=== PATIENT | female | born 1955 | race Caucasian/White ===

== ENCOUNTER 2016-09-28 09:17 | Day surgery (SDC) | payer MEDICARE ==
--- NOTE | 2016-09-28 08:08 | HP ---
DATE OF SURGERY: 09/28/2016 HISTORY OF PRESENT ILLNESS: The patient is a 61 year-old with no prior colonoscopy. Family history daughter with ulcerative colitis, occasional dark stools bowel movements twice a month, upper abdominal discomfort mid abdomen right upper quadrant, some constipation quite often. PAST MEDICAL HISTORY: Chronic obstructive pulmonary disease, hypertension, hypercholesterolemia. PAST SURGICAL HISTORY: Cholecystectomy. MEDICATIONS: Albuterol, Atorvastatin, budesonide. She takes some aspirin, MiraLAX, Spiriva HandiHaler, lisinopril. ALLERGIES: NKDA. FAMILY HISTORY: Cancer, hypertension, SOCIAL HISTORY: Half pack per day smoker. Denies alcohol abuse. REVIEW OF SYSTEMS: Twelve systems reviewed. History of stroke January 2014. No residual weakness. No chest pain or palpitations, other systems negative or noncontributory as above and per preadmission questionnaire. PHYSICAL EXAMINATION: GENERAL: No acute distress. HEENT: Sclerae nonicteric. NECK: No JVD. CHEST: Equal excursion, nonlabored breathing. CVS: Regular rate and rhythm. ABDOMEN: Soft. No peritoneal signs. Mild tenderness epigastrium right upper quadrant. EXTREMITIES: No significant edema. NEURO: Alert, moving extremities symmetrically. No gross motor deficits noted. IMPRESSION: No prior colonoscopy in need of screening colonoscopy as well as given her upper abdominal discomfort, occasional dark stools, I feel she will also benefit from upper endoscopy for evaluation. Risks and benefits explained, shown the risk sheet and explained the procedure in detail including but not limited to bleeding or infection, small risk of bowel injury or perforation possibly requiring open procedure, small risk of missed or nondiagnosis or incomplete exam possibly requiring barium enema, other studies or procedures, general risk of anesthesia or sedation, risk of bowel prep but not limited to. She understands and agrees to the planned procedure and will proceed with EGD and colonoscopy as an outpatient.
[~2016-09-28 09:17] MED LIST: DIPRIVAN 200 MG/20 ML IV ONE; Ketamine HCl 50 MG/ML IV ONE; Lactated Ringers 1,000 ML IV ONE; Lactated Ringers 1,000 ML IV SCH
[2016-09-28] MEDS ORDERED: Zofran 4 MG/2 ML VIAL ONE (13:15)
[2016-09-28 14:40] VITALS: O2SAT 95
[2016-09-28 14:42] VITALS: BP 138/84; PULSE 83
--- NOTE | 2016-09-29 08:32 | OP ---
SURGERY DATE/TIME: 09/28/2016 1232 PREOPERATIVE DIAGNOSES: 1) No prior colonoscopy, need for screening colonoscopy. 2) History of some abdominal pain, occasional dark stools. 3) Family history of ulcerative colitis, need for upper endoscopy as well as screening colonoscopy. POSTOPERATIVE DIAGNOSES: 1) Mild erosive gastritis. 2) Poor right colon prep limiting the exam. 3) Small polyps ascending colon, transverse colon. 4) Small raised lesion sigmoid colon and rectum. 5) Diverticulosis. 6) Small internal and external hemorrhoids. PROCEDURES: 1) EGD with cold biopsy to the antrum to evaluate for Helicobacter pylori. 2) Colonoscopy to cecum with hot snare polypectomy, ascending colon polyp, transverse colon polyp. 3) Hot biopsy small raised lesion sigmoid colon x2. 4) Small raised rectal lesion versus hyperplastic lesion x2. SURGEON: Dr. Ramon Dyer. ANESTHESIA: MAC. ESTIMATED BLOOD LOSS: Minimal. INDICATIONS: As noted above. Risks and benefits explained in detail and not limited to and consent obtained. DESCRIPTION OF PROCEDURE AND FINDINGS: The patient is taken to the operating room. After official time out and no disagreement with planned procedure, bite block positioned. MAC anesthesia introduced. Video gastroscope easily passed down the esophagus through the patent pylorus to the junction of the second and third portion of the duodenum. Duodenum, duodenal bulb grossly unremarkable. No signs of any ulcers or inflammation. The scope pulled back in the stomach. There was some mild gastritis in the antrum with a couple linear erosions in the mid gastric body consistent with some mild erosive gastritis. There were no signs of any large ulcers. No signs of any obvious polyps, masses or other mucosal lesions. There was maybe slight weakness of the hiatus but no evidence of any large hiatal hernia at this time. The scope was straightened. The gastroesophageal junction noted to be about 40 cm. Z-line was fairly crisp with no signs of any obvious mucosal lesions. She did have a few tertiary contractions in the esophagus but no evidence of any mucosal lesions. No evidence of Ndiaye's or any evidence of any erosive esophagitis. The scope is withdrawn. The patient tolerated this portion of the procedure well. Attention was then turned to colonoscopy. She had some small internal and external hemorrhoids. Digital rectal exam did not reveal any rectal masses. Video colonoscope inserted and passed up the tortuous sigmoid, descending and transverse colon. With external pressure and palpation the scope was able to be passed slowly and carefully around to the cecum. Prep in the right colon was somewhat poor limiting the exam but was suction irrigated as well as possible but did limit the exam. On withdrawal of the scope small polyp in the ascending colon removed with hot snare polypectomy with brief bursts of cautery. Good hemostasis noted. Another small polyp in the transverse colon was removed with hot snare polypectomy elevating well away from the bowel wall with brief bursts of cautery. Good hemostasis was noted. There were a few three or four small raised lesions in the sigmoid as well as a couple small raised lesions in the rectum whether just simple hyperplastic lesions versus early true polyps versus hyperplasia of the mucosa they were removed with hot biopsy forceps with brief bursts of cautery. Good hemostasis noted. Otherwise the patient had some diverticulosis in the left colon. There were some small internal and external hemorrhoids. There were no signs of any large polyps, masses or obstructing lesions. Again the prep did limit the exam. I will see her back in the office in a couple of weeks to go over the path results.
== END 2016-09-28 14:40 | disposition home or self-care (01) ==
LOC: SDC 09:17
PROVIDERS: ATTEND Surgery
PROC: 0DB78ZX Excision of Stomach, Pylorus, Via Natural or Artificial Opening Endoscopic, Diagnostic (ICD-10-PCS; principal; 2016-09-28)
PROC: 0DBK8ZX Excision of Ascending Colon, Via Natural or Artificial Opening Endoscopic, Diagnostic (ICD-10-PCS; 2016-09-28)
PROC: 0DBL8ZX Excision of Transverse Colon, Via Natural or Artificial Opening Endoscopic, Diagnostic (ICD-10-PCS; 2016-09-28)
PROC: 0DBN8ZX Excision of Sigmoid Colon, Via Natural or Artificial Opening Endoscopic, Diagnostic (ICD-10-PCS; 2016-09-28)
DX: K29.00 Acute gastritis without bleeding (principal); D12.2 Benign neoplasm of ascending colon; D12.4 Benign neoplasm of descending colon; K63.9 Disease of intestine, unspecified; K62.9 Disease of anus and rectum, unspecified; K57.90 Diverticulosis of intestine, part unspecified, without perforation or abscess without bleeding; K64.4 Residual hemorrhoidal skin tags; K64.8 Other hemorrhoids; J44.9 Chronic obstructive pulmonary disease, unspecified; I10 Essential (primary) hypertension; E78.00 Pure hypercholesterolemia, unspecified; Z79.899 Other long term (current) drug therapy
CPT/HCPCS: 00740; 00810; 36415; 87081; 88305; J2405; J2704

== ENCOUNTER 2016-12-19 15:16 | Emergency (ER) | payer MEDICARE ==
--- NOTE | 2016-12-19 15:54 | ERPHSYRPT ---
- History of Present Illness Time Seen by Provider: 12/19/16 15:51 Source: patient Exam Limitations: no limitations Patient Subjective Stated Complaint: PT REPORTS BUMPING LEFT WRIST ON [place] WEDNESDAY EVENING-STATES THAT WRIST STILL HURTS ET CAN NOT MOVE IT DUE TO PAIN Triage Nursing Assessment: NO OBVIOUS DEFORMITY NOTED TO WRIST-PT REPORTS FULL SENSATION TO EXTEMITY-PT SOB UPON ARRIVAL PT STATES THAT IS NORMAL FOR HER Physician History: c/o pain left hand after door knob injury, Occurred: days ago Method of Injury: direct blow Quality: constant Severity of Pain-Max: moderate Severity of Pain-Current: moderate Extremities Pain Location: forearm: left, wrist: left, hand: left Modifying Factors: Improves With: nothing Associated Symptoms: none Allergies/Adverse Reactions: No Known Drug Allergies Allergy (Unverified 09/28/16 09:31) Home Medications: Atorvastatin Calcium [Lipitor] 40 mg PO DAILY 11/22/14 [History] Hydrochlorothiazide 25 mg [hydroDIURIL 25 MG] 25 mg PO UD 11/22/14 [ History] Ipratropium/Albuterol Sulfate [Iprat-Albut 0.5-3(2.5) mg/3 ml] 3 ml NEB UD 11/22 [History] Tiotropium [place] [Spiriva] 18 mcg IH UD 11/22/14 [History] Albuterol 8 gm Mdi Hfa [Ventolin Hfa MDI] 2 puff IH Q6H PRN PRN 09/14/16 [ History] Aspirin 81 gm Chew [Baby Aspirin 81 mg Chew] 81 mg PO DAILY 09/14/16 [ History] Budesonide/Formoterol Fumarate [Symbicort 160-4.5 Mcg Inhaler] 2 puff IH BID 12/22 [History] Famotidine 20 mg [Pepcid 20 MG] 20 mg PO BID 09/14/16 [History] Polyethylene Glycol 3350 0.5 - 1 scoop PO DAILY 09/14/16 [History] Lisinopril 20 mg [Zestril 20 MG] 20 mg PO DAILY 09/28/16 [History] Hx Tetanus, Diphtheria Vaccination/Date Given: No Hx Influenza Vaccination/Date Given: Yes Hx Pneumococcal Vaccination/Date Given: No Immunizations Up to Date: Yes - Review of Systems Constitutional: No Symptoms Eyes: No Symptoms Ears, Nose, & Throat: No Symptoms Respiratory: No Symptoms Cardiac: No Symptoms Musculoskeletal: Joint Pain, Joint Swelling, No Deformity Skin: No Symptoms - Past Medical History Pertinent Past Medical History: Yes Neurological History: Stroke ENT History: No Pertinent History Cardiac History: High Cholesterol, Hypertension Respiratory History: COPD Endocrine Medical History: No Pertinent History Musculoskeletal History: Arthritis GI Medical History: GERD History: No Pertinent History Psycho-Social History: Depression Female Reproductive Disorders: No Pertinent History Other Medical History: stroke 2013 - mild deficits - Past Surgical History Past Surgical History: Yes Neuro Surgical History: No Pertinent History Cardiac: No Pertinent History Respiratory: No Pertinent History Gastrointestinal: Cholecystectomy Genitourinary: No Pertinent History Musculoskeletal: No Pertinent History Female Surgical History: No Pertinent History - Social History Smoking Status: Current every day smoker How long have you smoked: 40 years Exposure to second hand smoke: No Drug Use: none Patient Lives Alone: No - Nursing Vital Signs Nursing Vital Signs: Initial Vital Signs Temperature 98.5 F 12/19/16 15:23 Pulse Rate 128 H 12/19/16 15:23 Respiratory Rate 24 12/19/16 15:23 Blood Pressure 136/55 12/19/16 15:23 O2 Sat by Pulse Oximetry 92 L 12/19/16 15:23 Pain Scale Pain Intensity 10 - Physical Exam General Appearance: no apparent distress Elbow/Forearm Exam: soft tissue tenderness, No deformity Wrist Exam: normal ROM, soft tissue tenderness Hand Exam: limited ROM, soft tissue tenderness, swelling SpO2: 92 Oxygen Delivery: Room Air Procedures - Splinting Location of Splint: Left, Hand Type of Splint: Other Splint Applied By: ED Nurse Pre-Proc Neuro Vasc Exam: normal Post-Proc Neuro Vasc Exam: neurovascular intact - Course Nursing assessment & vital signs reviewed: Yes - Radiology Exams Hand X-ray Interpretation: Reviewed by me, Negative, No Fracture Ordered Tests: Active Orders 24 hr Category Date Time Status HAND (MINIMUM 3 VIEWS) Stat Exams 12/19/16 15:49 Taken WRIST (MIN 3 VIEWS) Stat Exams 12/19/16 Taken - Progress Progress: unchanged, pain not gone completely Counseled pt/family regarding: diagnosis, need for follow-up, rad results - Departure Time of Disposition: 16:27 Departure Disposition: Home Clinical Impression: Hand injury Qualifiers: Encounter type: initial encounter Laterality: left Qualified Code(s): S69.92XA - Unspecified injury of left wrist, hand and finger(s), initial encounter Condition: Stable Critical Care Time: No Referrals: JOY NOBLE MD [Primary Care Provider] - Additional Instructions: SPRAINS/STRAINS/CONTUSIONS 1. Rest the affected area as much as possible for the next few days. 2. Apply ice to the affected area for 20-30 minutes at a time, several times a day. 3. If you receive an elastic wrap, wear it only while awake for comfort and support. Re-wrap the elastic wrap if it feels too tight or too loose. 4. If swelling is present, elevate the affected part above the level of the heart for at least 2 to 3 days. 5. Use splints, slings, or crutches as instructed. 6. Watch for severe swelling, coldness, numbness, and discoloration of the fingers and toes. See your family physician or return to the emergency department if any of these are noted. Please follow the instructions given to you. Please take your medication as prescribed if given. If symptoms recur or get worse, come back to the emergency room if you cannot reach your primary care physician, or call your primary care physician for an appointment. Again if your symptoms get worse, come back to the emergency room. Thanks for visiting emergency room, and let us take care of you. Prescriptions: Naproxen 375 mg [Naprosyn 375 mg] 375 mg PO Q8H #30 tablet
[2016-12-19 16:44] VITALS: BP 146/78; PULSE 88; O2SAT 98
--- NOTE | 2016-12-19 20:54 | XRAY ---
Indication: Pain following injury 3 days ago. Comparison: None 3 views of the left hand demonstrates moderate/advanced first metacarpal multangular degenerative changes and mild degenerative changes of all IP joints, greatest fifth DIP. No other bony, articular, or soft tissue abnormalities.
--- NOTE | 2016-12-19 20:54 | XRAY ---
Indication: Pain following injury 3 days ago. Comparison: None 3 views of the left wrist demonstrates moderate/advanced first metacarpal multangular degenerative changes and tiny scaphoid bone cyst. No other bony, articular, or soft tissue abnormalities.
== END 2016-12-19 16:48 | disposition home or self-care (01) ==
LOC: ED 15:16
DX: S69.92XA Unspecified injury of left wrist, hand and finger(s), initial encounter (principal); W22.8XXA Striking against or struck by other objects, initial encounter; E78.00 Pure hypercholesterolemia, unspecified; I10 Essential (primary) hypertension
CPT/HCPCS: 73110; 73130; 99283; L3908

== ENCOUNTER 2018-07-30 18:22 | Observation (INO) | payer MEDICARE ==
--- NOTE | 2018-07-30 19:49 | ERPHSYRPT ---
- History of Present Illness Time Seen by Provider: 07/30/18 19:45 Source: patient, family Exam Limitations: no limitations Patient Subjective Stated Complaint: Pt c/o of pain that began July 21 in her left knee joint and then it moved to the right and up to the arms, pain in her entire left arm, weak, febrile, Triage Nursing Assessment: Pt walked into the ER with a walker, weak, lethargic , skin sallow in color, has been in bed for a week except to use the restroom, needed family assistance to help her to the restroom, tachycardic, febrile, decrease in appetite Physician History: pt has COPD and recently has had productive cough with fever and increased shortness of breath no CP but has had myalgias and joint pains diffuse; no prior DVT or PE ; Timing/Duration: day(s) Cough Quality/Degree: productive cough Possible Cause: frequent episodes Modifying Factors: Improves With: coughing, deep breath Associated Symptoms: fever, chills, cough, shortness of breath, sore throat, wheezing Allergies/Adverse Reactions: No Known Drug Allergies Allergy (Verified 07/30/18 18:59) Home Medications: Atorvastatin Calcium [Lipitor] 40 mg PO DAILY 11/22/14 [History] Hydrochlorothiazide 25 mg [hydroDIURIL 25 MG] 15 mg PO UD 11/22/14 [ History] Ipratropium/Albuterol Sulfate [Iprat-Albut 0.5-3(2.5) mg/3 ml] 3 ml NEB UD 11/22 [History] Tiotropium [place] [Spiriva] 18 mcg IH UD 11/22/14 [History] Albuterol 8 gm Mdi Hfa [Ventolin Hfa MDI] 2 puff IH Q6H PRN PRN 09/14/16 [ History] Aspirin 81 gm Chew [Baby Aspirin 81 mg Chew] 81 mg PO DAILY 09/14/16 [ History] Budesonide/Formoterol Fumarate [Symbicort 160-4.5 Mcg Inhaler] 2 puff IH BID 12/22 [History] Polyethylene Glycol 3350 0.5 - 1 scoop PO DAILY 09/14/16 [History] Lisinopril 20 mg [Zestril 20 MG] 20 mg PO DAILY 09/28/16 [History] Clopidogrel Bisulfate [Clopidogrel] 75 mg PO DAILY 07/30/18 [History] Fluticasone Propionate [Flonase NASAL] 1 spray INTRANASAL UD 07/30/18 [ History] raNITIdine HCl [Ranitidine HCl] 150 mg PO BID 07/30/18 [History] Hx Tetanus, Diphtheria Vaccination/Date Given: No Hx Influenza Vaccination/Date Given: Yes Hx Pneumococcal Vaccination/Date Given: No - Review of Systems Constitutional: Fever, Chills, Fatigue, Malaise, Weakness Eyes: No Symptoms Ears, Nose, & Throat: No Symptoms Respiratory: No Cough, No Dyspnea Cardiac: No Chest Pain, No Edema, No Syncope Abdominal/Gastrointestinal: No Abdominal Pain, No Nausea, No Vomiting, No Diarrhea Genitourinary Symptoms: No Dysuria Musculoskeletal: Joint Pain, Myalgias, No Back Pain, No Neck Pain Skin: No Rash Neurological: No Dizziness, No Focal Weakness, No Sensory Changes Psychological: No Symptoms Endocrine: No Symptoms All Other Systems: Reviewed and Negative - Past Medical History Pertinent Past Medical History: Yes Neurological History: Stroke ENT History: No Pertinent History Cardiac History: High Cholesterol, Hypertension Respiratory History: COPD Endocrine Medical History: No Pertinent History Musculoskeletal History: Osteoarthritis GI Medical History: GERD History: No Pertinent History Psycho-Social History: Depression Female Reproductive Disorders: No Pertinent History Other Medical History: 01/2014 CVA, - Past Surgical History Past Surgical History: Yes Neuro Surgical History: No Pertinent History Cardiac: No Pertinent History Respiratory: No Pertinent History Gastrointestinal: Cholecystectomy Genitourinary: No Pertinent History Musculoskeletal: No Pertinent History Female Surgical History: No Pertinent History - Social History Smoking Status: Current every day smoker How long have you smoked: 40 years Exposure to second hand smoke: Yes Drug Use: none Patient Lives Alone: Yes - Female History Hx Now: No - Nursing Vital Signs Nursing Vital Signs: Initial Vital Signs Temperature 100.2 F 07/30/18 18:49 Pulse Rate 122 H 07/30/18 18:49 Blood Pressure 107/67 07/30/18 18:49 O2 Sat by Pulse Oximetry 96 07/30/18 18:49 Pain Scale Pain Intensity 9 - Physical Exam General Appearance: no apparent distress, alert Eye Exam: PERRL/EOMI, eyes nml inspection Ears, Nose, Throat Exam: normal ENT inspection, TMs normal, pharynx normal, moist mucous membranes Neck Exam: normal inspection, non-tender, supple, full range of motion Respiratory Exam: normal breath sounds, airway intact, rhonchi, wheezing, No respiratory distress Cardiovascular Exam: regular rate/rhythm, normal heart sounds Gastrointestinal/Abdomen Exam: soft, No tenderness Pelvic Exam: deferred Rectal Exam: deferred Back Exam: normal inspection, No CVA tenderness, No vertebral tenderness Extremity Exam: normal inspection, normal range of motion Neurologic Exam: alert, oriented x 3, cooperative, normal mood/affect, sensation nml, No motor deficits Skin Exam: normal color, warm, dry, No rash Lymphatic Exam: No adenopathy SpO2: 96 - Course Nursing assessment & vital signs reviewed: Yes - Radiology Exams Chest X-ray Interpretation: Reviewed by me, Infiltrates Ordered Tests: Active Orders 24 hr Category Date Time Status Letter Carrier STAT Care 07/30/18 19:51 Active EKG-ER Only STAT Care 07/30/18 19:49 Active IV Insertion STAT Care 07/30/18 19:49 Active Pulse Oximetry (ED) STAT Care 07/30/18 19:49 Active CHEST 1 VIEW (PORTABLE) Stat Exams 07/30/18 19:50 Completed CBC W DIFF Stat Lab 07/30/18 20:28 Completed CMP Stat Lab 07/30/18 20:28 Completed Lactic Acid Stat Lab 07/30/18 20:35 Completed NT PRO BNP Stat Lab 07/30/18 20:28 Completed Occult Blood-Screening (Stool) [Occult Blood - Cancer Lab 07/30/18 22:13 Ordered Screen] Stat T4 (Thyroxine) Stat Lab 07/30/18 20:28 Completed TROPONIN Q3H Lab 07/30/18 23:00 Ordered TROPONIN Q3H Lab 07/31/18 02:00 Ordered TROPONIN Q3H Lab 07/31/18 05:00 Ordered TROPONIN Q3H Lab 07/31/18 08:00 Ordered TROPONIN Stat Lab 07/30/18 20:28 Completed TSH, 3RD Generation Stat Lab 07/30/18 20:28 Completed UA W/RFX UR CULTURE Stat Lab 07/30/18 19:50 Uncollected Respiratory Therapy Assessment DAILY RT 07/30/18 20:45 Completed Medication Summary Generic Name Dose Route Start Last Admin Trade Name Freq PRN Reason Stop Dose Admin Sodium Chloride 1,000 mls @ 100 mls/hr 05/25/19 20:00 07/30/18 20:23 Sodium Chloride 0.9% 1000 Ml IV 08/29/18 19:59 100 mls/hr .Q10H DEWAYNE Administration Discontinued Medications Generic Name Dose Route Start Last Admin Trade Name Heberq PRN Reason Stop Dose Admin Albuterol/Ipratropium 3 ml 07/30/18 19:54 07/30/18 20:46 Duoneb 0.5-3 Mg/3 Ml Neb IH 07/30/18 19:55 3 ml STAT ONE Administration Albuterol/Ipratropium Confirm 07/30/18 20:39 Duoneb 0.5-3 Mg/3 Ml Neb Administered 07/30/18 20:40 Dose 3 ml IH .STK-MED ONE Ceftriaxone Sodium/Dextrose 1 g in 50 mls @ 100 mls/hr 07/30/18 19:53 20:23 Rocephin 1 Gm-D5w 50 Ml Bag IV 07/30/18 20:22 100 mls/hr STAT STA Administration Ceftriaxone Sodium/Dextrose Confirm 07/30/18 20:08 Rocephin 1 Gm-D5w 50 Ml Bag Administered 07/30/18 20:09 Dose 1 g in 50 mls @ ud IV .STK-MED ONE Methylprednisolone Sodium Succinate 125 mg 07/30/18 19:55 07/30/18 20:23 Solu-Medrol 125 Mg IV 07/30/18 19:56 125 mg STAT ONE Administration Methylprednisolone Sodium Succinate Confirm 07/30/18 20:08 Solu-Medrol 125 Mg Administered 07/30/18 20:09 Dose 125 mg .ROUTE .STK-MED ONE Lab/Rad Data: Laboratory Result Diagrams 07/30/18 20:28 07/30/18 20:28 Laboratory Results 07/30/18 07/30/18 07/30/18 Range/Units Unknown Unknown 20:35 WBC (4.0-10.5) K/mm3 RBC (4.1-5.4) M/mm3 Hgb (12.0-16.0) gm/dl Hct (35-47) % MCV (78-100) fl MCH (26-32) pg MCHC (32-36) g/dl RDW (11.5-14.0) % Plt Count (150-450) K/mm3 MPV (6-9.5) fl Gran % (36.0-66.0) % Eos # (Auto) (0-0.5) Absolute Lymphs (auto) (1.0-4.6) Absolute Monos (auto) (0.0-1.3) Lymphocytes % (24.0-44.0) % Monocytes % (0.0-12.0) % Eosinophils % (0.00-5.0) % Basophils % (0.0-0.4) % Absolute Granulocytes (1.4-6.9) Basophils # (0-0.4) Sodium (137-145) mmol/L Potassium (3.5-5.1) mmol/L Chloride (98-107) mmol/L Carbon Dioxide (22-30) mmol/L Anion Gap (5-15) MEQ/L BUN (7-17) mg/dL Creatinine (0.52-1.04) mg/dL Estimated GFR ML/MIN Glucose (74-106) mg/dL Lactic Acid 1.1 (0.4-2.0) Calcium (8.4-10.2) mg/dL Total Bilirubin (0.2-1.3) mg/dL AST (14-36) U/L ALT (0-35) U/L Alkaline Phosphatase (38-126) U/L Troponin I (0.000-0.034) ng/mL NT-Pro-B Natriuret Pep (0-900) pg/mL Serum Total Protein (6.3-8.2) g/dL Albumin (3.5-5.0) g/dL Thyroxine (T4) (5.53-10.96) ug/dL TSH 3rd Generation (0.47-4.68) mIU/L Influenza Type A Ag NEGATIVE (NEGATIVE) Influenza Type B Ag NEGATIVE (NEGATIVE) RSV (PCR) NEGATIVE (Negative) Group A Strep Antibody NEGATIVE (NEGATIVE) 07/30/18 07/30/18 Range/Units 20:28 20:28 WBC 11.8 H (4.0-10.5) K/mm3 RBC 3.20 L (4.1-5.4) M/mm3 Hgb 7.0 L (12.0-16.0) gm/dl Hct 25.0 L (35-47) % MCV 78.1 (78-100) fl MCH 21.8 L (26-32) pg MCHC 28.0 L (32-36) g/dl RDW 17.7 H (11.5-14.0) % Plt Count 727 H (150-450) K/mm3 MPV 9.3 (6-9.5) fl Gran % 75.8 H (36.0-66.0) % Eos # (Auto) 0.13 (0-0.5) Absolute Lymphs (auto) 1.50 (1.0-4.6) Absolute Monos (auto) 1.13 (0.0-1.3) Lymphocytes % 12.7 L (24.0-44.0) % Monocytes % 9.6 (0.0-12.0) % Eosinophils % 1.1 (0.00-5.0) % Basophils % 0.8 (0.0-0.4) % Absolute Granulocytes 8.93 H (1.4-6.9) Basophils # 0.09 (0-0.4) Sodium 140 (137-145) mmol/L Potassium 3.5 (3.5-5.1) mmol/L Chloride 102 (98-107) mmol/L Carbon Dioxide 26 (22-30) mmol/L Anion Gap 15.0 (5-15) MEQ/L BUN 31 H (7-17) mg/dL Creatinine 1.01 (0.52-1.04) mg/dL Estimated GFR 59.0 ML/MIN Glucose 105 (74-106) mg/dL Lactic Acid (0.4-2.0) Calcium 9.5 (8.4-10.2) mg/dL Total Bilirubin 0.50 (0.2-1.3) mg/dL AST 33 (14-36) U/L ALT 12 (0-35) U/L Alkaline Phosphatase 149 H (38-126) U/L Troponin I < 0.012 (0.000-0.034) ng/mL NT-Pro-B Natriuret Pep 595 (0-900) pg/mL Serum Total Protein 7.2 (6.3-8.2) g/dL Albumin 3.7 (3.5-5.0) g/dL Thyroxine (T4) 12.4 H (5.53-10.96) ug/dL TSH 3rd Generation 0.572 (0.47-4.68) mIU/L Influenza Type A Ag (NEGATIVE) Influenza Type B Ag (NEGATIVE) RSV (PCR) (Negative) Group A Strep Antibody (NEGATIVE) - Progress Progress: improved, re-examined Air Movement: good Progress Note: 07/30/18 22:37 discussed with pt and Dr. Watson adn both agree best to place the pt on obs and transfuse and go on AB for COPD exacerbation; Blood Culture(s) Obtained: No Antibiotics given: Yes Discussed with : Walter Will see patient in: hospital (observation) Counseled pt/family regarding: lab results, diagnosis, need for follow-up, rad results - Departure Departure Disposition: Observation Clinical Impression: COPD with exacerbation, Hemoglobin decreased Condition: Good Critical Care Time: No Referrals: CHRISTINA SCHMITT MD [Primary Care Provider] - Instructions: Chronic Obstructive Pulmonary Disease
[2018-07-30] MEDS ORDERED: ROCEPHIN 1 Gm-D5w 50 ml Bag** 1 G/50 ML IVPB IV STA (19:53)
[2018-07-30] MEDS ORDERED: DUONEB 0.5-3 MG/3 ml Neb IH ONE ×2 (19:54→20:39)
[2018-07-30] MEDS ORDERED: solu-MEDROL 125 MG IV ONE (19:55)
[2018-07-30] MEDS ORDERED: Sodium Chloride 0.9% 1000 ML 1,000 ML IV SCH (20:00)
[2018-07-30] MEDS ORDERED: solu-MEDROL 125 MG ONE (20:08)
[2018-07-30] MEDS ORDERED: ROCEPHIN 1 Gm-D5w 50 ml Bag** 1 G/50 ML IVPB IV ONE (20:08)
[2018-07-30] MEDS ORDERED: Sodium Chloride 0.9% 1000 ML 1,000 ML ONE (20:08)
[2018-07-30 20:24] LABS: BASOPHIL % 0.8 % (0.0-0.4); Basophil (Absolute #) 0.09 (0-0.4); Eosinophil % 1.1 % (0.00-5.0); Eosinophil (Absolute #) 0.13 (0-0.5); Granulocyte Absolute (ANC) 8.93 (1.4-6.9); Granulocytes % 75.8 % (36.0-66.0); Lymphocytes % 12.7 % (24.0-44.0); Mean Cell Volume 78.1 fl (78-100); Mean Platelet Volume 9.3 fl (6-9.5); Monocyte (Absolute #) 1.13 (0.0-1.3); Monocytes % 9.6 % (0.0-12.0); Platelet Count 727 K/mm3 (150-450); Red Cell Distribution Width 17.7 % (11.5-14.0); White Blood Count 11.8 K/mm3 (4.0-10.5)
[2018-07-30 20:40] LABS: Mean Corpuscular Hemoglobin 21.8 pg (26-32)
--- NOTE | 2018-07-30 20:56 | XRAY ---
Indication: Short of breath. COPD. Comparison: November 22, 2014. Portable chest remains hyperinflated and clear. Heart is not enlarged with new electronic device overlying the left heart border. Bony thorax intact. No acute findings.
[2018-07-30 20:59] LABS: INFLUENZA A NEGATIVE (NEGATIVE); INFLUENZA B NEGATIVE (NEGATIVE); RESPIRATORY SYNCTIAL VIRUS NEGATIVE (Negative)
[2018-07-30 21:05] LABS: ALBUMIN 3.7 g/dL (3.5-5.0); ALKALINE PHOSPHATASE 149 U/L (38-126); BLOOD UREA NITROGEN 31 mg/dL (7-17); CHLORIDE 102 mmol/L (98-107); Calcium 9.5 mg/dL (8.4-10.2); Carbon Dioxide 26 mmol/L (22-30); Creatinine 1 1.01 mg/dL (0.52-1.04); Glucose 105 mg/dL (74-106); NT PRO BNP 595 pg/mL (0-900); Potassium 3.5 mmol/L (3.5-5.1); SGOT/AST 33 U/L (14-36); SGPT/ALT 12 U/L (0-35); SODIUM 140 mmol/L (137-145); TSH, 3RD Generation 0.572 mIU/L (0.47-4.68); Total Protein 7.2 g/dL (6.3-8.2)
[2018-07-30 21:06] LABS: TROPONIN < 0.012 ng/mL (0.000-0.034)
[2018-07-31] MEDS ORDERED: Zofran 4 MG/2 ML VIAL IV PRN (00:04)
[2018-07-31] MEDS ORDERED: NovoLIN R SQ PRN (00:04)
[2018-07-31 00:06] LABS: ABO TYPING O; Antibody Screen NEGATIVE (NEGATIVE); RH TYPING POSITIVE
[2018-07-31 03:11] LABS: Appearance CLEAR (CLEAR); Bilirubin NEGATIVE (NEGATIVE); Blood NEGATIVE Ery/ul (0-5); Glucose NEGATIVE (NEGATIVE); Hyaline Casts 0-2 /LPF (0-2); Ketones NEGATIVE (NEGATIVE); Leukocyte Esterase TRACE (NEGATIVE); Mucus SLIGHT /HPF (NEGATIVE); Nitrite NEGATIVE (NEGATIVE); Protein,Urine Dip NEGATIVE (Negative); Specific Gravity 1.012 (1.005-1.025); Urobilinogen NEGATIVE mg/dL (0-1)
[2018-07-31] MEDS: Sodium Chloride 0.9% 1000 ML 1,000 ML IV SCH ×3 (03:19→22:47)
[2018-07-31] MEDS: solu-MEDROL 125 MG IV SCH ×2 (03:31→06:24)
[2018-07-31] MEDS: Zosyn 3.375GM/100 Ml D5W 3.375 GM/100 ML IVPB IV SCH ×5 (03:33→23:39)
[2018-07-31 05:44] LABS: BASOPHIL % 0.3 % (0.0-0.4); Basophil (Absolute #) 0.03 (0-0.4); Eosinophil % 0.1 % (0.00-5.0); Eosinophil (Absolute #) 0.01 (0-0.5); Granulocyte Absolute (ANC) 8.63 (1.4-6.9); Granulocytes % 92.7 % (36.0-66.0); Hematocrit 24.4 % (35-47); Lymphocyte (Absolute #) 0.61 (1.0-4.6); Lymphocytes % 6.5 % (24.0-44.0); Mean Cell Volume 78.5 fl (78-100); Mean Corpuscular Hgb Concent. 27.9 g/dl (32-36); Mean Platelet Volume 9.1 fl (6-9.5); Monocyte (Absolute #) 0.04 (0.0-1.3); Monocytes % 0.4 % (0.0-12.0); Platelet Count 728 K/mm3 (150-450); Red Blood Count 3.11 M/mm3 (4.1-5.4); Red Cell Distribution Width 17.7 % (11.5-14.0); White Blood Count 9.3 K/mm3 (4.0-10.5)
[2018-07-31 05:55] LABS: ALBUMIN 3.5 g/dL (3.5-5.0); BLOOD UREA NITROGEN 26 mg/dL (7-17); Calcium 9.3 mg/dL (8.4-10.2); Carbon Dioxide 25 mmol/L (22-30); Creatinine 1 0.88 mg/dL (0.52-1.04); Glucose 160 mg/dL (74-106); Potassium 4.2 mmol/L (3.5-5.1); SGOT/AST 33 U/L (14-36); SGPT/ALT 14 U/L (0-35); SODIUM 139 mmol/L (137-145); Total Protein 6.7 g/dL (6.3-8.2)
[2018-07-31 05:57] LABS: ALKALINE PHOSPHATASE 127 U/L (38-126)
[2018-07-31 05:58] LABS: CHLORIDE 101 mmol/L (98-107)
[2018-07-31 06:04] LABS: Mean Corpuscular Hemoglobin 21.8 pg (26-32)
[2018-07-31 06:05] LABS: Hemoglobin 6.8 gm/dl (12.0-16.0)
[2018-07-31 06:11] LABS: ANION GAP 17.2 MEQ/L (5-15)
[2018-07-31 06:25] LABS: Slide Review 1 YES
[2018-07-31 06:46] LABS: CROSS MATCH (PRBC) COMPATIBLE (COMPATIBLE)
[2018-07-31] MEDS ORDERED: Advair Hfa 230/21 Mcg COMMON CANISTER IH SCH (07:00)
[2018-07-31] MEDS ORDERED: Spiriva 18 Mcg/Cap Inhaler IH SCH (07:00)
[2018-07-31] MEDS ORDERED: ROCEPHIN 1 Gm-D5w 50 ml Bag** 1 G/50 ML IVPB IV SCH (10:00)
[2018-07-31] MEDS ORDERED: Pepcid 20 MG PO SCH (10:00)
[2018-07-31] MEDS ORDERED: Pepcid 20 MG VIAL IV SCH (10:00)
[2018-07-31] MEDS ORDERED: Flonase NASAL NS PRN (10:00)
[2018-07-31] MEDS ORDERED: hydroDIURIL 25 MG PO SCH (10:30)
[2018-07-31] MEDS: Miralax Powder 17GM PACKET PO SCH (10:55)
[2018-07-31] MEDS: PLAVIX 75 MG Tablet PO SCH (10:55)
[2018-07-31] MEDS: Zestril 20 MG PO SCH (10:55)
[2018-07-31] MEDS: PROTONIX 40 MG IV IV SCH (10:55)
[2018-07-31] MEDS: ECOTRIN 81 MG PO SCH (10:55)
[2018-07-31] MEDS: solu-MEDROL 40 MG IV SCH ×2 (10:56→18:15)
[2018-07-31] MEDS ORDERED: PROVENTIL 2.5 MG/3 ML NEB IH SCH (11:00)
[2018-07-31] MEDS ORDERED: solu-MEDROL 125 MG IV SCH (12:00)
[2018-07-31 14:59] LABS: Hematocrit 27.8 % (35-47); Hemoglobin 8.2 gm/dl (12.0-16.0)
[2018-07-31] MEDS ORDERED: MEDICATION INTERVENTION MC SCH (16:45)
[2018-07-31] MEDS ORDERED: Spiriva 18 Mcg/Cap Inhaler IH ONE (16:45)
[2018-07-31] MEDS: Spiriva 18 Mcg/Cap Inhaler IH SCH ×2 (17:00→20:30)
[2018-07-31] MEDS: PATIENT OWN MEDICATION PO SCH (18:14)
[2018-07-31] MEDS ORDERED: TYLENOL 325 MG PO PRN (20:06)
[2018-07-31] MEDS: PATIENT OWN MEDICATION IH SCH (20:29)
[2018-07-31] MEDS ORDERED: TYLENOL 325 MG ONE (21:29)
[2018-07-31] MEDS: ZOCOR 20MG PO SCH (21:41)
[2018-07-31] MEDS ORDERED: Miscellaneous Medication Order MC SCH (22:00)
[2018-07-31] MEDS ORDERED: NON-FORMULARY ITEM (Ranitidine Hcl [Ranitidine Hcl] 150 MG) PO SCH (22:00)
[2018-07-31] MEDS: DUONEB 0.5-3 MG/3 ml Neb IH PRN (22:30)
[2018-08-01] MEDS ORDERED: TYLENOL 325 MG ONE (02:24)
[2018-08-01] MEDS: TYLENOL 325 MG PO PRN ×3 (02:26→23:33)
[2018-08-01] MEDS: solu-MEDROL 40 MG IV SCH ×3 (02:27→21:05)
[2018-08-01] MEDS: DUONEB 0.5-3 MG/3 ml Neb IH PRN ×3 (04:28→20:35)
[2018-08-01] MEDS: Zosyn 3.375GM/100 Ml D5W 3.375 GM/100 ML IVPB IV SCH ×4 (05:45→23:34)
[2018-08-01 06:30] LABS: Hematocrit 27.1 % (35-47); Mean Cell Volume 81.1 fl (78-100); Mean Corpuscular Hgb Concent. 29.5 g/dl (32-36); Mean Platelet Volume 9.4 fl (6-9.5); Platelet Count 605 K/mm3 (150-450); Red Blood Count 3.34 M/mm3 (4.1-5.4); Red Cell Distribution Width 17.7 % (11.5-14.0); White Blood Count 15.8 K/mm3 (4.0-10.5)
[2018-08-01 06:38] LABS: Mean Corpuscular Hemoglobin 23.9 pg (26-32)
[2018-08-01] MEDS ORDERED: BABY ASPIRIN 81 MG CHEW PO SCH (10:00)
[2018-08-01] MEDS ORDERED: NON-FORMULARY ITEM (Atorvastatin Calcium [Lipitor] 40 MG) PO SCH (10:00)
[2018-08-01] MEDS: Sodium Chloride 0.9% 1000 ML 1,000 ML IV SCH ×2 (10:31→21:06)
[2018-08-01] MEDS: PROTONIX 40 MG IV IV SCH (10:33)
[2018-08-01] MEDS: Miralax Powder 17GM PACKET PO SCH (10:33)
[2018-08-01] MEDS: Zestril 20 MG PO SCH (10:36)
[2018-08-01] MEDS: hydroDIURIL 25 MG PO SCH (10:37)
[2018-08-01] MEDS: PLAVIX 75 MG Tablet PO SCH (10:37)
[2018-08-01] MEDS: ECOTRIN 81 MG PO SCH (10:38)
[2018-08-01] MEDS: PATIENT OWN MEDICATION PO SCH ×2 (10:39→21:05)
[2018-08-01] MEDS: PATIENT OWN MEDICATION IH SCH ×3 (10:40→20:38)
--- NOTE | 2018-08-01 11:22 | PCM.NOTE ---
Date and Time: 08/01/18 1119 Subjective Assessment: Pt s/o cough, achy arms but improved since admission. Pt was hemoccult positive, but hasn't been seeing any ankit blood in her stool. When I ask her, she admits to feeling weak/tired. Denies abdominal pain. Laura po. - Review of Systems Constitutional: No Fever Abdominal/Gastrointestinal: No Abdominal Pain, No Vomiting Objective Exam General Appearance: no apparent distress, alert Neurologic Exam: oriented x 3, cooperative Skin Exam: normal color, warm, dry, No rash Respiratory Exam: diminished breath sounds (poor air exchange.), wheezing (faint , scattered expiratory), No crackles/rales, No rhonchi Cardiovascular Exam: regular rate/rhythm, normal heart sounds, No murmur Gastrointestinal/Abdomen Exam: soft, normal bowel sounds, tenderness (epigastrum ) Extremity Exam: normal inspection, No pedal edema, No swelling OBJECTIVE DATA Vital Signs: Vital Signs - 24 hr Temp Pulse Resp BP Pulse Ox 08/01/18 10:00 14 08/01/18 07:32 98.2 F 80 18 105/62 93 L 08/01/18 04:29 86 19 93 L 08/01/18 04:15 98.8 F 82 20 104/68 95 08/01/18 00:20 98.2 F 83 18 103/61 95 07/31/18 22:30 85 20 96 07/31/18 20:30 85 20 93 L 07/31/18 20:17 98.2 F 94 H 20 106/61 96 07/31/18 18:00 16 07/31/18 15:36 97.9 F 98 H 20 116/58 96 07/31/18 14:00 17 07/31/18 12:39 97.8 F 101 H 20 117/61 97 Oxygen-Last 24 hours O2 Percentage 2 Liters = 28% Pain Assessment - Last Documented Pain Intensity 7 Pain Scale Used 0-10 Pain Scale Intake and Output: Intake & Output 07/29/18 07/30/18 07/31/18 08/01/18 11:59 11:59 11:59 11:59 Intake Total 809 2984 Output Total 250 2850 Balance 559 134 Weight 90.3 kg 90.3 kg Lab Results: Lab Results-Last 24 Hours 07/31/18 07/31/18 08/01/18 Range/Units 11:51 14:40 06:29 WBC 15.8 H (4.0-10.5) K/mm3 RBC 3.34 L (4.1-5.4) M/mm3 Hgb 8.2 L D 8.0 L (12.0-16.0) gm/dl Hct 27.8 L 27.1 L (35-47) % MCV 81.1 (78-100) fl MCH 23.9 L (26-32) pg MCHC 29.5 L (32-36) g/dl RDW 17.7 H (11.5-14.0) % Plt Count 605 H (150-450) K/mm3 MPV 9.4 (6-9.5) fl Stool Occult Bld Scrn POSITIVE A (NEGATIVE) Radiology Exams: Radiology Procedures Category Date Time Status CHEST 1 VIEW (PORTABLE) Stat Exams 07/30/18 19:50 Completed Multi-Disciplinary Progress Notes: Multi-Disciplinary Progress Notes 07/31/18 20:39 Respiratory Note by Steve Agustin WHEN I WENT TO GIVE PT HER SPIRIVA SHE STATED THAT SHE HAD DONE IT ON HER OWN AT 1630 SO I DID NOT GIVE HER ANOTHER DOSE. Initialized on 07/31/18 20:39 - END OF NOTE Assessment/Plan (1) COPD with exacerbation Current Visit: Yes Status: Acute Assessment & Plan: On zosyn day #2 with some improvement, but still quite a bit of cough and poor air exchange. On IV steroids 40mg q8h. Code(s): J44.1 - CHRONIC OBSTRUCTIVE PULMONARY DISEASE W (ACUTE) EXACERBATION (2) GI bleed Current Visit: Yes Status: Acute Assessment & Plan: Plan is to do EGD outpatient. She is still on ASA and plavix. Code(s): K92.2 - GASTROINTESTINAL HEMORRHAGE, UNSPECIFIED (3) Anemia Current Visit: Yes Status: Acute Qualifiers: Anemia type: iron deficiency Iron deficiency anemia type: unspecified iron deficiency Qualified Code(s): D50.9 - Iron deficiency anemia, unspecified Assessment & Plan: Recheck labs in a.m. Hgb was 7.0 at admission; 8.0 this morning. Has received 2 units PRBC. Code(s): D64.9 - ANEMIA, UNSPECIFIED
[2018-08-01] MEDS: Spiriva 18 Mcg/Cap Inhaler IH SCH (16:15)
[2018-08-01] MEDS: ZOCOR 20MG PO SCH (21:06)
[2018-08-02] MEDS: solu-MEDROL 40 MG IV SCH ×2 (02:57→13:02)
[2018-08-02] MEDS: TYLENOL 325 MG PO PRN ×2 (03:36→07:53)
[2018-08-02] MEDS: DUONEB 0.5-3 MG/3 ml Neb IH PRN (04:02)
[2018-08-02 04:06] VITALS: O2SAT 93
[2018-08-02] MEDS: Zosyn 3.375GM/100 Ml D5W 3.375 GM/100 ML IVPB IV SCH ×2 (05:30→12:06)
[2018-08-02 05:52] LABS: BASOPHIL % 0.4 % (0.0-0.4); Basophil (Absolute #) 0.02 (0-0.4); Eosinophil % 4.2 % (0.00-5.0); Granulocyte Absolute (ANC) 2.98 (1.4-6.9); Granulocytes % 63.3 % (36.0-66.0); Hematocrit 36.6 % (35-47); Lymphocyte (Absolute #) 1.12 (1.0-4.6); Lymphocytes % 23.8 % (24.0-44.0); Mean Cell Volume 87.4 fl (78-100); Mean Corpuscular Hemoglobin 28.6 pg (26-32); Mean Corpuscular Hgb Concent. 32.8 g/dl (32-36); Mean Platelet Volume 12.7 fl (6-9.5); Monocyte (Absolute #) 0.39 (0.0-1.3); Monocytes % 8.3 % (0.0-12.0); Platelet Count 109 K/mm3 (150-450); Red Blood Count 4.19 M/mm3 (4.1-5.4); Red Cell Distribution Width 14.1 % (11.5-14.0); White Blood Count 4.7 K/mm3 (4.0-10.5)
[2018-08-02 06:04] LABS: ANION GAP 13.6 MEQ/L (5-15); BLOOD UREA NITROGEN 12 mg/dL (7-17); CHLORIDE 112 mmol/L (98-107); Calcium 8.6 mg/dL (8.4-10.2); Carbon Dioxide 22 mmol/L (22-30); Glucose 112 mg/dL (74-106); Potassium 3.4 mmol/L (3.5-5.1); SODIUM 145 mmol/L (137-145)
[2018-08-02] MEDS: PATIENT OWN MEDICATION IH SCH (07:57)
--- NOTE | 2018-08-02 08:27 | HP ---
CHIEF COMPLAINT: Weakness, shortness of breath, fever and chills. HISTORY OF PRESENT ILLNESS: This is a 63 year-old female who reports she was having problems with feeling weak. She began having problems with low grade fever. She has needing assistance to get up to go to the bathroom. She felt the heart rate was fast. She does have a loop recorder in presently and sees Dr. Enoch Meng in [facility]. She is also followed by her family doctor over in [facility] which she presently is not happy with. 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 HOME MEDICATIONS: Atorvastatin 40 mg a day, hydrodiuril 25 mg a day, ipratropium Albuterol nebulizer treatments, Spiriva, Albuterol PRN, aspirin 81 mg a day, Symbicort, polyethylene glycol in the morning, lisinopril 20 mg a day, Plavix 75 mg a day, Flonase, ranitidine. ALLERGIES: NKDA. PHYSICAL EXAMINATION: Revealed a well-nourished, well-developed 63 year-old white female currently in no distress. Her vital signs on admission showed her temperature to be 100.2F, pulse 122, blood pressure 107/67. O2 saturation 96%. HEENT: Normocephalic, atraumatic. Pupils equal round reactive to light. She is currently wearing oxygen per nasal cannula at 2 liters. Oropharynx is pink and moist. NECK: Supple without lymphadenopathy, thyromegaly or JVD. CHEST: Clear to auscultation. HEART: Regular rate and rhythm. ABDOMEN: Soft. No palpable masses. EXTREMITIES: Without cyanosis, clubbing or edema. NEUROLOGIC: She is alert and oriented x3. No focal deficits were noted. LAB DATA AND TESTS: Revealed her hemoglobin to be 6.8. Her white count 9,300, PLT count 728,000. She has hypochromic, microcytic indices. Her metabolic panel showed a glucose of 160, BUN 26, creatinine 0.88. Electrolytes were normal. Liver enzymes were normal. Troponins less than 0.012. The patient's UA was normal. She is O-positive with negative antibody screen. Group A strep negative. Her TSH was noted to be a 0.572 with a T4 of 12.4 which was slightly elevated per our lab. She had influenza A, B and respiratory syncytial virus which were negative. Lactic acid 1.1. ASSESSMENT: A patient with what appears to be an iron deficiency-type anemia. We are checking stools for blood. She is receiving 2 units of blood. The patient does also likely have chronic obstructive pulmonary disease but this does not appear to be a very big issue presently although she has been on IV steroids and IV fluids, nebulizer treatments and supplemental oxygen as well. Will continue her usual home medications as noted above and heme test her stools. As reported above, she is currently receiving 2 units of packed red blood cells.
[2018-08-02] MEDS: Miralax Powder 17GM PACKET PO SCH (10:05)
[2018-08-02] MEDS: ECOTRIN 81 MG PO SCH (10:06)
[2018-08-02] MEDS: hydroDIURIL 25 MG PO SCH (10:06)
[2018-08-02] MEDS: PATIENT OWN MEDICATION PO SCH (10:07)
[2018-08-02] MEDS: PLAVIX 75 MG Tablet PO SCH (10:08)
[2018-08-02] MEDS: Zestril 20 MG PO SCH (10:08)
[2018-08-02] MEDS: PROTONIX 40 MG IV IV SCH (10:08)
[2018-08-02 11:47] VITALS: BP 131/78; PULSE 97
--- NOTE | 2018-08-02 15:04 | DS ---
DISCHARGE DIAGNOSES: 1) BLOOD LOSS ANEMIA. 2) IRON DEFICIENCY ANEMIA. 3) CHRONIC OBSTRUCTIVE PULMONARY DISEASE EXACERBATION. HISTORY: The patient is a 63 year-old white female who presented to the emergency room with complaints of weakness. She was found to be anemic with hemoglobin in the 6 range. She was given 2 units of packed red blood cells and improved. The patient does have lung disease as well and was felt to have exacerbation of chronic obstructive pulmonary disease. She was treated with IV Solu-Medrol and IV antibiotics during her stay. Her lungs were fairly clear and more likely the reason for her problems with the anemia. HOSPITAL COURSE: The patient having had the transfusion is doing better and felt ready for discharge home. She is discharged home on prednisone 30, 20, 10 over three days each and iron 325 mg daily. We will set up endoscopic evaluation for EGD and colonoscopy for this coming Wednesday. She is instructed to stay away from anti-inflammatories such as aspirin, ibuprofen and Aleve at home in the interim. She will continue to use her usual home medications as listed in the H&P previously.
== END 2018-08-02 13:06 | disposition home or self-care (01) ==
LOC: ED 18:22 → MED SURG 07-31 00:02
PROVIDERS: ADMIT Family Medicine; ATTEND Family Medicine
DX: D50.0 Iron deficiency anemia secondary to blood loss (chronic) (principal); J44.1 Chronic obstructive pulmonary disease with (acute) exacerbation; Z79.01 Long term (current) use of anticoagulants; Z79.899 Other long term (current) drug therapy; R06.02 Shortness of breath
CPT/HCPCS: 36000; 36415; 36430; 71045; 80048; 80053; 81001; 82270; 82962; 83605; 83880; 84436; 84443; 84484; 85014; 85018; 85025; 85027; 86850; 86900; 86901; 86922; 87631; 87651; 93268; 94150; 94640; 94760; 96360; 96361; 96365; 96374; 96375; 99285; G0378; P9016; J0696; J2543; J2920; J2930; A9270-GY

== ENCOUNTER 2018-08-15 05:44 | Day surgery (SDC) | payer MEDICARE ==
[2018-08-15] MEDS ORDERED: Ketamine HCl 50 MG/ML IV ONE (05:45)
[2018-08-15] MEDS ORDERED: DIPRIVAN 200 MG/20 ML IV ONE (05:45)
[2018-08-15] MEDS ORDERED: Zofran 4 MG/2 ML VIAL IV STA (06:58)
[2018-08-15] MEDS ORDERED: Lactated Ringers 1,000 ML IV SCH (07:00)
[2018-08-15 07:58] LABS: Hemoglobin 10.4 gm/dl (12.0-16.0); Mean Cell Volume 84.3 fl (78-100); Mean Corpuscular Hemoglobin 24.3 pg (26-32); Mean Corpuscular Hgb Concent. 28.9 g/dl (32-36); Mean Platelet Volume 8.8 fl (6-9.5); Platelet Count 440 K/mm3 (150-450); Red Blood Count 4.27 M/mm3 (4.1-5.4)
[2018-08-15] MEDS ORDERED: Lactated Ringers 1,000 ML IV ONE ×2 (08:04→08:48)
--- NOTE | 2018-08-15 09:29 | OP ---
SURGERY DATE/TIME: 08/15/2018 0759 PREOPERATIVE DIAGNOSIS: Blood loss anemia. 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 2) Mild sigmoid diverticulosis. PROCEDURES: 1) Esophagogastroduodenoscopy. 2) Colonoscopy. SURGEON: Dr. Watson. ANESTHESIA: Medications were given by the anesthesia department. HISTORY: The patient is a 63 year old white female who was hospitalized approximately two to three weeks ago. She was given two units of blood. She was found to have heme-positive stools. The patient was felt the need to have endoscopic evaluation. She had already been scheduled for a couple of days after discharge but apparently canceled that procedure and now presents today for the evaluation. The patient was noted to be somewhat tachycardic and hypertensive on initial evaluation in the outpatient area and was given IV fluids. By the time of the examination she was stable with blood pressure with systolic rate of 100 and heart rate less than 100. The patient was discussed the risks of the procedure including the risk of perforation, phlebitis, untoward reaction to medication, bleeding and missed lesions. The patient verbalized her understanding and desired to have the procedure performed. DESCRIPTION OF PROCEDURE: The patient was given the medications by the anesthesia department. She had continuous pulse oximetry, ECG monitoring, intermittent blood pressure monitoring and tidal CO2 monitoring during the examination. She was placed in the left lateral decubitus position. A bite block was placed and the flexible Olympus gastroscope was used to intubate the oropharynx. A view of the larynx was obtained and was normal. The scope was easily passed in the esophagus which is normal throughout its length. The stomach was entered where normal gastric rugal folds were seen and these distended nicely with insufflation of air. The scope was passed along the greater curvature of the stomach to the antrum. The pylorus encountered and intubated. Duodenum inspected and found to have small AVM's measuring approximately 0.5 cm in diameter. No active bleeding was noted. The scope is then withdrawn towards the stomach. A retroflex view was obtained of the lesser curvature, fundus and cardia regions of the stomach and these appeared to be normal. The scope was then removed from the patient. Next, a digital rectal exam was performed and revealed external hemorrhoids but no active bleeding. No fissure was noted. No palpable masses. The flexible Olympus pediatric colonoscope was used to intubate the rectum. A view of the colon was developed sequentially to the cecum. Upon insertion and withdrawal was noted sigmoid diverticulosis which were mild and small in nature otherwise no other mucosal lesions were encountered. The scope was removed from the patient who tolerated the procedure well and was sent back to OP recovery in good condition. The prep was noted to be fair to good.
[2018-08-15 09:44] VITALS: O2SAT 93
[2018-08-15 09:46] VITALS: BP 121/73; PULSE 91
[2018-08-15 10:02] LABS: Slide Review YES
== END 2018-08-15 09:55 | disposition home or self-care (01) ==
LOC: SDC 05:44
PROVIDERS: ATTEND Family Medicine
DX: Q27.33 Arteriovenous malformation of digestive system vessel (principal); D50.0 Iron deficiency anemia secondary to blood loss (chronic); K57.30 Diverticulosis of large intestine without perforation or abscess without bleeding; K64.4 Residual hemorrhoidal skin tags; I10 Essential (primary) hypertension; R00.0 Tachycardia, unspecified
CPT/HCPCS: 36415; 85027; J2405; J2704

== ENCOUNTER 2018-09-06 19:37 | Observation (INO) | payer MEDICARE ==
[2018-09-06] MEDS ORDERED: PROVENTIL 2.5 MG/3 ML NEB IH ONE ×2 (19:52→19:53)
[2018-09-06] MEDS ORDERED: Sodium Chloride 0.9% 1000 ML 1,000 ML IV STA (20:04)
--- NOTE | 2018-09-06 20:04 | ERPHSYRPT ---
- History of Present Illness Time Seen by Provider: 09/06/18 20:01 Source: patient Exam Limitations: no limitations Patient Subjective Stated Complaint: pt is alert and oriented. pt is ambulatory with a steady gait. pt comes in with a c/o generalized pain and body ached. pt is obviously SOB and using accessory muscles while breathing. pt lung sounds are wheezing of expiration anteriorly and posteriorly throughout. pt heart rate is 119. pt bp is 152/190. radial pulse is equal and strong. pt skin is pale, warm, and dry. pt states she came in 3 weeks ago and was diagnosed with anemic. pt states that she ran a fever on wednesday and went to the doctor and was put on a pain pill. Triage Nursing Assessment: see above Physician History: 63-year-old white female with history of CVA, hyperlipidemia, high blood pressure, COPD, osteoarthritis, GERD, depression Patient arrives with complaint that she states she aches all over for a week she states she's been short of breath She does not have specific chest pain Patient has been seen by Dr. lAvarado for this and is on tramadol 50 mg 4 times a day. Past medical history includes CVA hyperlipidemia high blood pressure COPD osteoarthritis GERD depression Past surgical history includes cholecystectomy Social history includes tobacco Timing/Duration: week(s) Severity: moderate (oone week) Modifying Factors: Improves With: nothing Associated Symptoms: shortness of breath, other (aches all over), No nausea, No vomiting, No abdominal pain, No heartburn, No diaphoresis, No cough, No chills, No chest pain, No fever, No headaches, No loss of appetite, No malaise, No rash , No syncope, No seizure, No weakness Allergies/Adverse Reactions: gabapentin Adverse Reaction (Verified 09/06/18 19:53) Home Medications: Atorvastatin Calcium [Lipitor] 40 mg PO DAILY 11/22/14 [History] Hydrochlorothiazide 25 mg [hydroDIURIL 25 MG] 12.5 mg PO DAILY 11/22/14 [ History] Ipratropium/Albuterol Sulfate [Iprat-Albut 0.5-3(2.5) mg/3 ml] 3 ml NEB UD 11/22 [History] Tiotropium [place] [Spiriva] 18 mcg IH UD 11/22/14 [History] Albuterol 8 gm Mdi Hfa [Ventolin Hfa MDI] 2 puff IH Q6H PRN PRN 09/14/16 [ History] Budesonide/Formoterol Fumarate [Symbicort 160-4.5 Mcg Inhaler] 2 puff IH BID 12/22 [History] Lisinopril 20 mg [Zestril 20 MG] 20 mg PO DAILY 09/28/16 [History] Fluticasone Propionate [Flonase NASAL] 1 spray INTRANASAL UD 07/30/18 [ History] raNITIdine HCl [Ranitidine HCl] 150 mg PO BID 07/30/18 [History] Polyethylene Glycol 3350 [Miralax] 17 gm PO DAILY PRN 08/02/18 [History] Tramadol HCl 50 mg [Ultram 50 mg] 50 mg PO Q6H PRN PRN 09/06/18 [History] Hx Tetanus, Diphtheria Vaccination/Date Given: No Hx Influenza Vaccination/Date Given: Yes Hx Pneumococcal Vaccination/Date Given: No Immunizations Up to Date: Yes - Review of Systems Constitutional: No Fever, No Chills Eyes: No Symptoms Ears, Nose, & Throat: No Symptoms Respiratory: No Cough, No Cyanosis, No Dyspnea, No Dyspnea on Exertion (CORDOVA), No Stridor, No Wheezing Cardiac: No Chest Pain, No Edema, No Syncope Abdominal/Gastrointestinal: No Abdominal Pain, No Nausea, No Vomiting, No Diarrhea Genitourinary Symptoms: No Dysuria Musculoskeletal: Myalgias, Other (aches all over), No Arthralgias, No Back Pain , No Neck Pain, No Deformity, No Fall, No Joint Redness, No Joint Pain, No Joint Swelling Skin: No Rash Neurological: No Dizziness, No Focal Weakness, No Sensory Changes Psychological: No Symptoms Endocrine: No Symptoms All Other Systems: Reviewed and Negative - Past Medical History Pertinent Past Medical History: Yes Neurological History: Stroke ENT History: No Pertinent History Cardiac History: Arrhythmia, High Cholesterol, Hypertension, Other Respiratory History: COPD Endocrine Medical History: No Pertinent History Musculoskeletal History: Osteoarthritis GI Medical History: GERD, Ulcer History: No Pertinent History Psycho-Social History: No Pertinent History Female Reproductive Disorders: No Pertinent History Other Medical History: 01/2014 CVA, anemia,. stroke x2 - Past Surgical History Past Surgical History: Yes Neuro Surgical History: No Pertinent History Cardiac: No Pertinent History Respiratory: No Pertinent History Gastrointestinal: Cholecystectomy Genitourinary: No Pertinent History Musculoskeletal: Orthopedic Surgery Female Surgical History: No Pertinent History Other Surgical History: egd/colonoscopy/bilat carpal tunnel - Social History Smoking Status: Current every day smoker How long have you smoked: 42 years Exposure to second hand smoke: No Drug Use: none Patient Lives Alone: Yes - Female History Hx Now: No - Nursing Vital Signs Nursing Vital Signs: Initial Vital Signs Temperature 98.1 F 09/06/18 19:43 Pulse Rate 124 H 09/06/18 19:43 Respiratory Rate 24 09/06/18 19:43 Blood Pressure 152/109 09/06/18 19:43 O2 Sat by Pulse Oximetry 95 09/06/18 19:43 Pain Scale Pain Intensity 0 - Physical Exam General Appearance: mild distress, alert Eye Exam: PERRL/EOMI, eyes nml inspection Ears, Nose, Throat Exam: normal ENT inspection, TMs normal, pharynx normal, moist mucous membranes Neck Exam: normal inspection, non-tender, supple, full range of motion Respiratory Exam: wheezing (few scattered wheezes (receiving albuterol treatment )) Cardiovascular Exam: regular rate/rhythm, normal heart sounds, normal peripheral pulses, capillary refill <2 sec Gastrointestinal/Abdomen Exam: soft, normal bowel sounds, No tenderness, No mass Back Exam: normal inspection, normal range of motion, No CVA tenderness, No vertebral tenderness Extremity Exam: normal inspection, normal range of motion, pelvis stable Neurologic Exam: alert, oriented x 3, cooperative, production trainer II-XII nml as tested, normal mood/affect, nml cerebellar function, nml station & gait, sensation nml, No motor deficits Skin Exam: normal color, warm, dry, No rash Lymphatic Exam: No adenopathy SpO2 Interpretation: normal (9to 1 aching all6%) SpO2: 96 - Course Nursing assessment & vital signs reviewed: Yes EKG Interpreted by Me: RATE (115 bpm), Sinus Tach, NORMAL AXIS, Other (EKG: Sinus tachycardia 115 beats per minute no acute ST or T wave changes) - Radiology Exams Chest X-ray Interpretation: Interpreted by me (no acute disease process noted) - CT Exams Chest CT Interpretation: Tele-radiologist Report (CTA chest: Impression 1. No evidence of pulmonary embolism 2. Central lobular emphysema) Ordered Tests: Active Orders 24 hr Category Date Time Status Cabinet And Trim Installer STAT Care 09/06/18 19:54 Active EKG-ER Only STAT Care 09/06/18 19:54 Active IV Insertion STAT Care 09/06/18 19:54 Active Oxygen-ED Only Nasal Cannula 2 lpm Care 09/06/18 19:54 Active Pulse Oximetry (ED) STAT Care 09/06/18 19:54 Active CHEST 1 VIEW (PORTABLE) Stat Exams 09/06/18 20:05 Taken CHEST WITH CONTRAST [CT] Stat Exams 09/06/18 23:02 Taken AMYLASE Stat Lab 09/06/18 20:15 Completed BLOOD CULTURE Stat Lab 09/06/18 23:10 Received CBC W DIFF Stat Lab 09/06/18 20:15 Completed CMP Stat Lab 09/06/18 20:15 Completed D-DIMER QUANTITATION Stat Lab 09/06/18 20:20 Completed LIPASE Stat Lab 09/06/18 20:15 Completed Lactic Acid Stat Lab 09/06/18 20:04 Completed PROTIME WITH INR Stat Lab 09/06/18 20:20 Completed PTT Stat Lab 09/06/18 20:20 Completed TROPONIN Q3H Lab 09/06/18 20:15 Completed TROPONIN Q3H Lab 09/06/18 23:00 Completed TROPONIN Q3H Lab 09/07/18 02:15 Ordered TROPONIN Q3H Lab 09/07/18 05:15 Ordered TROPONIN Q3H Lab 09/07/18 08:15 Ordered UA W/RFX UR CULTURE Stat Lab 09/06/18 20:37 Completed Urine Triage Profile Stat Lab 09/06/18 20:37 Completed VENOUS BLOOD GAS Stat Lab 09/06/18 20:06 Completed Respiratory Therapy Assessment DAILY RT 09/06/18 19:56 Completed neb [Respiratory Nebulizer] STAT RT 09/06/18 19:54 Completed Medication Summary Discontinued Medications Generic Name Dose Route Start Last Admin Trade Name Freq PRN Reason Stop Dose Admin Albuterol Sulfate 2.5 mg 09/06/18 19:53 Proventil 2.5 Mg/3 Ml Neb IH 09/06/18 19:54 STAT ONE Albuterol Sulfate Confirm 09/06/18 19:52 Proventil 2.5 Mg/3 Ml Neb Administered 09/06/18 19:53 Dose 2.5 mg IH .STK-MED ONE Sodium Chloride 1,000 mls @ 999 mls/hr 09/06/18 20:04 09/06/18 21:14 Sodium Chloride 0.9% 1000 Ml IV 09/06/18 21:04 Infused .Q1H1M STA Infusion Sodium Chloride Confirm 09/06/18 20:11 Sodium Chloride 0.9% 1000 Ml Administered 09/06/18 20:12 Dose 1,000 mls @ ud .ROUTE .STK-MED ONE Methylprednisolone Sodium Succinate 125 mg 09/06/18 21:40 09/06/18 21:44 Solu-Medrol 125 Mg IV 09/06/18 21:41 125 mg STAT ONE Administration Methylprednisolone Sodium Succinate Confirm 09/06/18 21:42 Solu-Medrol 125 Mg Administered 09/06/18 21:43 Dose 125 mg .ROUTE .STK-MED ONE Morphine Sulfate 4 mg 09/06/18 20:23 09/06/18 20:38 Morphine Sulfate 4 Mg Inj IV 09/06/18 20:24 4 mg STAT ONE Administration Morphine Sulfate Confirm 09/06/18 20:29 Morphine Sulfate 4 Mg Inj Administered 09/06/18 20:30 Dose 4 mg .ROUTE .STK-MED ONE Ondansetron HCl 4 mg 09/06/18 20:23 09/06/18 20:38 Zofran 4 Mg/2 Ml Vial IV 09/06/18 20:24 4 mg STAT ONE Administration Ondansetron HCl Confirm 09/06/18 20:29 Zofran 4 Mg/2 Ml Vial Administered 09/06/18 20:30 Dose 4 mg .ROUTE .STK-MED ONE Lab/Rad Data: Laboratory Result Diagrams 09/06/18 20:15 09/06/18 20:15 Laboratory Results 09/06/18 09/06/18 09/06/18 Range/Units 23:00 20:37 20:37 WBC (4.0-10.5) K/mm3 RBC (4.1-5.4) M/mm3 Hgb (12.0-16.0) gm/dl Hct (35-47) % MCV (78-100) fl MCH (26-32) pg MCHC (32-36) g/dl RDW (11.5-14.0) % Plt Count (150-450) K/mm3 MPV (6-9.5) fl Gran % (36.0-66.0) % Eos # (Auto) (0-0.5) Absolute Lymphs (auto) (1.0-4.6) Absolute Monos (auto) (0.0-1.3) Lymphocytes % (24.0-44.0) % Monocytes % (0.0-12.0) % Eosinophils % (0.00-5.0) % Basophils % (0.0-0.4) % Absolute Granulocytes (1.4-6.9) Basophils # (0-0.4) PT (9.95-12.35) SECONDS INR (0.8-3.0) APTT (25.3-37.0) SECONDS D-Dimer (215-500) ng/mL pO2/FiO2 Ratio % VBG pH (7.32-7.42) VBG pCO2 at Pat Temp (42-55) mm/Hg VBG pO2 at Pat Temp (25-40) mm/Hg VBG HCO3 (22-28) meq/L VBG O2 Sat (Claudia) (95-100) VBG Base Excess (-2.0-2.0) VBG Hemoglobin VBG Carboxyhemoglobin (0.0-6.9) % T HGB POC Potassium (3.5-5.1) Sodium (137-145) mmol/L Potassium (3.5-5.1) mmol/L Chloride (98-107) mmol/L Carbon Dioxide (22-30) mmol/L Anion Gap (5-15) MEQ/L BUN (7-17) mg/dL Creatinine (0.52-1.04) mg/dL Estimated GFR ML/MIN Glucose (74-106) mg/dL Lactic Acid (0.4-2.0) Calcium (8.4-10.2) mg/dL Total Bilirubin (0.2-1.3) mg/dL AST (14-36) U/L ALT (0-35) U/L Alkaline Phosphatase (38-126) U/L Troponin I < 0.012 (0.000-0.034) ng/mL Serum Total Protein (6.3-8.2) g/dL Albumin (3.5-5.0) g/dL Amylase (30-110) U/L Lipase (23-300) U/L Urine Color YELLOW (YELLOW) Urine Appearance CLEAR (CLEAR) Urine pH 6.0 (5-6) Ur Specific [place] 1.018 (1.005-1.025) Urine Protein NEGATIVE (Negative) Urine Ketones TRACE (NEGATIVE) Urine Blood NEGATIVE (0-5) Jhonny/ul Urine Nitrite NEGATIVE (NEGATIVE) Urine Bilirubin NEGATIVE (NEGATIVE) Urine Urobilinogen NEGATIVE (0-1) mg/dL Ur Leukocyte Esterase NEGATIVE (NEGATIVE) Urine WBC (Auto) 0-2 (0-5) /HPF Urine RBC (Auto) NONE (0-2) /HPF U Epithel Cells (Auto) RARE (FEW) /HPF Urine Bacteria (Auto) NONE (NEGATIVE) /HPF Urine Mucus (Auto) SLIGHT (NEGATIVE) /HPF Urine Culture Reflexed NO (NO) Urine Glucose NEGATIVE (NEGATIVE) mg/dL Urine Opiates Level NEGATIVE (NEGATIVE) Ur Methadone NEGATIVE (NEGATIVE) Urine Barbiturates NEGATIVE (NEGATIVE) Ur Phencyclidine (PCP) NEGATIVE (NEGATIVE) Urine Amphetamine NEGATIVE (NEGATIVE) U Benzodiazepine Level NEGATIVE (NEGATIVE) Urine Cocaine NEGATIVE (NEGATIVE) Urine Marijuana (THC) POSITIVE (NEGATIVE) Group A Strep Antibody (NEGATIVE) 09/06/18 09/06/18 09/06/18 Range/Units 20:20 20:20 20:20 WBC (4.0-10.5) K/mm3 RBC (4.1-5.4) M/mm3 Hgb (12.0-16.0) gm/dl Hct (35-47) % MCV (78-100) fl MCH (26-32) pg MCHC (32-36) g/dl RDW (11.5-14.0) % Plt Count (150-450) K/mm3 MPV (6-9.5) fl Gran % (36.0-66.0) % Eos # (Auto) (0-0.5) Absolute Lymphs (auto) (1.0-4.6) Absolute Monos (auto) (0.0-1.3) Lymphocytes % (24.0-44.0) % Monocytes % (0.0-12.0) % Eosinophils % (0.00-5.0) % Basophils % (0.0-0.4) % Absolute Granulocytes (1.4-6.9) Basophils # (0-0.4) PT 13.8 H (9.95-12.35) SECONDS INR 1.22 (0.8-3.0) APTT 33.2 (25.3-37.0) SECONDS D-Dimer 973 H* (215-500) ng/mL pO2/FiO2 Ratio % VBG pH (7.32-7.42) VBG pCO2 at Pat Temp (42-55) mm/Hg VBG pO2 at Pat Temp (25-40) mm/Hg VBG HCO3 (22-28) meq/L VBG O2 Sat (Claudia) (95-100) VBG Base Excess (-2.0-2.0) VBG Hemoglobin VBG Carboxyhemoglobin (0.0-6.9) % T HGB POC Potassium (3.5-5.1) Sodium (137-145) mmol/L Potassium (3.5-5.1) mmol/L Chloride (98-107) mmol/L Carbon Dioxide (22-30) mmol/L Anion Gap (5-15) MEQ/L BUN (7-17) mg/dL Creatinine (0.52-1.04) mg/dL Estimated GFR ML/MIN Glucose (74-106) mg/dL Lactic Acid (0.4-2.0) Calcium (8.4-10.2) mg/dL Total Bilirubin (0.2-1.3) mg/dL AST (14-36) U/L ALT (0-35) U/L Alkaline Phosphatase (38-126) U/L Troponin I (0.000-0.034) ng/mL Serum Total Protein (6.3-8.2) g/dL Albumin (3.5-5.0) g/dL Amylase (30-110) U/L Lipase (23-300) U/L Urine Color (YELLOW) Urine Appearance (CLEAR) Urine pH (5-6) Ur Specific [place] (1.005-1.025) Urine Protein (Negative) Urine Ketones (NEGATIVE) Urine Blood (0-5) Jhonny/ul Urine Nitrite (NEGATIVE) Urine Bilirubin (NEGATIVE) Urine Urobilinogen (0-1) mg/dL Ur Leukocyte Esterase (NEGATIVE) Urine WBC (Auto) (0-5) /HPF Urine RBC (Auto) (0-2) /HPF U Epithel Cells (Auto) (FEW) /HPF Urine Bacteria (Auto) (NEGATIVE) /HPF Urine Mucus (Auto) (NEGATIVE) /HPF Urine Culture Reflexed (NO) Urine Glucose (NEGATIVE) mg/dL Urine Opiates Level (NEGATIVE) Ur Methadone (NEGATIVE) Urine Barbiturates (NEGATIVE) Ur Phencyclidine (PCP) (NEGATIVE) Urine Amphetamine (NEGATIVE) U Benzodiazepine Level (NEGATIVE) Urine Cocaine (NEGATIVE) Urine Marijuana (THC) (NEGATIVE) Group A Strep Antibody NEGATIVE (NEGATIVE) 09/06/18 09/06/18 09/06/18 Range/Units 20:15 20:15 20:15 WBC 14.0 H (4.0-10.5) K/mm3 RBC 4.16 (4.1-5.4) M/mm3 Hgb 10.8 L (12.0-16.0) gm/dl Hct 35.4 (35-47) % MCV 85.1 (78-100) fl MCH 25.9 L (26-32) pg MCHC 30.5 L (32-36) g/dl RDW 22.0 H (11.5-14.0) % Plt Count 716 H (150-450) K/mm3 MPV 9.3 (6-9.5) fl Gran % 78.5 H (36.0-66.0) % Eos # (Auto) 0.06 (0-0.5) Absolute Lymphs (auto) 1.50 (1.0-4.6) Absolute Monos (auto) 1.38 H (0.0-1.3) Lymphocytes % 10.8 L (24.0-44.0) % Monocytes % 9.9 (0.0-12.0) % Eosinophils % 0.4 (0.00-5.0) % Basophils % 0.4 (0.0-0.4) % Absolute Granulocytes 10.96 H (1.4-6.9) Basophils # 0.05 (0-0.4) PT (9.95-12.35) SECONDS INR (0.8-3.0) APTT (25.3-37.0) SECONDS D-Dimer (215-500) ng/mL pO2/FiO2 Ratio % VBG pH (7.32-7.42) VBG pCO2 at Pat Temp (42-55) mm/Hg VBG pO2 at Pat Temp (25-40) mm/Hg VBG HCO3 (22-28) meq/L VBG O2 Sat (Claudia) (95-100) VBG Base Excess (-2.0-2.0) VBG Hemoglobin VBG Carboxyhemoglobin (0.0-6.9) % T HGB POC Potassium (3.5-5.1) Sodium 136 L (137-145) mmol/L Potassium 3.3 L (3.5-5.1) mmol/L Chloride 95 L (98-107) mmol/L Carbon Dioxide 27 (22-30) mmol/L Anion Gap 17.0 H (5-15) MEQ/L BUN 17 (7-17) mg/dL Creatinine 0.83 (0.52-1.04) mg/dL Estimated GFR > 60.0 ML/MIN Glucose 111 H (74-106) mg/dL Lactic Acid (0.4-2.0) Calcium 9.6 (8.4-10.2) mg/dL Total Bilirubin 0.70 (0.2-1.3) mg/dL AST 32 (14-36) U/L ALT 12 (0-35) U/L Alkaline Phosphatase 176 H (38-126) U/L Troponin I < 0.012 (0.000-0.034) ng/mL Serum Total Protein 7.5 (6.3-8.2) g/dL Albumin 3.8 (3.5-5.0) g/dL Amylase 46 (30-110) U/L Lipase 46 (23-300) U/L Urine Color (YELLOW) Urine Appearance (CLEAR) Urine pH (5-6) Ur Specific [place] (1.005-1.025) Urine Protein (Negative) Urine Ketones (NEGATIVE) Urine Blood (0-5) Jhonny/ul Urine Nitrite (NEGATIVE) Urine Bilirubin (NEGATIVE) Urine Urobilinogen (0-1) mg/dL Ur Leukocyte Esterase (NEGATIVE) Urine WBC (Auto) (0-5) /HPF Urine RBC (Auto) (0-2) /HPF U Epithel Cells (Auto) (FEW) /HPF Urine Bacteria (Auto) (NEGATIVE) /HPF Urine Mucus (Auto) (NEGATIVE) /HPF Urine Culture Reflexed (NO) Urine Glucose (NEGATIVE) mg/dL Urine Opiates Level (NEGATIVE) Ur Methadone (NEGATIVE) Urine Barbiturates (NEGATIVE) Ur Phencyclidine (PCP) (NEGATIVE) Urine Amphetamine (NEGATIVE) U Benzodiazepine Level (NEGATIVE) Urine Cocaine (NEGATIVE) Urine Marijuana (THC) (NEGATIVE) Group A Strep Antibody (NEGATIVE) 09/06/18 09/06/18 Range/Units 20:06 20:04 WBC (4.0-10.5) K/mm3 RBC (4.1-5.4) M/mm3 Hgb (12.0-16.0) gm/dl Hct (35-47) % MCV (78-100) fl MCH (26-32) pg MCHC (32-36) g/dl RDW (11.5-14.0) % Plt Count (150-450) K/mm3 MPV (6-9.5) fl Gran % (36.0-66.0) % Eos # (Auto) (0-0.5) Absolute Lymphs (auto) (1.0-4.6) Absolute Monos (auto) (0.0-1.3) Lymphocytes % (24.0-44.0) % Monocytes % (0.0-12.0) % Eosinophils % (0.00-5.0) % Basophils % (0.0-0.4) % Absolute Granulocytes (1.4-6.9) Basophils # (0-0.4) PT (9.95-12.35) SECONDS INR (0.8-3.0) APTT (25.3-37.0) SECONDS D-Dimer (215-500) ng/mL pO2/FiO2 Ratio 28.0 % VBG pH 7.46 H (7.32-7.42) VBG pCO2 at Pat Temp 43 (42-55) mm/Hg VBG pO2 at Pat Temp 30 (25-40) mm/Hg VBG HCO3 30.6 H* (22-28) meq/L VBG O2 Sat (Claudia) 65.9 L (95-100) VBG Base Excess 6.1 H (-2.0-2.0) VBG Hemoglobin 10.3 VBG Carboxyhemoglobin 7.2 H* (0.0-6.9) % T HGB POC Potassium 3.5 (3.5-5.1) Sodium (137-145) mmol/L Potassium (3.5-5.1) mmol/L Chloride (98-107) mmol/L Carbon Dioxide (22-30) mmol/L Anion Gap (5-15) MEQ/L BUN (7-17) mg/dL Creatinine (0.52-1.04) mg/dL Estimated GFR ML/MIN Glucose (74-106) mg/dL Lactic Acid 1.7 (0.4-2.0) Calcium (8.4-10.2) mg/dL Total Bilirubin (0.2-1.3) mg/dL AST (14-36) U/L ALT (0-35) U/L Alkaline Phosphatase (38-126) U/L Troponin I (0.000-0.034) ng/mL Serum Total Protein (6.3-8.2) g/dL Albumin (3.5-5.0) g/dL Amylase (30-110) U/L Lipase (23-300) U/L Urine Color (YELLOW) Urine Appearance (CLEAR) Urine pH (5-6) Ur Specific [place] (1.005-1.025) Urine Protein (Negative) Urine Ketones (NEGATIVE) Urine Blood (0-5) Jhonny/ul Urine Nitrite (NEGATIVE) Urine Bilirubin (NEGATIVE) Urine Urobilinogen (0-1) mg/dL Ur Leukocyte Esterase (NEGATIVE) Urine WBC (Auto) (0-5) /HPF Urine RBC (Auto) (0-2) /HPF U Epithel Cells (Auto) (FEW) /HPF Urine Bacteria (Auto) (NEGATIVE) /HPF Urine Mucus (Auto) (NEGATIVE) /HPF Urine Culture Reflexed (NO) Urine Glucose (NEGATIVE) mg/dL Urine Opiates Level (NEGATIVE) Ur Methadone (NEGATIVE) Urine Barbiturates (NEGATIVE) Ur Phencyclidine (PCP) (NEGATIVE) Urine Amphetamine (NEGATIVE) U Benzodiazepine Level (NEGATIVE) Urine Cocaine (NEGATIVE) Urine Marijuana (THC) (NEGATIVE) Group A Strep Antibody (NEGATIVE) - Progress Progress: improved Progress Note: 09/07/18 01:04 63-year-old white female with history of CVA, hyperlipidemia, high blood pressure, COPD, osteoarthritis, GERD, depression, CVA was recently been treated for anemia several months ago. The patient states that she's been complaining of aching all over she's been short of breath and having wheezing symptoms going on for approximately a week. She apparently has been on tramadol which was prescribed by her family doctor but she states that the pain was still persisting. On arrival patient was somewhat tachycardic with a heart rate of 124 respirations were 24 blood pressure was 152/109 The patient did have scattered wheezes on auscultation. Patient with a chest x-ray no acute disease process noted patient did have an elevated d-dimer of 973 CT of the chest was obtained which was negative for pulmonary embolism there was central lobular emphysema noted. Patient had an EKG remarkable for sinus tachycardia 1:15 beats per minute normal axis there were no acute ST or T wave changes noted, Patient had troponin less than 0.012 times to 3 hours apart. Patient was white count 14.0 hemoglobin 10.8 hematocrit 35.4 platelets 716 Patient's with chemistry sodium 136 potassium 3.3 chloride 95 bicarbonate 27 BUN 17 creatinine 0.83 glucose was 111 lactate was 1.7. . Patient was noted to be better after receiving IV morphine 4 mg Zofran 4 mg and receiving Solu-Medrol and albuterol treatment. However when she would walk her saturations would drop down into the 80s. I discussed the case with Dr. Wileyit will place patient on observation will go ahead and give patient Rocephin 1 g IV now. Treatment patient for COPD with exacerbation. Shortness of breath. . . - Departure Departure Disposition: Observation Clinical Impression: COPD with exacerbation, Shortness of breath Condition: Fair Critical Care Time: No Referrals: CHRISTINA SCHMITT MD [Primary Care Provider] - Instructions: Chronic Obstructive Pulmonary Disease
[2018-09-06] MEDS ORDERED: Sodium Chloride 0.9% 1000 ML 1,000 ML ONE (20:11)
[2018-09-06 20:13] LABS: VBG BASE EXCESS 6.1 (-2.0-2.0); VBG HCO3- 30.6 meq/L (22-28); VBG HEMOGLOBIN 10.3; VBG O2 SATURATION 65.9 (95-100); VBG POTASSIUM 3.5 (3.5-5.1); VBG pH 7.46 (7.32-7.42)
[2018-09-06 20:15] LABS: VBG CARBOXYHEMOGLOBIN 7.2 % T HGB (0.0-6.9)
[2018-09-06] MEDS ORDERED: Zofran 4 MG/2 ML VIAL IV ONE (20:23)
[2018-09-06] MEDS ORDERED: MORPHINE SULFATE 4 MG INJ IV ONE (20:23)
[2018-09-06] MEDS ORDERED: MORPHINE SULFATE 4 MG INJ ONE (20:29)
[2018-09-06] MEDS ORDERED: Zofran 4 MG/2 ML VIAL ONE (20:29)
[2018-09-06 20:31] LABS: BASOPHIL % 0.4 % (0.0-0.4); Basophil (Absolute #) 0.05 (0-0.4); Eosinophil % 0.4 % (0.00-5.0); Eosinophil (Absolute #) 0.06 (0-0.5); Granulocyte Absolute (ANC) 10.96 (1.4-6.9); Granulocytes % 78.5 % (36.0-66.0); Hematocrit 35.4 % (35-47); Hemoglobin 10.8 gm/dl (12.0-16.0); Lymphocytes % 10.8 % (24.0-44.0); Mean Cell Volume 85.1 fl (78-100); Mean Corpuscular Hgb Concent. 30.5 g/dl (32-36); Mean Platelet Volume 9.3 fl (6-9.5); Monocyte (Absolute #) 1.38 (0.0-1.3); Monocytes % 9.9 % (0.0-12.0); Platelet Count 716 K/mm3 (150-450); Red Blood Count 4.16 M/mm3 (4.1-5.4)
[2018-09-06 20:32] LABS: Mean Corpuscular Hemoglobin 25.9 pg (26-32)
[2018-09-06 20:43] LABS: ALBUMIN 3.8 g/dL (3.5-5.0); ALKALINE PHOSPHATASE 176 U/L (38-126); AMYLASE 46 U/L (30-110); BLOOD UREA NITROGEN 17 mg/dL (7-17); CHLORIDE 95 mmol/L (98-107); Calcium 9.6 mg/dL (8.4-10.2); Carbon Dioxide 27 mmol/L (22-30); Creatinine 1 0.83 mg/dL (0.52-1.04); Glucose 111 mg/dL (74-106); Potassium 3.3 mmol/L (3.5-5.1); SGOT/AST 32 U/L (14-36); SGPT/ALT 12 U/L (0-35); SODIUM 136 mmol/L (137-145); Total Protein 7.5 g/dL (6.3-8.2)
[2018-09-06 20:55] LABS: Appearance CLEAR (CLEAR); Bilirubin NEGATIVE (NEGATIVE); Blood NEGATIVE Ery/ul (0-5); Epithelial Cells RARE /HPF (FEW); Glucose NEGATIVE (NEGATIVE); Ketones TRACE (NEGATIVE); Leukocyte Esterase NEGATIVE (NEGATIVE); Mucus SLIGHT /HPF (NEGATIVE); Nitrite NEGATIVE (NEGATIVE); Protein,Urine Dip NEGATIVE (Negative); Specific Gravity 1.018 (1.005-1.025); Urobilinogen NEGATIVE mg/dL (0-1); WBC 0-2 /HPF (0-5)
[2018-09-06 21:09] LABS: Amphetamine,Urine NEGATIVE (NEGATIVE); Barbiturate,Urine NEGATIVE (NEGATIVE); Benzodiazepine,Urine NEGATIVE (NEGATIVE); Cocaine,Urine NEGATIVE (NEGATIVE); Methadone,Urine NEGATIVE (NEGATIVE); Opiate,Urine NEGATIVE (NEGATIVE); PCP,Urine NEGATIVE (NEGATIVE); THC,Urine POSITIVE (NEGATIVE)
[2018-09-06] MEDS ORDERED: solu-MEDROL 125 MG IV ONE (21:40)
[2018-09-06] MEDS ORDERED: solu-MEDROL 125 MG ONE (21:42)
[2018-09-06 22:47] LABS: INR 1.22 (0.8-3.0); PROTIME 13.8 SECONDS (9.95-12.35); PTT 33.2 SECONDS (25.3-37.0)
[2018-09-07] MEDS ORDERED: ROCEPHIN 1 Gm-D5w 50 ml Bag** 1 G/50 ML IVPB IV STA (01:07)
[2018-09-07] MEDS ORDERED: ROCEPHIN 1 Gm-D5w 50 ml Bag** 1 G/50 ML IVPB IV ONE ×2 (01:08→19:38)
[2018-09-07] MEDS ORDERED: PROVENTIL 2.5 MG/3 ML NEB IH PRN (02:13)
[2018-09-07] MEDS: Sodium Chloride 0.9% 1000 ML 1,000 ML IV SCH ×3 (02:34→22:33)
[2018-09-07] MEDS: solu-MEDROL 125 MG IV SCH ×3 (02:37→21:15)
[2018-09-07 05:42] LABS: BASOPHIL % 0.1 % (0.0-0.4); Basophil (Absolute #) 0.01 (0-0.4); Eosinophil % 0.1 % (0.00-5.0); Eosinophil (Absolute #) 0.01 (0-0.5); Granulocyte Absolute (ANC) 10.42 (1.4-6.9); Granulocytes % 93.4 % (36.0-66.0); Hemoglobin 9.3 gm/dl (12.0-16.0); Lymphocyte (Absolute #) 0.49 (1.0-4.6); Lymphocytes % 4.4 % (24.0-44.0); Mean Cell Volume 86.1 fl (78-100); Mean Corpuscular Hemoglobin 25.8 pg (26-32); Mean Platelet Volume 9.1 fl (6-9.5); Monocyte (Absolute #) 0.22 (0.0-1.3); Platelet Count 543 K/mm3 (150-450); Red Cell Distribution Width 21.5 % (11.5-14.0); White Blood Count 11.2 K/mm3 (4.0-10.5)
[2018-09-07 06:04] LABS: ALBUMIN 3.1 g/dL (3.5-5.0); ALKALINE PHOSPHATASE 145 U/L (38-126); ANION GAP 13.6 MEQ/L (5-15); BLOOD UREA NITROGEN 16 mg/dL (7-17); CHLORIDE 101 mmol/L (98-107); Calcium 8.8 mg/dL (8.4-10.2); Carbon Dioxide 26 mmol/L (22-30); Creatinine 1 0.75 mg/dL (0.52-1.04); Glucose 137 mg/dL (74-106); Potassium 3.6 mmol/L (3.5-5.1); SGOT/AST 29 U/L (14-36); SGPT/ALT 11 U/L (0-35); SODIUM 137 mmol/L (137-145); Total Protein 6.5 g/dL (6.3-8.2)
[2018-09-07] MEDS ORDERED: Spiriva 18 Mcg/Cap Inhaler IH ONE (06:33)
[2018-09-07] MEDS: Spiriva 18 Mcg/Cap Inhaler IH SCH (06:36)
[2018-09-07] MEDS: Advair Hfa 230/21 Mcg COMMON CANISTER IH SCH ×2 (06:36→19:32)
[2018-09-07] MEDS: DUONEB 0.5-3 MG/3 ml Neb IH SCH ×4 (06:36→19:32)
--- NOTE | 2018-09-07 08:47 | XRAY ---
Indication: Short of breath and congestion. Elevated d-dimer. Multiple contiguous axial images obtained through the chest using 80 cc Isovue 370 contrast and PE protocol. Comparison: None There is good opacification of the pulmonary arteries to include the lobar and segmental branches. No filling defect or pulmonary embolus. Heart is not enlarged. Aorta mildly arteriosclerotic without aneurysm/dissection. Tiny subcarinal calcified node. No pathologic mediastinal/hilar lymphadenopathy. Incidental 1 m left thyroid hypodense nodule/cyst. Lungs demonstrates moderate pulmonary emphysema with minimal bibasilar fibrosis/scarring and a few scattered bilateral calcified granulomas. No suspicious pulmonary mass, infiltrate, or effusion. Osseous structures intact with mild degenerative changes throughout the spine. Small subcutaneous electronic device in the left anterior chest wall. Limited upper abdomen demonstrate mild fatty liver. Impression: 1. Negative pulmonary embolus. No acute cardiopulmonary abnormalities. 2. Incidental pulmonary emphysema, left thyroid nodule/cyst, fatty liver, and evidence for old granulomatous disease. Comment: Preliminary interpretation was made by [facility]. No discrepancy. CT DI 21.67
--- NOTE | 2018-09-07 08:49 | XRAY ---
Indication: Aching all over. Tachycardia and congestion. Comparison: July 30, 2018. Portable chest remains hyperinflated and clear. Heart and mediastinal structures within normal limits. Stable electronic device overlying the left heart. No new/acute findings.
[2018-09-07] MEDS: Zithromax 500 MG/ 250 ML NaCl Premix 500 MG/250 ML IVPB IV SCH (10:45)
--- NOTE | 2018-09-07 11:45 | PCM.HP ---
History of Present Illness - Chief Complaint Chief Complaint: c/o shortness of breath for 2-3 days History of Present Illness: 63-year-old white female with history of CVA, hyperlipidemia, high blood pressure, COPD, osteoarthritis, GERD, depression Patient arrives with complaint that she states she aches all over for a week she states she's been short of breath. She does not have specific chest pain - Review of Systems Constitutional: No Fever, No Chills Eyes: No Symptoms Ears, Nose, & Throat: No Symptoms Respiratory: Cough, Orthopnea, Short Of Breath, Wheezing Cardiac: No Chest Pain, No Edema, No Syncope Abdominal/Gastrointestinal: No Abdominal Pain, No Nausea, No Vomiting, No Diarrhea Genitourinary Symptoms: No Dysuria Musculoskeletal: No Back Pain, No Neck Pain Skin: No Rash Neurological: No Dizziness, No Focal Weakness, No Sensory Changes Psychological: No Symptoms Endocrine: No Symptoms Hematologic/Lymphatic: No Symptoms Immunological/Allergic: No Symptoms Medications & Allergies Home Medications: Home Medication List Atorvastatin Calcium [Lipitor] 40 mg PO DAILY 11/22/14 [History Confirmed ] Hydrochlorothiazide 25 mg [hydroDIURIL 25 MG] 12.5 mg PO DAILY 11/22/14 [ History Confirmed 09/07/18] Ipratropium/Albuterol Sulfate [Iprat-Albut 0.5-3(2.5) mg/3 ml] 3 ml NEB UD 11/22 [History Confirmed 09/07/18] Tiotropium [place] [Spiriva] 18 mcg IH UD 11/22/14 [History Confirmed 09/07/18] Albuterol 8 gm Mdi Hfa [Ventolin Hfa MDI] 2 puff IH Q6H PRN PRN 09/14/16 [ History Confirmed 09/07/18] Budesonide/Formoterol Fumarate [Symbicort 160-4.5 Mcg Inhaler] 2 puff IH BID 12/22 [History Confirmed 09/07/18] Lisinopril 20 mg [Zestril 20 MG] 20 mg PO DAILY 09/28/16 [History Confirmed 09/07/18] Fluticasone Propionate [Flonase NASAL] 1 spray INTRANASAL UD 07/30/18 [ History Confirmed 09/06/18] raNITIdine HCl [Ranitidine HCl] 150 mg PO BID 07/30/18 [History Confirmed ] Polyethylene Glycol 3350 [Miralax] 17 gm PO DAILY PRN 08/02/18 [History Confirmed 09/07/18] Tramadol HCl 50 mg [Ultram 50 mg] 50 mg PO Q6H PRN PRN 09/06/18 [History Confirmed 09/07/18] Allergies/Adverse Reactions: Allergies Allergy/AdvReac Type Severity Reaction Status Date / Time gabapentin AdvReac Verified 09/06/18 19:53 - Past Medical History Past Medical History: Yes Neurological History: Stroke ENT History: No Pertinent History Cardiac History: Arrhythmia, High Cholesterol, Hypertension, Other Respiratory History: COPD Endocrine Medical History: No Pertinent History Musculoskelatal History: Osteoarthritis GI Medical History: GERD, Ulcer History: No Pertinent History Pyscho-Social History: No Pertinent History Reproductive Disorders: No Pertinent History Comment: 01/2014 CVA, anemia,. stroke x2 - Female History Are you now?: No - Past Surgical History Past Surgical History: Yes Neuro Surgical History: No Pertinent History Cardiac History: No Pertinent History Respiratory Surgery: No Pertinent History GI Surgical History: Cholecystectomy Genitourinary Surgical Hx: No Pertinent History Musculskeletal Surgical Hx: Orthopedic Surgery Female Surgical History: No Pertinent History Other Surgical History: egd/colonoscopy/bilat carpal tunnel - Social History Smoking Status: Current every day smoker How long have you smoked: 40 yrs Exposure to second hand smoke: Yes Alcohol: None Drug Use: none - Physical Exam Vital Signs: Vital Signs - 24 hr Temp Pulse Resp BP Pulse Ox 09/07/18 11:13 98.2 F 111 H 18 113/61 94 L 09/07/18 06:59 98.4 F 92 H 18 115/78 94 L 09/07/18 06:40 92 H 16 94 L 09/07/18 03:12 95 09/07/18 03:00 102 H 20 95 09/07/18 02:44 99.1 F 102 H 20 145/79 94 L 09/07/18 01:50 99.1 F 102 H 20 145/79 94 L 09/07/18 01:07 96 09/07/18 01:02 99 H 19 129/87 93 L 09/06/18 23:40 101 H 18 98 09/06/18 22:52 108 H 20 131/89 93 L 09/06/18 22:28 110 H 24 133/89 97 09/06/18 21:47 106 H 22 114/90 95 09/06/18 21:00 116 H 22 142/86 94 L 09/06/18 20:40 120 H 22 144/103 98 09/06/18 20:16 110 H 20 127/101 96 09/06/18 19:57 120 H 20 96 09/06/18 19:54 91 L 09/06/18 19:43 98.1 F 124 H 26 H 152/109 96 Oxygen-Last 24 hours O2 Percentage 2 Liters = 28% O2 Percentage 2 Liters = 28% O2 Percentage 2 Liters = 28% O2 Percentage 2 Liters = 28% O2 Percentage 2 Liters = 28% O2 Percentage 2 Liters = 28% O2 Percentage 2 Liters = 28% O2 Percentage 2 Liters = 28% O2 Percentage 2 Liters = 28% O2 Percentage 2 Liters = 28% O2 Percentage 2 Liters = 28% O2 Percentage 2 Liters = 28% O2 Percentage 2 Liters = 28% O2 Percentage 2 Liters = 28% O2 Percentage 2 Liters = 28% General Appearance: no apparent distress, alert Neurologic Exam: alert, oriented x 3, cooperative, normal mood/affect, nml cerebellar function, nml station & gait, sensation nml, No motor deficits Eye Exam: PERRL/EOMI, eyes nml inspection Ears, Nose, Throat Exam: normal ENT inspection, TMs normal, pharynx normal, moist mucous membranes Neck Exam: normal inspection, non-tender, supple, full range of motion Respiratory Exam: diminished breath sounds, prolonged expirations, crackles/ rales, rhonchi, wheezing, No respiratory distress Cardiovascular Exam: regular rate/rhythm, normal heart sounds, normal peripheral pulses Gastrointestinal/Abdomen Exam: soft, normal bowel sounds, No tenderness, No mass Back Exam: normal inspection, normal range of motion, No CVA tenderness, No vertebral tenderness Extremity Exam: normal inspection, normal range of motion, pelvis stable Skin Exam: normal color, warm, dry, No rash Lymphatic Exam: No adenopathy Results - Labs Lab/Micro Results: Lab Results-Last 24 Hours 09/06/18 09/06/18 09/06/18 Range/Units 20:04 20:06 20:15 WBC 14.0 H (4.0-10.5) K/mm3 RBC 4.16 (4.1-5.4) M/mm3 Hgb 10.8 L (12.0-16.0) gm/dl Hct 35.4 (35-47) % MCV 85.1 (78-100) fl MCH 25.9 L (26-32) pg MCHC 30.5 L (32-36) g/dl RDW 22.0 H (11.5-14.0) % Plt Count 716 H (150-450) K/mm3 MPV 9.3 (6-9.5) fl Gran % 78.5 H (36.0-66.0) % Eos # (Auto) 0.06 (0-0.5) Absolute Lymphs (auto) 1.50 (1.0-4.6) Absolute Monos (auto) 1.38 H (0.0-1.3) Lymphocytes % 10.8 L (24.0-44.0) % Monocytes % 9.9 (0.0-12.0) % Eosinophils % 0.4 (0.00-5.0) % Basophils % 0.4 (0.0-0.4) % Absolute Granulocytes 10.96 H (1.4-6.9) Basophils # 0.05 (0-0.4) PT (9.95-12.35) SECONDS INR (0.8-3.0) APTT (25.3-37.0) SECONDS D-Dimer (215-500) ng/mL pO2/FiO2 Ratio 28.0 % VBG pH 7.46 H (7.32-7.42) VBG pCO2 at Pat Temp 43 (42-55) mm/Hg VBG pO2 at Pat Temp 30 (25-40) mm/Hg VBG HCO3 30.6 H* (22-28) meq/L VBG O2 Sat (Claudia) 65.9 L (95-100) VBG Base Excess 6.1 H (-2.0-2.0) VBG Hemoglobin 10.3 VBG Carboxyhemoglobin 7.2 H* (0.0-6.9) % T HGB POC Potassium 3.5 (3.5-5.1) Sodium (137-145) mmol/L Potassium (3.5-5.1) mmol/L Chloride (98-107) mmol/L Carbon Dioxide (22-30) mmol/L Anion Gap (5-15) MEQ/L BUN (7-17) mg/dL Creatinine (0.52-1.04) mg/dL Estimated GFR ML/MIN Glucose (74-106) mg/dL Lactic Acid 1.7 (0.4-2.0) Calcium (8.4-10.2) mg/dL Total Bilirubin (0.2-1.3) mg/dL AST (14-36) U/L ALT (0-35) U/L Alkaline Phosphatase (38-126) U/L Troponin I (0.000-0.034) ng/mL Serum Total Protein (6.3-8.2) g/dL Albumin (3.5-5.0) g/dL Amylase (30-110) U/L Lipase (23-300) U/L Urine Color (YELLOW) Urine Appearance (CLEAR) Urine pH (5-6) Ur Specific [place] (1.005-1.025) Urine Protein (Negative) Urine Ketones (NEGATIVE) Urine Blood (0-5) Jhonny/ul Urine Nitrite (NEGATIVE) Urine Bilirubin (NEGATIVE) Urine Urobilinogen (0-1) mg/dL Ur Leukocyte Esterase (NEGATIVE) Urine WBC (Auto) (0-5) /HPF Urine RBC (Auto) (0-2) /HPF U Epithel Cells (Auto) (FEW) /HPF Urine Bacteria (Auto) (NEGATIVE) /HPF Urine Mucus (Auto) (NEGATIVE) /HPF Urine Culture Reflexed (NO) Urine Glucose (NEGATIVE) mg/dL Urine Opiates Level (NEGATIVE) Ur Methadone (NEGATIVE) Urine Barbiturates (NEGATIVE) Ur Phencyclidine (PCP) (NEGATIVE) Urine Amphetamine (NEGATIVE) U Benzodiazepine Level (NEGATIVE) Urine Cocaine (NEGATIVE) Urine Marijuana (THC) (NEGATIVE) Group A Strep Antibody (NEGATIVE) Slides for Path Review 09/06/18 09/06/18 09/06/18 Range/Units 20:15 20:15 20:20 WBC (4.0-10.5) K/mm3 RBC (4.1-5.4) M/mm3 Hgb (12.0-16.0) gm/dl Hct (35-47) % MCV (78-100) fl MCH (26-32) pg MCHC (32-36) g/dl RDW (11.5-14.0) % Plt Count (150-450) K/mm3 MPV (6-9.5) fl Gran % (36.0-66.0) % Eos # (Auto) (0-0.5) Absolute Lymphs (auto) (1.0-4.6) Absolute Monos (auto) (0.0-1.3) Lymphocytes % (24.0-44.0) % Monocytes % (0.0-12.0) % Eosinophils % (0.00-5.0) % Basophils % (0.0-0.4) % Absolute Granulocytes (1.4-6.9) Basophils # (0-0.4) PT (9.95-12.35) SECONDS INR (0.8-3.0) APTT (25.3-37.0) SECONDS D-Dimer (215-500) ng/mL pO2/FiO2 Ratio % VBG pH (7.32-7.42) VBG pCO2 at Pat Temp (42-55) mm/Hg VBG pO2 at Pat Temp (25-40) mm/Hg VBG HCO3 (22-28) meq/L VBG O2 Sat (Claudia) (95-100) VBG Base Excess (-2.0-2.0) VBG Hemoglobin VBG Carboxyhemoglobin (0.0-6.9) % T HGB POC Potassium (3.5-5.1) Sodium 136 L (137-145) mmol/L Potassium 3.3 L (3.5-5.1) mmol/L Chloride 95 L (98-107) mmol/L Carbon Dioxide 27 (22-30) mmol/L Anion Gap 17.0 H (5-15) MEQ/L BUN 17 (7-17) mg/dL Creatinine 0.83 (0.52-1.04) mg/dL Estimated GFR > 60.0 ML/MIN Glucose 111 H (74-106) mg/dL Lactic Acid (0.4-2.0) Calcium 9.6 (8.4-10.2) mg/dL Total Bilirubin 0.70 (0.2-1.3) mg/dL AST 32 (14-36) U/L ALT 12 (0-35) U/L Alkaline Phosphatase 176 H (38-126) U/L Troponin I < 0.012 (0.000-0.034) ng/mL Serum Total Protein 7.5 (6.3-8.2) g/dL Albumin 3.8 (3.5-5.0) g/dL Amylase 46 (30-110) U/L Lipase 46 (23-300) U/L Urine Color (YELLOW) Urine Appearance (CLEAR) Urine pH (5-6) Ur Specific [place] (1.005-1.025) Urine Protein (Negative) Urine Ketones (NEGATIVE) Urine Blood (0-5) Jhonny/ul Urine Nitrite (NEGATIVE) Urine Bilirubin (NEGATIVE) Urine Urobilinogen (0-1) mg/dL Ur Leukocyte Esterase (NEGATIVE) Urine WBC (Auto) (0-5) /HPF Urine RBC (Auto) (0-2) /HPF U Epithel Cells (Auto) (FEW) /HPF Urine Bacteria (Auto) (NEGATIVE) /HPF Urine Mucus (Auto) (NEGATIVE) /HPF Urine Culture Reflexed (NO) Urine Glucose (NEGATIVE) mg/dL Urine Opiates Level (NEGATIVE) Ur Methadone (NEGATIVE) Urine Barbiturates (NEGATIVE) Ur Phencyclidine (PCP) (NEGATIVE) Urine Amphetamine (NEGATIVE) U Benzodiazepine Level (NEGATIVE) Urine Cocaine (NEGATIVE) Urine Marijuana (THC) (NEGATIVE) Group A Strep Antibody NEGATIVE (NEGATIVE) Slides for Path Review 09/06/18 09/06/18 09/06/18 Range/Units 20:20 20:20 20:37 WBC (4.0-10.5) K/mm3 RBC (4.1-5.4) M/mm3 Hgb (12.0-16.0) gm/dl Hct (35-47) % MCV (78-100) fl MCH (26-32) pg MCHC (32-36) g/dl RDW (11.5-14.0) % Plt Count (150-450) K/mm3 MPV (6-9.5) fl Gran % (36.0-66.0) % Eos # (Auto) (0-0.5) Absolute Lymphs (auto) (1.0-4.6) Absolute Monos (auto) (0.0-1.3) Lymphocytes % (24.0-44.0) % Monocytes % (0.0-12.0) % Eosinophils % (0.00-5.0) % Basophils % (0.0-0.4) % Absolute Granulocytes (1.4-6.9) Basophils # (0-0.4) PT 13.8 H (9.95-12.35) SECONDS INR 1.22 (0.8-3.0) APTT 33.2 (25.3-37.0) SECONDS D-Dimer 973 H* (215-500) ng/mL pO2/FiO2 Ratio % VBG pH (7.32-7.42) VBG pCO2 at Pat Temp (42-55) mm/Hg VBG pO2 at Pat Temp (25-40) mm/Hg VBG HCO3 (22-28) meq/L VBG O2 Sat (Claudia) (95-100) VBG Base Excess (-2.0-2.0) VBG Hemoglobin VBG Carboxyhemoglobin (0.0-6.9) % T HGB POC Potassium (3.5-5.1) Sodium (137-145) mmol/L Potassium (3.5-5.1) mmol/L Chloride (98-107) mmol/L Carbon Dioxide (22-30) mmol/L Anion Gap (5-15) MEQ/L BUN (7-17) mg/dL Creatinine (0.52-1.04) mg/dL Estimated GFR ML/MIN Glucose (74-106) mg/dL Lactic Acid (0.4-2.0) Calcium (8.4-10.2) mg/dL Total Bilirubin (0.2-1.3) mg/dL AST (14-36) U/L ALT (0-35) U/L Alkaline Phosphatase (38-126) U/L Troponin I (0.000-0.034) ng/mL Serum Total Protein (6.3-8.2) g/dL Albumin (3.5-5.0) g/dL Amylase (30-110) U/L Lipase (23-300) U/L Urine Color YELLOW (YELLOW) Urine Appearance CLEAR (CLEAR) Urine pH 6.0 (5-6) Ur Specific [place] 1.018 (1.005-1.025) Urine Protein NEGATIVE (Negative) Urine Ketones TRACE (NEGATIVE) Urine Blood NEGATIVE (0-5) Jhonny/ul Urine Nitrite NEGATIVE (NEGATIVE) Urine Bilirubin NEGATIVE (NEGATIVE) Urine Urobilinogen NEGATIVE (0-1) mg/dL Ur Leukocyte Esterase NEGATIVE (NEGATIVE) Urine WBC (Auto) 0-2 (0-5) /HPF Urine RBC (Auto) NONE (0-2) /HPF U Epithel Cells (Auto) RARE (FEW) /HPF Urine Bacteria (Auto) NONE (NEGATIVE) /HPF Urine Mucus (Auto) SLIGHT (NEGATIVE) /HPF Urine Culture Reflexed NO (NO) Urine Glucose NEGATIVE (NEGATIVE) mg/dL Urine Opiates Level (NEGATIVE) Ur Methadone (NEGATIVE) Urine Barbiturates (NEGATIVE) Ur Phencyclidine (PCP) (NEGATIVE) Urine Amphetamine (NEGATIVE) U Benzodiazepine Level (NEGATIVE) Urine Cocaine (NEGATIVE) Urine Marijuana (THC) (NEGATIVE) Group A Strep Antibody (NEGATIVE) Slides for Path Review 09/06/18 09/06/18 09/07/18 Range/Units 20:37 23:00 02:20 WBC (4.0-10.5) K/mm3 RBC (4.1-5.4) M/mm3 Hgb (12.0-16.0) gm/dl Hct (35-47) % MCV (78-100) fl MCH (26-32) pg MCHC (32-36) g/dl RDW (11.5-14.0) % Plt Count (150-450) K/mm3 MPV (6-9.5) fl Gran % (36.0-66.0) % Eos # (Auto) (0-0.5) Absolute Lymphs (auto) (1.0-4.6) Absolute Monos (auto) (0.0-1.3) Lymphocytes % (24.0-44.0) % Monocytes % (0.0-12.0) % Eosinophils % (0.00-5.0) % Basophils % (0.0-0.4) % Absolute Granulocytes (1.4-6.9) Basophils # (0-0.4) PT (9.95-12.35) SECONDS INR (0.8-3.0) APTT (25.3-37.0) SECONDS D-Dimer (215-500) ng/mL pO2/FiO2 Ratio % VBG pH (7.32-7.42) VBG pCO2 at Pat Temp (42-55) mm/Hg VBG pO2 at Pat Temp (25-40) mm/Hg VBG HCO3 (22-28) meq/L VBG O2 Sat (Claudia) (95-100) VBG Base Excess (-2.0-2.0) VBG Hemoglobin VBG Carboxyhemoglobin (0.0-6.9) % T HGB POC Potassium (3.5-5.1) Sodium (137-145) mmol/L Potassium (3.5-5.1) mmol/L Chloride (98-107) mmol/L Carbon Dioxide (22-30) mmol/L Anion Gap (5-15) MEQ/L BUN (7-17) mg/dL Creatinine (0.52-1.04) mg/dL Estimated GFR ML/MIN Glucose (74-106) mg/dL Lactic Acid (0.4-2.0) Calcium (8.4-10.2) mg/dL Total Bilirubin (0.2-1.3) mg/dL AST (14-36) U/L ALT (0-35) U/L Alkaline Phosphatase (38-126) U/L Troponin I < 0.012 < 0.012 (0.000-0.034) ng/mL Serum Total Protein (6.3-8.2) g/dL Albumin (3.5-5.0) g/dL Amylase (30-110) U/L Lipase (23-300) U/L Urine Color (YELLOW) Urine Appearance (CLEAR) Urine pH (5-6) Ur Specific [place] (1.005-1.025) Urine Protein (Negative) Urine Ketones (NEGATIVE) Urine Blood (0-5) Jhonny/ul Urine Nitrite (NEGATIVE) Urine Bilirubin (NEGATIVE) Urine Urobilinogen (0-1) mg/dL Ur Leukocyte Esterase (NEGATIVE) Urine WBC (Auto) (0-5) /HPF Urine RBC (Auto) (0-2) /HPF U Epithel Cells (Auto) (FEW) /HPF Urine Bacteria (Auto) (NEGATIVE) /HPF Urine Mucus (Auto) (NEGATIVE) /HPF Urine Culture Reflexed (NO) Urine Glucose (NEGATIVE) mg/dL Urine Opiates Level NEGATIVE (NEGATIVE) Ur Methadone NEGATIVE (NEGATIVE) Urine Barbiturates NEGATIVE (NEGATIVE) Ur Phencyclidine (PCP) NEGATIVE (NEGATIVE) Urine Amphetamine NEGATIVE (NEGATIVE) U Benzodiazepine Level NEGATIVE (NEGATIVE) Urine Cocaine NEGATIVE (NEGATIVE) Urine Marijuana (THC) POSITIVE (NEGATIVE) Group A Strep Antibody (NEGATIVE) Slides for Path Review 09/07/18 09/07/18 09/07/18 Range/Units 05:25 05:25 05:25 WBC 11.2 H (4.0-10.5) K/mm3 RBC 3.60 L (4.1-5.4) M/mm3 Hgb 9.3 L (12.0-16.0) gm/dl Hct 31.0 L (35-47) % MCV 86.1 (78-100) fl MCH 25.8 L (26-32) pg MCHC 30.0 L (32-36) g/dl RDW 21.5 H (11.5-14.0) % Plt Count 543 H (150-450) K/mm3 MPV 9.1 (6-9.5) fl Gran % 93.4 H (36.0-66.0) % Eos # (Auto) 0.01 (0-0.5) Absolute Lymphs (auto) 0.49 L (1.0-4.6) Absolute Monos (auto) 0.22 (0.0-1.3) Lymphocytes % 4.4 L (24.0-44.0) % Monocytes % 2.0 (0.0-12.0) % Eosinophils % 0.1 (0.00-5.0) % Basophils % 0.1 (0.0-0.4) % Absolute Granulocytes 10.42 H (1.4-6.9) Basophils # 0.01 (0-0.4) PT (9.95-12.35) SECONDS INR (0.8-3.0) APTT (25.3-37.0) SECONDS D-Dimer (215-500) ng/mL pO2/FiO2 Ratio % VBG pH (7.32-7.42) VBG pCO2 at Pat Temp (42-55) mm/Hg VBG pO2 at Pat Temp (25-40) mm/Hg VBG HCO3 (22-28) meq/L VBG O2 Sat (Claudia) (95-100) VBG Base Excess (-2.0-2.0) VBG Hemoglobin VBG Carboxyhemoglobin (0.0-6.9) % T HGB POC Potassium (3.5-5.1) Sodium 137 (137-145) mmol/L Potassium 3.6 (3.5-5.1) mmol/L Chloride 101 (98-107) mmol/L Carbon Dioxide 26 (22-30) mmol/L Anion Gap 13.6 (5-15) MEQ/L BUN 16 (7-17) mg/dL Creatinine 0.75 (0.52-1.04) mg/dL Estimated GFR > 60.0 ML/MIN Glucose 137 H (74-106) mg/dL Lactic Acid (0.4-2.0) Calcium 8.8 (8.4-10.2) mg/dL Total Bilirubin 0.40 (0.2-1.3) mg/dL AST 29 (14-36) U/L ALT 11 (0-35) U/L Alkaline Phosphatase 145 H (38-126) U/L Troponin I < 0.012 (0.000-0.034) ng/mL Serum Total Protein 6.5 (6.3-8.2) g/dL Albumin 3.1 L (3.5-5.0) g/dL Amylase (30-110) U/L Lipase (23-300) U/L Urine Color (YELLOW) Urine Appearance (CLEAR) Urine pH (5-6) Ur Specific [place] (1.005-1.025) Urine Protein (Negative) Urine Ketones (NEGATIVE) Urine Blood (0-5) Jhonny/ul Urine Nitrite (NEGATIVE) Urine Bilirubin (NEGATIVE) Urine Urobilinogen (0-1) mg/dL Ur Leukocyte Esterase (NEGATIVE) Urine WBC (Auto) (0-5) /HPF Urine RBC (Auto) (0-2) /HPF U Epithel Cells (Auto) (FEW) /HPF Urine Bacteria (Auto) (NEGATIVE) /HPF Urine Mucus (Auto) (NEGATIVE) /HPF Urine Culture Reflexed (NO) Urine Glucose (NEGATIVE) mg/dL Urine Opiates Level (NEGATIVE) Ur Methadone (NEGATIVE) Urine Barbiturates (NEGATIVE) Ur Phencyclidine (PCP) (NEGATIVE) Urine Amphetamine (NEGATIVE) U Benzodiazepine Level (NEGATIVE) Urine Cocaine (NEGATIVE) Urine Marijuana (THC) (NEGATIVE) Group A Strep Antibody (NEGATIVE) Slides for Path Review YES 09/07/18 Range/Units 08:05 WBC (4.0-10.5) K/mm3 RBC (4.1-5.4) M/mm3 Hgb (12.0-16.0) gm/dl Hct (35-47) % MCV (78-100) fl MCH (26-32) pg MCHC (32-36) g/dl RDW (11.5-14.0) % Plt Count (150-450) K/mm3 MPV (6-9.5) fl Gran % (36.0-66.0) % Eos # (Auto) (0-0.5) Absolute Lymphs (auto) (1.0-4.6) Absolute Monos (auto) (0.0-1.3) Lymphocytes % (24.0-44.0) % Monocytes % (0.0-12.0) % Eosinophils % (0.00-5.0) % Basophils % (0.0-0.4) % Absolute Granulocytes (1.4-6.9) Basophils # (0-0.4) PT (9.95-12.35) SECONDS INR (0.8-3.0) APTT (25.3-37.0) SECONDS D-Dimer (215-500) ng/mL pO2/FiO2 Ratio % VBG pH (7.32-7.42) VBG pCO2 at Pat Temp (42-55) mm/Hg VBG pO2 at Pat Temp (25-40) mm/Hg VBG HCO3 (22-28) meq/L VBG O2 Sat (Claudia) (95-100) VBG Base Excess (-2.0-2.0) VBG Hemoglobin VBG Carboxyhemoglobin (0.0-6.9) % T HGB POC Potassium (3.5-5.1) Sodium (137-145) mmol/L Potassium (3.5-5.1) mmol/L Chloride (98-107) mmol/L Carbon Dioxide (22-30) mmol/L Anion Gap (5-15) MEQ/L BUN (7-17) mg/dL Creatinine (0.52-1.04) mg/dL Estimated GFR ML/MIN Glucose (74-106) mg/dL Lactic Acid (0.4-2.0) Calcium (8.4-10.2) mg/dL Total Bilirubin (0.2-1.3) mg/dL AST (14-36) U/L ALT (0-35) U/L Alkaline Phosphatase (38-126) U/L Troponin I < 0.012 (0.000-0.034) ng/mL Serum Total Protein (6.3-8.2) g/dL Albumin (3.5-5.0) g/dL Amylase (30-110) U/L Lipase (23-300) U/L Urine Color (YELLOW) Urine Appearance (CLEAR) Urine pH (5-6) Ur Specific [place] (1.005-1.025) Urine Protein (Negative) Urine Ketones (NEGATIVE) Urine Blood (0-5) Jhonny/ul Urine Nitrite (NEGATIVE) Urine Bilirubin (NEGATIVE) Urine Urobilinogen (0-1) mg/dL Ur Leukocyte Esterase (NEGATIVE) Urine WBC (Auto) (0-5) /HPF Urine RBC (Auto) (0-2) /HPF U Epithel Cells (Auto) (FEW) /HPF Urine Bacteria (Auto) (NEGATIVE) /HPF Urine Mucus (Auto) (NEGATIVE) /HPF Urine Culture Reflexed (NO) Urine Glucose (NEGATIVE) mg/dL Urine Opiates Level (NEGATIVE) Ur Methadone (NEGATIVE) Urine Barbiturates (NEGATIVE) Ur Phencyclidine (PCP) (NEGATIVE) Urine Amphetamine (NEGATIVE) U Benzodiazepine Level (NEGATIVE) Urine Cocaine (NEGATIVE) Urine Marijuana (THC) (NEGATIVE) Group A Strep Antibody (NEGATIVE) Slides for Path Review - Radiology Impressions Radiology Exams & Impressions: Radiology Procedures Category Date Time Status CHEST 1 VIEW (PORTABLE) Stat Exams 09/06/18 20:05 Completed CHEST WITH CONTRAST [CT] Stat Exams 09/06/18 23:02 Completed - Other Procedures and Tests Respiratory Therapy 09/07/18 02:13 Oxygen Nasal Cannula 2 lpm 09/07/18 03:19 Respiratory Therapy Assessment DAILY 09/07/18 07:00 Peak Expiratory Flow Rate DAILY Assessment/Plan (1) COPD with exacerbation Current Visit: Yes Status: Acute Assessment & Plan: Last Vital Signs Temp 98.2 F 09/07/18 11:13 Pulse 111 H 09/07/18 11:13 Resp 18 09/07/18 11:13 BP 113/61 09/07/18 11:13 Pulse Ox 94 L 09/07/18 11:13 Allergies gabapentin Adverse Reaction (Verified 09/06/18 19:53) Active Medications Albuterol Sulfate (Proventil 2.5 Mg/3 Ml Neb) 2.5 mg IH Q4H PRN PRN PRN Reason: SHORTNESS OF BREATH/WHEEZING Stop: 10/07/18 02:12 Albuterol/Ipratropium (Duoneb 0.5-3 Mg/3 Ml Neb) 3 ml IH TID [facility] Stop: 10/07/18 06:59 Last Admin: 09/07/18 06:36 Dose: 3 ml Azithromycin (Zithromax 500 Mg/ 250 Ml Nacl Premix) 500 mg in 250 mls @ 250 mls /hr IV Q24H10 DEWANYE Stop: 10/07/18 09:59 Last Admin: 09/07/18 10:45 Dose: 250 mls/hr Ceftriaxone Sodium/Dextrose (Rocephin 1 Gm-D5w 50 Ml Bag) 1 g in 50 mls @ 100 mls/hr IV QPM DEWAYNE Stop: 10/07/18 21:59 Sodium Chloride (Sodium Chloride 0.9% 1000 Ml) 1,000 mls @ 100 mls/hr IV .Q10H DEWAYNE Stop: 10/07/18 02:12 Last Admin: 09/07/18 02:34 Dose: 100 mls/hr Methylprednisolone Sodium Succinate (Solu-Medrol 125 Mg) 80 mg IV Q6H DEWAYNE Stop: 10/07/18 02:12 Last Admin: 09/07/18 07:56 Dose: 80 mg Fluticasone/Salmeterol (Advair Hfa 230/21 Mcg Common Canister*) 2 puff IH BIDRT [facility] Stop: 10/07/18 06:59 Last Admin: 09/07/18 06:36 Dose: 2 puff Tiotropium [place] (Spiriva 18 Mcg/Cap Inhaler) 1 ea IH DAILY [facility] Stop: 10/07/18 09:59 Last Admin: 09/07/18 06:36 Dose: 1 ea Intake & Output 09/06/18 09/07/18 11:59 11:59 Intake Total 580 Output Total 500 Balance 80 Weight 86.8 kg Lab Tests 09/06/18 09/06/18 09/06/18 20:04 20:06 20:15 WBC 14.0 H RBC 4.16 Hgb 10.8 L Hct 35.4 MCV 85.1 MCH 25.9 L MCHC 30.5 L RDW 22.0 H Plt Count 716 H MPV 9.3 Gran % 78.5 H Eos # (Auto) 0.06 Absolute Lymphs (auto) 1.50 Absolute Monos (auto) 1.38 H Lymphocytes % 10.8 L Monocytes % 9.9 Eosinophils % 0.4 Basophils % 0.4 Absolute Granulocytes 10.96 H Basophils # 0.05 PT INR APTT D-Dimer pO2/FiO2 Ratio 28.0 VBG pH 7.46 H VBG pCO2 at Pat Temp 43 VBG pO2 at Pat Temp 30 VBG HCO3 30.6 H* VBG O2 Sat (Claudia) 65.9 L VBG Base Excess 6.1 H VBG Hemoglobin 10.3 VBG Carboxyhemoglobin 7.2 H* POC Potassium 3.5 Sodium Potassium Chloride Carbon Dioxide Anion Gap BUN Creatinine Estimated GFR Glucose Lactic Acid 1.7 Calcium Total Bilirubin AST ALT Alkaline Phosphatase Troponin I Serum Total Protein Albumin Amylase Lipase Urine Color Urine Appearance Urine pH Ur Specific [place] Urine Protein Urine Ketones Urine Blood Urine Nitrite Urine Bilirubin Urine Urobilinogen Ur Leukocyte Esterase Urine WBC (Auto) Urine RBC (Auto) U Epithel Cells (Auto) Urine Bacteria (Auto) Urine Mucus (Auto) Urine Culture Reflexed Urine Glucose Urine Opiates Level Ur Methadone Urine Barbiturates Ur Phencyclidine (PCP) Urine Amphetamine U Benzodiazepine Level Urine Cocaine Urine Marijuana (THC) Group A Strep Antibody Slides for Path Review 09/06/18 09/06/18 09/06/18 20:15 20:15 20:20 WBC RBC Hgb Hct MCV MCH MCHC RDW Plt Count MPV Gran % Eos # (Auto) Absolute Lymphs (auto) Absolute Monos (auto) Lymphocytes % Monocytes % Eosinophils % Basophils % Absolute Granulocytes Basophils # PT INR APTT D-Dimer pO2/FiO2 Ratio VBG pH VBG pCO2 at Pat Temp VBG pO2 at Pat Temp VBG HCO3 VBG O2 Sat (Claudia) VBG Base Excess VBG Hemoglobin VBG Carboxyhemoglobin POC Potassium Sodium 136 L Potassium 3.3 L Chloride 95 L Carbon Dioxide 27 Anion Gap 17.0 H BUN 17 Creatinine 0.83 Estimated GFR > 60.0 Glucose 111 H Lactic Acid Calcium 9.6 Total Bilirubin 0.70 AST 32 ALT 12 Alkaline Phosphatase 176 H Troponin I < 0.012 Serum Total Protein 7.5 Albumin 3.8 Amylase 46 Lipase 46 Urine Color Urine Appearance Urine pH Ur Specific [place] Urine Protein Urine Ketones Urine Blood Urine Nitrite Urine Bilirubin Urine Urobilinogen Ur Leukocyte Esterase Urine WBC (Auto) Urine RBC (Auto) U Epithel Cells (Auto) Urine Bacteria (Auto) Urine Mucus (Auto) Urine Culture Reflexed Urine Glucose Urine Opiates Level Ur Methadone Urine Barbiturates Ur Phencyclidine (PCP) Urine Amphetamine U Benzodiazepine Level Urine Cocaine Urine Marijuana (THC) Group A Strep Antibody NEGATIVE Slides for Path Review 09/06/18 09/06/18 09/06/18 20:20 20:20 20:37 WBC RBC Hgb Hct MCV MCH MCHC RDW Plt Count MPV Gran % Eos # (Auto) Absolute Lymphs (auto) Absolute Monos (auto) Lymphocytes % Monocytes % Eosinophils % Basophils % Absolute Granulocytes Basophils # PT 13.8 H INR 1.22 APTT 33.2 D-Dimer 973 H* pO2/FiO2 Ratio VBG pH VBG pCO2 at Pat Temp VBG pO2 at Pat Temp VBG HCO3 VBG O2 Sat (Claudia) VBG Base Excess VBG Hemoglobin VBG Carboxyhemoglobin POC Potassium Sodium Potassium Chloride Carbon Dioxide Anion Gap BUN Creatinine Estimated GFR Glucose Lactic Acid Calcium Total Bilirubin AST ALT Alkaline Phosphatase Troponin I Serum Total Protein Albumin Amylase Lipase Urine Color YELLOW Urine Appearance CLEAR Urine pH 6.0 Ur Specific [place] 1.018 Urine Protein NEGATIVE Urine Ketones TRACE Urine Blood NEGATIVE Urine Nitrite NEGATIVE Urine Bilirubin NEGATIVE Urine Urobilinogen NEGATIVE Ur Leukocyte Esterase NEGATIVE Urine WBC (Auto) 0-2 Urine RBC (Auto) NONE U Epithel Cells (Auto) RARE Urine Bacteria (Auto) NONE Urine Mucus (Auto) SLIGHT Urine Culture Reflexed NO Urine Glucose NEGATIVE Urine Opiates Level Ur Methadone Urine Barbiturates Ur Phencyclidine (PCP) Urine Amphetamine U Benzodiazepine Level Urine Cocaine Urine Marijuana (THC) Group A Strep Antibody Slides for Path Review 09/06/18 09/06/18 09/07/18 20:37 23:00 02:20 WBC RBC Hgb Hct MCV MCH MCHC RDW Plt Count MPV Gran % Eos # (Auto) Absolute Lymphs (auto) Absolute Monos (auto) Lymphocytes % Monocytes % Eosinophils % Basophils % Absolute Granulocytes Basophils # PT INR APTT D-Dimer pO2/FiO2 Ratio VBG pH VBG pCO2 at Pat Temp VBG pO2 at Pat Temp VBG HCO3 VBG O2 Sat (Claudia) VBG Base Excess VBG Hemoglobin VBG Carboxyhemoglobin POC Potassium Sodium Potassium Chloride Carbon Dioxide Anion Gap BUN Creatinine Estimated GFR Glucose Lactic Acid Calcium Total Bilirubin AST ALT Alkaline Phosphatase Troponin I < 0.012 < 0.012 Serum Total Protein Albumin Amylase Lipase Urine Color Urine Appearance Urine pH Ur Specific [place] Urine Protein Urine Ketones Urine Blood Urine Nitrite Urine Bilirubin Urine Urobilinogen Ur Leukocyte Esterase Urine WBC (Auto) Urine RBC (Auto) U Epithel Cells (Auto) Urine Bacteria (Auto) Urine Mucus (Auto) Urine Culture Reflexed Urine Glucose Urine Opiates Level NEGATIVE Ur Methadone NEGATIVE Urine Barbiturates NEGATIVE Ur Phencyclidine (PCP) NEGATIVE Urine Amphetamine NEGATIVE U Benzodiazepine Level NEGATIVE Urine Cocaine NEGATIVE Urine Marijuana (THC) POSITIVE Group A Strep Antibody Slides for Path Review 09/07/18 09/07/18 09/07/18 05:25 05:25 05:25 WBC 11.2 H RBC 3.60 L Hgb 9.3 L Hct 31.0 L MCV 86.1 MCH 25.8 L MCHC 30.0 L RDW 21.5 H Plt Count 543 H MPV 9.1 Gran % 93.4 H Eos # (Auto) 0.01 Absolute Lymphs (auto) 0.49 L Absolute Monos (auto) 0.22 Lymphocytes % 4.4 L Monocytes % 2.0 Eosinophils % 0.1 Basophils % 0.1 Absolute Granulocytes 10.42 H Basophils # 0.01 PT INR APTT D-Dimer pO2/FiO2 Ratio VBG pH VBG pCO2 at Pat Temp VBG pO2 at Pat Temp VBG HCO3 VBG O2 Sat (Claudia) VBG Base Excess VBG Hemoglobin VBG Carboxyhemoglobin POC Potassium Sodium 137 Potassium 3.6 Chloride 101 Carbon Dioxide 26 Anion Gap 13.6 BUN 16 Creatinine 0.75 Estimated GFR > 60.0 Glucose 137 H Lactic Acid Calcium 8.8 Total Bilirubin 0.40 AST 29 ALT 11 Alkaline Phosphatase 145 H Troponin I < 0.012 Serum Total Protein 6.5 Albumin 3.1 L Amylase Lipase Urine Color Urine Appearance Urine pH Ur Specific [place] Urine Protein Urine Ketones Urine Blood Urine Nitrite Urine Bilirubin Urine Urobilinogen Ur Leukocyte Esterase Urine WBC (Auto) Urine RBC (Auto) U Epithel Cells (Auto) Urine Bacteria (Auto) Urine Mucus (Auto) Urine Culture Reflexed Urine Glucose Urine Opiates Level Ur Methadone Urine Barbiturates Ur Phencyclidine (PCP) Urine Amphetamine U Benzodiazepine Level Urine Cocaine Urine Marijuana (THC) Group A Strep Antibody Slides for Path Review YES 09/07/18 08:05 WBC RBC Hgb Hct MCV MCH MCHC RDW Plt Count MPV Gran % Eos # (Auto) Absolute Lymphs (auto) Absolute Monos (auto) Lymphocytes % Monocytes % Eosinophils % Basophils % Absolute Granulocytes Basophils # PT INR APTT D-Dimer pO2/FiO2 Ratio VBG pH VBG pCO2 at Pat Temp VBG pO2 at Pat Temp VBG HCO3 VBG O2 Sat (Claudia) VBG Base Excess VBG Hemoglobin VBG Carboxyhemoglobin POC Potassium Sodium Potassium Chloride Carbon Dioxide Anion Gap BUN Creatinine Estimated GFR Glucose Lactic Acid Calcium Total Bilirubin AST ALT Alkaline Phosphatase Troponin I < 0.012 Serum Total Protein Albumin Amylase Lipase Urine Color Urine Appearance Urine pH Ur Specific [place] Urine Protein Urine Ketones Urine Blood Urine Nitrite Urine Bilirubin Urine Urobilinogen Ur Leukocyte Esterase Urine WBC (Auto) Urine RBC (Auto) U Epithel Cells (Auto) Urine Bacteria (Auto) Urine Mucus (Auto) Urine Culture Reflexed Urine Glucose Urine Opiates Level Ur Methadone Urine Barbiturates Ur Phencyclidine (PCP) Urine Amphetamine U Benzodiazepine Level Urine Cocaine Urine Marijuana (THC) Group A Strep Antibody Slides for Path Review Code(s): J44.1 - CHRONIC OBSTRUCTIVE PULMONARY DISEASE W (ACUTE) EXACERBATION (2) Shortness of breath Current Visit: Yes Status: Acute Code(s): R06.02 - SHORTNESS OF BREATH (3) Anemia Current Visit: No Status: Acute Qualifiers: Code(s): D64.9 - ANEMIA, UNSPECIFIED (4) GI bleed Current Visit: No Status: Acute Code(s): K92.2 - GASTROINTESTINAL HEMORRHAGE , UNSPECIFIED
[2018-09-07] MEDS ORDERED: Ventolin Hfa MDI IH PRN (12:17)
[2018-09-07] MEDS ORDERED: Miralax Powder 17GM PACKET PO PRN (12:17)
[2018-09-07] MEDS ORDERED: PROVENTIL COMMON CANISTER IH PRN (12:25)
[2018-09-07] MEDS ORDERED: Flonase NASAL NS SCH (12:30)
[2018-09-07] MEDS: ZOCOR 20MG PO SCH (12:47)
[2018-09-07] MEDS: hydroDIURIL 25 MG PO SCH (12:48)
[2018-09-07] MEDS: Pepcid 20 MG PO SCH ×2 (12:48→21:15)
[2018-09-07] MEDS: Zestril 20 MG PO SCH (12:48)
[2018-09-07] MEDS: ULTRAM 50 MG PO PRN (14:03)
[2018-09-07] MEDS ORDERED: solu-MEDROL 125 MG ONE (19:37)
[2018-09-07] MEDS ORDERED: NON-FORMULARY ITEM (Ranitidine Hcl [Ranitidine Hcl] 150 MG) PO SCH (22:00)
[2018-09-07] MEDS ORDERED: ROCEPHIN 1 Gm-D5w 50 ml Bag** 1 G/50 ML IVPB IV SCH (22:00)
[2018-09-08] MEDS: ULTRAM 50 MG PO PRN (06:57)
[2018-09-08] MEDS: DUONEB 0.5-3 MG/3 ml Neb IH SCH ×2 (07:45→13:58)
[2018-09-08] MEDS: Advair Hfa 230/21 Mcg COMMON CANISTER IH SCH (08:34)
[2018-09-08] MEDS: Spiriva 18 Mcg/Cap Inhaler IH SCH (08:38)
[2018-09-08] MEDS: Zithromax 500 MG/ 250 ML NaCl Premix 500 MG/250 ML IVPB IV SCH (09:04)
[2018-09-08] MEDS: solu-MEDROL 125 MG IV SCH (09:05)
[2018-09-08] MEDS: hydroDIURIL 25 MG PO SCH (09:06)
[2018-09-08] MEDS: Zestril 20 MG PO SCH (09:07)
[2018-09-08] MEDS: Pepcid 20 MG PO SCH (09:07)
[2018-09-08] MEDS: ZOCOR 20MG PO SCH (09:08)
[2018-09-08] MEDS ORDERED: NON-FORMULARY ITEM (Atorvastatin Calcium [Lipitor] 40 MG) PO SCH (10:00)
[2018-09-08] MEDS ORDERED: TYLENOL EXTRA STRENGTH 500 MG PO PRN (10:23)
[2018-09-08 18:35] VITALS: BP 108/57; PULSE 82; O2SAT 96
--- NOTE | 2018-09-11 10:11 | PCM.DS ---
Discharge Summary Date of Admission: 09/07/18 02:00 Admitting Physician: LISA BALDERRAMA Primary Care Provider: CHRISTINA SCHMITT MD Allergies Allergies gabapentin Adverse Reaction (Verified 09/06/18 19:53) Hospital Summary - Hospital Course Hospital Course: Chief Complaint Diagnosis c/o shortness of breath for 2-3 days Allergies Allergy/AdvReac Type Severity Reaction Status Date / Time gabapentin AdvReac Verified 09/06/18 19:53 Home Medications Medication Instructions Recorded Confirmed Last Taken Type Tramadol HCl 50 mg [Ultram 50 50 mg PO Q6H PRN PRN 09/06/18 09/07/18 History mg] Levofloxacin [Levaquin] 500 mg PO DAILY 5 Days #5 tablet 09/08/18 Unknown Rx Methylprednisolone Packet 4 mg PO DAILY #1 packet 09/08/18 Unknown Rx [Medrol Dosepack] Current Medications Discontinued Medications Generic Name Dose Route Start Last Admin Trade Name Freq PRN Reason Stop Dose Admin Acetaminophen 1,000 mg 09/08/18 10:23 09/08/18 10:34 Tylenol Extra Strength 500 Mg PO 10/08/18 10:22 1,000 mg Q4H PRN PRN Administration HEADACHE Albuterol Sulfate 2.5 mg 09/06/18 19:53 Proventil 2.5 Mg/3 Ml Neb IH 09/06/18 19:54 STAT ONE Albuterol Sulfate Confirm 09/06/18 19:52 Proventil 2.5 Mg/3 Ml Neb Administered 09/06/18 19:53 Dose 2.5 mg IH .STK-MED ONE Albuterol Sulfate 2.5 mg 09/07/18 02:13 09/08/18 01:23 Proventil 2.5 Mg/3 Ml Neb IH 10/07/18 02:12 2.5 mg Q4H PRN PRN Administration SHORTNESS OF BREATH/WHEEZING Albuterol Sulfate 2 puff 09/07/18 12:25 Proventil Common Canister IH 10/07/18 12:24 Q6H PRN PRN SHORTNESS OF BREATH Albuterol/Ipratropium 3 ml 09/07/18 07:00 09/07/18 18:40 Duoneb 0.5-3 Mg/3 Ml Neb IH 10/07/18 06:59 Not Given TID DEWAYNE Albuterol/Ipratropium 3 ml 09/07/18 19:00 09/08/18 13:58 Duoneb 0.5-3 Mg/3 Ml Neb IH 10/07/18 18:59 3 ml TIDRT DEWAYNE Administration Famotidine 20 mg 09/07/18 13:00 09/08/18 09:07 Pepcid 20 Mg PO 10/07/18 12:59 20 mg BID DEWAYNE Administration Fluticasone Propionate 0 gm 09/07/18 12:30 Flonase Nasal NS 10/07/18 12:29 UD DEWAYNE Hydrochlorothiazide 12.5 mg 09/07/18 13:00 09/08/18 09:06 Hydrodiuril 25 Mg PO 10/07/18 12:59 12.5 mg DAILY DEWAYNE Administration Sodium Chloride 1,000 mls @ 999 mls/hr 09/06/18 20:04 09/06/18 21:14 Sodium Chloride 0.9% 1000 Ml IV 09/06/18 21:04 Infused .Q1H1M STA Infusion Sodium Chloride Confirm 09/06/18 20:11 Sodium Chloride 0.9% 1000 Ml Administered 09/06/18 20:12 Dose 1,000 mls @ ud .ROUTE .STK-MED ONE Ceftriaxone Sodium/Dextrose 1 g in 50 mls @ 100 mls/hr 09/07/18 01:07 01:20 Rocephin 1 Gm-D5w 50 Ml Bag IV 09/07/18 01:36 100 mls/hr STAT STA 100 mls/hr Administration Ceftriaxone Sodium/Dextrose Confirm 09/07/18 01:08 Rocephin 1 Gm-D5w 50 Ml Bag Administered 09/07/18 01:09 Dose 1 g in 50 mls @ ud IV .STK-MED ONE Azithromycin 500 mg in 250 mls @ 250 mls/hr 09/07/18 10:00 09/08/18 09:04 Zithromax 500 Mg/ 250 Ml Nacl Premix IV 10/07/18 09:59 250 mls/hr Q24H10 DEWAYNE Administration Ceftriaxone Sodium/Dextrose 1 g in 50 mls @ 100 mls/hr 09/07/18 22:00 21:16 Rocephin 1 Gm-D5w 50 Ml Bag IV 10/07/18 21:59 100 mls/hr QPM DEWAYNE Administration Sodium Chloride 1,000 mls @ 100 mls/hr 09/07/18 02:13 09/07/18 22:33 Sodium Chloride 0.9% 1000 Ml IV 10/07/18 02:12 100 mls/hr .Q10H DEWAYNE Administration Ceftriaxone Sodium/Dextrose Confirm 09/07/18 19:38 Rocephin 1 Gm-D5w 50 Ml Bag Administered 09/07/18 19:39 Dose 1 g in 50 mls @ ud IV .STK-MED ONE Lisinopril 20 mg 09/07/18 13:00 09/08/18 09:07 Zestril 20 Mg PO 10/07/18 12:59 20 mg DAILY DEWAYNE Administration Methylprednisolone Sodium Succinate 125 mg 09/06/18 21:40 09/06/18 21:44 Solu-Medrol 125 Mg IV 09/06/18 21:41 125 mg STAT ONE Administration Methylprednisolone Sodium Succinate Confirm 09/06/18 21:42 Solu-Medrol 125 Mg Administered 09/06/18 21:43 Dose 125 mg .ROUTE .STK-MED ONE Methylprednisolone Sodium Succinate 80 mg 09/07/18 02:13 09/07/18 07:56 Solu-Medrol 125 Mg IV 10/07/18 02:12 80 mg Q6H DEWAYNE Administration Methylprednisolone Sodium Succinate 80 mg 09/07/18 22:00 09/08/18 09:05 Solu-Medrol 125 Mg IV 10/07/18 21:59 80 mg Q12HT DEWAYNE Administration Methylprednisolone Sodium Succinate Confirm 09/07/18 19:37 Solu-Medrol 125 Mg Administered 09/07/18 19:38 Dose 125 mg .ROUTE .STK-MED ONE Morphine Sulfate 4 mg 09/06/18 20:23 09/06/18 20:38 Morphine Sulfate 4 Mg Inj IV 09/06/18 20:24 4 mg STAT ONE Administration Morphine Sulfate Confirm 09/06/18 20:29 Morphine Sulfate 4 Mg Inj Administered 09/06/18 20:30 Dose 4 mg .ROUTE .STK-MED ONE Ondansetron HCl 4 mg 09/06/18 20:23 09/06/18 20:38 Zofran 4 Mg/2 Ml Vial IV 09/06/18 20:24 4 mg STAT ONE Administration Ondansetron HCl Confirm 09/06/18 20:29 Zofran 4 Mg/2 Ml Vial Administered 09/06/18 20:30 Dose 4 mg .ROUTE .STK-MED ONE Polyethylene Glycol 17 gm 09/07/18 12:17 Miralax Powder 17gm Packet PO 10/07/18 12:16 DAILY PRN PRN CONSTIPATION Fluticasone/Salmeterol 2 puff 09/07/18 07:00 09/08/18 08:34 Advair Hfa 230/21 Mcg Common Canister* IH 10/07/18 06:59 2 puff BIDRT DEWAYNE Administration Simvastatin 40 mg 09/07/18 13:00 09/08/18 09:08 Zocor 20mg PO 10/07/18 12:59 40 mg DAILY DEWAYNE Administration Tiotropium [place] 1 ea 09/07/18 10:00 09/08/18 08:38 Spiriva 18 Mcg/Cap Inhaler IH 10/07/18 09:59 1 ea DAILY DEWAYNE Administration Tiotropium [place] Confirm 09/07/18 06:33 Spiriva 18 Mcg/Cap Inhaler Administered 09/07/18 06:34 Dose 1 ea IH .STK-MED ONE Tramadol HCl 50 mg 09/07/18 12:17 09/08/18 06:57 Ultram 50 Mg PO 10/07/18 12:16 50 mg Q6H PRN PRN Administration PAIN Intake & Output (Last 24 hours) 09/08/18 09/09/18 09/10/18 09/11/18 11:59 11:59 11:59 11:59 Intake Total 1720 720 Output Total 1500 650 Balance 220 70 Weight 86.2 kg Microbiology Results (Last 24 hours) 09/06/18 23:10 Blood Blood Culture Gram Stain - Final Not Reportable 09/06/18 23:10 Blood Blood Culture - Final NO GROWTH 09/06/18 23:00 Blood Blood Culture Gram Stain - Final Not Reportable 09/06/18 23:00 Blood Blood Culture - Final NO GROWTH - Vitals & Intake/Output Vital Signs: Vital Signs Temperature 98 F 09/08/18 18:00 Pulse Rate 82 09/08/18 18:00 Respiratory Rate 20 09/08/18 18:00 Blood Pressure 108/57 09/08/18 18:00 O2 Sat by Pulse Oximetry 96 09/08/18 18:00 Oxygen-Last Documented O2 Percentage 2 Liters = 28% Intake & Output: Intake & Output 09/08/18 09/09/18 09/10/18 09/11/18 11:59 11:59 11:59 11:59 Intake Total 1720 720 Output Total 1500 650 Balance 220 70 Weight 86.2 kg - Lab Result Diagrams: 09/07/18 05:25 09/07/18 05:25 Micro Results-Entire Visit: Microbiology 09/06/18 23:10 Blood Culture Gram Stain - Final Blood Not Reportable Blood Culture - Final NO GROWTH 09/06/18 23:00 Blood Culture Gram Stain - Final Blood Not Reportable Blood Culture - Final NO GROWTH - Procedures and Test Procedures and Tests throughout Hospitalization: Therapy Orders & Screens 09/06/18 19:54 neb [Respiratory Nebulizer] STAT Comment: 09/06/18 19:56 Respiratory Therapy Assessment DAILY Comment: 09/07/18 02:13 Oxygen Nasal Cannula 2 lpm Comment: Respiratory Therapy Consult ROUTINE Comment: Reason For Exam: 09/07/18 03:19 Respiratory Therapy Assessment DAILY Comment: Diagnosis: Exac Copd, sob 09/07/18 07:00 Peak Expiratory Flow Rate DAILY Comment: Reason For Exam: Diagnosis: Exac Copd, sob 09/07/18 12:09 Qualify for Home Oxygen TODAY Comment: Diagnosis: c/o shortness of breath for 2-3 days Discharge Exam General Appearance: no apparent distress, alert Neurologic Exam: alert, oriented x 3, cooperative, normal mood/affect, nml cerebellar function, sensation nml, No motor deficits Eye Exam: PERRL, EOMI, eyes nml inspection Ears, Nose, Throat Exam: normal ENT inspection, pharynx normal, moist mucous membranes Neck Exam: normal inspection, non-tender, supple, full range of motion Respiratory Exam: normal breath sounds, lungs clear, No respiratory distress Cardiovascular Exam: regular rate/rhythm, normal heart sounds Gastrointestinal/Abdomen Exam: soft, No tenderness, No mass Pelvic Exam: deferred Rectal Exam: deferred Back Exam: normal inspection, normal range of motion, No CVA tenderness, No vertebral tenderness Extremity Exam: normal inspection, normal range of motion Skin Exam: normal color, warm, dry Final Diagnosis/Problem List - Final Discharge Diagnosis/Problem (1) COPD with exacerbation Status: Resolved Assessment & Plan: Chief Complaint Diagnosis c/o shortness of breath for 2-3 days Allergies Allergy/AdvReac Type Severity Reaction Status Date / Time gabapentin AdvReac Verified 09/06/18 19:53 Home Medications Medication Instructions Recorded Confirmed Last Taken Type Tramadol HCl 50 mg [Ultram 50 50 mg PO Q6H PRN PRN 09/06/18 09/07/18 History mg] Levofloxacin [Levaquin] 500 mg PO DAILY 5 Days #5 tablet 09/08/18 Unknown Rx Methylprednisolone Packet 4 mg PO DAILY #1 packet 09/08/18 Unknown Rx [Medrol Dosepack] Current Medications Discontinued Medications Generic Name Dose Route Start Last Admin Trade Name Freq PRN Reason Stop Dose Admin Acetaminophen 1,000 mg 09/08/18 10:23 09/08/18 10:34 Tylenol Extra Strength 500 Mg PO 10/08/18 10:22 1,000 mg Q4H PRN PRN Administration HEADACHE Albuterol Sulfate 2.5 mg 09/06/18 19:53 Proventil 2.5 Mg/3 Ml Neb IH 09/06/18 19:54 STAT ONE Albuterol Sulfate Confirm 09/06/18 19:52 Proventil 2.5 Mg/3 Ml Neb Administered 09/06/18 19:53 Dose 2.5 mg IH .STK-MED ONE Albuterol Sulfate 2.5 mg 09/07/18 02:13 09/08/18 01:23 Proventil 2.5 Mg/3 Ml Neb IH 10/07/18 02:12 2.5 mg Q4H PRN PRN Administration SHORTNESS OF BREATH/WHEEZING Albuterol Sulfate 2 puff 09/07/18 12:25 Proventil Common Canister IH 10/07/18 12:24 Q6H PRN PRN SHORTNESS OF BREATH Albuterol/Ipratropium 3 ml 09/07/18 07:00 09/07/18 18:40 Duoneb 0.5-3 Mg/3 Ml Neb IH 10/07/18 06:59 Not Given TID DEWAYNE Albuterol/Ipratropium 3 ml 09/07/18 19:00 09/08/18 13:58 Duoneb 0.5-3 Mg/3 Ml Neb IH 10/07/18 18:59 3 ml TIDRT DEWAYNE Administration Famotidine 20 mg 09/07/18 13:00 09/08/18 09:07 Pepcid 20 Mg PO 10/07/18 12:59 20 mg BID DEWAYNE Administration Fluticasone Propionate 0 gm 09/07/18 12:30 Flonase Nasal NS 10/07/18 12:29 UD DEWAYNE Hydrochlorothiazide 12.5 mg 09/07/18 13:00 09/08/18 09:06 Hydrodiuril 25 Mg PO 10/07/18 12:59 12.5 mg DAILY DEWAYNE Administration Sodium Chloride 1,000 mls @ 999 mls/hr 09/06/18 20:04 09/06/18 21:14 Sodium Chloride 0.9% 1000 Ml IV 09/06/18 21:04 Infused .Q1H1M STA Infusion Sodium Chloride Confirm 09/06/18 20:11 Sodium Chloride 0.9% 1000 Ml Administered 09/06/18 20:12 Dose 1,000 mls @ ud .ROUTE .STK-MED ONE Ceftriaxone Sodium/Dextrose 1 g in 50 mls @ 100 mls/hr 09/07/18 01:07 01:20 Rocephin 1 Gm-D5w 50 Ml Bag IV 09/07/18 01:36 100 mls/hr STAT STA 100 mls/hr Administration Ceftriaxone Sodium/Dextrose Confirm 09/07/18 01:08 Rocephin 1 Gm-D5w 50 Ml Bag Administered 09/07/18 01:09 Dose 1 g in 50 mls @ ud IV .STK-MED ONE Azithromycin 500 mg in 250 mls @ 250 mls/hr 09/07/18 10:00 09/08/18 09:04 Zithromax 500 Mg/ 250 Ml Nacl Premix IV 10/07/18 09:59 250 mls/hr Q24H10 DEWAYNE Administration Ceftriaxone Sodium/Dextrose 1 g in 50 mls @ 100 mls/hr 09/07/18 22:00 21:16 Rocephin 1 Gm-D5w 50 Ml Bag IV 10/07/18 21:59 100 mls/hr QPM DEWAYNE Administration Sodium Chloride 1,000 mls @ 100 mls/hr 09/07/18 02:13 09/07/18 22:33 Sodium Chloride 0.9% 1000 Ml IV 10/07/18 02:12 100 mls/hr .Q10H DWEAYNE Administration Ceftriaxone Sodium/Dextrose Confirm 09/07/18 19:38 Rocephin 1 Gm-D5w 50 Ml Bag Administered 09/07/18 19:39 Dose 1 g in 50 mls @ ud IV .STK-MED ONE Lisinopril 20 mg 09/07/18 13:00 09/08/18 09:07 Zestril 20 Mg PO 10/07/18 12:59 20 mg DAILY DEWAYNE Administration Methylprednisolone Sodium Succinate 125 mg 09/06/18 21:40 09/06/18 21:44 Solu-Medrol 125 Mg IV 09/06/18 21:41 125 mg STAT ONE Administration Methylprednisolone Sodium Succinate Confirm 09/06/18 21:42 Solu-Medrol 125 Mg Administered 09/06/18 21:43 Dose 125 mg .ROUTE .STK-MED ONE Methylprednisolone Sodium Succinate 80 mg 09/07/18 02:13 09/07/18 07:56 Solu-Medrol 125 Mg IV 10/07/18 02:12 80 mg Q6H DEWAYNE Administration Methylprednisolone Sodium Succinate 80 mg 09/07/18 22:00 09/08/18 09:05 Solu-Medrol 125 Mg IV 10/07/18 21:59 80 mg Q12HT DEWAYNE Administration Methylprednisolone Sodium Succinate Confirm 09/07/18 19:37 Solu-Medrol 125 Mg Administered 09/07/18 19:38 Dose 125 mg .ROUTE .STK-MED ONE Morphine Sulfate 4 mg 09/06/18 20:23 09/06/18 20:38 Morphine Sulfate 4 Mg Inj IV 09/06/18 20:24 4 mg STAT ONE Administration Morphine Sulfate Confirm 09/06/18 20:29 Morphine Sulfate 4 Mg Inj Administered 09/06/18 20:30 Dose 4 mg .ROUTE .STK-MED ONE Ondansetron HCl 4 mg 09/06/18 20:23 09/06/18 20:38 Zofran 4 Mg/2 Ml Vial IV 09/06/18 20:24 4 mg STAT ONE Administration Ondansetron HCl Confirm 09/06/18 20:29 Zofran 4 Mg/2 Ml Vial Administered 09/06/18 20:30 Dose 4 mg .ROUTE .STK-MED ONE Polyethylene Glycol 17 gm 09/07/18 12:17 Miralax Powder 17gm Packet PO 10/07/18 12:16 DAILY PRN PRN CONSTIPATION Fluticasone/Salmeterol 2 puff 09/07/18 07:00 09/08/18 08:34 Advair Hfa 230/21 Mcg Common Canister* IH 10/07/18 06:59 2 puff BIDRT DEWAYNE Administration Simvastatin 40 mg 09/07/18 13:00 09/08/18 09:08 Zocor 20mg PO 10/07/18 12:59 40 mg DAILY DEWAYNE Administration Tiotropium [place] 1 ea 09/07/18 10:00 09/08/18 08:38 Spiriva 18 Mcg/Cap Inhaler IH 10/07/18 09:59 1 ea DAILY DEWAYNE Administration Tiotropium [place] Confirm 09/07/18 06:33 Spiriva 18 Mcg/Cap Inhaler Administered 09/07/18 06:34 Dose 1 ea IH .STK-MED ONE Tramadol HCl 50 mg 09/07/18 12:17 09/08/18 06:57 Ultram 50 Mg PO 10/07/18 12:16 50 mg Q6H PRN PRN Administration PAIN Intake & Output (Last 24 hours) 09/08/18 09/09/18 09/10/18 09/11/18 11:59 11:59 11:59 11:59 Intake Total 1720 720 Output Total 1500 650 Balance 220 70 Weight 86.2 kg Microbiology Results (Last 24 hours) 09/06/18 23:10 Blood Blood Culture Gram Stain - Final Not Reportable 09/06/18 23:10 Blood Blood Culture - Final NO GROWTH 09/06/18 23:00 Blood Blood Culture Gram Stain - Final Not Reportable 09/06/18 23:00 Blood Blood Culture - Final NO GROWTH Code(s): J44.1 - CHRONIC OBSTRUCTIVE PULMONARY DISEASE W (ACUTE) EXACERBATION (2) Shortness of breath Status: Resolved Code(s): R06.02 - SHORTNESS OF BREATH (3) Anemia Status: Chronic Code(s): D64.9 - ANEMIA, UNSPECIFIED (4) GI bleed Status: Suspected Code(s): K92.2 - GASTROINTESTINAL HEMORRHAGE, UNSPECIFIED - Discharge Discharge Date: 09/08/18 Disposition: Home, Self-Care Condition: Fair Prescriptions: New Levofloxacin [Levaquin] 500 mg PO DAILY 5 Days #5 tablet Methylprednisolone Packet [Medrol Dosepack] 4 mg PO DAILY #1 packet Continue Tiotropium [place] [Spiriva] 18 mcg IH UD Ipratropium/Albuterol Sulfate [Iprat-Albut 0.5-3(2.5) mg/3 ml] 3 ml NEB UD Hydrochlorothiazide 25 mg [hydroDIURIL 25 MG] 12.5 mg PO DAILY Atorvastatin Calcium [Lipitor] 40 mg PO DAILY Budesonide/Formoterol Fumarate [Symbicort 160-4.5 Mcg Inhaler] 2 puff IH BID Albuterol 8 gm Mdi Hfa [Ventolin Hfa MDI] 2 puff IH Q6H PRN PRN PRN Reason: Shortness Of Breath Lisinopril 20 mg [Zestril 20 MG] 20 mg PO DAILY Fluticasone Propionate [Flonase NASAL] 1 spray INTRANASAL UD raNITIdine HCl [Ranitidine HCl] 150 mg PO BID Polyethylene Glycol 3350 [Miralax] 17 gm PO DAILY PRN PRN Reason: Constipation Tramadol HCl 50 mg [Ultram 50 mg] 50 mg PO Q6H PRN PRN PRN Reason: Pain Instructions: Chronic Obstructive Pulmonary Disease (COPD), Including Emphysema Additional Instructions: YOU WILL REQUIRE OXYGEN AT 2 LITERS PER NASAL CANULA 28/09 AT HOME, [facility] TO PROVIDE PER YOUR REQUEST. Follow up with: MELISSA MARIE [CONSULTING PHYSICIAN] - 1 Week LISA BALDERRAMA MD [ACTIVE STAFF] - 09/13/18 10:30 am (AT [facility]
== END 2018-09-08 18:30 | disposition home or self-care (01) ==
LOC: ED 19:37 → MED SURG 09-07 01:55 → UNDOADMOB 09-07 01:55 → MED SURG 09-07 02:00
PROVIDERS: ADMIT General Practice; ATTEND General Practice
DX: J44.1 Chronic obstructive pulmonary disease with (acute) exacerbation (principal); D64.9 Anemia, unspecified; I10 Essential (primary) hypertension; E78.5 Hyperlipidemia, unspecified; K21.9 Gastro-esophageal reflux disease without esophagitis; E78.00 Pure hypercholesterolemia, unspecified; Z79.899 Other long term (current) drug therapy; Z86.73 Personal history of transient ischemic attack (TIA), and cerebral infarction without residual deficits; F17.200 Nicotine dependence, unspecified, uncomplicated
CPT/HCPCS: 36000; 36415; 71045; 71260; 80053; 80307; 81001; 82150; 82805; 83605; 83690; 84484; 85025; 85379; 85610; 85730; 87040; 87651; 93005; 93041; 93268; 94150; 94640; 94760; 94762; 96360; 96365; 96374; 96375; 99285; G0378; J0456; J0696; J2270; J2405; J2930; J7609; A9270-GY

== ENCOUNTER 2018-10-01 08:23 | Emergency (ER) | payer MEDICARE ==
[2018-10-01] MEDS ORDERED: PROVENTIL 2.5 MG/3 ML NEB IH ONE (08:28)
[2018-10-01] MEDS ORDERED: DUONEB 0.5-3 MG/3 ml Neb IH ONE ×4 (08:30→10:15)
[2018-10-01] MEDS ORDERED: Lasix 40 MG/4 ML IV ONE (08:52)
[2018-10-01] MEDS ORDERED: solu-MEDROL 125 MG IV ONE (08:52)
[2018-10-01] MEDS ORDERED: Sodium Chloride 0.9% 1000 ML 1,000 ML ONE (08:58)
[2018-10-01] MEDS ORDERED: solu-MEDROL 125 MG ONE (08:58)
[2018-10-01] MEDS ORDERED: Lasix 40 MG/4 ML ONE (08:58)
--- NOTE | 2018-10-01 08:58 | ERPHSYRPT ---
- History of Present Illness Time Seen by Provider: 10/01/18 08:55 Source: patient Exam Limitations: no limitations Patient Subjective Stated Complaint: shortness of breath, pain in left foot and achy all over Triage Nursing Assessment: Pt brought to the ER via a wheelchair, lungs tight and diminished and expiratorty wheezing, sallow color skin, dry, no edema, hard to speak due to breathing, tachycardic, stated that when she woke up that she couldn't get out of bed due to her left foot hurting and aching all over and doesn't remember doing anything to it, wears 2L NC at home Physician History: shortness of breath, pain in left foot and achy all over for 1 day stated that when she woke up that she couldn't get out of bed due to her left foot hurting and aching all over and doesn't remember doing anything to it, Timing/Duration: today Possible Cause: frequent episodes Associated Symptoms: cough, wheezing, weakness, ankle swelling, calf pain (left) Allergies/Adverse Reactions: gabapentin Adverse Reaction (Verified 10/01/18 08:39) Home Medications: Atorvastatin Calcium [Lipitor] 40 mg PO DAILY 11/22/14 [History] Hydrochlorothiazide 25 mg [hydroDIURIL 25 MG] 12.5 mg PO DAILY 11/22/14 [ History] Ipratropium/Albuterol Sulfate [Iprat-Albut 0.5-3(2.5) mg/3 ml] 3 ml NEB UD 11/22 [History] Tiotropium [place] [Spiriva] 18 mcg IH UD 11/22/14 [History] Albuterol 8 gm Mdi Hfa [Ventolin Hfa MDI] 2 puff IH Q6H PRN PRN 09/14/16 [ History] Budesonide/Formoterol Fumarate [Symbicort 160-4.5 Mcg Inhaler] 2 puff IH BID 12/22 [History] Lisinopril 20 mg [Zestril 20 MG] 20 mg PO DAILY 09/28/16 [History] Fluticasone Propionate [Flonase NASAL] 1 spray INTRANASAL UD 07/30/18 [ History] raNITIdine HCl [Ranitidine HCl] 150 mg PO BID 07/30/18 [History] Polyethylene Glycol 3350 [Miralax] 17 gm PO DAILY PRN 08/02/18 [History] Tramadol HCl 50 mg [Ultram 50 mg] 50 mg PO Q6H PRN PRN 09/06/18 [History] Metoprolol Succinate 50 mg PO DAILY 10/01/18 [History] Hx Tetanus, Diphtheria Vaccination/Date Given: No Hx Influenza Vaccination/Date Given: Yes Hx Pneumococcal Vaccination/Date Given: No - Review of Systems Constitutional: No Fever, No Chills Eyes: No Symptoms Ears, Nose, & Throat: No Symptoms Respiratory: Cough, Dyspnea, Dyspnea on Exertion (CORDOVA), Wheezing Cardiac: Palpitations, Orthopnea, PND, No Chest Pain, No Edema, No Syncope Abdominal/Gastrointestinal: No Abdominal Pain, No Nausea, No Vomiting, No Diarrhea Genitourinary Symptoms: No Dysuria Musculoskeletal: No Back Pain, No Neck Pain Skin: No Rash Neurological: No Dizziness, No Focal Weakness, No Sensory Changes Psychological: No Symptoms Endocrine: No Symptoms All Other Systems: Reviewed and Negative - Past Medical History Pertinent Past Medical History: Yes Neurological History: Stroke ENT History: No Pertinent History Cardiac History: Arrhythmia, High Cholesterol, Hypertension, Other Respiratory History: COPD Endocrine Medical History: No Pertinent History Musculoskeletal History: Osteoarthritis GI Medical History: GERD, Ulcer History: No Pertinent History Psycho-Social History: No Pertinent History Female Reproductive Disorders: No Pertinent History Other Medical History: 01/2014 CVA, anemia,. stroke x2 - Past Surgical History Past Surgical History: Yes Neuro Surgical History: No Pertinent History Cardiac: No Pertinent History Respiratory: No Pertinent History Gastrointestinal: Cholecystectomy Genitourinary: No Pertinent History Musculoskeletal: Orthopedic Surgery Female Surgical History: No Pertinent History Other Surgical History: egd/colonoscopy/bilat carpal tunnel - Social History Smoking Status: Former smoker How long have you smoked: 40 yrs Exposure to second hand smoke: Yes Drug Use: none Patient Lives Alone: Yes - Nursing Vital Signs Nursing Vital Signs: Initial Vital Signs Temperature 97.6 F 10/01/18 08:26 Pulse Rate 138 H 10/01/18 08:26 Respiratory Rate 36 H 10/01/18 08:26 Blood Pressure 130/100 10/01/18 08:26 O2 Sat by Pulse Oximetry 98 10/01/18 08:26 Pain Scale Pain Intensity 10 - Physical Exam General Appearance: no apparent distress, alert Eye Exam: PERRL/EOMI Neck Exam: normal inspection, supple Respiratory Exam: diminished breath sounds, prolonged expirations, crackles/ rales, rhonchi, wheezing Cardiovascular/Chest Exam: normal heart sounds, regular rate/rhythm Abdominal/Gastrointestinal Exam: soft, No tenderness, No distention, No mass Extremity Exam: non-tender, normal range of motion, normal inspection, no calf tenderness, no pedal edema Neurologic Exam: alert, oriented x 3, cooperative, bullet maker II-XII nml as tested, sensation nml, No motor deficits Skin Exam: normal color, warm, No dry SpO2 Interpretation: normal SpO2: 98 - Course Nursing assessment & vital signs reviewed: Yes EKG Interpreted by Me: A-fib Rhythm Strip: Atrial Fibrillation - Radiology Exams Chest X-ray Interpretation: Reviewed by me (COPD changes) Ordered Tests: Active Orders 24 hr Category Date Time Status Sprayer Machine STAT Care 10/01/18 08:54 Active EKG-ER Only STAT Care 10/01/18 08:52 Active Oxygen-ED Only Nasal Cannula 3 lpm Care 10/01/18 08:52 Active CHEST 1 VIEW (PORTABLE) Stat Exams 10/01/18 09:11 Taken FOOT (MINIMUM 3 VIEWS) Routine Exams 10/01/18 09:10 Taken ARTERIAL BLOOD GASES Stat Lab 10/01/18 08:52 Completed CBC W DIFF Stat Lab 10/01/18 08:52 Completed CMP Stat Lab 10/01/18 09:15 Completed D-DIMER QUANTITATION Stat Lab 10/01/18 09:00 Completed MAGNESIUM Stat Lab 10/01/18 09:15 Completed NT PRO BNP Stat Lab 10/01/18 09:15 Completed TROPONIN Q3H Lab 10/01/18 09:15 Completed TROPONIN Q3H Lab 10/01/18 12:00 Ordered TROPONIN Q3H Lab 10/01/18 15:00 Ordered TROPONIN Q3H Lab 10/01/18 18:00 Ordered TROPONIN Q3H Lab 10/01/18 21:00 Ordered Uric Acid Stat Lab 10/01/18 09:00 Completed BiPap/CPAP ROUTINE RT 10/01/18 08:52 Active Peak Expiratory Flow Rate ONCE RT 10/01/18 10:18 Active Respiratory Therapy Assessment DAILY RT 10/01/18 08:35 Completed Respiratory Therapy Assessment DAILY RT 10/01/18 10:18 Active Medication Summary Generic Name Dose Route Start Last Admin Trade Name Kelsi PRN Reason Stop Dose Admin Sodium Chloride 1,000 mls @ 50 mls/hr 10/01/18 09:00 10/01/18 09:01 Sodium Chloride 0.9% 1000 Ml IV 10/31/18 08:59 50 mls/hr .Q20H DEWAYNE Administration Discontinued Medications Generic Name Dose Route Start Last Admin Trade Name Kelsi PRN Reason Stop Dose Admin Albuterol Sulfate Confirm 10/01/18 08:28 Proventil 2.5 Mg/3 Ml Neb Administered 10/01/18 08:29 Dose 10 mg IH .STK-MED ONE Albuterol/Ipratropium Confirm 10/01/18 08:30 Duoneb 0.5-3 Mg/3 Ml Neb Administered 10/01/18 08:31 Dose 3 ml IH .STK-MED ONE Albuterol/Ipratropium 3 ml 10/01/18 08:34 10/01/18 08:30 Duoneb 0.5-3 Mg/3 Ml Neb IH 10/01/18 08:35 3 ml STAT ONE Administration Albuterol/Ipratropium Confirm 10/01/18 10:12 Duoneb 0.5-3 Mg/3 Ml Neb Administered 10/01/18 10:13 Dose 3 ml IH .STK-MED ONE Albuterol/Ipratropium 3 ml 10/01/18 10:15 10/01/18 10:16 Duoneb 0.5-3 Mg/3 Ml Neb IH 10/01/18 10:16 3 ml STAT ONE Administration Enoxaparin Sodium 120 mg 10/01/18 09:53 10/01/18 10:12 Enoxaparin Sodium SQ 10/01/18 09:54 120 mg STAT STA Administration Enoxaparin Sodium Confirm 10/01/18 09:53 Enoxaparin Sodium Administered 10/01/18 09:54 Dose 120 mg SQ .STK-MED ONE Furosemide 40 mg 10/01/18 08:52 10/01/18 09:01 Lasix 40 Mg/4 Ml IV 10/01/18 08:53 40 mg STAT ONE Administration Furosemide Confirm 10/01/18 08:58 Lasix 40 Mg/4 Ml Administered 10/01/18 08:59 Dose 40 mg .ROUTE .STK-MED ONE Ketorolac Tromethamine 30 mg 10/01/18 09:52 10/01/18 10:12 Toradol 30 Mg Injection IV 10/01/18 09:53 30 mg STAT ONE Administration Ketorolac Tromethamine Confirm 10/01/18 09:52 Toradol 30 Mg Injection Administered 10/01/18 09:53 Dose 30 mg .ROUTE .STK-MED ONE Methylprednisolone Sodium Succinate 80 mg 10/01/18 08:52 10/01/18 09:01 Solu-Medrol 125 Mg IV 10/01/18 08:53 80 mg STAT ONE Administration Methylprednisolone Sodium Succinate Confirm 10/01/18 08:58 Solu-Medrol 125 Mg Administered 10/01/18 08:59 Dose 125 mg .ROUTE .STK-MED ONE Lab/Rad Data: Laboratory Result Diagrams 10/01/18 08:52 10/01/18 09:15 Laboratory Results 10/01/18 10/01/18 10/01/18 Range/Units 09:15 09:15 09:00 WBC (4.0-10.5) K/mm3 RBC (4.1-5.4) M/mm3 Hgb (12.0-16.0) gm/dl Hct (35-47) % MCV (78-100) fl MCH (26-32) pg MCHC (32-36) g/dl RDW (11.5-14.0) % Plt Count (150-450) K/mm3 MPV (6-9.5) fl Gran % (36.0-66.0) % Eos # (Auto) (0-0.5) Absolute Lymphs (auto) (1.0-4.6) Absolute Monos (auto) (0.0-1.3) Lymphocytes % (24.0-44.0) % Monocytes % (0.0-12.0) % Eosinophils % (0.00-5.0) % Basophils % (0.0-0.4) % Absolute Granulocytes (1.4-6.9) Basophils # (0-0.4) D-Dimer 703 H* (215-500) ng/mL Puncture Site pCO2 (35-45) mmHg pO2 (75-100) mmHg Base Excess (-2.0-2.0) O2 Saturation (94-100) g/dF ABG pH (7.35-7.45) ABG HCO3 (22-28) ABG O2 Sat (Measured) (95-100) % Christophe Test A-a Gradient a/A Ratio Hemoglobin Carboxyhemoglobin (0.0-6.9) % THgb Methemoglobin (1.4-1.5) % Potassium 4.1 (3.5-5.1) Temperature C POC O2 Flow Rate % Sodium 138 (137-145) mmol/L Chloride 105 (98-107) mmol/L Carbon Dioxide 22 (22-30) mmol/L Anion Gap 15.1 H (5-15) MEQ/L BUN 14 (7-17) mg/dL Creatinine 0.69 (0.52-1.04) mg/dL Estimated GFR > 60.0 ML/MIN Glucose 122 H (74-106) mg/dL Uric Acid (2.6-6.0) mg/dL Calcium 9.8 (8.4-10.2) mg/dL Magnesium 1.8 (1.6-2.3) mg/dL Total Bilirubin 0.80 (0.2-1.3) mg/dL AST 30 (14-36) U/L ALT 14 (0-35) U/L Alkaline Phosphatase 128 H (38-126) U/L Troponin I < 0.012 (0.000-0.034) ng/mL NT-Pro-B Natriuret Pep 456 (0-900) pg/mL Serum Total Protein 7.7 (6.3-8.2) g/dL Albumin 4.3 (3.5-5.0) g/dL 10/01/18 10/01/18 10/01/18 Range/Units 09:00 08:52 08:52 WBC 7.4 (4.0-10.5) K/mm3 RBC 3.93 L (4.1-5.4) M/mm3 Hgb 10.8 L (12.0-16.0) gm/dl Hct 35.0 (35-47) % MCV 89.1 (78-100) fl MCH 27.4 (26-32) pg MCHC 30.9 L (32-36) g/dl RDW 21.0 H (11.5-14.0) % Plt Count 316 (150-450) K/mm3 MPV 9.7 H (6-9.5) fl Gran % 67.7 H (36.0-66.0) % Eos # (Auto) 0.15 (0-0.5) Absolute Lymphs (auto) 1.24 (1.0-4.6) Absolute Monos (auto) 0.97 (0.0-1.3) Lymphocytes % 16.7 L (24.0-44.0) % Monocytes % 13.1 H (0.0-12.0) % Eosinophils % 2.0 (0.00-5.0) % Basophils % 0.5 (0.0-0.4) % Absolute Granulocytes 5.03 (1.4-6.9) Basophils # 0.04 (0-0.4) D-Dimer (215-500) ng/mL Puncture Site RIGHT BRACHIAL pCO2 34 L (35-45) mmHg pO2 79 (75-100) mmHg Base Excess 2.0 (-2.0-2.0) O2 Saturation 93.7 L (94-100) g/dF ABG pH 7.48 H (7.35-7.45) ABG HCO3 25.3 (22-28) ABG O2 Sat (Measured) 98.5 (95-100) % Christophe Test NOT APPLICABLE A-a Gradient 135 a/A Ratio 0.37 Hemoglobin 10.7 Carboxyhemoglobin 3.7 (0.0-6.9) % THgb Methemoglobin 1.2 L (1.4-1.5) % Potassium 3.6 (3.5-5.1) Temperature 37.0 C POC O2 Flow Rate 36 % Sodium (137-145) mmol/L Chloride (98-107) mmol/L Carbon Dioxide (22-30) mmol/L Anion Gap (5-15) MEQ/L BUN (7-17) mg/dL Creatinine (0.52-1.04) mg/dL Estimated GFR ML/MIN Glucose (74-106) mg/dL Uric Acid 4.6 (2.6-6.0) mg/dL Calcium (8.4-10.2) mg/dL Magnesium (1.6-2.3) mg/dL Total Bilirubin (0.2-1.3) mg/dL AST (14-36) U/L ALT (0-35) U/L Alkaline Phosphatase (38-126) U/L Troponin I (0.000-0.034) ng/mL NT-Pro-B Natriuret Pep (0-900) pg/mL Serum Total Protein (6.3-8.2) g/dL Albumin (3.5-5.0) g/dL - Progress Progress: improved Air Movement: good Blood Culture(s) Obtained: No Antibiotics given: No Counseled pt/family regarding: lab results, diagnosis, need for follow-up, rad results, smoking cessation - Departure Departure Disposition: Home Clinical Impression: Embolic disease of toe, Acute embolism and thrombosis of deep vein of left distal leg Condition: Stable Critical Care Time: Yes Critical Care Time(excluding separately billable procedures): 30-74 minutes Referrals: CHRISTINA SCHMITT MD [Primary Care Provider] - Instructions: Exacerbation of COPD (DC), Atrial Fibrillation (DC), Heart Failure and Atrial Fibrillation, Rivaroxaban Additional Instructions: Please restart your XARELTO as prescribed. Also restart your Plavix. Follow- up with your primary care physician in 2 days as well as call your food safety manager' s office on Wednesday to expedite your scheduled appointment earlier. Discharge/Care Plan HILDA MAYERS was seen on 10/01/18 in the Emergency Room. The patient was counseled regarding Diagnosis,Lab results, Imaging studies, need for follow up and when to return to the Emergency Room. Prescriptions given: Discharge Note I have spoken with the patient and/or caregivers. I have explained the patient' s condition, diagnosis and treatment plan based on the information available to me at this time. I have answered the patient's and/or caregiver's questions and addressed any concerns. The patient and/or caregivers have as good understanding of the patient's diagnosis, condition and treatment plan as can be expected at this point. The vital signs have been stable. The patient's condition is stable and appropriate for discharge from the emergency department. The patient will pursue further outpatient evaluation with the primary care physician or other designated or consulting physician as outlined in the discharge instructions. The patient and/or caregivers are agreeable to this plan of care and follow-up instructions have been explained in detail. The patient and/or caregivers have received these instruction. The patient/and or caregivers are aware that any significant change in condition or worsening of symptoms should prompt an immediate return to this or the closest emergency department or call 911. HILDA MAYERS was seen on 10/01/18 n the Emergency Room. At that time you were treated for an emergent condition, during your visit Laboratory, Radiology and/or other procedures may have been ordered. It is very important that you follow-up with your Primary Care Physician CHRISTINA SCHMITT MD within the next 24-48 hours to review your Emergency Room visit and the final results of testing that was ordered. Some test results such as Urine Cultures, Blood Cultures, and other cultures if ordered will not be finalized for 24-48 hours. If you do not have a Primary Care Provider please call the medical records department at [phone] ext [phone] to obtain a copy of your results or you may sign into our patient portal to obtain these results by visiting us @ [email or web address] and completing the following steps: 1. Click on the Patient Portal link 2. Click the Patient Self Enrollment Link to complete the enrollment form and entering your 3. Once the enrollment form is completed you will receive an email with a temporary ID and password at the email address you provided. 4. Next choose a user name and password. Your user name must be at least 4 characters long and your password must be at least 4 characters long. 5. Choose a security question from the list and provide your answer to the question. If you already have signed into the Health Portal you may access your Health Care Information 28/09 by the following steps: 1. Login to our website @ [email or web address] 2. Enter your original user name and password. FAQS The [facility] Health Portal is an online tool that contains your Lab Results, Radiology Reports, Visit History, Discharge Instructions and Health Summary Lab and Radiology Results will not be available for 72 hours on the portal. The Portal is a secure site, passwords are encryted and URLs are re-written so they cannot be copied and pasted. You and authorized family members are the only ones who can access your Portal. Also there is a timeout feature that protects your information if you leave the Portal page open. If you have technical difficulty please use the Contact Us link on the page this will allow you to submit any questions you have regarding the Portal or you may contact the Medical Record Department at [phone] ext [phone].
[2018-10-01] MEDS ORDERED: Sodium Chloride 0.9% 1000 ML 1,000 ML IV SCH (09:00)
[2018-10-01 09:14] LABS: BASOPHIL % 0.5 % (0.0-0.4); Basophil (Absolute #) 0.04 (0-0.4); Eosinophil (Absolute #) 0.15 (0-0.5); Granulocyte Absolute (ANC) 5.03 (1.4-6.9); Granulocytes % 67.7 % (36.0-66.0); Hemoglobin 10.8 gm/dl (12.0-16.0); Lymphocyte (Absolute #) 1.24 (1.0-4.6); Lymphocytes % 16.7 % (24.0-44.0); Mean Cell Volume 89.1 fl (78-100); Mean Corpuscular Hemoglobin 27.4 pg (26-32); Mean Corpuscular Hgb Concent. 30.9 g/dl (32-36); Mean Platelet Volume 9.7 fl (6-9.5); Monocyte (Absolute #) 0.97 (0.0-1.3); Monocytes % 13.1 % (0.0-12.0); Platelet Count 316 K/mm3 (150-450); Red Blood Count 3.93 M/mm3 (4.1-5.4); White Blood Count 7.4 K/mm3 (4.0-10.5)
[2018-10-01 09:24] LABS: A-aADO2 135; ABG HEMOGLOBIN 10.7; ABG POTASSIUM 3.6 (3.5-5.1); ABG SITE RIGHT BRACHIAL; ARTERIAL BLD GAS O2 SATURATION 98.5 % (95-100); ARTERIAL BLOOD GAS FIO2 36 %; ARTERIAL BLOOD GAS PCO2 34 mmHg (35-45); ARTERIAL BLOOD GAS PO2 79 mmHg (75-100); ARTERIAL BLOOD GAS pH 7.48 (7.35-7.45); CARBOXYHEMOGLOBIN 3.7 % THgb (0.0-6.9); HCO3- 25.3 (22-28); HGB O2 SAT 93.7 g/dF (94-100); Methhemoglobin 1.2 % (1.4-1.5); paO2 pAO1 0.37
[2018-10-01 09:42] LABS: ALBUMIN 4.3 g/dL (3.5-5.0); ALKALINE PHOSPHATASE 128 U/L (38-126); ANION GAP 15.1 MEQ/L (5-15); BLOOD UREA NITROGEN 14 mg/dL (7-17); CHLORIDE 105 mmol/L (98-107); Calcium 9.8 mg/dL (8.4-10.2); Carbon Dioxide 22 mmol/L (22-30); Creatinine 1 0.69 mg/dL (0.52-1.04); Glucose 122 mg/dL (74-106); MAGNESIUM 1.8 mg/dL (1.6-2.3); NT PRO BNP 456 pg/mL (0-900); Potassium 4.1 mmol/L (3.5-5.1); SGOT/AST 30 U/L (14-36); SGPT/ALT 14 U/L (0-35); SODIUM 138 mmol/L (137-145); Total Protein 7.7 g/dL (6.3-8.2)
[2018-10-01] MEDS ORDERED: TORAdol 30 mg Injection ONE (09:52)
[2018-10-01] MEDS ORDERED: TORAdol 30 mg Injection IV ONE (09:52)
[2018-10-01] MEDS ORDERED: ENOXAPARIN SODIUM SQ STA (09:53)
[2018-10-01] MEDS ORDERED: ENOXAPARIN SODIUM SQ ONE (09:53)
[2018-10-01] MEDS ORDERED: Toprol Xl 50 MG PO STA (10:39)
[2018-10-01] MEDS ORDERED: Toprol-Xl 25MG Tablets ONE (10:41)
[2018-10-01 11:00] VITALS: BP 109/76; PULSE 116; O2SAT 96
--- NOTE | 2018-10-01 21:08 | XRAY ---
Indication: Pain. No known injury. Comparison: None 3 nonweightbearing views of the left foot demonstrates tiny posterior heel spur. No other bony, articular, or soft tissue abnormalities.
--- NOTE | 2018-10-01 21:08 | XRAY ---
Indication: Short of breath. History COPD. Comparison: September 06, 2018. Portable chest remains hyperinflated and clear. Heart and mediastinal structures within normal limits. Bony thorax intact again with electronic device overlying the heart. Impression: Stable nonacute hyperinflated chest.
== END 2018-10-01 10:57 | disposition home or self-care (01) ==
LOC: ED 08:23
DX: I75.022 Atheroembolism of left lower extremity (principal); I82.4Z2 Acute embolism and thrombosis of unspecified deep veins of left distal lower extremity
CPT/HCPCS: 36000; 36415; 36600; 71045; 73630; 80053; 82375; 82803; 83735; 83880; 84484; 84550; 85025; 85379; 93005; 93041; 94150; 94640; 96360; 96361; 96372; 96374; 96375; 99284; J1650; J1885; J1940; J2930; J7609; A9270-GY

== ENCOUNTER 2018-12-12 15:56 | Observation (INO) | payer MEDICARE ==
[2018-12-12 17:35] LABS: Hematocrit 27.9 % (35-47); Hemoglobin 8.1 gm/dl (12.0-16.0); Mean Cell Volume 90.6 fl (78-100); Mean Platelet Volume 8.9 fl (6-9.5); Platelet Count 412 K/mm3 (150-450); Red Blood Count 3.08 M/mm3 (4.1-5.4); Red Cell Distribution Width 15.4 % (11.5-14.0); White Blood Count 10.6 K/mm3 (4.0-10.5)
[2018-12-12] MEDS: ROCEPHIN 1 Gm-D5w 50 ml Bag** 1 G/50 ML IVPB IV SCH (17:35)
[2018-12-12] MEDS: solu-MEDROL 40 MG IV SCH (17:35)
[2018-12-12] MEDS: Zithromax 500 MG/ 250 ML NaCl Premix 500 MG/250 ML IVPB IV SCH (17:35)
[2018-12-12] MEDS ORDERED: Spiriva 18 Mcg/Cap Inhaler IH ONE (17:44)
[2018-12-12] MEDS: Advair Hfa 230/21 Mcg COMMON CANISTER IH SCH (17:49)
[2018-12-12] MEDS: DUONEB 0.5-3 MG/3 ml Neb IH SCH ×2 (17:50→21:57)
[2018-12-12 17:58] LABS: Mean Corpuscular Hemoglobin 26.2 pg (26-32)
[2018-12-12 18:03] LABS: ALBUMIN 3.6 g/dL (3.5-5.0); ALKALINE PHOSPHATASE 107 U/L (38-126); ANION GAP 13.5 MEQ/L (5-15); BLOOD UREA NITROGEN 23 mg/dL (7-17); CHLORIDE 103 mmol/L (98-107); Calcium 9.2 mg/dL (8.4-10.2); Carbon Dioxide 27 mmol/L (22-30); Creatinine 1 0.82 mg/dL (0.52-1.04); Glucose 115 mg/dL (74-106); Potassium 4.2 mmol/L (3.5-5.1); SGOT/AST 20 U/L (14-36); SGPT/ALT 11 U/L (0-35); SODIUM 139 mmol/L (137-145); Total Protein 6.9 g/dL (6.3-8.2)
[2018-12-12] MEDS ORDERED: Spiriva 18 Mcg/Cap Inhaler IH SCH (19:00)
[2018-12-12] MEDS: Zofran 4 MG/2 ML VIAL IV PRN (19:47)
[2018-12-12] MEDS: TYLENOL 325 MG PO PRN (22:09)
[2018-12-12] MEDS ORDERED: zanTAC 150 MG/10 ML SYRUP PO ONE (23:40)
[2018-12-12] MEDS: XARELTO 10 MG TABLET PO SCH (23:45)
[2018-12-12] MEDS: Lopressor 50 MG PO SCH (23:45)
[2018-12-13] MEDS: solu-MEDROL 40 MG IV SCH ×3 (02:52→17:21)
[2018-12-13] MEDS: DUONEB 0.5-3 MG/3 ml Neb IH SCH ×6 (02:55→22:56)
[2018-12-13] MEDS: TYLENOL 325 MG PO PRN ×2 (04:38→13:36)
[2018-12-13] MEDS: Advair Hfa 230/21 Mcg COMMON CANISTER IH SCH ×2 (07:28→18:45)
[2018-12-13] MEDS ORDERED: MEDICATION INTERVENTION PO SCH ×2 (08:00)
--- NOTE | 2018-12-13 08:42 | XRAY ---
Indication: COPD exacerbation. Comparison: October 01, 2018. PA/lateral chest remains hyperinflated and clear. Heart is not enlarged. Bony thorax intact again with electronic device overlying the heart. No new/acute findings.
[2018-12-13] MEDS: Zithromax 500 MG/ 250 ML NaCl Premix 500 MG/250 ML IVPB IV SCH (08:53)
[2018-12-13] MEDS: ROCEPHIN 1 Gm-D5w 50 ml Bag** 1 G/50 ML IVPB IV SCH (08:53)
[2018-12-13] MEDS: Pepcid 20 MG PO SCH ×2 (08:54→21:02)
[2018-12-13] MEDS: Lopressor 50 MG PO SCH ×2 (08:54→20:11)
[2018-12-13] MEDS: hydroDIURIL 25 MG PO SCH (08:54)
[2018-12-13] MEDS: Zestril 20 MG PO SCH (08:55)
[2018-12-13] MEDS: ZOCOR 20MG PO SCH (08:55)
[2018-12-13] MEDS: Flonase NASAL NS SCH (09:07)
--- NOTE | 2018-12-13 09:13 | PCM.NOTE ---
Date and Time: 12/13/18910 Subjective Assessment: doing better - Review of Systems Constitutional: No Fever, No Chills Eyes: No Symptoms Ears, Nose, & Throat: No Symptoms Respiratory: No Cough, No Short Of Breath Cardiac: No Chest Pain, No Edema, No Syncope Abdominal/Gastrointestinal: No Abdominal Pain, No Nausea, No Vomiting, No Diarrhea Genitourinary Symptoms: No Dysuria Musculoskeletal: No Back Pain, No Neck Pain Skin: No Rash Neurological: No Dizziness, No Focal Weakness, No Sensory Changes Psychological: No Symptoms Endocrine: No Symptoms Hematologic/Lymphatic: No Symptoms Immunological/Allergic: No Symptoms Objective Exam General Appearance: no apparent distress, alert Neurologic Exam: alert, oriented x 3, cooperative, normal mood/affect, nml cerebellar function, sensation nml, No motor deficits Skin Exam: normal color, warm, dry Eye Exam: PERRL, EOMI, eyes nml inspection Ears, Nose, Throat Exam: normal ENT inspection, pharynx normal, moist mucous membranes Neck Exam: normal inspection, non-tender, supple, full range of motion Respiratory Exam: diminished breath sounds, No respiratory distress Cardiovascular Exam: regular rate/rhythm, normal heart sounds Gastrointestinal/Abdomen Exam: soft, No tenderness, No mass Extremity Exam: normal inspection, normal range of motion Back Exam: normal inspection, normal range of motion, No CVA tenderness, No vertebral tenderness Pelvic Exam: deferred Rectal Exam: deferred OBJECTIVE DATA Vital Signs: Vital Signs - 24 hr Temp Pulse Resp BP BP Pulse Ox 12/13/18 07:33 98.6 F 84 18 112/65 95 12/13/18 07:30 76 16 98 12/13/18 03:41 98.4 F 86 20 128/64 96 12/13/18 02:55 86 20 96 12/13/18 00:00 98.5 F 91 H 18 106/56 96 12/12/18 21:57 109 H 20 98 12/12/18 20:29 98.2 F 119 H 20 114/73 98 12/12/18 19:05 98 12/12/18 17:51 78 20 98 12/12/18 16:30 98.2 F 109 H 20 133/76 99 12/12/18 16:29 98.2 F 109 H 22 133/76 99 Oxygen-Last 24 hours O2 Percentage 2 Liters = 28% O2 Percentage 2 Liters = 28% O2 Percentage 2 Liters = 28% O2 Percentage 2 Liters = 28% O2 Percentage 2 Liters = 28% O2 Percentage 2 Liters = 28% Pain Assessment - Last Documented Pain Intensity 8 Pain Scale Used 0-10 Pain Scale Intake and Output: Intake & Output 12/10/18 12/11/18 12/12/18 12/13/18 11:59 11:59 11:59 11:59 Intake Total 840 Output Total 1100 Balance -260 Weight 87.2 kg Lab Results: Lab Results-Last 24 Hours 12/12/18 12/12/18 Range/Units 17:15 17:15 WBC 10.6 H (4.0-10.5) K/mm3 RBC 3.08 L (4.1-5.4) M/mm3 Hgb 8.1 L (12.0-16.0) gm/dl Hct 27.9 L (35-47) % MCV 90.6 (78-100) fl MCH 26.2 (26-32) pg MCHC 29.0 L (32-36) g/dl RDW 15.4 H (11.5-14.0) % Plt Count 412 (150-450) K/mm3 MPV 8.9 (6-9.5) fl Sodium 139 (137-145) mmol/L Potassium 4.2 (3.5-5.1) mmol/L Chloride 103 (98-107) mmol/L Carbon Dioxide 27 (22-30) mmol/L Anion Gap 13.5 (5-15) MEQ/L BUN 23 H (7-17) mg/dL Creatinine 0.82 (0.52-1.04) mg/dL Estimated GFR > 60.0 ML/MIN Glucose 115 H (74-106) mg/dL Calcium 9.2 (8.4-10.2) mg/dL Total Bilirubin 0.50 (0.2-1.3) mg/dL AST 20 (14-36) U/L ALT 11 (0-35) U/L Alkaline Phosphatase 107 (38-126) U/L Serum Total Protein 6.9 (6.3-8.2) g/dL Albumin 3.6 (3.5-5.0) g/dL Radiology Exams: Radiology Procedures Category Date Time Status CHEST 2 VIEWS (PA AND LAT) Urgent Exams 12/12/18 18:05 Completed Assessment/Plan (1) COPD with exacerbation Current Visit: Yes Status: Acute Assessment & Plan: Chief Complaint Diagnosis copd exacerbation Allergies Allergy/AdvReac Type Severity Reaction Status Date / Time gabapentin AdvReac Verified 10/01/18 08:39 Vital Signs (Last 24 hours) Temp Pulse Resp BP BP Pulse Ox 12/13/18 07:33 98.6 F 84 18 112/65 95 12/13/18 07:30 76 16 98 12/13/18 03:41 98.4 F 86 20 128/64 96 12/13/18 02:55 86 20 96 12/13/18 00:00 98.5 F 91 H 18 106/56 96 12/12/18 21:57 109 H 20 98 12/12/18 20:29 98.2 F 119 H 20 114/73 98 12/12/18 19:05 98 12/12/18 17:51 78 20 98 12/12/18 16:30 98.2 F 109 H 20 133/76 99 12/12/18 16:29 98.2 F 109 H 22 133/76 99 Home Medications Medication Instructions Recorded Confirmed Last Taken Type Albuterol Sulfate [Proair Hfa] 8.5 gm IH QID 12/12/18 12/12/18 12/12/18 History Hydroxychloroquine Sulfate 200 mg PO BID 12/12/18 12/12/18 12/12/18 History [Plaquenil] Nabumetone 500 mg PO DAILY 12/12/18 12/12/18 12/11/18 History Prednisone 5 mg PO BID 12/12/18 12/12/18 12/12/18 History Rivaroxaban [Xarelto] 15 mg PO DAILY 12/12/18 12/12/18 12/11/18 History Current Medications Generic Name Dose Route Start Last Admin Trade Name Freq PRN Reason Stop Dose Admin Acetaminophen 650 mg 12/12/18 22:06 12/13/18 04:38 Tylenol 325 Mg PO 01/11/19 22:05 650 mg Q6H PRN PRN Administration PAIN AND/OR FEVER Albuterol Sulfate 2 puff 12/13/18 11:00 Proventil Common Canister IH 01/12/19 10:59 QIDRT DEWAYNE Albuterol/Ipratropium 3 ml 12/12/18 19:00 12/13/18 07:28 Duoneb 0.5-3 Mg/3 Ml Neb IH 01/11/19 18:59 3 ml Q4HRT DEWAYNE Administration Famotidine 20 mg 12/13/18 10:00 12/13/18 08:54 Pepcid 20 Mg PO 01/12/19 09:59 20 mg BID DEWAYNE Administration Fluticasone Propionate 0 gm 12/13/18 10:00 12/13/18 09:07 Flonase Nasal NS 01/12/19 09:59 Not Given DAILY DEWAYNE Hydrochlorothiazide 12.5 mg 12/13/18 10:00 12/13/18 08:54 Hydrodiuril 25 Mg PO 01/12/19 09:59 12.5 mg DAILY DEWAYNE Administration Azithromycin 500 mg in 250 mls @ 250 mls/hr 12/12/18 18:00 12/13/18 08:53 Zithromax 500 Mg/ 250 Ml Nacl Premix IV 01/11/19 17:59 250 mls/hr Q24H10 DEWAYNE Administration Ceftriaxone Sodium/Dextrose 1 g in 50 mls @ 100 mls/hr 12/12/18 18:00 08:53 Rocephin 1 Gm-D5w 50 Ml Bag IV 01/11/19 17:59 100 mls/hr Q24H10 DEWAYNE Administration Lisinopril 20 mg 12/13/18 10:00 12/13/18 08:55 Zestril 20 Mg PO 01/12/19 09:59 20 mg DAILY DEWAYNE Administration Methylprednisolone Sodium Succinate 40 mg 12/12/18 18:00 12/13/18 08:53 Solu-Medrol 40 Mg IV 01/11/19 17:59 40 mg Q8H DEWAYNE Administration Metoprolol Tartrate 50 mg 12/12/18 23:45 12/13/18 08:54 Lopressor 50 Mg PO 01/11/19 23:44 50 mg BID DEWAYNE Administration Miscellaneous Information 1 each 12/13/18 08:00 Medication Intervention PO 01/12/19 07:59 .RN TO CHECK ON DEWAYNE Miscellaneous Information 1 each 12/13/18 08:00 Medication Intervention PO 01/12/19 07:59 .RN TO CHECK ON DEWAYNE Ondansetron HCl 4 mg 12/12/18 18:57 12/12/18 19:47 Zofran 4 Mg/2 Ml Vial IV 01/11/19 18:56 4 mg Q6H PRN PRN Administration NAUSEA/VOMITING Polyethylene Glycol 17 gm 12/13/18 07:30 Miralax Powder 17gm Packet PO 01/12/19 07:29 DAILY PRN PRN CONSTIPATION Rivaroxaban 15 mg 12/12/18 23:45 12/12/18 23:45 Xarelto 10 Mg Tablet PO 01/11/19 23:44 15 mg DAILY AT 1800 DEWAYNE Administration Fluticasone/Salmeterol 2 puff 12/12/18 19:00 12/13/18 07:28 Advair Hfa 230/21 Mcg Common Canister* IH 01/11/19 18:59 2 puff BIDRT DEWAYNE Administration Simvastatin 40 mg 12/13/18 10:00 12/13/18 08:55 Zocor 20mg PO 01/12/19 09:59 40 mg DAILY DEWAYNE Administration Tiotropium [place] 1 ea 12/13/18 07:30 Spiriva 18 Mcg/Cap Inhaler IH 01/11/19 18:59 0700 DEWAYNE Discontinued Medications Generic Name Dose Route Start Last Admin Trade Name Freq PRN Reason Stop Dose Admin Ranitidine HCl 150 mg 12/12/18 23:40 12/12/18 23:44 Zantac 150 Mg/10 Ml Syrup PO 12/12/18 23:41 Not Given STAT ONE Tiotropium [place] Confirm 12/12/18 17:44 Spiriva 18 Mcg/Cap Inhaler Administered 12/12/18 17:45 Dose 1 ea IH .STK-MED ONE Tiotropium [place] 1 ea 12/12/18 19:00 12/12/18 17:50 Spiriva 18 Mcg/Cap Inhaler IH 12/13/18 07:15 1 ea DAILY DEWAYNE Administration Intake & Output (Last 24 hours) 12/10/18 12/11/18 12/12/18 12/13/18 11:59 11:59 11:59 11:59 Intake Total 840 Output Total 1100 Balance -260 Weight 87.2 kg Laboratory Results (Last 24 hours) 12/12/18 12/12/18 17:15 17:15 WBC 10.6 H RBC 3.08 L Hgb 8.1 L Hct 27.9 L MCV 90.6 MCH 26.2 MCHC 29.0 L RDW 15.4 H Plt Count 412 MPV 8.9 Sodium 139 Potassium 4.2 Chloride 103 Carbon Dioxide 27 Anion Gap 13.5 BUN 23 H Creatinine 0.82 Estimated GFR > 60.0 Glucose 115 H Calcium 9.2 Total Bilirubin 0.50 AST 20 ALT 11 Alkaline Phosphatase 107 Serum Total Protein 6.9 Albumin 3.6 Orders (Last 24 hours) Category Date Time Status Activity as Tolerated TOLERATED Activity 12/12/18 18:00 Active IV [Change IV to Saline Lock] ROUTINE Care 12/12/18 20:00 Completed Miscellaneous Nursing Order ROUTINE Care 12/12/18 17:17 Active Observation [Place in Observation] ROUTINE Care 12/12/18 17:09 Active [employer] Operator/Discharge Plan Cons 12/12/18 16:57 Active Regular Diet Diet 12/12/18 Dinner Active CHEST 2 VIEWS (PA AND LAT) Urgent Exams 12/12/18 18:05 Completed CBC Routine Lab 12/12/18 17:15 Completed CMP Routine Lab 12/12/18 17:15 Completed Acetaminophen 325 mg [Tylenol 325 mg] Med 12/12/18 22:06 Active 650 mg PO Q6H PRN PRN Albuterol Common Canister [Proventil Common Canister Med 12/13/18 11:00 Active ] 2 puff IH QIDRT Albuterol/Ipratropium 3ml Neb* [DUONEB 0.5-3 MG/3 ml Med 12/12/18 19:00 Active Neb] 3 ml IH Q4HRT Azithromycin 500 mg/250 ml [Zithromax 500 MG/ 250 ML Med 12/12/18 18:00 Active NaCl Premix] 500 mg in 250 ml IV Q24H10 Ceftriaxone 1 GM/50 ML PREMIX* [ROCEPHIN 1 Gm-D5w 50 ml Med 12/12/18 18:00 Active Bag] 1 g in 50 ml IV Q24H10 Famotidine 20 mg [Pepcid 20 MG] Med 12/13/18 10:00 Active 20 mg PO BID Fluticasone Propionate [Flonase NASAL] Med 12/13/18 10:00 Active 0 gm NS DAILY Fluticasone/Salmeterol 230/21 [Advair Hfa 230/21 Mcg Med 12/12/18 19:00 Active COMMON CANISTER*] 2 puff IH BIDRT Hydrochlorothiazide 25 mg [hydroDIURIL 25 MG] Med 12/13/18 10:00 Active 12.5 mg PO DAILY Lisinopril 20 mg [Zestril 20 MG] Med 12/13/18 10:00 Active 20 mg PO DAILY Medication Intervention Med 12/13/18 08:00 Active 1 each PO .RN TO CHECK ON Medication Intervention Med 12/13/18 08:00 Active 1 each PO .RN TO CHECK ON Methylprednisolone Sod Suc 40M [solu-MEDROL 40 MG] Med 12/12/18 18:00 Active 40 mg IV Q8H Metoprolol Tartrate 50 mg [Lopressor 50 MG] Med 12/12/18 23:45 Active 50 mg PO BID Ondansetron HCl 4 mg/2 ml [Zofran 4 MG/2 ML VIAL] Med 12/12/18 18:57 Active 4 mg IV Q6H PRN PRN Polyethylene Glycol 3350 17 gm [Miralax Powder 17GM Med 12/13/18 07:30 Active PACKET] 17 gm PO DAILY PRN PRN Ranitidine HCl 150 mg/10 ml [zanTAC 150 MG/10 ML Med 12/12/18 23:40 Discontinued SYRUP] 150 mg PO STAT ONE Rivaroxaban 10 mg Tablet [Xarelto 10 mg Tablet] Med 12/12/18 23:45 Active 15 mg PO DAILY AT 1800 Simvastatin 20Mg [Zocor 20Mg] Med 12/13/18 10:00 Active 40 mg PO DAILY Tiotropium [place] Inhaler [Spiriva 18 Mcg/Cap Med 12/12/18 17:44 Discontinued Inhaler] 1 [facility] .STK-MED ONE Tiotropium [place] Inhaler [Spiriva 18 Mcg/Cap Med 12/13/18 07:30 Active Inhaler] 1 ea IH 0700 Tiotropium [place] Inhaler [Spiriva 18 Mcg/Cap Med 12/12/18 19:00 Discontinued Inhaler] 1 ea IH DAILY Oxygen Nasal Cannula 2 lpm RT 12/12/18 17:50 Active Peak Expiratory Flow Rate ONCE RT 12/12/18 17:35 Active Pulse Oximetry .spot check RT 12/12/18 17:34 Active RT Screen per Nursing Assess ONCE RT 12/12/18 16:57 Completed Respiratory Therapy Assessment DAILY RT 12/12/18 17:34 Active Respiratory Therapy Consult ROUTINE RT 12/12/18 17:14 Completed Smoking Cessation Education ONCE RT 12/12/18 16:57 Completed Patient Care Notes (Last 24 hours) 12/12/18 18:58 Nursing Note by Emi Lambert Pt c/o nausea after dinner meal. Called and reported to Dr Blandon; new order received. Initialized on 12/12/18 18:58 - END OF NOTE 12/12/18 16:50 (created 12/12/18 17:18) Nursing Note by Emi Lambert Dr called with new orders. Initialized on 12/12/18 17:18 - END OF NOTE Code(s): J44.1 - CHRONIC OBSTRUCTIVE PULMONARY DISEASE W (ACUTE) EXACERBATION (2) Shortness of breath Current Visit: Yes Status: Acute Code(s): R06.02 - SHORTNESS OF BREATH (3) Anemia Current Visit: Yes Status: Chronic Qualifiers: Anemia type: iron deficiency Code(s): D64.9 - ANEMIA, UNSPECIFIED
[2018-12-13] MEDS ORDERED: NON-FORMULARY ITEM (Atorvastatin Calcium [Lipitor] 40 MG) PO SCH (10:00)
[2018-12-13] MEDS ORDERED: NABUMETONE 500 MG PO SCH (10:00)
[2018-12-13] MEDS ORDERED: Ventolin Hfa MDI IH SCH ×2 (10:00)
[2018-12-13] MEDS ORDERED: NON-FORMULARY ITEM (Hydroxychloroquine Sulfate [Plaquenil] 200 MG) PO SCH (10:00)
[2018-12-13] MEDS ORDERED: NON-FORMULARY ITEM (Ranitidine Hcl [Ranitidine Hcl] 150 MG) PO SCH (10:00)
[2018-12-13] MEDS: PROVENTIL COMMON CANISTER IH SCH ×3 (11:00→19:00)
[2018-12-13 13:59] LABS: ALBUMIN 3.8 g/dL (3.5-5.0); ALKALINE PHOSPHATASE 89 U/L (38-126); BLOOD UREA NITROGEN 23 mg/dL (7-17); CHLORIDE 103 mmol/L (98-107); Carbon Dioxide 24 mmol/L (22-30); Creatinine 1 0.97 mg/dL (0.52-1.04); Glucose 105 mg/dL (74-106); Potassium 4.5 mmol/L (3.5-5.1); SGOT/AST 22 U/L (14-36); SODIUM 142 mmol/L (137-145); Total Protein 6.6 g/dL (6.3-8.2)
[2018-12-13 14:06] LABS: SGPT/ALT 23 U/L (0-35)
[2018-12-13 16:40] LABS: Hematocrit 29.9 % (35-47); Hemoglobin 8.6 gm/dl (12.0-16.0); Mean Cell Volume 93.1 fl (78-100); Mean Corpuscular Hgb Concent. 28.8 g/dl (32-36); Mean Platelet Volume 9.5 fl (6-9.5); Platelet Count 534 K/mm3 (150-450); Red Blood Count 3.21 M/mm3 (4.1-5.4); Red Cell Distribution Width 15.8 % (11.5-14.0); White Blood Count 17.3 K/mm3 (4.0-10.5)
[2018-12-13 16:41] LABS: Mean Corpuscular Hemoglobin 26.7 pg (26-32)
[2018-12-13] MEDS: XARELTO 10 MG TABLET PO SCH (17:21)
[2018-12-13] MEDS: Spiriva 18 Mcg/Cap Inhaler IH SCH (18:47)
[2018-12-14] MEDS: solu-MEDROL 40 MG IV SCH ×3 (02:09→21:49)
[2018-12-14] MEDS: TYLENOL 325 MG PO PRN ×4 (02:43→21:55)
[2018-12-14] MEDS: DUONEB 0.5-3 MG/3 ml Neb IH SCH ×4 (06:44→19:30)
[2018-12-14] MEDS: Advair Hfa 230/21 Mcg COMMON CANISTER IH SCH ×2 (06:44→19:30)
[2018-12-14] MEDS: Spiriva 18 Mcg/Cap Inhaler IH SCH ×2 (06:45→19:30)
[2018-12-14] MEDS: Miralax Powder 17GM PACKET PO PRN (08:56)
[2018-12-14] MEDS: ROCEPHIN 1 Gm-D5w 50 ml Bag** 1 G/50 ML IVPB IV SCH (10:04)
[2018-12-14] MEDS: Pepcid 20 MG PO SCH ×2 (10:04→21:49)
[2018-12-14] MEDS: ZOCOR 20MG PO SCH (10:04)
[2018-12-14] MEDS: hydroDIURIL 25 MG PO SCH (10:04)
[2018-12-14] MEDS: Zithromax 500 MG/ 250 ML NaCl Premix 500 MG/250 ML IVPB IV SCH (10:39)
[2018-12-14] MEDS: Lopressor 50 MG PO SCH ×2 (10:40→21:49)
[2018-12-14] MEDS: Flonase NASAL NS SCH ×2 (10:40→15:59)
[2018-12-14] MEDS: Zestril 20 MG PO SCH (10:40)
--- NOTE | 2018-12-14 13:21 | PCM.NOTE ---
Date and Time: 12/14/18 1321 Subjective Assessment: doing ok - Review of Systems Constitutional: No Fever, No Chills Eyes: No Symptoms Ears, Nose, & Throat: No Symptoms Respiratory: Short Of Breath, No Cough Cardiac: No Chest Pain, No Edema, No Syncope Abdominal/Gastrointestinal: No Abdominal Pain, No Nausea, No Vomiting, No Diarrhea Genitourinary Symptoms: No Dysuria Musculoskeletal: No Back Pain, No Neck Pain Skin: No Rash Neurological: No Dizziness, No Focal Weakness, No Sensory Changes Psychological: No Symptoms Endocrine: No Symptoms Hematologic/Lymphatic: No Symptoms Immunological/Allergic: No Symptoms Objective Exam General Appearance: no apparent distress, alert Neurologic Exam: alert, oriented x 3, cooperative, normal mood/affect, nml cerebellar function, sensation nml, No motor deficits Skin Exam: normal color, warm, dry Eye Exam: PERRL, EOMI, eyes nml inspection Ears, Nose, Throat Exam: normal ENT inspection, pharynx normal, moist mucous membranes Neck Exam: normal inspection, non-tender, supple, full range of motion Respiratory Exam: normal breath sounds, lungs clear, No respiratory distress Cardiovascular Exam: regular rate/rhythm, normal heart sounds Gastrointestinal/Abdomen Exam: soft, No tenderness, No mass Extremity Exam: normal inspection, normal range of motion Back Exam: normal inspection, normal range of motion, No CVA tenderness, No vertebral tenderness Pelvic Exam: deferred Rectal Exam: deferred OBJECTIVE DATA Vital Signs: Vital Signs - 24 hr Temp Pulse Resp BP BP Pulse Ox 12/14/18 11:34 76 18 98 12/14/18 11:00 97.9 F 115 H 18 98/57 96 12/14/18 07:00 98.1 F 83 18 113/58 12/14/18 06:51 84 18 98 12/14/18 03:39 97.9 F 97 H 18 102/56 96 12/13/18 23:56 98.2 F 97 H 20 95/53 97 12/13/18 22:59 97 H 20 97 12/13/18 21:25 110/70 12/13/18 19:45 98.5 F 90 18 85/60 97 12/13/18 18:48 86 20 97 12/13/18 16:00 98.9 F 86 20 95/52 95 12/13/18 14:28 78 18 97 Oxygen-Last 24 hours O2 Percentage 2 Liters = 28% O2 Percentage 2 Liters = 28% O2 Percentage 2 Liters = 28% O2 Percentage 2 Liters = 28% Oxygen Flowrate (L/min)-RT 2 Pain Assessment - Last Documented Pain Intensity 8 Pain Scale [facility] Intake and Output: Intake & Output 12/12/18 12/13/18 12/14/18 12/15/18 11:59 11:59 11:59 11:59 Intake Total 840 2517 Output Total 2400 500 -1559 2016 Weight 87.2 kg Lab Results: Lab Results-Last 24 Hours 12/13/18 12/13/18 Range/Units 11:20 11:20 WBC 17.3 H (4.0-10.5) K/mm3 RBC 3.21 L (4.1-5.4) M/mm3 Hgb 8.6 L (12.0-16.0) gm/dl Hct 29.9 L (35-47) % MCV 93.1 (78-100) fl MCH 26.7 (26-32) pg MCHC 28.8 L (32-36) g/dl RDW 15.8 H (11.5-14.0) % Plt Count 534 H (150-450) K/mm3 MPV 9.5 (6-9.5) fl Sodium 142 (137-145) mmol/L Potassium 4.5 (3.5-5.1) mmol/L Chloride 103 (98-107) mmol/L Carbon Dioxide 24 (22-30) mmol/L Anion Gap 19.0 H (5-15) MEQ/L BUN 23 H (7-17) mg/dL Creatinine 0.97 (0.52-1.04) mg/dL Estimated GFR > 60.0 ML/MIN Glucose 105 (74-106) mg/dL Calcium 10.0 (8.4-10.2) mg/dL Total Bilirubin 0.50 (0.2-1.3) mg/dL AST 22 (14-36) U/L ALT 23 (0-35) U/L Alkaline Phosphatase 89 (38-126) U/L Serum Total Protein 6.6 (6.3-8.2) g/dL Albumin 3.8 (3.5-5.0) g/dL Radiology Exams: Radiology Procedures Category Date Time Status CHEST 2 VIEWS (PA AND LAT) Urgent Exams 12/12/18 18:05 Completed Assessment/Plan (1) COPD with exacerbation Current Visit: Yes Status: Acute Assessment & Plan: improving Code(s): J44.1 - CHRONIC OBSTRUCTIVE PULMONARY DISEASE W (ACUTE) EXACERBATION (2) Shortness of breath Current Visit: Yes Status: Acute Code(s): R06.02 - SHORTNESS OF BREATH (3) Anemia Current Visit: Yes Status: Chronic Qualifiers: Anemia type: iron deficiency Code(s): D64.9 - ANEMIA, UNSPECIFIED
[2018-12-14] MEDS: XARELTO 10 MG TABLET PO SCH (17:45)
[2018-12-15] MEDS ORDERED: PROVENTIL 2.5 MG/3 ML NEB IH ONE (01:39)
[2018-12-15] MEDS: PROVENTIL 2.5 MG/3 ML NEB IH PRN (01:58)
[2018-12-15] MEDS: Zofran 4 MG/2 ML VIAL IV PRN (02:17)
[2018-12-15 05:26] LABS: Hematocrit 25.4 % (35-47); Hemoglobin 7.1 gm/dl (12.0-16.0); Mean Cell Volume 92.7 fl (78-100); Mean Corpuscular Hemoglobin 25.9 pg (26-32); Mean Platelet Volume 8.8 fl (6-9.5); Platelet Count 462 K/mm3 (150-450); Red Blood Count 2.74 M/mm3 (4.1-5.4); Red Cell Distribution Width 15.7 % (11.5-14.0); White Blood Count 13.5 K/mm3 (4.0-10.5)
[2018-12-15 05:38] LABS: ALBUMIN 3.2 g/dL (3.5-5.0); ANION GAP 12.2 MEQ/L (5-15); BILIRUBIN,TOTAL 0.4 mg/dL (0.2-1.3); Calcium 9.7 mg/dL (8.4-10.2); Potassium 5.2 mmol/L (3.5-5.1)
[2018-12-15] MEDS: DUONEB 0.5-3 MG/3 ml Neb IH SCH ×5 (06:25→18:23)
[2018-12-15] MEDS: Advair Hfa 230/21 Mcg COMMON CANISTER IH SCH ×3 (06:25→18:26)
[2018-12-15 08:14] LABS: Slide Review YES
[2018-12-15] MEDS: ROCEPHIN 1 Gm-D5w 50 ml Bag** 1 G/50 ML IVPB IV SCH (09:05)
[2018-12-15] MEDS: Miralax Powder 17GM PACKET PO PRN (09:10)
[2018-12-15] MEDS: ZOCOR 20MG PO SCH (09:12)
[2018-12-15] MEDS: solu-MEDROL 40 MG IV SCH ×2 (09:13→21:35)
[2018-12-15] MEDS: Lopressor 50 MG PO SCH ×2 (09:16→21:35)
[2018-12-15] MEDS: Flonase NASAL NS SCH (09:16)
[2018-12-15] MEDS: hydroDIURIL 25 MG PO SCH (09:17)
[2018-12-15] MEDS: Zestril 20 MG PO SCH (09:17)
[2018-12-15] MEDS: Pepcid 20 MG PO SCH ×2 (09:18→21:35)
[2018-12-15] MEDS: Zithromax 500 MG/ 250 ML NaCl Premix 500 MG/250 ML IVPB IV SCH (09:19)
[2018-12-15 11:33] LABS: ABO TYPING O; RH TYPING POSITIVE
[2018-12-15 11:34] LABS: Antibody Screen NEGATIVE (NEGATIVE)
[2018-12-15 12:06] LABS: CROSS MATCH (PRBC) COMPATIBLE (COMPATIBLE)
[2018-12-15 14:43] LABS: ALBUMIN 3.3 g/dL (3.5-5.0); ALKALINE PHOSPHATASE 100 U/L (38-126); ANION GAP 12.4 MEQ/L (5-15); BLOOD UREA NITROGEN 33 mg/dL (7-17); CHLORIDE 102 mmol/L (98-107); Calcium 9.5 mg/dL (8.4-10.2); Carbon Dioxide 31 mmol/L (22-30); Creatinine 1 0.82 mg/dL (0.52-1.04); Glucose 123 mg/dL (74-106); Potassium 4.6 mmol/L (3.5-5.1); SGOT/AST 137 U/L (14-36); SGPT/ALT 101 U/L (0-35); SODIUM 141 mmol/L (137-145); Total Protein 6.2 g/dL (6.3-8.2)
[2018-12-15] MEDS: XARELTO 10 MG TABLET PO SCH (17:13)
[2018-12-15 17:34] LABS: Hematocrit 31.1 % (35-47); Hemoglobin 9.2 gm/dl (12.0-16.0)
--- NOTE | 2018-12-15 17:51 | PCM.NOTE ---
Date and Time: 12/15/181749 Subjective Assessment: doing ok - Review of Systems Constitutional: No Fever, No Chills Eyes: No Symptoms Ears, Nose, & Throat: No Symptoms Respiratory: Orthopnea, Short Of Breath, No Cough Cardiac: No Chest Pain, No Edema, No Syncope Abdominal/Gastrointestinal: No Abdominal Pain, No Nausea, No Vomiting, No Diarrhea Genitourinary Symptoms: No Dysuria Musculoskeletal: No Back Pain, No Neck Pain Skin: No Rash Neurological: No Dizziness, No Focal Weakness, No Sensory Changes Psychological: No Symptoms Endocrine: No Symptoms Hematologic/Lymphatic: No Symptoms Immunological/Allergic: No Symptoms Objective Exam General Appearance: no apparent distress, alert Neurologic Exam: alert, oriented x 3, cooperative, normal mood/affect, nml cerebellar function, sensation nml, No motor deficits Skin Exam: normal color, warm, dry Eye Exam: PERRL, EOMI, eyes nml inspection Ears, Nose, Throat Exam: normal ENT inspection, pharynx normal, moist mucous membranes Neck Exam: normal inspection, non-tender, supple, full range of motion Respiratory Exam: normal breath sounds, lungs clear, No respiratory distress Cardiovascular Exam: regular rate/rhythm, normal heart sounds Gastrointestinal/Abdomen Exam: soft, No tenderness, No mass Extremity Exam: normal inspection, normal range of motion Back Exam: normal inspection, normal range of motion, No CVA tenderness, No vertebral tenderness Pelvic Exam: deferred Rectal Exam: deferred OBJECTIVE DATA Vital Signs: Vital Signs - 24 hr Temp Pulse Resp BP Pulse Ox 12/15/18 15:07 86 20 98 12/15/18 15:00 99 F 86 22 112/67 93 L 12/15/18 11:00 98 F 88 20 104/83 94 L 12/15/18 10:55 80 19 98 12/15/18 07:17 79 20 98 12/15/18 07:00 99.0 F 88 19 134/75 95 12/15/18 06:26 98 12/15/18 03:50 98.2 F 135 H 21 108/65 93 L 12/15/18 01:50 142 H 20 97 12/14/18 23:38 98.7 F 144 H 19 125/71 95 12/14/18 19:51 116 H 18 96 12/14/18 19:00 98.7 F 122 H 18 121/83 95 Oxygen-Last 24 hours O2 Percentage 2 Liters = 28% O2 Percentage 2 Liters = 28% O2 Percentage 2 Liters = 28% O2 Percentage 2 Liters = 28% O2 Percentage 2 Liters = 28% Pain Assessment - Last Documented Pain Intensity 4 Pain Scale Used 0-10 Pain Scale Intake and Output: Intake & Output 12/13/18 12/14/18 12/15/18 12/16/18 11:59 11:59 11:59 11:59 Intake Total 840 2517 1758 1691 Output Total 2400 500 2400 800 Balance -1560 2017 -642 891 Weight 87.2 kg Lab Results: Lab Results-Last 24 Hours 12/15/18 12/15/18 12/15/18 Range/Units 04:59 04:59 09:55 WBC 13.5 H (4.0-10.5) K/mm3 RBC 2.74 L (4.1-5.4) M/mm3 Hgb 7.1 L (12.0-16.0) gm/dl Hct 25.4 L (35-47) % MCV 92.7 (78-100) fl MCH 25.9 L (26-32) pg MCHC 28.0 L (32-36) g/dl RDW 15.7 H (11.5-14.0) % Plt Count 462 H (150-450) K/mm3 MPV 8.8 (6-9.5) fl Sodium 140 (137-145) mmol/L Potassium 5.2 H (3.5-5.1) mmol/L Chloride 103 (98-107) mmol/L Carbon Dioxide 30 (22-30) mmol/L Anion Gap 12.2 (5-15) MEQ/L BUN 34 H (7-17) mg/dL Creatinine 1.00 (0.52-1.04) mg/dL Estimated GFR 59.7 ML/MIN Glucose 128 H (74-106) mg/dL Calcium 9.7 (8.4-10.2) mg/dL Total Bilirubin 0.40 (0.2-1.3) mg/dL AST 190 H (14-36) U/L ALT 103 H (0-35) U/L Alkaline Phosphatase 95 (38-126) U/L Serum Total Protein 6.0 L (6.3-8.2) g/dL Albumin 3.2 L (3.5-5.0) g/dL Slides for Path Review YES ABO Group O Rh Factor POSITIVE Antibody Screen NEGATIVE (NEGATIVE) Crossmatch (COMPATIBLE) 12/15/18 12/15/18 12/15/18 Range/Units 09:55 14:10 17:20 WBC (4.0-10.5) K/mm3 RBC (4.1-5.4) M/mm3 Hgb 9.2 L D (12.0-16.0) gm/dl Hct 31.1 L (35-47) % MCV (78-100) fl MCH (26-32) pg MCHC (32-36) g/dl RDW (11.5-14.0) % Plt Count (150-450) K/mm3 MPV (6-9.5) fl Sodium 141 (137-145) mmol/L Potassium 4.6 (3.5-5.1) mmol/L Chloride 102 (98-107) mmol/L Carbon Dioxide 31 H (22-30) mmol/L Anion Gap 12.4 (5-15) MEQ/L BUN 33 H (7-17) mg/dL Creatinine 0.82 (0.52-1.04) mg/dL Estimated GFR > 60.0 ML/MIN Glucose 123 H (74-106) mg/dL Calcium 9.5 (8.4-10.2) mg/dL Total Bilirubin 0.40 (0.2-1.3) mg/dL AST 137 H (14-36) U/L ALT 101 H (0-35) U/L Alkaline Phosphatase 100 (38-126) U/L Serum Total Protein 6.2 L (6.3-8.2) g/dL Albumin 3.3 L (3.5-5.0) g/dL Slides for Path Review ABO Group Rh Factor Antibody Screen (NEGATIVE) Crossmatch COMPATIBLE (COMPATIBLE) Assessment/Plan (1) COPD with exacerbation Current Visit: Yes Status: Acute Code(s): J44.1 - CHRONIC OBSTRUCTIVE PULMONARY DISEASE W (ACUTE) EXACERBATION (2) Shortness of breath Current Visit: Yes Status: Acute Code(s): R06.02 - SHORTNESS OF BREATH (3) Anemia Current Visit: Yes Status: Chronic Qualifiers: Anemia type: iron deficiency Code(s): D64.9 - ANEMIA, UNSPECIFIED
[2018-12-15] MEDS: Spiriva 18 Mcg/Cap Inhaler IH SCH (18:26)
[2018-12-15] MEDS: TYLENOL 325 MG PO PRN (21:34)
[2018-12-16] MEDS: PROVENTIL 2.5 MG/3 ML NEB IH PRN (01:57)
[2018-12-16] MEDS: Sodium Chloride 0.9% 1000 ML 1,000 ML IV SCH ×2 (05:05→16:21)
[2018-12-16] MEDS: Advair Hfa 230/21 Mcg COMMON CANISTER IH SCH ×2 (06:40→19:42)
[2018-12-16] MEDS: DUONEB 0.5-3 MG/3 ml Neb IH SCH ×4 (06:40→19:42)
[2018-12-16 08:26] LABS: Hematocrit 29.3 % (35-47); Hemoglobin 8.9 gm/dl (12.0-16.0); Mean Cell Volume 90.4 fl (78-100); Mean Corpuscular Hgb Concent. 30.4 g/dl (32-36); Mean Platelet Volume 8.9 fl (6-9.5); Platelet Count 456 K/mm3 (150-450); Red Blood Count 3.24 M/mm3 (4.1-5.4); Red Cell Distribution Width 15.4 % (11.5-14.0); White Blood Count 11.1 K/mm3 (4.0-10.5)
[2018-12-16] MEDS: Flonase NASAL NS SCH (08:28)
[2018-12-16 08:29] LABS: Mean Corpuscular Hemoglobin 27.4 pg (26-32)
[2018-12-16] MEDS: Zithromax 500 MG/ 250 ML NaCl Premix 500 MG/250 ML IVPB IV SCH (08:29)
[2018-12-16] MEDS: Lopressor 50 MG PO SCH ×2 (08:29→21:51)
[2018-12-16] MEDS: ROCEPHIN 1 Gm-D5w 50 ml Bag** 1 G/50 ML IVPB IV SCH (08:29)
[2018-12-16] MEDS: ZOCOR 20MG PO SCH (08:29)
[2018-12-16] MEDS: Zestril 20 MG PO SCH (08:29)
[2018-12-16] MEDS: hydroDIURIL 25 MG PO SCH (08:29)
[2018-12-16] MEDS: Pepcid 20 MG PO SCH ×2 (08:29→21:51)
[2018-12-16] MEDS: solu-MEDROL 40 MG IV SCH ×2 (08:29→21:51)
[2018-12-16 08:34] LABS: ALBUMIN 3.6 g/dL (3.5-5.0); ALKALINE PHOSPHATASE 100 U/L (38-126); ANION GAP 16.1 MEQ/L (5-15); BLOOD UREA NITROGEN 31 mg/dL (7-17); CHLORIDE 102 mmol/L (98-107); Calcium 9.6 mg/dL (8.4-10.2); Carbon Dioxide 29 mmol/L (22-30); Creatinine 1 0.81 mg/dL (0.52-1.04); Glucose 111 mg/dL (74-106); Potassium 4.7 mmol/L (3.5-5.1); SGOT/AST 102 U/L (14-36); SGPT/ALT 101 U/L (0-35); SODIUM 142 mmol/L (137-145); Total Protein 6.7 g/dL (6.3-8.2)
[2018-12-16] MEDS: Miralax Powder 17GM PACKET PO PRN (08:39)
[2018-12-16 08:42] LABS: BAND 6 % (0.0-2.0); Lymphocytes 7 % (24-44); Monocyte 4 % (0.0-12.0); Neutrophils 83 % (36.0-66.0); Total Cells Counted 100
[2018-12-16 08:44] LABS: Hypochromia 1+; Platelet Estimate INCREASED (NORMAL); Poikilocytosis 1+; Polychromasia 1+
[2018-12-16 08:45] LABS: ANISOCYTOSIS 1+; Ovalocytes 1+
[2018-12-16 08:46] LABS: Absolute Neutrophil Ct (ANC) 9.85 (1.4-6.9)
--- NOTE | 2018-12-16 13:21 | PCM.NOTE ---
Date and Time: 12/16/18 1319 Subjective Assessment: large amount of blood in bowel movement - Review of Systems Constitutional: No Fever, No Chills Eyes: No Symptoms Ears, Nose, & Throat: No Symptoms Respiratory: No Cough, No Short Of Breath Cardiac: No Chest Pain, No Edema, No Syncope Abdominal/Gastrointestinal: No Abdominal Pain, No Nausea, No Vomiting, No Diarrhea Genitourinary Symptoms: No Dysuria Musculoskeletal: No Back Pain, No Neck Pain Skin: No Rash Neurological: No Dizziness, No Focal Weakness, No Sensory Changes Psychological: No Symptoms Endocrine: No Symptoms Hematologic/Lymphatic: No Symptoms Immunological/Allergic: No Symptoms Objective Exam General Appearance: no apparent distress, alert Neurologic Exam: alert, oriented x 3, cooperative, normal mood/affect, nml cerebellar function, sensation nml, No motor deficits Skin Exam: normal color, warm, dry Eye Exam: PERRL, EOMI, eyes nml inspection Ears, Nose, Throat Exam: normal ENT inspection, pharynx normal, moist mucous membranes Neck Exam: normal inspection, non-tender, supple, full range of motion Respiratory Exam: normal breath sounds, lungs clear, No respiratory distress Cardiovascular Exam: regular rate/rhythm, normal heart sounds Gastrointestinal/Abdomen Exam: soft, No tenderness, No mass Extremity Exam: normal inspection, normal range of motion Back Exam: normal inspection, normal range of motion, No CVA tenderness, No vertebral tenderness Pelvic Exam: deferred Rectal Exam: deferred OBJECTIVE DATA Vital Signs: Vital Signs - 24 hr Temp Pulse Resp BP Pulse Ox 12/16/18 11:00 98.7 F 72 22 133/72 12/16/18 10:27 83 20 98 12/16/18 07:00 98.3 F 77 22 136/79 98 12/16/18 06:44 77 22 98 12/16/18 03:00 97.8 F 71 19 128/69 98 12/16/18 01:56 97 12/15/18 23:00 97.8 F 84 18 112/66 98 12/15/18 19:00 98.6 F 73 21 110/59 97 12/15/18 18:27 73 20 97 12/15/18 15:07 86 20 98 12/15/18 15:00 99 F 86 22 112/67 93 L Oxygen-Last 24 hours O2 Percentage 2 Liters = 28% O2 Percentage 2 Liters = 28% O2 Percentage 2 Liters = 28% O2 Percentage 2 Liters = 28% Oxygen Flowrate (L/min)-RT 2 Oxygen Flowrate (L/min)-RT 2 Oxygen Flowrate (L/min)-RT 2 Pain Assessment - Last Documented Pain Intensity 0 Pain Scale Used FLACC Intake and Output: Intake & Output 12/14/18 12/15/18 12/16/18 12/17/18 11:59 11:59 11:59 11:59 Intake Total 2517 1758 3661 Output Total 500 2400 3050 Balance 2017 -642 611 Lab Results: Lab Results-Last 24 Hours 12/15/18 12/15/18 12/16/18 Range/Units 14:10 17:20 08:15 WBC 11.1 H (4.0-10.5) K/mm3 RBC 3.24 L (4.1-5.4) M/mm3 Hgb 9.2 L D 8.9 L (12.0-16.0) gm/dl Hct 31.1 L 29.3 L (35-47) % MCV 90.4 (78-100) fl MCH 27.4 (26-32) pg MCHC 30.4 L (32-36) g/dl RDW 15.4 H (11.5-14.0) % Plt Count 456 H (150-450) K/mm3 MPV 8.9 (6-9.5) fl Absolute Granulocytes 9.85 H (1.4-6.9) Segmented Neutrophils 83 H (36.0-66.0) % Band Neutrophils 6 H (0.0-2.0) % Lymphocytes (Manual) 7 L (24-44) % Monocytes (Manual) 4 (0.0-12.0) % Hypochromia 1+ Platelet Estimate INCREASED (NORMAL) RBC Morphology ABNORMAL Polychromasia 1+ Poikilocytosis 1+ Anisocytosis 1+ Ovalocytes 1+ Sodium 141 (137-145) mmol/L Potassium 4.6 (3.5-5.1) mmol/L Chloride 102 (98-107) mmol/L Carbon Dioxide 31 H (22-30) mmol/L Anion Gap 12.4 (5-15) MEQ/L BUN 33 H (7-17) mg/dL Creatinine 0.82 (0.52-1.04) mg/dL Estimated GFR > 60.0 ML/MIN Glucose 123 H (74-106) mg/dL Calcium 9.5 (8.4-10.2) mg/dL Total Bilirubin 0.40 (0.2-1.3) mg/dL AST 137 H (14-36) U/L ALT 101 H (0-35) U/L Alkaline Phosphatase 100 (38-126) U/L Serum Total Protein 6.2 L (6.3-8.2) g/dL Albumin 3.3 L (3.5-5.0) g/dL 12/16/18 Range/Units 08:15 WBC (4.0-10.5) K/mm3 RBC (4.1-5.4) M/mm3 Hgb (12.0-16.0) gm/dl Hct (35-47) % MCV (78-100) fl MCH (26-32) pg MCHC (32-36) g/dl RDW (11.5-14.0) % Plt Count (150-450) K/mm3 MPV (6-9.5) fl Absolute Granulocytes (1.4-6.9) Segmented Neutrophils (36.0-66.0) % Band Neutrophils (0.0-2.0) % Lymphocytes (Manual) (24-44) % Monocytes (Manual) (0.0-12.0) % Hypochromia Platelet Estimate (NORMAL) RBC Morphology Polychromasia Poikilocytosis Anisocytosis Ovalocytes Sodium 142 (137-145) mmol/L Potassium 4.7 (3.5-5.1) mmol/L Chloride 102 (98-107) mmol/L Carbon Dioxide 29 (22-30) mmol/L Anion Gap 16.1 H (5-15) MEQ/L BUN 31 H (7-17) mg/dL Creatinine 0.81 (0.52-1.04) mg/dL Estimated GFR > 60.0 ML/MIN Glucose 111 H (74-106) mg/dL Calcium 9.6 (8.4-10.2) mg/dL Total Bilirubin 0.50 (0.2-1.3) mg/dL AST 102 H (14-36) U/L ALT 101 H (0-35) U/L Alkaline Phosphatase 100 (38-126) U/L Serum Total Protein 6.7 (6.3-8.2) g/dL Albumin 3.6 (3.5-5.0) g/dL Multi-Disciplinary Progress Notes: Multi-Disciplinary Progress Notes 12/16/18 09:01 Case Management Note by Anabell Smyth INDEPENDENT WITH ALL ADL'S. PLANS TO RETURN HOME TO PRE EPISODIC LEVEL OF FNX. DENIES ADDNL NEEDS. HAS HOME OXYGEN THAT [employer] WILL SUPPLY SINCE [employer] IS NO LONGER IN BUSINESS. REPORTS THAT ALL EQUIP IN WORKING CONDITION. Initialized on 12/16/18 09:01 - END OF NOTE Assessment/Plan (1) COPD with exacerbation Current Visit: Yes Status: Acute Code(s): J44.1 - CHRONIC OBSTRUCTIVE PULMONARY DISEASE W (ACUTE) EXACERBATION (2) Shortness of breath Current Visit: Yes Status: Acute Code(s): R06.02 - SHORTNESS OF BREATH (3) Anemia Current Visit: Yes Status: Chronic Qualifiers: Anemia type: iron deficiency Code(s): D64.9 - ANEMIA, UNSPECIFIED (4) GI bleed Current Visit: Yes Status: Acute Qualifiers: GI bleed type/associated pathology: melena Qualified Code(s): K92.1 - Melena Code(s): K92.2 - GASTROINTESTINAL HEMORRHAGE, UNSPECIFIED
[2018-12-16 13:45] LABS: Hematocrit 29.2 % (35-47); Hemoglobin 8.7 gm/dl (12.0-16.0); Mean Cell Volume 91.5 fl (78-100); Mean Corpuscular Hemoglobin 27.2 pg (26-32); Mean Corpuscular Hgb Concent. 29.8 g/dl (32-36); Mean Platelet Volume 8.5 fl (6-9.5); Platelet Count 419 K/mm3 (150-450); Red Blood Count 3.19 M/mm3 (4.1-5.4); Red Cell Distribution Width 15.3 % (11.5-14.0); White Blood Count 10.1 K/mm3 (4.0-10.5)
[2018-12-16] MEDS ORDERED: Golytely Solution 4000 ML PO ONE (14:30)
[2018-12-17] MEDS: Sodium Chloride 0.9% 1000 ML 1,000 ML IV SCH ×2 (02:04→15:32)
[2018-12-17] MEDS: DUONEB 0.5-3 MG/3 ml Neb IH SCH ×4 (07:01→19:28)
[2018-12-17] MEDS: Advair Hfa 230/21 Mcg COMMON CANISTER IH SCH ×2 (07:03→19:28)
--- NOTE | 2018-12-17 07:03 | PCM.NOTE ---
Date and Time: 12/17/18700 Subjective Assessment: doing ok - Review of Systems Constitutional: No Fever, No Chills Eyes: No Symptoms Ears, Nose, & Throat: No Symptoms Respiratory: Short Of Breath, No Cough Cardiac: No Chest Pain, No Edema, No Syncope Abdominal/Gastrointestinal: No Abdominal Pain, No Nausea, No Vomiting, No Diarrhea Genitourinary Symptoms: No Dysuria Musculoskeletal: No Back Pain, No Neck Pain Skin: No Rash Neurological: No Dizziness, No Focal Weakness, No Sensory Changes Psychological: No Symptoms Endocrine: No Symptoms Hematologic/Lymphatic: No Symptoms Immunological/Allergic: No Symptoms Objective Exam General Appearance: no apparent distress, alert Neurologic Exam: alert, oriented x 3, cooperative, normal mood/affect, nml cerebellar function, sensation nml, No motor deficits Skin Exam: normal color, warm, dry Eye Exam: PERRL, EOMI, eyes nml inspection Ears, Nose, Throat Exam: normal ENT inspection, pharynx normal, moist mucous membranes Neck Exam: normal inspection, non-tender, supple, full range of motion Respiratory Exam: normal breath sounds, lungs clear, No respiratory distress Cardiovascular Exam: regular rate/rhythm, normal heart sounds Gastrointestinal/Abdomen Exam: soft, No tenderness, No mass Extremity Exam: normal inspection, normal range of motion Back Exam: normal inspection, normal range of motion, No CVA tenderness, No vertebral tenderness Pelvic Exam: deferred Rectal Exam: deferred OBJECTIVE DATA Vital Signs: Vital Signs - 24 hr Temp Pulse Resp BP Pulse Ox 12/17/18 04:00 98.3 F 68 18 143/77 98 12/17/18 03:00 98.0 F 71 20 135/65 98 12/16/18 23:00 98.3 F 68 18 143/77 98 12/16/18 19:45 68 20 97 12/16/18 19:00 98.4 F 73 20 142/75 97 12/16/18 15:00 98 F 78 21 140/77 97 12/16/18 14:45 81 19 98 12/16/18 11:00 98.7 F 72 22 133/72 12/16/18 10:27 83 20 98 Oxygen-Last 24 hours O2 Percentage 2 Liters = 28% O2 Percentage 2 Liters = 28% O2 Percentage 2 Liters = 28% O2 Percentage 2 Liters = 28% O2 Percentage 2 Liters = 28% Oxygen Flowrate (L/min)-RT 2 Pain Assessment - Last Documented Pain Intensity 0 Pain Scale [facility] Intake and Output: Intake & Output 12/14/18 12/15/18 12/16/18 12/17/18 11:59 11:59 11:59 11:59 Intake Total 6104 2138 3661 6493 Output Total 500 2400 3050 900 Balance 2016 -328 249 8170 Weight 87.2 kg Lab Results: Lab Results-Last 24 Hours 12/16/18 12/16/18 12/16/18 Range/Units 08:15 08:15 13:38 WBC 11.1 H 10.1 (4.0-10.5) K/mm3 RBC 3.24 L 3.19 L (4.1-5.4) M/mm3 Hgb 8.9 L 8.7 L (12.0-16.0) gm/dl Hct 29.3 L 29.2 L (35-47) % MCV 90.4 91.5 (78-100) fl MCH 27.4 27.2 (26-32) pg MCHC 30.4 L 29.8 L (32-36) g/dl RDW 15.4 H 15.3 H (11.5-14.0) % Plt Count 456 H 419 (150-450) K/mm3 MPV 8.9 8.5 (6-9.5) fl Absolute Granulocytes 9.85 H (1.4-6.9) Segmented Neutrophils 83 H (36.0-66.0) % Band Neutrophils 6 H (0.0-2.0) % Lymphocytes (Manual) 7 L (24-44) % Monocytes (Manual) 4 (0.0-12.0) % Hypochromia 1+ Platelet Estimate INCREASED (NORMAL) RBC Morphology ABNORMAL Polychromasia 1+ Poikilocytosis 1+ Anisocytosis 1+ Ovalocytes 1+ Sodium 142 (137-145) mmol/L Potassium 4.7 (3.5-5.1) mmol/L Chloride 102 (98-107) mmol/L Carbon Dioxide 29 (22-30) mmol/L Anion Gap 16.1 H (5-15) MEQ/L BUN 31 H (7-17) mg/dL Creatinine 0.81 (0.52-1.04) mg/dL Estimated GFR > 60.0 ML/MIN Glucose 111 H (74-106) mg/dL Calcium 9.6 (8.4-10.2) mg/dL Total Bilirubin 0.50 (0.2-1.3) mg/dL AST 102 H (14-36) U/L ALT 101 H (0-35) U/L Alkaline Phosphatase 100 (38-126) U/L Serum Total Protein 6.7 (6.3-8.2) g/dL Albumin 3.6 (3.5-5.0) g/dL Multi-Disciplinary Progress Notes: Multi-Disciplinary Progress Notes 12/16/18 09:01 Case Management Note by Anabell Smyth INDEPENDENT WITH ALL ADL'S. PLANS TO RETURN HOME TO PRE EPISODIC LEVEL OF FNX. DENIES ADDNL NEEDS. HAS HOME OXYGEN THAT [employer]Y WILL SUPPLY SINCE [employer] IS NO LONGER IN BUSINESS. REPORTS THAT ALL EQUIP IN WORKING CONDITION. Initialized on 12/16/18 09:01 - END OF NOTE Assessment/Plan (1) GI bleed Current Visit: Yes Status: Acute Qualifiers: GI bleed type/associated pathology: melena Qualified Code(s): K92.1 - Melena Assessment & Plan: going for colonoscopy today Code(s): K92.2 - GASTROINTESTINAL HEMORRHAGE, UNSPECIFIED (2) Anemia Current Visit: Yes Status: Chronic Qualifiers: Anemia type: iron deficiency Code(s): D64.9 - ANEMIA, UNSPECIFIED (3) COPD with exacerbation Current Visit: Yes Status: Acute Code(s): J44.1 - CHRONIC OBSTRUCTIVE PULMONARY DISEASE W (ACUTE) EXACERBATION (4) Shortness of breath Current Visit: Yes Status: Acute Code(s): R06.02 - SHORTNESS OF BREATH
[2018-12-17] MEDS: Lopressor 50 MG PO SCH ×2 (09:33→22:04)
[2018-12-17] MEDS: solu-MEDROL 40 MG IV SCH ×2 (09:33→22:04)
[2018-12-17] MEDS: ROCEPHIN 1 Gm-D5w 50 ml Bag** 1 G/50 ML IVPB IV SCH (09:33)
[2018-12-17] MEDS: Flonase NASAL NS SCH (09:34)
[2018-12-17] MEDS: Zithromax 500 MG/ 250 ML NaCl Premix 500 MG/250 ML IVPB IV SCH (10:24)
[2018-12-17] MEDS ORDERED: Ketamine HCl 50 MG/ML ONE (11:49)
[2018-12-17] MEDS ORDERED: DIPRIVAN 200 MG/20 ML IV ONE ×2 (11:49→12:37)
[2018-12-17] MEDS: Zestril 20 MG PO SCH (14:31)
[2018-12-17] MEDS: PROTONIX 40 MG IV IV SCH ×2 (14:31→22:04)
[2018-12-17] MEDS: hydroDIURIL 25 MG PO SCH (14:32)
[2018-12-17] MEDS: ZOCOR 20MG PO SCH (14:32)
[2018-12-17] MEDS: Pepcid 20 MG PO SCH (14:37)
[2018-12-18] MEDS: Sodium Chloride 0.9% 1000 ML 1,000 ML IV SCH (01:25)
[2018-12-18] MEDS: Spiriva 18 Mcg/Cap Inhaler IH SCH ×2 (06:17→06:18)
[2018-12-18] MEDS: Advair Hfa 230/21 Mcg COMMON CANISTER IH SCH (07:43)
[2018-12-18] MEDS: DUONEB 0.5-3 MG/3 ml Neb IH SCH (07:43)
--- NOTE | 2018-12-18 08:03 | PCM.DS ---
Discharge Summary Date of Admission: 12/12/18 16:08 Admitting Physician: LISA BALDERRAMA Consults: Consults on Case 12/16/18 13:23 Consult Surgery ROUTINE Primary Care Provider: LISA BALDERRAMA Allergies Allergies gabapentin Adverse Reaction (Verified 10/01/18 08:39) Hospital Summary - Hospital Course Hospital Course: Chief Complaint Diagnosis copd exacerbation Allergies Allergy/AdvReac Type Severity Reaction Status Date / Time gabapentin AdvReac Verified 10/01/18 08:39 Vital Signs (Last 24 hours) Temp Pulse Resp BP Pulse Ox 12/18/18 07:39 97.7 F 67 20 152/90 95 12/18/18 04:00 97.3 F 70 20 139/72 96 12/18/18 00:10 97.9 F 67 20 113/65 97 12/17/18 20:05 98.3 F 75 20 124/64 97 12/17/18 19:29 74 18 97 12/17/18 16:00 98.1 F 74 18 123/81 94 L 12/17/18 15:03 92 H 18 97 12/17/18 11:02 92 H 18 96 12/17/18 11:00 97.2 F 74 19 129/81 98 Home Medications Medication Instructions Recorded Confirmed Last Taken Type Albuterol Sulfate [Proair Hfa] 8.5 gm IH QID 12/12/18 12/12/18 12/12/18 History Hydroxychloroquine Sulfate 200 mg PO BID 12/12/18 12/12/18 12/12/18 History [Plaquenil] Nabumetone 500 mg PO DAILY 12/12/18 12/12/18 12/11/18 History Prednisone 5 mg PO BID 12/12/18 12/12/18 12/12/18 History Rivaroxaban [Xarelto] 15 mg PO DAILY 12/12/18 12/12/18 12/11/18 History Cephalexin Mh 500 mg [Keflex 500 500 mg PO QID 5 Days #20 capsule 12/15/18 Unknown Rx mg] Current Medications Generic Name Dose Route Start Last Admin Trade Name Freq PRN Reason Stop Dose Admin Acetaminophen 650 mg 12/12/18 22:06 12/15/18 21:34 Tylenol 325 Mg PO 01/11/19 22:05 650 mg Q6H PRN PRN Administration PAIN AND/OR FEVER Albuterol Sulfate 2.5 mg 12/15/18 01:54 12/16/18 01:57 Proventil 2.5 Mg/3 Ml Neb IH 01/14/19 01:53 2.5 mg Q4H PRN PRN Administration SHORTNESS OF BREATH/WHEEZING Albuterol/Ipratropium 3 ml 12/14/18 07:00 12/18/18 07:43 Duoneb 0.5-3 Mg/3 Ml Neb IH 01/13/19 06:59 3 ml QIDRT DEWAYNE Administration Fluticasone Propionate 0 gm 12/13/18 10:00 12/17/18 09:34 Flonase Nasal NS 01/12/19 09:59 16 gm DAILY DEWAYNE Administration Hydrochlorothiazide 12.5 mg 12/13/18 10:00 12/17/18 14:32 Hydrodiuril 25 Mg PO 01/12/19 09:59 12.5 mg DAILY DEWAYNE Administration Azithromycin 500 mg in 250 mls @ 250 mls/hr 12/12/18 18:00 12/17/18 10:24 Zithromax 500 Mg/ 250 Ml Nacl Premix IV 01/11/19 17:59 250 mls/hr Q24H10 DEWAYNE Administration Ceftriaxone Sodium/Dextrose 1 g in 50 mls @ 100 mls/hr 12/12/18 18:00 09:33 Rocephin 1 Gm-D5w 50 Ml Bag IV 01/11/19 17:59 100 mls/hr Q24H10 DEWAYNE Administration Sodium Chloride 1,000 mls @ 100 mls/hr 12/15/18 09:30 12/18/18 01:25 Sodium Chloride 0.9% 1000 Ml IV 01/14/19 09:29 100 mls/hr .Q10H DEWAYNE Administration Lisinopril 20 mg 12/13/18 10:00 12/17/18 14:31 Zestril 20 Mg PO 01/12/19 09:59 20 mg DAILY DEWAYNE Administration Methylprednisolone Sodium Succinate 40 mg 12/14/18 22:00 12/17/18 22:04 Solu-Medrol 40 Mg IV 01/13/19 21:59 40 mg Q12HT DEWAYNE Administration Metoprolol Tartrate 50 mg 10/07/19 23:45 12/17/18 22:04 Lopressor 50 Mg PO 01/11/19 23:44 50 mg BID DEWAYNE Administration Miscellaneous Information 1 each 12/13/18 08:00 Medication Intervention PO 01/12/19 07:59 .RN TO CHECK ON DEWAYNE Miscellaneous Information 1 each 12/13/18 08:00 Medication Intervention PO 01/12/19 07:59 .RN TO CHECK ON DEWAYNE Ondansetron HCl 4 mg 12/12/18 18:57 12/15/18 02:17 Zofran 4 Mg/2 Ml Vial IV 01/11/19 18:56 4 mg Q6H PRN PRN Administration NAUSEA/VOMITING Pantoprazole Sodium 40 mg 12/17/18 14:30 12/17/18 22:04 Protonix 40 Mg Iv IV 01/16/19 14:29 40 mg Q12HT DEWAYNE Administration Fluticasone/Salmeterol 2 puff 12/12/18 19:00 12/18/18 07:43 Advair Hfa 230/21 Mcg Common Canister* IH 01/11/19 18:59 2 puff BIDRT DEWAYNE Administration Simvastatin 40 mg 12/13/18 10:00 12/17/18 14:32 Zocor 20mg PO 01/12/19 09:59 40 mg DAILY DEWAYNE Administration Tiotropium [place] 1 ea 12/15/18 19:00 12/18/18 06:18 Spiriva 18 Mcg/Cap Inhaler IH 01/14/19 18:59 Not Given 1900 DEWAYNE Discontinued Medications Generic Name Dose Route Start Last Admin Trade Name Freq PRN Reason Stop Dose Admin Albuterol Sulfate 2 puff 12/13/18 11:00 12/13/18 19:00 Proventil Common Canister IH 01/12/19 10:59 Not Given QIDRT DEWAYNE Albuterol Sulfate Confirm 12/15/18 01:39 Proventil 2.5 Mg/3 Ml Neb Administered 12/15/18 01:40 Dose 2.5 mg IH .STK-MED ONE Albuterol/Ipratropium 3 ml 12/12/18 19:00 12/13/18 22:56 Duoneb 0.5-3 Mg/3 Ml Neb IH 01/11/19 18:59 3 ml Q4HRT DEWAYNE Administration Famotidine 20 mg 12/13/18 10:00 12/17/18 14:37 Pepcid 20 Mg PO 01/12/19 09:59 Not Given BID DEWAYNE Ketamine HCl Confirm 12/17/18 11:49 Ketamine Hcl 50 Mg/Ml Administered 12/17/18 11:50 Dose 10 mg .ROUTE .STK-MED ONE Methylprednisolone Sodium Succinate 40 mg 12/12/18 18:00 12/14/18 10:04 Solu-Medrol 40 Mg IV 01/11/19 17:59 40 mg Q8H DEWAYNE Administration Polyethylene Glycol 17 gm 12/13/18 07:30 12/16/18 08:39 Miralax Powder 17gm Packet PO 01/12/19 07:29 17 gm DAILY PRN PRN Administration CONSTIPATION Polyethylene Glycol/Electrolytes 4,000 ml 12/16/18 14:30 12/16/18 14:43 Golytely Solution 4000 Ml PO 12/16/18 14:31 4,000 ml ONCE@1400 ONE Administration Propofol Confirm 12/17/18 11:49 Diprivan 200 Mg/20 Ml Administered 12/17/18 11:50 Dose 200 mg IV .STK-MED ONE Propofol Confirm 12/17/18 12:37 Diprivan 200 Mg/20 Ml Administered 12/17/18 12:38 Dose 200 mg IV .STK-MED ONE Ranitidine HCl 150 mg 12/12/18 23:40 12/12/18 23:44 Zantac 150 Mg/10 Ml Syrup PO 12/12/18 23:41 Not Given STAT ONE Rivaroxaban 15 mg 12/12/18 23:45 12/15/18 17:13 Xarelto 10 Mg Tablet PO 01/11/19 23:44 15 mg DAILY AT 1800 DEWAYNE Administration Tiotropium [place] Confirm 12/12/18 17:44 Spiriva 18 Mcg/Cap Inhaler Administered 12/12/18 17:45 Dose 1 ea IH .STK-MED ONE Tiotropium [place] 1 ea 12/12/18 19:00 12/12/18 17:50 Spiriva 18 Mcg/Cap Inhaler IH 12/13/18 07:15 1 ea DAILY DEWAYNE Administration Tiotropium [place] 1 ea 12/13/18 07:30 12/14/18 19:30 Spiriva 18 Mcg/Cap Inhaler IH 01/11/19 18:59 1 ea 0700 DEWAYNE Administration Intake & Output (Last 24 hours) 12/15/18 12/16/18 12/17/18 12/18/18 11:59 11:59 11:59 11:59 Intake Total 1758 3661 6493 3243 Output Total 2400 3050 900 Balance -079 569 6069 3243 Weight 87.2 kg Orders (Last 24 hours) Category Date Time Status Nursing [Miscellaneous Nursing Order] ROUTINE Care 12/17/18 13:23 Active Full Liquid Diet Diet 12/17/18 Dinner Completed Soft Diet Diet 12/18/18 Breakfast Active Discharge Routine Discharge 12/18/18 Ordered Surgical Pathology Routine Lab 12/17/18 12:27 Received Ketamine HCl 50 mg/ml [Ketamine HCl 50 MG/ML] Med 12/17/18 11:49 Discontinued 10 mg .ROUTE .STK-MED ONE Pantoprazole 40 mg [Protonix 40 mg IV] Med 12/17/18 14:30 Active 40 mg IV Q12HT Propofol 200 mg/20 ml [Diprivan 200 mg/20 ml] Med 12/17/18 11:49 Discontinued 200 mg IV .STK-MED ONE Propofol 200 mg/20 ml [Diprivan 200 mg/20 ml] Med 12/17/18 12:37 Discontinued 200 mg IV .STK-MED ONE Patient Care Notes (Last 24 hours) 12/18/18 07:51 Nursing Note by Mahesh Guillen Dr rounded this am. Patient to be discharged today. Dr Balderrama stated that patient is to continue xarelto at home, will be started on iron pill also. Initialized on 12/18/18 07:51 - END OF NOTE Patient underwent EGD and found to have a duodenal ulcer with bleeding. Patient is already started on Protonix. Patient is supposed to undergo Watchman procedure, feel that she has to stay on till January 20, and patient has to stay on Xarelto (anticoagulation). Patient is informed in detail about risk and benefit about xarelto and bleeding. - Vitals & Intake/Output Vital Signs: Vital Signs Temperature 97.7 F 12/18/18 07:39 Pulse Rate 67 12/18/18 07:39 Respiratory Rate 20 12/18/18 07:39 Blood Pressure 152/90 12/18/18 07:39 O2 Sat by Pulse Oximetry 95 12/18/18 07:39 Oxygen-Last Documented O2 Percentage 2 Liters = 28% Intake & Output: Intake & Output 12/15/18 12/16/18 12/17/18 12/18/18 11:59 11:59 11:59 11:59 Intake Total 1758 3661 6493 3243 Output Total 2400 3050 900 Balance -392 409 2347 3243 Weight 87.2 kg - Lab Result Diagrams: 12/16/18 13:38 12/16/18 08:15 - Procedures and Test Procedures and Tests throughout Hospitalization: Therapy Orders & Screens 12/12/18 16:57 RT Screen per Nursing Assess ONCE Comment: Protocol Order Physician Instructions: Greater than 3 points order RT Admission Screen Reason For Exam: Triggered on Admission Diagnosis: copd exacerbation Diagnosis: copd exacerbation Pneumonia: No Home O2: Yes Asthma: No CHF: No Home CPAP/BIPAP: No Home Nebs/MDI: Yes Total Points: 10 Smoking Cessation Education ONCE Comment: Diagnosis: copd exacerbation Smoking Status: Current every day smoker How long have you smoked: 40yrs Have you smoked in the past 12 months: Yes Approximately how many cigarettes per day: 6 cig/day Do you dip or chew tobacco: No If,Former Smoker,when did you quit: 09/09/2018 12/12/18 17:14 Respiratory Therapy Consult ROUTINE Comment: Reason For Exam: CHF Diagnosis: copd exacerbation 12/12/18 17:34 Respiratory Therapy Assessment DAILY Comment: Diagnosis: copd exacerbation 12/12/18 17:35 Peak Expiratory Flow Rate ONCE Comment: Reason For Exam: Diagnosis: copd exacerbation 12/12/18 17:50 Oxygen Nasal Cannula 2 lpm Comment: Diagnosis: copd exacerbation Discharge Exam General Appearance: no apparent distress, alert Neurologic Exam: alert, oriented x 3, cooperative, normal mood/affect, nml cerebellar function, sensation nml, No motor deficits Eye Exam: PERRL, EOMI, eyes nml inspection Ears, Nose, Throat Exam: normal ENT inspection, pharynx normal, moist mucous membranes Neck Exam: normal inspection, non-tender, supple, full range of motion Respiratory Exam: wheezing, No respiratory distress Cardiovascular Exam: regular rate/rhythm, normal heart sounds Gastrointestinal/Abdomen Exam: soft, No tenderness, No mass Pelvic Exam: deferred Rectal Exam: deferred Back Exam: normal inspection, normal range of motion, No CVA tenderness, No vertebral tenderness Extremity Exam: normal inspection, normal range of motion Skin Exam: normal color, warm, dry Final Diagnosis/Problem List - Final Discharge Diagnosis/Problem (1) Duodenal ulcer without hemorrhage or perforation Current Visit: Yes Status: Acute Priority: High Assessment & Plan: will start patient on protonix and pepcid 20 mg po bid, Patient has to stay on xarelto 15 mg daily till she get watch man procedure Code(s): K26.9 - DUODENAL ULCER, UNSP ACUTE OR CHRONIC, W/O HEMOR OR PERF (2) GI bleed Current Visit: Yes Status: Resolved Code(s): K92.2 - GASTROINTESTINAL HEMORRHAGE, UNSPECIFIED (3) Anemia Current Visit: Yes Status: Chronic Code(s): D64.9 - ANEMIA, UNSPECIFIED (4) COPD with exacerbation Current Visit: Yes Status: Resolved Code(s): J44.1 - CHRONIC OBSTRUCTIVE PULMONARY DISEASE W (ACUTE) EXACERBATION (5) Shortness of breath Current Visit: Yes Status: Chronic Code(s): R06.02 - SHORTNESS OF BREATH - Discharge Discharge Date: 12/18/18 Disposition: Home, Self-Care Condition: Stable Prescriptions: New Cephalexin Mh 500 mg [Keflex 500 mg] 500 mg PO QID 5 Days #20 capsule Albuterol/Ipratropium 3ml Neb* [DUONEB 0.5-3 MG/3 ml Neb] 3 ml IH QIDRT # 120 ampul.neb Famotidine 20 mg [Pepcid 20 MG] 20 mg PO BID #60 tablet PANTOPRAZOLE 40 mg Tablet [Protonix 40MG Tablet] 40 mg PO QPM 30 Days # 30 tab Continue Ipratropium/Albuterol Sulfate [Iprat-Albut 0.5-3(2.5) mg/3 ml] 3 ml NEB QID Hydrochlorothiazide 25 mg [hydroDIURIL 25 MG] 12.5 mg PO DAILY Atorvastatin Calcium [Lipitor] 40 mg PO DAILY Budesonide/Formoterol Fumarate [Symbicort 160-4.5 Mcg Inhaler] 2 puff IH BID Albuterol 8 gm Mdi Hfa [Ventolin Hfa MDI] 2 puff IH QID Lisinopril 20 mg [Zestril 20 MG] 20 mg PO DAILY Fluticasone Propionate [Flonase NASAL] 1 spray INTRANASAL DAILY Polyethylene Glycol 3350 [Miralax] 17 gm PO DAILY PRN PRN Reason: Constipation Metoprolol Succinate 50 mg PO DAILY Hydroxychloroquine Sulfate [Plaquenil] 200 mg PO BID Rivaroxaban [Xarelto] 15 mg PO DAILY Prednisone 5 mg PO BID Albuterol Sulfate [Proair Hfa] 8.5 gm IH QID Tiotropium [place] [Spiriva] 18 mcg IH UD #30 cap.w.dev Discontinued raNITIdine HCl [Ranitidine HCl] 150 mg PO BID Nabumetone 500 mg PO DAILY Follow up with: STEVEN MCDONALD MD [ASSOCIATE STAFF] - 1 Week LISA BALDERRAMA MD [Primary Care Provider] - 1 Week
[2018-12-18] MEDS: solu-MEDROL 40 MG IV SCH (09:30)
[2018-12-18] MEDS: PROTONIX 40 MG IV IV SCH (09:30)
[2018-12-18] MEDS: ROCEPHIN 1 Gm-D5w 50 ml Bag** 1 G/50 ML IVPB IV SCH (09:30)
[2018-12-18] MEDS: Flonase NASAL NS SCH (09:34)
[2018-12-18] MEDS: Lopressor 50 MG PO SCH (09:37)
[2018-12-18] MEDS: ZOCOR 20MG PO SCH (09:37)
[2018-12-18] MEDS: Zestril 20 MG PO SCH (09:38)
[2018-12-18] MEDS: hydroDIURIL 25 MG PO SCH (09:38)
[2018-12-18] MEDS: Zithromax 500 MG/ 250 ML NaCl Premix 500 MG/250 ML IVPB IV SCH (09:53)
[2018-12-18 12:28] VITALS: BP 120/63; PULSE 70; O2SAT 92
--- NOTE | 2018-12-19 08:15 | CONS ---
CONSULT DATE: 12/16/2018 The patient was seen for Dr. Albino Guerrero who is supervisor alteration workroom for our group today. I was here seeing other patients and he asked that I check on the patient. HISTORY: She has been in the hospital for three or four days. She has history of chronic obstructive pulmonary disease, had atrial fibrillation in the past. She is on some Xarelto. She had some anemia. She said received a unit of packed cells. She had some bright red blood per rectum. She had EGD and colonoscopy by Dr. Mainor Watson back in August or September that was okay. She said she has history of some vessels that were thin in her stomach according to the patient. I do not have those operative reports. PAST MEDICAL HISTORY: Arthritis, chronic obstructive pulmonary disease, reflux, hypertension as well as history of atrial fibrillation in the past. PAST SURGICAL HISTORY: Cholecystectomy in the past. Carpal tunnel. She had EGD and colonoscopy in the past. HOME MEDICATIONS: She has been on home O2, Albuterol, ipratropium, MiraLAX, ranitidine, Symbicort, Flonase, Spiriva, atorvastatin, ProAir HFA, hydrochlorothiazide, Xarelto which has been held here since she has been in the hospital. She has been on metoprolol. She has been on lisinopril. She has been on prednisone, hydroxychloroquine. ALLERGIES: GABAPENTIN APPARENTLY TRIGGERED SOME PARALYSIS. FAMILY HISTORY: Hypertension. SOCIAL HISTORY: No alcohol abuse. She is on disability for chronic obstructive pulmonary disease. REVIEW OF SYSTEMS: Fourteen systems reviewed. History of atrial fibrillation, chronic obstructive pulmonary disease, anemia. She had some rectal bleeding unclear etiology. Her hemoglobin was 8.7 today, white count 10.1, PLT 419,000. No chest pain or palpitations. She has chronic lung disease. PHYSICAL EXAMINATION: GENERAL: A chronically ill female on nasal O2. HEENT: Sclera nonicteric. NECK: No JVD. CHEST: Equal excursion, nonlabored breathing. CVS: Regular rate and rhythm. ABDOMEN: Soft, nontender. No peritoneal signs. She is a little obese. EXTREMITIES: No cyanosis. NEURO: Alert, moving extremities grossly symmetrically. RECTAL: Exam deferred timed to endoscopy. IMPRESSION: GI bleed unclear etiology, anemia, rectal bleeding and history of prednisone use. She had been on some Xarelto that has been held for the past few days. I feel she is a candidate for upper and lower endoscopy to rule out upper or lower GI source. General risk of bleeding or infection, risk of bowel injury or perforation possibly requiring open procedure, risk of missed or nondiagnosis or inability to diagnose the etiology of her anemia or bleeding, general risk of anesthesia, deep venous thrombosis, pulmonary embolism, pneumonia, perioperative risk of aches, pains, bloating, risk of anesthesia or sedation, risk of bowel prep but not limited to. She understands and agrees to the planned procedure. The patient needs EGD and colonoscopy. The patient accepts the above risks but not limited to. He was prepped, now Dr. Albino Guerrero plans EGD and colonoscopy tomorrow.
--- NOTE | 2018-12-19 09:26 | OP ---
SURGERY DATE/TIME: 12/17/2018 1215 PREOPERATIVE DIAGNOSIS: GI bleed. POSTOPERATIVE DIAGNOSES: 1) Duodenal ulcer. 2) Small hiatal hernia. 3) Colon polyp. 4) Diverticulosis. 5) Upper GI bleed. PROCEDURES: 1) EGD with biopsy of the antrum. 2) Colonoscopy to cecum with hot snare polypectomy x1 rectosigmoid polyp. SURGEON: Albino Guerrero M.D. ANESTHESIA: MAC. SPECIMEN: Antral biopsy. Rectosigmoid polyp. ESTIMATED BLOOD LOSS: None. COMPLICATIONS: None. FINDINGS: Small nonactively bleeding ulcer in the duodenal bulb posteriorly with old blood in the stomach and duodenal bulb. No active bleeding. Colonoscopy showed moderate diverticulosis, moderate hemorrhoids and a 3 mm sessile polyp in the rectosigmoid area. PATIENT PRESENTATION: This patient presents with rectal bleeding. After discussing risks, benefits of EGD and colonoscopy the patient wished to proceed. DESCRIPTION OF PROCEDURE: The patient was brought to the endoscopy suite and placed in left lateral decubitus position. Placed under MAC anesthesia. Gastric scope inserted in the mouth and the esophagus traversed. The stomach was insufflated. There was blood specks throughout the stomach of old blood. The scope was advanced to the stomach and through the pylorus. There was some adherent clot to the posterior duodenal bulb this was irrigated out. There was a small nonbleeding ulcer here this appeared to be the most likely source of her GI bleed. The second and third portion appeared normal. Scope withdrawn. The ulcer did appear to be very small. A biopsy is performed in the antrum. There is maybe some mild gastritis but no real significant gastric pathology. The blood seemed to have come from the duodenum and a small ulcer. Retroflexion performed. Small hiatal hernia. Scope withdrawn. Esophagus appeared normal. Stomach desufflated and scope removed. Attention then was turned to colonoscopy. Rectal exam was performed without significant abnormality except for moderate external hemorrhoid. The scope inserted in the rectum. The scope was slowly and gently advanced to the cecum. Bowel prep was adequate. Ileocecal valve and appendiceal orifice were clearly identified. Scope was slowly withdrawn. There was moderate sigmoid and left colon diverticulosis. A small 3 mm sessile polyp was removed in its entirety with hot snare from the rectosigmoid area and retrieved. Retroflexion showed some mild internal hemorrhoids. Rectum desufflated. The scope removed. The patient recovered and taken to PACU in stable condition with plans for proton pump inhibitor therapy, await biopsy for possible Helicobacter pylori.
== END 2018-12-18 12:58 | disposition home or self-care (01) ==
LOC: MED SURG 16:08
PROVIDERS: ADMIT General Practice; ATTEND General Practice
DX: K26.9 Duodenal ulcer, unspecified as acute or chronic, without hemorrhage or perforation (principal); K92.2 Gastrointestinal hemorrhage, unspecified; D64.9 Anemia, unspecified; J44.1 Chronic obstructive pulmonary disease with (acute) exacerbation; I10 Essential (primary) hypertension; Z79.899 Other long term (current) drug therapy; I48.0 Paroxysmal atrial fibrillation; K44.9 Diaphragmatic hernia without obstruction or gangrene; K57.30 Diverticulosis of large intestine without perforation or abscess without bleeding; K63.5 Polyp of colon; K64.8 Other hemorrhoids
CPT/HCPCS: 36415; 43239; 45385; 71046; 80053; 85014; 85018; 85025; 85027; 86850; 86900; 86901; 86922; 93268; 94150; 94640; 94760; G0378; 88305; J0456; J0696; J2405; J2704; J2920; J7609; A9270-GY

== ENCOUNTER 2018-12-29 10:13 | Observation (INO) | payer MEDICARE ==
--- NOTE | 2018-12-29 10:34 | ERPHSYRPT ---
- History of Present Illness Time Seen by Provider: 12/29/18 10:32 Physician History: Pt notes that she has had 2 bloody bowel movements this morning. Pt states that she has ulceers and has had to be transfused in July and again earlier this month. Pt also has PMHX of Atrial fib and is on Xeralto, and HTN, Hypercholesterolemia, and Pt has a Loop moniter. Pt additionally has a hx of DVT 's that she had earlier this month as well. Pt states taht her stools were dark but then the blood became more bright and red. 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 Allergies/Adverse Reactions: gabapentin Adverse Reaction (Verified 12/29/18 10:49) Home Medications: Atorvastatin Calcium [Lipitor] 40 mg PO DAILY 11/22/14 [History] Hydrochlorothiazide 25 mg [hydroDIURIL 25 MG] 12.5 mg PO DAILY 11/22/14 [ History] Ipratropium/Albuterol Sulfate [Iprat-Albut 0.5-3(2.5) mg/3 ml] 3 ml NEB QID [History] Albuterol 8 gm Mdi Hfa [Ventolin Hfa MDI] 2 puff IH QID 09/14/16 [History] Budesonide/Formoterol Fumarate [Symbicort 160-4.5 Mcg Inhaler] 2 puff IH BID 12/22 [History] Lisinopril 20 mg [Zestril 20 MG] 20 mg PO DAILY 09/28/16 [History] Fluticasone Propionate [Flonase NASAL] 1 spray INTRANASAL DAILY 07/30/18 [ History] Polyethylene Glycol 3350 [Miralax] 17 gm PO DAILY PRN 08/02/18 [History] Albuterol Sulfate [Proair Hfa] 8.5 gm IH QID 12/12/18 [History] Hydroxychloroquine Sulfate [Plaquenil] 200 mg PO BID 12/12/18 [History] Prednisone 5 mg PO BID 12/12/18 [History] Rivaroxaban [Xarelto] 15 mg PO DAILY 12/12/18 [History] Metoclopramide HCl 5 mg PO Q8H PRN 12/29/18 [History] Metoprolol Tartrate 50 mg PO BID 12/29/18 [History] Hx Tetanus, Diphtheria Vaccination/Date Given: No Hx Influenza Vaccination/Date Given: Yes Hx Pneumococcal Vaccination/Date Given: No - Past Medical History Pertinent Past Medical History: Yes Neurological History: Stroke ENT History: No Pertinent History Cardiac History: Arrhythmia, High Cholesterol, Hypertension, Other Respiratory History: COPD Endocrine Medical History: No Pertinent History Musculoskeletal History: Osteoarthritis GI Medical History: GERD, Ulcer History: No Pertinent History Psycho-Social History: No Pertinent History Female Reproductive Disorders: No Pertinent History Other Medical History: 01/2014 CVA, anemia,. stroke x2 - Past Surgical History Past Surgical History: Yes Neuro Surgical History: No Pertinent History Cardiac: No Pertinent History Respiratory: No Pertinent History Gastrointestinal: Cholecystectomy Genitourinary: No Pertinent History Musculoskeletal: Orthopedic Surgery Female Surgical History: No Pertinent History Other Surgical History: egd/colonoscopy/bilat carpal tunnel - Social History Smoking Status: Current every day smoker How long have you smoked: 40yrs Exposure to second hand smoke: Yes Drug Use: none Patient Lives Alone: Yes - Nursing Vital Signs Nursing Vital Signs: Initial Vital Signs Temperature 98.2 F 12/29/18 10:20 Pulse Rate 143 H 12/29/18 10:20 Respiratory Rate 24 12/29/18 10:20 Blood Pressure 163/108 12/29/18 10:20 O2 Sat by Pulse Oximetry 97 12/29/18 10:20 Pain Scale Pain Intensity 0 Ordered Tests: Active Orders 24 hr Category Date Time Status [place] STAT Care 12/29/18 10:46 Active EKG-ER Only STAT Care 12/29/18 10:51 Active IV Insertion STAT Care 12/29/18 10:44 Active ABDOMEN AND PELVIS W CONTRAST [CT] Stat Exams 12/29/18 11:38 Completed CBC W DIFF Stat Lab 12/29/18 11:00 Completed CMP Stat Lab 12/29/18 11:00 Completed Occult Blood, Other Screening Stat Lab 12/29/18 11:47 Completed PROTIME WITH INR Stat Lab 12/29/18 11:00 Completed PTT Stat Lab 12/29/18 11:00 Completed UA W/RFX UR CULTURE Stat Lab 12/29/18 13:04 Ordered Peak Expiratory Flow Rate DAILY RT 12/29/18 12:35 Active Respiratory Therapy Assessment ROUTINE RT 12/30/18 12:35 Active Medication Summary Generic Name Dose Route Start Last Admin Trade Name Kelsi PRN Reason Stop Dose Admin Sodium Chloride 1,000 mls @ 100 mls/hr 12/29/18 10:45 12/29/18 11:04 Sodium Chloride 0.9% 1000 Ml IV 01/28/19 10:44 100 mls/hr .Q10H DEWAYNE Administration Discontinued Medications Generic Name Dose Route Start Last Admin Trade Name Kelsi PRN Reason Stop Dose Admin Albuterol/Ipratropium 3 ml 12/29/18 12:04 12/29/18 12:35 Duoneb 0.5-3 Mg/3 Ml Neb IH 12/29/18 12:05 3 ml STAT ONE Administration Albuterol/Ipratropium Confirm 12/29/18 12:33 Duoneb 0.5-3 Mg/3 Ml Neb Administered 12/29/18 12:34 Dose 3 ml IH .STK-MED ONE Pantoprazole Sodium 40 mg 12/29/18 10:44 12/29/18 11:04 Protonix 40 Mg Iv IV 12/29/18 10:45 40 mg STAT ONE Administration Pantoprazole Sodium Confirm 12/29/18 10:55 Protonix 40 Mg Iv Administered 12/29/18 10:56 Dose 40 mg IV .STK-MED ONE Lab/Rad Data: Laboratory Result Diagrams 12/29/18 11:00 12/29/18 11:00 Laboratory Results 12/29/18 12/29/18 12/29/18 Range/Units 11:47 11:00 11:00 WBC (4.0-10.5) K/mm3 RBC (4.1-5.4) M/mm3 Hgb (12.0-16.0) gm/dl Hct (35-47) % MCV (78-100) fl MCH (26-32) pg MCHC (32-36) g/dl RDW (11.5-14.0) % Plt Count (150-450) K/mm3 MPV (6-9.5) fl Gran % (36.0-66.0) % Eos # (Auto) (0-0.5) Absolute Lymphs (auto) (1.0-4.6) Absolute Monos (auto) (0.0-1.3) Lymphocytes % (24.0-44.0) % Monocytes % (0.0-12.0) % Eosinophils % (0.00-5.0) % Basophils % (0.0-0.4) % Absolute Granulocytes (1.4-6.9) Basophils # (0-0.4) PT 16.1 H (9.95-12.35) SECONDS INR 1.41 (0.8-3.0) APTT 32.2 (25.3-37.0) SECONDS Sodium (137-145) mmol/L Potassium (3.5-5.1) mmol/L Chloride (98-107) mmol/L Carbon Dioxide (22-30) mmol/L Anion Gap (5-15) MEQ/L BUN (7-17) mg/dL Creatinine (0.52-1.04) mg/dL Estimated GFR ML/MIN Glucose (74-106) mg/dL Calcium (8.4-10.2) mg/dL Total Bilirubin (0.2-1.3) mg/dL AST (14-36) U/L ALT (0-35) U/L Alkaline Phosphatase (38-126) U/L Serum Total Protein (6.3-8.2) g/dL Albumin (3.5-5.0) g/dL Stool Occult Blood POSITIVE A (Negative) ABO Group O Rh Factor POSITIVE Antibody Screen NEGATIVE (NEGATIVE) 12/29/18 12/29/18 Range/Units 11:00 11:00 WBC 11.9 H (4.0-10.5) K/mm3 RBC 3.87 L (4.1-5.4) M/mm3 Hgb 10.5 L (12.0-16.0) gm/dl Hct 35.4 (35-47) % MCV 91.5 (78-100) fl MCH 27.1 (26-32) pg MCHC 29.7 L (32-36) g/dl RDW 17.8 H (11.5-14.0) % Plt Count 411 (150-450) K/mm3 MPV 8.7 (6-9.5) fl Gran % 84.0 H (36.0-66.0) % Eos # (Auto) 0.03 (0-0.5) Absolute Lymphs (auto) 0.89 L (1.0-4.6) Absolute Monos (auto) 0.93 (0.0-1.3) Lymphocytes % 7.5 L (24.0-44.0) % Monocytes % 7.8 (0.0-12.0) % Eosinophils % 0.3 (0.00-5.0) % Basophils % 0.4 (0.0-0.4) % Absolute Granulocytes 10.01 H (1.4-6.9) Basophils # 0.05 (0-0.4) PT (9.95-12.35) SECONDS INR (0.8-3.0) APTT (25.3-37.0) SECONDS Sodium 142 (137-145) mmol/L Potassium 3.8 (3.5-5.1) mmol/L Chloride 104 (98-107) mmol/L Carbon Dioxide 27 (22-30) mmol/L Anion Gap 14.5 (5-15) MEQ/L BUN 19 H (7-17) mg/dL Creatinine 0.68 (0.52-1.04) mg/dL Estimated GFR > 60.0 ML/MIN Glucose 109 H (74-106) mg/dL Calcium 9.5 (8.4-10.2) mg/dL Total Bilirubin 1.00 (0.2-1.3) mg/dL AST 20 (14-36) U/L ALT 21 (0-35) U/L Alkaline Phosphatase 97 (38-126) U/L Serum Total Protein 7.1 (6.3-8.2) g/dL Albumin 4.0 (3.5-5.0) g/dL Stool Occult Blood (Negative) ABO Group Rh Factor Antibody Screen (NEGATIVE) - Departure Referrals: LISA BALDERRAMA MD [Primary Care Provider] -
[2018-12-29] MEDS ORDERED: PROTONIX 40 MG IV IV ONE ×2 (10:44→10:55)
[2018-12-29] MEDS ORDERED: Sodium Chloride 0.9% 1000 ML 1,000 ML ONE (10:55)
[2018-12-29] MEDS: Sodium Chloride 0.9% 1000 ML 1,000 ML IV SCH (11:04)
[2018-12-29 11:12] LABS: Absolute Neutrophil Ct (ANC) 10.01 (1.4-6.9); BASOPHIL % 0.4 % (0.0-0.4); Basophil (Absolute #) 0.05 (0-0.4); Eosinophil % 0.3 % (0.00-5.0); Eosinophil (Absolute #) 0.03 (0-0.5); Hematocrit 35.4 % (35-47); Hemoglobin 10.5 gm/dl (12.0-16.0); Lymphocyte (Absolute #) 0.89 (1.0-4.6); Lymphocytes % 7.5 % (24.0-44.0); Mean Cell Volume 91.5 fl (78-100); Mean Corpuscular Hemoglobin 27.1 pg (26-32); Mean Corpuscular Hgb Concent. 29.7 g/dl (32-36); Mean Platelet Volume 8.7 fl (6-9.5); Monocyte (Absolute #) 0.93 (0.0-1.3); Monocytes % 7.8 % (0.0-12.0); Platelet Count 411 K/mm3 (150-450); Red Blood Count 3.87 M/mm3 (4.1-5.4); Red Cell Distribution Width 17.8 % (11.5-14.0); White Blood Count 11.9 K/mm3 (4.0-10.5)
[2018-12-29 11:18] LABS: INR 1.41 (0.8-3.0); PROTIME 16.1 SECONDS (9.95-12.35)
[2018-12-29 11:21] LABS: PTT 32.2 SECONDS (25.3-37.0)
[2018-12-29 11:28] LABS: ALKALINE PHOSPHATASE 97 U/L (38-126); ANION GAP 14.5 MEQ/L (5-15); BLOOD UREA NITROGEN 19 mg/dL (7-17); CHLORIDE 104 mmol/L (98-107); Calcium 9.5 mg/dL (8.4-10.2); Carbon Dioxide 27 mmol/L (22-30); Creatinine 1 0.68 mg/dL (0.52-1.04); Glucose 109 mg/dL (74-106); Potassium 3.8 mmol/L (3.5-5.1); SGOT/AST 20 U/L (14-36); SGPT/ALT 21 U/L (0-35); SODIUM 142 mmol/L (137-145); Total Protein 7.1 g/dL (6.3-8.2)
[2018-12-29 11:43] LABS: ABO TYPING O; Antibody Screen NEGATIVE (NEGATIVE); RH TYPING POSITIVE
[2018-12-29] MEDS ORDERED: DUONEB 0.5-3 MG/3 ml Neb IH ONE ×2 (12:04→12:33)
--- NOTE | 2018-12-29 12:46 | XRAY ---
Indication: Blood in stool. Possible GI bleed. Known ulcer, COPD, and atrial fibrillation. Multiple contiguous axial images obtained through the abdomen and pelvis using 80 cc Isovue 370 contrast only. Comparison: None Lung bases demonstrates tiny left lower lobe calcified granuloma and minimal fibrosis/scarring. No infiltrate or effusion. Heart is not enlarged. Small hiatal hernia. Noncontrasted stomach and bowel loops appear nonobstructed. Normal appendix. Mild scattered descending and sigmoid diverticulosis without diverticulitis. Previous cholecystectomy. No free fluid/air. Remaining liver, pancreas, spleen, adrenal glands, kidneys, ureters, bladder, and uterus appear unremarkable. Moderate scattered aortoiliac calcifications. No AAA or pathologic retroperitoneal lymphadenopathy. Osseous structures intact with mild degenerative changes throughout the thoracolumbar spine including 2-3 mm L4 spondylolisthesis. Impression: 1. Pulmonary calcified granuloma, small hiatal hernia, and colonic diverticulosis. 2. Multilevel degenerative spondylosis including grade 1 L4 spondylolisthesis. 3. Remaining CT abdomen/pelvis with contrast exam is negative. CT DI 22.69
[2018-12-29 13:30] LABS: Appearance CLEAR (CLEAR); Bilirubin NEGATIVE (NEGATIVE); Blood NEGATIVE Ery/ul (0-5); Epithelial Cells RARE /HPF (FEW); Glucose NEGATIVE (NEGATIVE); Ketones NEGATIVE (NEGATIVE); Leukocyte Esterase NEGATIVE (NEGATIVE); Mucus MODERATE /HPF (NEGATIVE); Nitrite NEGATIVE (NEGATIVE); Protein,Urine Dip NEGATIVE (Negative); Specific Gravity >1.060 (1.005-1.025); Urobilinogen NEGATIVE mg/dL (0-1)
[2018-12-29] MEDS ORDERED: Miralax Powder 17GM PACKET PO PRN (15:53)
[2018-12-29] MEDS ORDERED: METOCLOPRAMIDE HCL 5 MG PO PRN (15:53)
[2018-12-29] MEDS ORDERED: PROVENTIL COMMON CANISTER IH PRN (16:07)
[2018-12-29] MEDS: TYLENOL EXTRA STRENGTH 500 MG PO PRN ×2 (16:28→21:28)
[2018-12-29] MEDS: Pain Relieving Rub TOP PRN (16:45)
[2018-12-29] MEDS ORDERED: DUONEB 0.5-3 MG/3 ml Neb IH SCH ×2 (17:00→19:00)
[2018-12-29] MEDS ORDERED: Ventolin Hfa MDI IH SCH ×2 (17:00)
[2018-12-29] MEDS ORDERED: Advair Hfa 115/21 Mcg Inhaler IH SCH (19:00)
[2018-12-29] MEDS: DUONEB 0.5-3 MG/3 ml Neb IH SCH (19:51)
[2018-12-29] MEDS: PATIENT OWN MEDICATION IH SCH ×2 (19:54)
[2018-12-29] MEDS: Lopressor 50 MG PO SCH (21:29)
[2018-12-29] MEDS: Protonix 40MG Tablet PO SCH (21:29)
[2018-12-29] MEDS: Pepcid 20 MG PO SCH (21:29)
[2018-12-29] MEDS: DELTASONE 5 MG PO SCH (21:29)
[2018-12-29] MEDS: ZOCOR 20MG PO SCH (21:29)
[2018-12-29] MEDS: NON-FORMULARY ITEM (Hydroxychloroquine Sulfate [Plaquenil] 200 MG) PO SCH (21:32)
[2018-12-29] MEDS ORDERED: NON-FORMULARY ITEM (Budesonide/Formoterol Fumarate [Symbicort 160-4.5 Mcg Inhaler] 2 PUFF) IH SCH (22:00)
[2018-12-29] MEDS: MORPHINE SULFATE 2 MG INJ IV PRN (23:43)
[2018-12-30] MEDS: DUONEB 0.5-3 MG/3 ml Neb IH SCH ×4 (01:11→20:12)
[2018-12-30] MEDS: MORPHINE SULFATE 2 MG INJ IV PRN ×3 (03:56→19:49)
[2018-12-30] MEDS: Sodium Chloride 0.9% 1000 ML 1,000 ML IV SCH (04:04)
[2018-12-30 05:48] LABS: Hematocrit 29.7 % (35-47); Hemoglobin 8.7 gm/dl (12.0-16.0); Mean Corpuscular Hemoglobin 27.5 pg (26-32); Mean Corpuscular Hgb Concent. 29.3 g/dl (32-36); Mean Platelet Volume 9.1 fl (6-9.5); Platelet Count 330 K/mm3 (150-450); Red Blood Count 3.16 M/mm3 (4.1-5.4); White Blood Count 8.3 K/mm3 (4.0-10.5)
[2018-12-30 06:12] LABS: ALBUMIN 3.1 g/dL (3.5-5.0); ALKALINE PHOSPHATASE 72 U/L (38-126); ANION GAP 11.1 MEQ/L (5-15); BLOOD UREA NITROGEN 21 mg/dL (7-17); CHLORIDE 105 mmol/L (98-107); Carbon Dioxide 28 mmol/L (22-30); Creatinine 1 0.71 mg/dL (0.52-1.04); Glucose 103 mg/dL (74-106); Potassium 4.3 mmol/L (3.5-5.1); SGOT/AST 17 U/L (14-36); SGPT/ALT 17 U/L (0-35); SODIUM 140 mmol/L (137-145); Total Protein 5.8 g/dL (6.3-8.2)
[2018-12-30] MEDS: PATIENT OWN MEDICATION IH SCH ×3 (07:16→20:14)
[2018-12-30] MEDS: Lopressor 50 MG PO SCH ×2 (08:17→16:59)
[2018-12-30] MEDS: TYLENOL EXTRA STRENGTH 500 MG PO PRN ×3 (08:17→17:09)
[2018-12-30] MEDS: hydroDIURIL 25 MG PO SCH (08:18)
[2018-12-30] MEDS: Zestril 20 MG PO SCH (08:18)
[2018-12-30] MEDS: DELTASONE 5 MG PO SCH ×2 (08:19→21:09)
[2018-12-30] MEDS: Pepcid 20 MG PO SCH ×2 (08:19→21:09)
[2018-12-30] MEDS: PATIENT OWN MEDICATION NS SCH (08:20)
[2018-12-30] MEDS: NON-FORMULARY ITEM (Hydroxychloroquine Sulfate [Plaquenil] 200 MG) PO SCH ×2 (08:20→16:57)
[2018-12-30] MEDS ORDERED: FEOSOL 325 MG PO SCH (10:00)
[2018-12-30] MEDS ORDERED: Spiriva 18 Mcg/Cap Inhaler IH SCH (10:00)
[2018-12-30] MEDS ORDERED: NON-FORMULARY ITEM (Atorvastatin Calcium [Lipitor] 40 MG) PO SCH (10:00)
[2018-12-30] MEDS ORDERED: Flonase NASAL NS SCH (10:00)
--- NOTE | 2018-12-30 12:19 | PCM.HP ---
History of Present Illness - Chief Complaint Chief Complaint: bloody stool for 1 day History of Present Illness: is a 63 year old female.Pt notes that she has had 2 bloody bowel movements this morning. Pt states that she has ulceers and has had to be transfused in July and again earlier this month. Pt also has PMHX of Atrial fib and is on Xeralto, and HTN, Hypercholesterolemia, and Pt has a Loop moniter. Pt additionally has a hx of DVT's that she had earlier this month as well. Pt states taht her stools were dark but then the blood became more bright and red. 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 - Review of Systems Constitutional: No Fever, No Chills Eyes: No Symptoms Ears, Nose, & Throat: No Symptoms Respiratory: No Cough, No Short Of Breath Cardiac: No Chest Pain, No Edema, No Syncope Abdominal/Gastrointestinal: Melena, No Abdominal Pain, No Nausea, No Vomiting, No Diarrhea Genitourinary Symptoms: No Dysuria Musculoskeletal: No Back Pain, No Neck Pain Skin: No Rash Neurological: No Dizziness, No Focal Weakness, No Sensory Changes Psychological: No Symptoms Endocrine: No Symptoms Hematologic/Lymphatic: No Symptoms Immunological/Allergic: No Symptoms Medications & Allergies Home Medications: Home Medication List Atorvastatin Calcium [Lipitor] 40 mg PO DAILY 11/22/14 [History Confirmed ] Hydrochlorothiazide 25 mg [hydroDIURIL 25 MG] 12.5 mg PO DAILY 11/22/14 [ History Confirmed 12/29/18] Ipratropium/Albuterol Sulfate [Iprat-Albut 0.5-3(2.5) mg/3 ml] 3 ml NEB QID [History Confirmed 12/29/18] Albuterol 8 gm Mdi Hfa [Ventolin Hfa MDI] 2 puff IH QID 09/14/16 [History Confirmed 12/29/18] Budesonide/Formoterol Fumarate [Symbicort 160-4.5 Mcg Inhaler] 2 puff IH BID 12/22 [History Confirmed 12/29/18] Lisinopril 20 mg [Zestril 20 MG] 20 mg PO DAILY 09/28/16 [History Confirmed 12/29/18] Fluticasone Propionate [Flonase NASAL] 1 spray INTRANASAL DAILY 07/30/18 [ History Confirmed 12/29/18] Polyethylene Glycol 3350 [Miralax] 17 gm PO DAILY PRN 08/02/18 [History Confirmed 12/29/18] Albuterol Sulfate [Proair Hfa] 8.5 gm IH QID 12/12/18 [History Confirmed ] Hydroxychloroquine Sulfate [Plaquenil] 200 mg PO BID 12/12/18 [History Confirmed 12/29/18] Prednisone 5 mg PO BID 12/12/18 [History Confirmed 12/29/18] Rivaroxaban [Xarelto] 15 mg PO DAILY 12/12/18 [History Confirmed 12/29/18] Albuterol/Ipratropium 3ml Neb* [DUONEB 0.5-3 MG/3 ml Neb] 3 ml IH QIDRT #120 ampul.neb 12/18/18 [Rx Confirmed 12/29/18] Famotidine 20 mg [Pepcid 20 MG] 20 mg PO BID #60 tablet 12/18/18 [Rx Confirmed 12/29/18] Ferrous Sulfate [Iron] 325 mg PO DAILY #30 tablet 12/18/18 [Rx Confirmed ] PANTOPRAZOLE 40 mg Tablet [Protonix 40MG Tablet] 40 mg PO QPM 30 Days #30 tab 12/18/18 [Rx Confirmed 12/29/18] Tiotropium [place] [Spiriva] 18 mcg IH UD #30 cap.w.dev 12/18/18 [Rx Confirmed 12/29/18] Metoclopramide HCl 5 mg PO Q8H PRN 12/29/18 [History Confirmed 12/29/18] Metoprolol Tartrate 50 mg PO BID 12/29/18 [History Confirmed 12/29/18] Allergies/Adverse Reactions: Allergies Allergy/AdvReac Type Severity Reaction Status Date / Time gabapentin AdvReac Verified 12/29/18 10:49 - Past Medical History Past Medical History: Yes Neurological History: Stroke ENT History: No Pertinent History Cardiac History: Arrhythmia, High Cholesterol, Hypertension, Other Respiratory History: COPD Endocrine Medical History: No Pertinent History Musculoskelatal History: Osteoarthritis GI Medical History: GERD, GI Bleed, Ulcer History: No Pertinent History Pyscho-Social History: No Pertinent History Reproductive Disorders: No Pertinent History Comment: 01/2014 CVA, anemia,. stroke x2 - Female History Are you now?: No - Past Surgical History Past Surgical History: Yes Neuro Surgical History: No Pertinent History Cardiac History: No Pertinent History Respiratory Surgery: No Pertinent History GI Surgical History: Cholecystectomy Genitourinary Surgical Hx: No Pertinent History Musculskeletal Surgical Hx: Orthopedic Surgery Female Surgical History: No Pertinent History Other Surgical History: egd/colonoscopy/bilat carpal tunnel - Social History Smoking Status: Current every day smoker How long have you smoked: 40yrs Exposure to second hand smoke: Yes Alcohol: None Drug Use: none - Physical Exam Vital Signs: Vital Signs - 24 hr Temp Pulse Resp BP Pulse Ox 12/30/18 08:00 98.3 F 78 18 127/75 97 12/30/18 07:27 80 18 96 12/30/18 04:00 98.4 F 78 18 127/83 96 12/30/18 01:11 81 21 97 12/30/18 00:00 98.9 F 87 20 142/92 94 L 12/29/18 20:00 99.4 F 115 H 20 130/79 96 12/29/18 19:51 120 H 20 97 12/29/18 16:07 99.2 F 110 H 16 138/89 94 L 12/29/18 15:05 96 12/29/18 15:04 99.2 F 110 H 16 118/68 94 L 12/29/18 14:52 98.2 F 70 16 118/68 98 12/29/18 14:18 70 16 118/68 98 12/29/18 12:54 109 H 23 97 12/29/18 12:52 114 H 24 127/101 97 12/29/18 12:47 114 H 26 H 127/101 97 Oxygen-Last 24 hours O2 Percentage 2 Liters = 28% O2 Percentage 2 Liters = 28% O2 Percentage 2 Liters = 28% O2 Percentage 2 Liters = 28% Oxygen Flowrate (L/min)-RT 2 Oxygen Flowrate (L/min)-RT 2 Oxygen Flowrate (L/min)-RT 2 General Appearance: no apparent distress, alert Neurologic Exam: alert, oriented x 3, cooperative, normal mood/affect, nml cerebellar function, nml station & gait, sensation nml, No motor deficits Eye Exam: PERRL/EOMI, eyes nml inspection Ears, Nose, Throat Exam: normal ENT inspection, TMs normal, pharynx normal, moist mucous membranes Neck Exam: normal inspection, non-tender, supple, full range of motion Respiratory Exam: normal breath sounds, lungs clear, No respiratory distress Cardiovascular Exam: regular rate/rhythm, normal heart sounds, normal peripheral pulses Gastrointestinal/Abdomen Exam: soft, normal bowel sounds, No tenderness, No mass Back Exam: normal inspection, normal range of motion, No CVA tenderness, No vertebral tenderness Extremity Exam: normal inspection, normal range of motion, pelvis stable Skin Exam: normal color, warm, dry, No rash Lymphatic Exam: No adenopathy Results - Labs Lab/Micro Results: Lab Results-Last 24 Hours 12/29/18 12/30/18 12/30/18 Range/Units Unknown 04:00 04:00 WBC 8.3 (4.0-10.5) K/mm3 RBC 3.16 L (4.1-5.4) M/mm3 Hgb 8.7 L (12.0-16.0) gm/dl Hct 29.7 L (35-47) % MCV 94.0 (78-100) fl MCH 27.5 (26-32) pg MCHC 29.3 L (32-36) g/dl RDW 18.0 H (11.5-14.0) % Plt Count 330 (150-450) K/mm3 MPV 9.1 (6-9.5) fl Sodium 140 (137-145) mmol/L Potassium 4.3 (3.5-5.1) mmol/L Chloride 105 (98-107) mmol/L Carbon Dioxide 28 (22-30) mmol/L Anion Gap 11.1 (5-15) MEQ/L BUN 21 H (7-17) mg/dL Creatinine 0.71 (0.52-1.04) mg/dL Estimated GFR > 60.0 ML/MIN Glucose 103 (74-106) mg/dL Calcium 9.0 (8.4-10.2) mg/dL Total Bilirubin 0.70 (0.2-1.3) mg/dL AST 17 (14-36) U/L ALT 17 (0-35) U/L Alkaline Phosphatase 72 (38-126) U/L Serum Total Protein 5.8 L (6.3-8.2) g/dL Albumin 3.1 L (3.5-5.0) g/dL Urine Color YELLOW (YELLOW) Urine Appearance CLEAR (CLEAR) Urine pH 5.0 (5-6) Ur Specific [place] >1.060 (1.005-1.025) Urine Protein NEGATIVE (Negative) Urine Ketones NEGATIVE (NEGATIVE) Urine Blood NEGATIVE (0-5) Jhonny/ul Urine Nitrite NEGATIVE (NEGATIVE) Urine Bilirubin NEGATIVE (NEGATIVE) Urine Urobilinogen NEGATIVE (0-1) mg/dL Ur Leukocyte Esterase NEGATIVE (NEGATIVE) Urine WBC (Auto) NONE (0-5) /HPF Urine RBC (Auto) NONE (0-2) /HPF U Epithel Cells (Auto) RARE (FEW) /HPF Urine Bacteria (Auto) NONE (NEGATIVE) /HPF Urine Mucus (Auto) MODERATE (NEGATIVE) /HPF Urine Culture Reflexed NO (NO) Urine Glucose NEGATIVE (NEGATIVE) mg/dL - Radiology Impressions Radiology Exams & Impressions: Radiology Procedures Category Date Time Status ABDOMEN AND PELVIS W CONTRAST [CT] Stat Exams 12/29/18 11:38 Completed - Other Procedures and Tests Respiratory Therapy 12/29/18 12:35 Peak Expiratory Flow Rate DAILY 12/29/18 15:05 Oxygen Nasal Cannula 2 lpm 12/29/18 19:00 Respiratory MDI BID Respiratory MDI HS 12/30/18 12:35 Respiratory Therapy Assessment ROUTINE Assessment/Plan (1) Duodenal ulcer without hemorrhage or perforation Current Visit: No Status: Acute Code(s): K26.9 - DUODENAL ULCER, UNSP ACUTE OR CHRONIC, W/O HEMOR OR PERF (2) Anemia Current Visit: No Status: Chronic Qualifiers: Anemia type: iron deficiency Iron deficiency anemia type: chronic blood loss Qualified Code(s): D50.0 - Iron deficiency anemia secondary to blood loss (chronic) Code(s): D64.9 - ANEMIA, UNSPECIFIED (3) GI bleed Current Visit: Yes Status: Acute Qualifiers: GI bleed type/associated pathology: melena Qualified Code(s): K92.1 - Melena Code(s): K92.2 - GASTROINTESTINAL HEMORRHAGE, UNSPECIFIED
[2018-12-30] MEDS: Protonix 40MG Tablet PO SCH (16:55)
[2018-12-30] MEDS: ZOCOR 20MG PO SCH (16:55)
[2018-12-30] MEDS: FEOSOL 325 MG PO SCH (21:09)
[2018-12-31] MEDS: Sodium Chloride 0.9% 1000 ML 1,000 ML IV SCH ×2 (00:06→17:28)
[2018-12-31] MEDS: TYLENOL EXTRA STRENGTH 500 MG PO PRN ×5 (00:06→20:00)
[2018-12-31] MEDS: DUONEB 0.5-3 MG/3 ml Neb IH SCH ×4 (00:39→19:42)
--- NOTE | 2018-12-31 06:50 | PCM.DS ---
Discharge Summary Date of Admission: 12/29/18 14:33 Admitting Physician: LISA BALDERRAMA Primary Care Provider: LISA BALDERRAMA Allergies Allergies gabapentin Adverse Reaction (Verified 12/29/18 10:49) Hospital Summary - Hospital Course Hospital Course: Chief Complaint Diagnosis bloody stool for 1 day Allergies Allergy/AdvReac Type Severity Reaction Status Date / Time gabapentin AdvReac Verified 12/29/18 10:49 Vital Signs (Last 24 hours) Temp Pulse Resp BP Pulse Ox 12/31/18 04:36 97.9 F 74 20 109/61 97 12/31/18 01:46 72 16 105/58 12/31/18 00:40 70 16 96 12/31/18 00:00 98.4 F 78 16 89/61 95 12/30/18 20:12 65 16 95 12/30/18 20:00 98.8 F 70 20 94/52 96 12/30/18 16:00 99.8 F 77 16 102/57 95 12/30/18 13:48 80 16 96 12/30/18 12:00 98.1 F 76 18 108/61 97 12/30/18 08:00 98.3 F 78 18 127/75 97 12/30/18 07:27 80 18 96 Home Medications Medication Instructions Recorded Confirmed Last Taken Type Metoclopramide HCl 5 mg PO Q8H PRN 12/29/18 12/29/18 12/29/18 History Metoprolol Tartrate 50 mg PO BID 12/29/18 12/29/18 12/28/18 History Current Medications Generic Name Dose Route Start Last Admin Trade Name Freq PRN Reason Stop Dose Admin Acetaminophen 1,000 mg 12/29/18 15:39 12/31/18 04:07 Tylenol Extra Strength 500 Mg PO 01/28/19 15:38 1,000 mg Q4H PRN PRN Administration HEADACHE Albuterol Sulfate 2 puff 12/29/18 16:07 Proventil Common Canister IH 01/28/19 16:06 QID PRN PRN Albuterol/Ipratropium 3 ml 12/29/18 19:00 12/31/18 00:39 Duoneb 0.5-3 Mg/3 Ml Neb IH 01/28/19 18:59 3 ml Q6HRT DEWAYNE Administration Famotidine 20 mg 10/24/19 22:00 12/30/18 21:09 Pepcid 20 Mg PO 01/28/19 21:59 20 mg BID DEWAYNE Administration Ferrous Sulfate 325 mg 12/30/18 22:00 12/30/18 21:09 Feosol 325 Mg PO 01/29/19 21:59 325 mg BID DEWAYNE Administration Hydrochlorothiazide 12.5 mg 12/30/18 10:00 12/30/18 08:18 Hydrodiuril 25 Mg PO 01/29/19 09:59 12.5 mg DAILY DEWAYNE Administration Sodium Chloride 1,000 mls @ 50 mls/hr 12/29/18 10:45 12/31/18 00:06 Sodium Chloride 0.9% 1000 Ml IV 01/28/19 10:44 100 mls/hr .Q20H DEWAYNE Administration Lisinopril 20 mg 12/30/18 10:00 12/30/18 08:18 Zestril 20 Mg PO 01/29/19 09:59 20 mg DAILY DEWAYNE Administration Methyl Salicylate 1 gm 12/29/18 16:31 12/29/18 16:45 Pain Relieving Rub TOP 01/28/19 16:30 1 gm Q2H PRN PRN Administration PAIN Metoclopramide HCl 5 mg 12/29/18 16:07 Reglan 10 Mg PO 01/28/19 16:06 Q8H PRN PRN NAUSEA Metoprolol Tartrate 50 mg 12/29/18 22:00 12/30/18 16:59 Lopressor 50 Mg PO 01/28/19 21:59 50 mg BID DEWAYNE Administration Morphine Sulfate 2 mg 12/29/18 23:40 12/30/18 19:49 Morphine Sulfate 2 Mg Inj IV 01/03/19 23:39 2 mg Q4H PRN PRN Administration PAIN Non-Formulary Drug 1 200 mg 12/29/18 22:00 12/30/18 16:57 Each ( PO 01/28/19 21:59 200 mg Hydroxychloroquine BID DEWAYNE Administration Sulfate [Plaquenil] 200 Mg) Pantoprazole Sodium 40 mg 12/29/18 22:00 12/30/18 16:55 Protonix 40mg Tablet PO 01/28/19 21:59 40 mg QPM DEWAYNE Administration Patient Own Med: 0 each 12/30/18 10:00 12/30/18 08:20 Flonase Nasal NS 01/29/19 09:59 1 each Inhaler DAILY DEWAYNE Administration Patient Own Med : 0 each 12/29/18 19:00 12/30/18 20:13 Symbicort 160-4.5 IH 01/28/19 18:59 2 each BIDRT DEWAYNE Administration Patient Own Med : 0 each 12/30/18 22:00 12/30/18 20:14 Spiriva Inhaler IH 01/29/19 21:59 1 each HS DEWAYNE Administration Polyethylene Glycol 17 gm 12/29/18 15:53 Miralax Powder 17gm Packet PO 01/28/19 15:52 DAILY PRN PRN CONSTIPATION Prednisone 5 mg 12/29/18 22:00 12/30/18 21:09 Deltasone 5 Mg PO 01/28/19 21:59 5 mg BID DEWAYNE Administration Simvastatin 40 mg 12/29/18 22:00 12/30/18 16:55 Zocor 20mg PO 01/28/19 21:59 40 mg HS DEWAYNE Administration Discontinued Medications Generic Name Dose Route Start Last Admin Trade Name Freq PRN Reason Stop Dose Admin Albuterol/Ipratropium 3 ml 12/29/18 12:04 12/29/18 12:35 Duoneb 0.5-3 Mg/3 Ml Neb IH 12/29/18 12:05 3 ml STAT ONE Administration Albuterol/Ipratropium Confirm 12/29/18 12:33 Duoneb 0.5-3 Mg/3 Ml Neb Administered 12/29/18 12:34 Dose 3 ml IH .STK-MED ONE Ferrous Sulfate 325 mg 12/30/18 10:00 12/30/18 08:18 Feosol 325 Mg PO 01/29/19 09:59 325 mg DAILY DEWAYNE Administration Fluticasone Propionate 0 gm 12/30/18 10:00 Flonase Nasal NS 01/29/19 09:59 DAILY DEWAYNE Sodium Chloride Confirm 12/29/18 10:55 Sodium Chloride 0.9% 1000 Ml Administered 12/29/18 10:56 Dose 1,000 mls @ ud .ROUTE .STK-MED ONE Pantoprazole Sodium 40 mg 12/29/18 10:44 12/29/18 11:04 Protonix 40 Mg Iv IV 12/29/18 10:45 40 mg STAT ONE Administration Pantoprazole Sodium Confirm 12/29/18 10:55 Protonix 40 Mg Iv Administered 12/29/18 10:56 Dose 40 mg IV .STK-MED ONE Fluticasone/Salmeterol 2 puff 12/29/18 19:00 Advair Hfa 115/21 Mcg Inhaler 01/28/19 18:59 BIDRT DEWAYNE Tiotropium [place] 1 ea 12/30/18 10:00 Spiriva 18 Mcg/Cap Inhaler 01/29/19 09:59 DAILY DEWAYNE Intake & Output (Last 24 hours) 12/28/18 12/29/18 12/30/18 12/31/18 11:59 11:59 11:59 11:59 Intake Total 1020 2494 Output Total 800 1700 Balance 220 794 Weight 88.451 kg 88.7 kg Orders (Last 24 hours) Category Date Time Status Miscellaneous Nursing Order ROUTINE Care 12/30/18 10:32 Active Ferrous Sulfate 325 mg [Feosol 325 mg] Med 12/30/18 22:00 Active 325 mg PO BID Ferrous Sulfate 325 mg [Feosol 325 mg] Med 12/30/18 10:00 Discontinued 325 mg PO DAILY Fluticasone Propionate [Flonase NASAL] Med 12/30/18 10:00 Discontinued 0 gm NS DAILY Hydrochlorothiazide 25 mg [hydroDIURIL 25 MG] Med 12/30/18 10:00 Active 12.5 mg PO DAILY Lisinopril 20 mg [Zestril 20 MG] Med 12/30/18 10:00 Active 20 mg PO DAILY Patient Own Med [Patient Own Medication] Med 12/30/18 22:00 Active 0 each IH HS Patient Own Med [Patient Own Medication] Med 12/30/18 10:00 Active 0 each NS DAILY Tiotropium [place] Inhaler [Spiriva 18 Mcg/Cap Med 12/30/18 10:00 Discontinued Inhaler] 1 ea DAILY Respiratory Therapy Assessment ROUTINE RT 12/30/18 12:35 Active Patient Care Notes (Last 24 hours) 12/31/18 00:29 Nursing Note by Mirta Hernandez Pt. c/o bilateral knee pain rated 9/10. BP at midnight was 89/61. Pt. a/ox3, denies dizziness or light headedness. Informed pt that her BP is too low to receive Morphine. Pt. was agreeable to take Tylenol 1000 mg po at this time. Initialized on 12/31/18 00:29 - END OF NOTE 12/30/18 17:10 Nursing Note by Merced Henderson Pt given tylenol 1,000mg at 1200 and 1700. Pt reminded she has used aprox 3, 000mg of Tylenol and the daily recommended dose is 3-4GM. Pt educated on the breakdown of tylenol in the system, and reminded to try ice, rest, compression, analgesic rub for pain to bilateral knees. Initialized on 12/30/18 17:10 - END OF NOTE 12/30/18 16:53 Nursing Note by Merced Henderson Pt. requested Hs medicaiton to be gien at 1700. Pulled what medicaiton could be given at this time. Explained that the steroid should be given this evening and pt states she wanted pepcid this evening ass well Initialized on 12/30/18 16:53 - END OF NOTE 12/30/18 12:57 Case Management Note by Anabell Smyth DR. ROUNDED AND EVLUATED. DISCUSSED PLAN OF CARE WITH PT. REPORTS THAT THEY WILL INCREASE IRON 325MG TO BID. CONTINUE TO EDUCATE PT THAT IRON CAN CAUSE DARK STOOLS. DR. BALDERRAMA REPORTS THAT PT CAN TAKE TYLENOL FOR KNEE PAIN - 325MG PO Q4HPRN. ALSO, MAY USE BIOFREEZE ON KNEES FOR PAIN. DR. BALDERRAMA REPORTS THAT PT WILL LIKELY GO HOME TOMORROW IF NO MORE BLOODY STOOLS, AND HAVE CBC DRAWN IN ONE WEEK. PT VERBALIZED UNDERSTANDING AND ABLE TO REPEAT INFORMATION BACK. ALSO, DISCUSSED THAT [facility] WILL FOLLOW ON DISCHARGE FOR [facility] SUPPORT. Initialized on 12/30/18 12:57 - END OF NOTE 12/30/18 11:17 Nursing Note by Merced Henderson Pt. now c/o right ear pain and requested prn tylenol. Given 1,000mg of prn tylenol per request Initialized on 12/30/18 11:17 - END OF NOTE 12/30/18 10:27 Case Management Note by Anabell Smyth REFERRAL MADE TO [facility] AT PRESENT TIME. Initialized on 12/30/18 10:27 - END OF NOTE 12/30/18 10:20 Case Management Note by Anabell Smyth VISITED WITH PT AND REVIEWED DISCHARGE PLAN. THIS IS SECOND VISIT FOR SAME IN LAST 2 WEEKS. DISCUSSED [facility] FOR [facility] SUPPORT ON DISCHARGE VS REHAB STAY AT [facility]. PT REPORTS THAT SHE WOULD LIKE A REFERRAL TO [facility] ( PROVIDER OF CHOICE) TO FOLLOW AT HOME FOR [facility] SUPPORT, NURSE/AIDE/P.T. USES TY FOR ALL HOME OXYGEN NEEDS. ALSO, USES A WALKER AT HOME. DENIES [facility] NEEDS FOR DISCHARGE. PLANS TO RETURN HOME TO PRE EPISODIC LEVEL OF [facility]. Initialized on 12/30/18 10:20 - END OF NOTE 12/30/18 08:49 Nursing Note by Merced Henderson Pt requested am medication be given at 0800 and pm medication, besides pepcid, be given at 5 pm Initialized on 12/30/18 08:49 - END OF NOTE 12/30/18 08:46 Nursing Note by Merced Henderson Pt. c/o bilateral knee pain and should pain, given morphine per md order Initialized on 12/30/18 08:46 - END OF NOTE - Vitals & Intake/Output Vital Signs: Vital Signs Temperature 97.9 F 12/31/18 04:36 Pulse Rate 74 12/31/18 04:36 Respiratory Rate 20 12/31/18 04:36 Blood Pressure 109/61 12/31/18 04:36 O2 Sat by Pulse Oximetry 97 12/31/18 04:36 Oxygen-Last Documented O2 Percentage 2 Liters = 28% Intake & Output: Intake & Output 12/28/18 12/29/18 12/30/18 12/31/18 11:59 11:59 11:59 11:59 Intake Total 1020 2494 Output Total 800 1700 Balance 220 794 Weight 88.451 kg 88.7 kg - Lab Result Diagrams: 01/02/19 09:25 01/02/19 09:25 - Radiology Exams Ordered Rad Exams-Entire Visit: Radiology Procedures Category Date Time Status ABDOMEN AND PELVIS W CONTRAST [CT] Stat Exams 12/29/18 11:38 Completed - Procedures and Test Procedures and Tests throughout Hospitalization: Therapy Orders & Screens 12/29/18 12:35 Peak Expiratory Flow Rate DAILY Comment: Reason For Exam: 12/29/18 15:05 Oxygen Nasal Cannula 2 lpm Comment: Diagnosis: GI bleed 12/29/18 15:18 RT Screen per Nursing Assess ONCE Comment: Protocol Order Physician Instructions: Greater than 3 points order RT Admission Screen Reason For Exam: Triggered on Admission Diagnosis: GI bleed Diagnosis: GI bleed Pneumonia: No Home O2: Yes Asthma: No CHF: No Home CPAP/BIPAP: No Home Nebs/MDI: Yes Total Points: 10 Smoking Cessation Education ONCE Comment: Diagnosis: GI bleed Smoking Status: Current every day smoker How long have you smoked: 40yrs Have you smoked in the past 12 months: Yes Approximately how many cigarettes per day: 6 cig/day Do you dip or chew tobacco: No If,Former Smoker,when did you quit: 09/09/2018 12/29/18 19:00 Respiratory MDI BID Comment: SYMBICORT 160/4.5 BID Diagnosis: GI bleed Respiratory MDI HS Comment: SPIRIVA Diagnosis: GI bleed 12/30/18 12:35 Respiratory Therapy Assessment ROUTINE Comment: Discharge Exam General Appearance: no apparent distress, alert Neurologic Exam: alert, oriented x 3, cooperative, normal mood/affect, nml cerebellar function, sensation nml, No motor deficits Eye Exam: PERRL, EOMI, eyes nml inspection Ears, Nose, Throat Exam: normal ENT inspection, pharynx normal, moist mucous membranes Neck Exam: normal inspection, non-tender, supple, full range of motion Respiratory Exam: normal breath sounds, lungs clear, No respiratory distress Cardiovascular Exam: regular rate/rhythm, normal heart sounds Gastrointestinal/Abdomen Exam: soft, No tenderness, No mass Pelvic Exam: deferred Rectal Exam: deferred Back Exam: normal inspection, normal range of motion, No CVA tenderness, No vertebral tenderness Extremity Exam: normal inspection, normal range of motion Skin Exam: normal color, warm, dry Final Diagnosis/Problem List - Final Discharge Diagnosis/Problem (1) Duodenal ulcer without hemorrhage or perforation Current Visit: Yes Status: Acute Priority: High Code(s): K26.9 - DUODENAL ULCER, UNSP ACUTE OR CHRONIC, W/O HEMOR OR PERF (2) Anemia Current Visit: Yes Status: Chronic Code(s): D64.9 - ANEMIA, UNSPECIFIED (3) GI bleed Current Visit: Yes Status: Resolved Code(s): K92.2 - GASTROINTESTINAL HEMORRHAGE, UNSPECIFIED - Discharge Discharge Date: 01/02/19 Disposition: Home, Self-Care Condition: Stable Prescriptions: Continue Ipratropium/Albuterol Sulfate [Iprat-Albut 0.5-3(2.5) mg/3 ml] 3 ml NEB QID Hydrochlorothiazide 25 mg [hydroDIURIL 25 MG] 12.5 mg PO DAILY Atorvastatin Calcium [Lipitor] 40 mg PO DAILY Budesonide/Formoterol Fumarate [Symbicort 160-4.5 Mcg Inhaler] 2 puff IH BID Albuterol 8 gm Mdi Hfa [Ventolin Hfa MDI] 2 puff IH QID Lisinopril 20 mg [Zestril 20 MG] 20 mg PO DAILY Fluticasone Propionate [Flonase NASAL] 1 spray INTRANASAL DAILY Polyethylene Glycol 3350 [Miralax] 17 gm PO DAILY PRN PRN Reason: Constipation Hydroxychloroquine Sulfate [Plaquenil] 200 mg PO BID Rivaroxaban [Xarelto] 15 mg PO DAILY Prednisone 5 mg PO BID Albuterol Sulfate [Proair Hfa] 8.5 gm IH QID Albuterol/Ipratropium 3ml Neb* [DUONEB 0.5-3 MG/3 ml Neb] 3 ml IH QIDRT # 120 ampul.neb Famotidine 20 mg [Pepcid 20 MG] 20 mg PO BID #60 tablet PANTOPRAZOLE 40 mg Tablet [Protonix 40MG Tablet] 40 mg PO QPM 30 Days # 30 tab Tiotropium [place] [Spiriva] 18 mcg IH UD #30 cap.w.dev Ferrous Sulfate [Iron] 325 mg PO DAILY #30 tablet Metoprolol Tartrate 50 mg PO BID Metoclopramide HCl 5 mg PO Q8H PRN PRN Reason: Nausea Instructions: Gastrointestinal Bleeding (DC) Additional Instructions: [facility] WILL FOLLOW YOU ON DISCHARGE FOR ADDITIONAL SUPPORT. YOU MAY REACH THEM AT FOR ANY NEEDS. MAY TAKE TYLENOL 325MG PO EVERY 4 HOURS NEEDED FOR PAIN/DISCOMFORT. ALSO, MAY USE BIOFREEZE, OVER THE COUNTER LINIMENT, AND APPLY TO KNEES TO HELP WITH PAIN. Follow up with: LISA BALDERRAMA MD [Primary Care Provider] - 01/09/19 2:00 pm
[2018-12-31] MEDS: PATIENT OWN MEDICATION IH SCH ×3 (07:31→19:50)
[2018-12-31] MEDS: FEOSOL 325 MG PO SCH ×2 (08:13→19:57)
[2018-12-31] MEDS: DELTASONE 5 MG PO SCH ×2 (08:13→19:57)
[2018-12-31] MEDS: hydroDIURIL 25 MG PO SCH (08:13)
[2018-12-31] MEDS: NON-FORMULARY ITEM (Hydroxychloroquine Sulfate [Plaquenil] 200 MG) PO SCH ×2 (08:16→19:58)
[2018-12-31] MEDS: Lopressor 50 MG PO SCH ×2 (08:17→19:56)
[2018-12-31] MEDS: Pepcid 20 MG PO SCH ×2 (08:17→19:56)
[2018-12-31] MEDS: Zestril 20 MG PO SCH (08:18)
[2018-12-31] MEDS: PATIENT OWN MEDICATION NS SCH (08:21)
--- NOTE | 2018-12-31 18:12 | PCM.NOTE ---
Date and Time: 12/31/181808 Subjective Assessment: After discharge summary was put in and patient was getting ready to be discharged she had 9 beats of vtach noted on ekg. Patient stated she felt funny at the time of the event. Did not feel comfortable sending patient home and wanted patient to be monitored overnight. Patient may need to go home on holter monitor OBJECTIVE DATA Vital Signs: Vital Signs - 24 hr Temp Pulse Resp BP Pulse Ox 12/31/18 16:41 98.5 F 71 20 103/58 96 12/31/18 13:34 98.8 F 70 20 111/67 95 12/31/18 13:24 70 16 97 12/31/18 08:53 79 22 95 12/31/18 07:36 97.9 F 76 20 118/62 97 12/31/18 04:36 97.9 F 74 20 109/61 97 12/31/18 01:46 72 16 105/58 12/31/18 00:40 70 16 96 12/31/18 00:00 98.4 F 78 16 89/61 95 12/30/18 20:12 65 16 95 12/30/18 20:00 98.8 F 70 20 94/52 96 Oxygen-Last 24 hours O2 Percentage 2 Liters = 28% O2 Percentage 2 Liters = 28% O2 Percentage 2 Liters = 28% O2 Percentage 2 Liters = 28% O2 Percentage 2 Liters = 28% Pain Assessment - Last Documented Pain Intensity 5 Pain Scale Used 0-10 Pain Scale Intake and Output: Intake & Output 12/29/18 12/30/18 12/31/18 01/01/19 11:59 11:59 11:59 11:59 Intake Total 1020 2734 1320 Output Total 800 0 1950 Balance 220 331 -008 Weight 88.451 kg 88.7 kg
[2018-12-31] MEDS: Protonix 40MG Tablet PO SCH (19:56)
[2018-12-31] MEDS: ZOCOR 20MG PO SCH (19:57)
[2018-12-31] MEDS ORDERED: Ativan 2 MG/1 ML VIAL IV ONE (23:46)
[2019-01-01] MEDS: DUONEB 0.5-3 MG/3 ml Neb IH SCH ×4 (01:40→19:37)
[2019-01-01] MEDS: PATIENT OWN MEDICATION IH SCH ×3 (07:35→19:43)
[2019-01-01] MEDS: Pepcid 20 MG PO SCH ×2 (07:42→20:01)
[2019-01-01] MEDS: DELTASONE 5 MG PO SCH ×2 (07:43→20:49)
[2019-01-01] MEDS: Zestril 20 MG PO SCH (07:43)
[2019-01-01] MEDS: FEOSOL 325 MG PO SCH ×2 (07:43→20:01)
[2019-01-01] MEDS: hydroDIURIL 25 MG PO SCH (07:43)
[2019-01-01] MEDS: Lopressor 50 MG PO SCH ×2 (07:43→20:01)
[2019-01-01] MEDS: TYLENOL EXTRA STRENGTH 500 MG PO PRN (07:44)
[2019-01-01] MEDS: XARELTO 10 MG TABLET PO SCH (11:02)
[2019-01-01] MEDS: PATIENT OWN MEDICATION NS SCH (11:03)
[2019-01-01] MEDS: NON-FORMULARY ITEM (Hydroxychloroquine Sulfate [Plaquenil] 200 MG) PO SCH ×2 (11:04→20:59)
--- NOTE | 2019-01-01 13:25 | PCM.NOTE ---
Date and Time: 01/01/19 1320 Subjective Assessment: 63 yr old female seen and examined this am. Patient reports that she is doing ok this am. Patient reports that she has a loop recorder and is scheduled for the watchmen procedure in a few weeks. Patient reports that at times she can feel heart palpitations. She reports at times she also has some chest discomfort. She has continued to get breathing treatments but feels a little wheezy as well. Patient has no other reported concerns at this time. - Review of Systems Constitutional: No Fever Eyes: No Vision Changes Ears, Nose, & Throat: No Nose Congestion, No Throat Pain Respiratory: Cough, Short Of Breath Cardiac: Chest Pain, Palpitations, No Edema Abdominal/Gastrointestinal: No Abdominal Pain, No Nausea, No Vomiting, No Diarrhea, No Constipation Genitourinary Symptoms: No Symptoms Skin: No Symptoms Neurological: No Dizziness Objective Exam General Appearance: mild distress Neurologic Exam: alert, oriented x 3, cooperative, normal mood/affect Skin Exam: normal color, warm, dry Eye Exam: eyes nml inspection, No scleral icterus Ears, Nose, Throat Exam: moist mucous membranes Neck Exam: normal inspection Respiratory Exam: normal breath sounds, wheezing, No crackles/rales Cardiovascular Exam: normal heart sounds, other (hx of afib but appeared to be regular rhythm this am), No murmur, No edema Gastrointestinal/Abdomen Exam: soft, normal bowel sounds, No tenderness, No distention, No guarding, No rebound Extremity Exam: normal inspection, No pedal edema, No swelling Back Exam: normal inspection OBJECTIVE DATA Vital Signs: Vital Signs - 24 hr Temp Pulse Resp BP Pulse Ox 01/01/19 12:41 98.3 F 70 20 108/63 99 01/01/19 08:00 80 17 96 01/01/19 07:35 98.4 F 76 20 119/58 98 01/01/19 04:41 98.6 F 68 20 94/54 97 01/01/19 01:45 68 20 97 12/31/18 23:53 98.6 F 76 20 91/65 97 12/31/18 20:44 98.2 F 84 17 86/55 97 12/31/18 19:46 80 18 96 12/31/18 16:41 98.5 F 71 20 103/58 96 12/31/18 13:34 98.8 F 70 20 111/67 95 12/31/18 13:24 70 16 97 Oxygen-Last 24 hours O2 Percentage 2 Liters = 28% O2 Percentage 2 Liters = 28% O2 Percentage 2 Liters = 28% O2 Percentage 2 Liters = 28% O2 Percentage 2 Liters = 28% O2 Percentage 2 Liters = 28% O2 Percentage 2 Liters = 28% Pain Assessment - Last Documented Pain Intensity 5 Pain Scale Used 0-10 Pain Scale Intake and Output: Intake & Output 12/30/18 12/31/18 01/01/19 01/02/19 11:59 11:59 11:59 11:59 Intake Total 1020 2734 3468 420 Output Total 800 2050 3950 600 Balance 220 564 -829 -777 Weight 88.7 kg Assessment/Plan (1) Arrhythmia Current Visit: Yes Status: Acute Assessment & Plan: Patient had 9 beats of sustained Vtach yesterday and discharge was cancelled. Patient has not had anymore sustained vtach noted. Discussed case with Dr Blandon who was agreeable to have patient stay or leave with close follow up. Patient wanted to stay to be monitored in the hospital. She did reports feeling funny at the time of the arrhythmia. Dr Blandon wanted to resume Xarelto. This will have to be closely monitored as patient has had GI bleed and ulcers but with her arrhythmia and risk for IA and stroke will have to resume for time being. Code(s): I49.9 - CARDIAC ARRHYTHMIA, UNSPECIFIED (2) Duodenal ulcer without hemorrhage or perforation Current Visit: Yes Status: Acute Assessment & Plan: Patient initially was holding xarelto and was started on iron. Xarelto had to be resumed due to some arrhythmia that developed. Patient will continue with iron therapy. Will continue to monitor for bleed or pain. Code(s): K26.9 - DUODENAL ULCER, UNSP ACUTE OR CHRONIC, W/O HEMOR OR PERF (3) Anemia Current Visit: Yes Status: Chronic Qualifiers: Anemia type: iron deficiency Iron deficiency anemia type: chronic blood loss Qualified Code(s): D50.0 - Iron deficiency anemia secondary to blood loss (chronic) Assessment & Plan: likely from GI blood loss. Patient was started on iron and will continue with this therapy Code(s): D64.9 - ANEMIA, UNSPECIFIED (4) GI bleed Current Visit: Yes Status: Resolved Qualifiers: GI bleed type/associated pathology: melena Qualified Code(s): K92.1 - Melena Assessment & Plan: Patient had scope which showed duodenal ulcerations. Will continue with iron therapy. Patient has not had any new symptoms of melena. VS have been stable. Code(s): K92.2 - GASTROINTESTINAL HEMORRHAGE, UNSPECIFIED
[2019-01-01] MEDS: ZOCOR 20MG PO SCH (20:01)
[2019-01-01] MEDS: Protonix 40MG Tablet PO SCH (20:50)
[2019-01-01] MEDS: Reglan 10 MG PO PRN (20:58)
[2019-01-01] MEDS: MORPHINE SULFATE 2 MG INJ IV PRN (21:19)
[2019-01-02] MEDS: MORPHINE SULFATE 2 MG INJ IV PRN ×2 (01:45→09:57)
[2019-01-02] MEDS: Sodium Chloride 0.9% 1000 ML 1,000 ML IV SCH (02:00)
[2019-01-02] MEDS: PATIENT OWN MEDICATION IH SCH (07:25)
[2019-01-02] MEDS: DUONEB 0.5-3 MG/3 ml Neb IH SCH ×3 (07:25→13:27)
[2019-01-02 09:42] LABS: Hematocrit 31.8 % (35-47); Hemoglobin 9.5 gm/dl (12.0-16.0); Mean Cell Volume 93.3 fl (78-100); Mean Corpuscular Hgb Concent. 29.9 g/dl (32-36); Mean Platelet Volume 8.4 fl (6-9.5); Platelet Count 346 K/mm3 (150-450); Red Blood Count 3.41 M/mm3 (4.1-5.4); Red Cell Distribution Width 18.1 % (11.5-14.0); White Blood Count 6.7 K/mm3 (4.0-10.5)
[2019-01-02 09:46] LABS: Mean Corpuscular Hemoglobin 27.8 pg (26-32)
[2019-01-02 09:47] LABS: ALBUMIN 3.6 g/dL (3.5-5.0); ALKALINE PHOSPHATASE 83 U/L (38-126); ANION GAP 14.3 MEQ/L (5-15); BLOOD UREA NITROGEN 17 mg/dL (7-17); CHLORIDE 100 mmol/L (98-107); Calcium 9.4 mg/dL (8.4-10.2); Carbon Dioxide 28 mmol/L (22-30); Creatinine 1 0.63 mg/dL (0.52-1.04); Glucose 143 mg/dL (74-106); Potassium 3.6 mmol/L (3.5-5.1); SGOT/AST 18 U/L (14-36); SGPT/ALT 14 U/L (0-35); SODIUM 139 mmol/L (137-145); Total Protein 6.7 g/dL (6.3-8.2)
[2019-01-02] MEDS: FEOSOL 325 MG PO SCH (09:52)
[2019-01-02] MEDS: hydroDIURIL 25 MG PO SCH (09:52)
[2019-01-02] MEDS: DELTASONE 5 MG PO SCH (09:52)
[2019-01-02] MEDS: Lopressor 50 MG PO SCH (09:54)
[2019-01-02] MEDS: NON-FORMULARY ITEM (Hydroxychloroquine Sulfate [Plaquenil] 200 MG) PO SCH (09:54)
[2019-01-02] MEDS: Pepcid 20 MG PO SCH (09:54)
[2019-01-02] MEDS: XARELTO 10 MG TABLET PO SCH (09:55)
[2019-01-02] MEDS: Zestril 20 MG PO SCH (09:56)
[2019-01-02] MEDS: PATIENT OWN MEDICATION NS SCH (10:00)
[2019-01-02] MEDS: Pain Relieving Rub TOP PRN (10:03)
[2019-01-02] MEDS: TYLENOL EXTRA STRENGTH 500 MG PO PRN (11:36)
[2019-01-02 12:23] VITALS: BP 126/79
[2019-01-02] MEDS: Reglan 10 MG PO PRN (12:48)
[2019-01-02 14:40] VITALS: PULSE 71; O2SAT 98
== END 2019-01-02 15:25 | disposition home or self-care (01) ==
LOC: ED 10:13 → MED SURG 14:33
PROVIDERS: ADMIT General Practice; ATTEND General Practice
DX: K26.9 Duodenal ulcer, unspecified as acute or chronic, without hemorrhage or perforation (principal); D64.9 Anemia, unspecified; K92.2 Gastrointestinal hemorrhage, unspecified; I47.2 Ventricular tachycardia; E78.00 Pure hypercholesterolemia, unspecified; I10 Essential (primary) hypertension; J44.9 Chronic obstructive pulmonary disease, unspecified; M25.562 Pain in left knee; M25.561 Pain in right knee; Z79.899 Other long term (current) drug therapy; Z79.01 Long term (current) use of anticoagulants; Z86.718 Personal history of other venous thrombosis and embolism; Z86.73 Personal history of transient ischemic attack (TIA), and cerebral infarction without residual deficits; F17.200 Nicotine dependence, unspecified, uncomplicated
CPT/HCPCS: 36000; 36415; 74177; 80053; 81001; 82272; 85025; 85027; 85610; 85730; 86850; 86900; 86901; 93005; 93041; 93268; 94150; 94640; 94762; 96374; 99285; G0378; J2060; J2270; A9270-GY

== ENCOUNTER 2019-01-04 15:42 | Emergency (ER) | payer MEDICARE ==
[2019-01-04] MEDS ORDERED: DECADRON 10MG INJ. IM ONE (16:49)
[2019-01-04] MEDS ORDERED: MORPHINE SULFATE 4 MG INJ IM ONE (16:49)
[2019-01-04] MEDS ORDERED: DECADRON 10MG INJ. ONE (17:14)
[2019-01-04] MEDS ORDERED: MORPHINE SULFATE 4 MG INJ ONE (17:15)
--- NOTE | 2019-01-04 17:18 | ERPHSYRPT ---
- History of Present Illness Time Seen by Provider: 01/04/19 16:07 Source: patient, family Exam Limitations: no limitations Patient Subjective Stated Complaint: Pt states "I was released on wednesday and I was offerred a 5 day rehab program at [facility] and I refused, I am interested in that now. I have been having horrible pain in both my legs and knees making it hard to stand and now my whole body hurts due to me trying to lift myself up." Triage Nursing Assessment: Pt presented alert and orientd X 3, skin pwd Pt has tenderness noted to bilat knees. Pt has audible wheezes but she stated she has COPD and taht is normal for her. Physician History: 63 years old female with chronic respiratory failure secondary to COPD on 2 L oxygen who was recently admitted for COPD exacerbation presented today with bilateral knee pain and swelling since discharge 2 days ago. Patient reports pain is more due to severe sharp in nature,, aggravated with minimal movements of the knee and prior to arrival she was having difficulty getting up from the commode. For the last 2 days she's been lying in the bed all day because of her inability to ambulate. Patient reports as having knee pain chronically but for the last few weeks it's progressively worsening. Patient was offered rehabilitation on discharge which she declined but no wants to go back. Home health has been a range but patient was not at her own home until today was staying with daughter. She denies any direct fall or trauma to the knee. No redness erythema/fever chills reported. Her shortness of breath is pretty much at baseline. Quality: constant, intermittent Severity of Pain-Max: moderate Severity of Pain-Current: moderate Lower Extremities Pain: knee: bilateral Modifying Factors: Improves With: immobilization, movement Allergies/Adverse Reactions: gabapentin Adverse Reaction (Verified 12/29/18 10:49) Home Medications: Atorvastatin Calcium [Lipitor] 40 mg PO DAILY 11/22/14 [History] Hydrochlorothiazide 25 mg [hydroDIURIL 25 MG] 12.5 mg PO DAILY 11/22/14 [ History] Ipratropium/Albuterol Sulfate [Iprat-Albut 0.5-3(2.5) mg/3 ml] 3 ml NEB QID [History] Albuterol 8 gm Mdi Hfa [Ventolin Hfa MDI] 2 puff IH QID 09/14/16 [History] Budesonide/Formoterol Fumarate [Symbicort 160-4.5 Mcg Inhaler] 2 puff IH BID 12/22 [History] Lisinopril 20 mg [Zestril 20 MG] 20 mg PO DAILY 09/28/16 [History] Fluticasone Propionate [Flonase NASAL] 1 spray INTRANASAL DAILY 07/30/18 [ History] Polyethylene Glycol 3350 [Miralax] 17 gm PO DAILY PRN 08/02/18 [History] Albuterol Sulfate [Proair Hfa] 8.5 gm IH QID 12/12/18 [History] Hydroxychloroquine Sulfate [Plaquenil] 200 mg PO BID 12/12/18 [History] Prednisone 5 mg PO BID 12/12/18 [History] Rivaroxaban [Xarelto] 15 mg PO DAILY 12/12/18 [History] Metoclopramide HCl 5 mg PO Q8H PRN 12/29/18 [History] Metoprolol Tartrate 50 mg PO BID 12/29/18 [History] Hx Tetanus, Diphtheria Vaccination/Date Given: No Hx Influenza Vaccination/Date Given: No Hx Pneumococcal Vaccination/Date Given: No Immunizations Up to Date: Yes - Review of Systems Constitutional: No Symptoms Eyes: No Symptoms Ears, Nose, & Throat: No Symptoms Respiratory: Cough, Dyspnea, Dyspnea on Exertion (CORDOVA), Wheezing Cardiac: No Symptoms, No Chest Pain Abdominal/Gastrointestinal: No Symptoms Musculoskeletal: Arthralgias, Joint Pain, Joint Swelling, No Joint Redness Skin: No Symptoms Neurological: No Symptoms Psychological: No Symptoms Endocrine: No Symptoms Hematologic/Lymphatic: No Symptoms - Past Medical History Pertinent Past Medical History: Yes Neurological History: Stroke ENT History: No Pertinent History Cardiac History: Arrhythmia, High Cholesterol, Hypertension, Other Respiratory History: COPD Endocrine Medical History: No Pertinent History Musculoskeletal History: Osteoarthritis GI Medical History: GERD, GI Bleed, Ulcer History: No Pertinent History Psycho-Social History: No Pertinent History Female Reproductive Disorders: No Pertinent History Other Medical History: 01/2014 CVA, anemia,. stroke x2 - Past Surgical History Past Surgical History: Yes Neuro Surgical History: No Pertinent History Cardiac: No Pertinent History Respiratory: No Pertinent History Gastrointestinal: Cholecystectomy Genitourinary: No Pertinent History Musculoskeletal: Orthopedic Surgery Female Surgical History: No Pertinent History Other Surgical History: egd/colonoscopy/bilat carpal tunnel - Social History Smoking Status: Current every day smoker How long have you smoked: years Exposure to second hand smoke: Yes Drug Use: none Patient Lives Alone: Yes - Female History Hx Now: No - Nursing Vital Signs Nursing Vital Signs: Initial Vital Signs Temperature 99.0 F 01/04/19 15:43 Pulse Rate 97 H 01/04/19 15:43 Respiratory Rate 22 01/04/19 15:43 Blood Pressure 121/85 01/04/19 15:43 O2 Sat by Pulse Oximetry 97 01/04/19 15:43 Pain Scale Pain Intensity [Right Anterior 9 /Posterior Generalized] Pain Intensity 8 - Physical Exam General Appearance: no apparent distress Eyes, Ears, Nose, Throat Exam: normal ENT inspection Neck Exam: normal inspection, supple, full range of motion Cardiovascular/Respiratory Exam: chest non-tender, wheezing Gastrointestinal/Abdominal Exam: non-tender, soft Knees Exam: left knee: joint effusion, bilateral knee: no evidence of injury, bone tenderness, pain, soft tissue tenderness, swelling, other (limited movements at both knees) Neuro/Tendon Exam: normal sensation, normal motor functions Mental Status Exam: alert, oriented x 3, cooperative Skin Exam: normal color SpO2 Interpretation: normal SpO2: 97 O2 Delivery: Nasal Cannula - Course Nursing assessment & vital signs reviewed: Yes Ordered Tests: Active Orders 24 hr Category Date Time Status KNEE (3 VIEWS) Stat Exams 01/04/19 18:14 Taken KNEE (3 VIEWS) Stat Exams 01/04/19 18:15 Taken Medication Summary Discontinued Medications Generic Name Dose Route Start Last Admin Trade Name Kelsi PRN Reason Stop Dose Admin Dexamethasone Sodium Phosphate 10 mg 01/04/19 16:49 01/04/19 17:17 Decadron 10mg Inj. IM 01/04/19 16:50 10 mg STAT ONE Administration Dexamethasone Sodium Phosphate Confirm 01/04/19 17:14 Decadron 10mg Inj. Administered 01/04/19 17:15 Dose 10 mg .ROUTE .STK-MED ONE Morphine Sulfate 4 mg 01/04/19 16:49 01/04/19 17:18 Morphine Sulfate 4 Mg Inj IM 01/04/19 16:50 4 mg STAT ONE Administration Morphine Sulfate Confirm 01/04/19 17:15 Morphine Sulfate 4 Mg Inj Administered 01/04/19 17:16 Dose 4 mg .ROUTE .STK-MED ONE - Progress Progress: improved, pain not gone completely, re-examined Progress Note: 01/04/19 19:23 she has no fx/dislocations, rhonda wraps applied , feeling better after pain meds. recommended out patient follow up with ortho for re evaluation. Counseled pt/family regarding: diagnosis, need for follow-up, rad results - Departure Departure Disposition: Home Clinical Impression: Knee pain, bilateral Qualifiers: Chronicity: acute Qualified Code(s): M25.561 - Pain in right knee Condition: Stable Critical Care Time: No Referrals: LISA BALDERRAMA MD [Primary Care Provider] - Follow Up with PCP (1-2 days ) AVINASH GROSS NP [NON-STAFF PHY W/O PRIVILEGES] - Follow Up with PCP (1-2 days ) Additional Instructions: follow up with PCP and Orthopedic surgery for re evaluation. take pain meds as needed. use cane /walker for ambulation. Prescriptions: Hydrocodone/APAP 5/325 [[place] 5/325 mg] 1 each PO Q6H PRN PRN #10 tablet MDD 4 tab PRN Reason: Pain
[2019-01-04 18:57] VITALS: PULSE 90
[2019-01-04 19:40] VITALS: BP 118/87; O2SAT 96
--- NOTE | 2019-01-05 08:46 | XRAY ---
Indication: Pain. No known injury. Comparison: None 3 views of the left knee demonstrates minimal medial/lateral joint space narrowing/spurring and small nonspecific effusion. No other bony, articular, or soft tissue abnormalities.
--- NOTE | 2019-01-05 08:48 | XRAY ---
Indication: Pain. No known injury. Comparison: None 3 views of the right knee demonstrates mild/moderate tricompartmental degenerative changes greatest lateral compartment, nonspecific effusion, and faint vascular calcifications. No other bony, articular, or soft tissue abnormalities.
== END 2019-01-04 19:45 | disposition home or self-care (01) ==
LOC: ED 15:42
DX: M25.561 Pain in right knee (principal); J44.9 Chronic obstructive pulmonary disease, unspecified; Z79.899 Other long term (current) drug therapy; I10 Essential (primary) hypertension
CPT/HCPCS: 73562; 96372; 99284; J1100; J2270

== ENCOUNTER 2019-01-09 15:10 | Observation (INO) | payer MEDICARE ==
[2019-01-09] MEDS ORDERED: TYLENOL 325 MG PO PRN (16:30)
[2019-01-09 16:54] LABS: Absolute Neutrophil Ct (ANC) 8.72 (1.4-6.9); BASOPHIL % 0.3 % (0.0-0.4); Basophil (Absolute #) 0.03 (0-0.4); Eosinophil % 0.9 % (0.00-5.0); Hematocrit 34.9 % (35-47); Hemoglobin 10.3 gm/dl (12.0-16.0); Lymphocyte (Absolute #) 1.22 (1.0-4.6); Lymphocytes % 10.6 % (24.0-44.0); Mean Cell Volume 91.1 fl (78-100); Mean Corpuscular Hgb Concent. 29.5 g/dl (32-36); Mean Platelet Volume 9.6 fl (6-9.5); Monocyte (Absolute #) 1.47 (0.0-1.3); Monocytes % 12.7 % (0.0-12.0); Neutrophil % 75.5 % (36.0-66.0); Platelet Count 571 K/mm3 (150-450); Red Blood Count 3.83 M/mm3 (4.1-5.4); Red Cell Distribution Width 17.6 % (11.5-14.0); White Blood Count 11.5 K/mm3 (4.0-10.5)
[2019-01-09 17:00] LABS: ALBUMIN 3.7 g/dL (3.5-5.0); ALKALINE PHOSPHATASE 95 U/L (38-126); ANION GAP 14.2 MEQ/L (5-15); BLOOD UREA NITROGEN 21 mg/dL (7-17); CHLORIDE 102 mmol/L (98-107); Calcium 9.5 mg/dL (8.4-10.2); Carbon Dioxide 28 mmol/L (22-30); Creatinine 1 0.68 mg/dL (0.52-1.04); Glucose 114 mg/dL (74-106); NT PRO BNP 624 pg/mL (0-900); SGOT/AST 25 U/L (14-36); SGPT/ALT 12 U/L (0-35); SODIUM 140 mmol/L (137-145); Total Protein 7.1 g/dL (6.3-8.2)
[2019-01-09] MEDS: Sodium Chloride 0.9% 1000 ML 1,000 ML IV SCH (17:19)
[2019-01-09] MEDS: NORCO 5/325 MG PO PRN ×2 (17:19→21:09)
[2019-01-09] MEDS: solu-MEDROL 40 MG IV SCH (17:26)
[2019-01-09] MEDS ORDERED: Miralax Powder 17GM PACKET PO PRN (17:27)
[2019-01-09] MEDS ORDERED: METOCLOPRAMIDE HCL 5 MG PO PRN (17:27)
[2019-01-09] MEDS ORDERED: Spiriva 18 Mcg/Cap Inhaler IH SCH (17:30)
[2019-01-09 17:37] LABS: Mean Corpuscular Hemoglobin 26.8 pg (26-32)
[2019-01-09] MEDS ORDERED: Reglan 10 MG PO PRN (17:39)
[2019-01-09] MEDS ORDERED: NON-FORMULARY ITEM (Rivaroxaban [Xarelto] 15 MG) PO SCH (18:00)
[2019-01-09] MEDS: ROCEPHIN 1 Gm-D5w 50 ml Bag** 1 G/50 ML IVPB IV SCH (18:30)
[2019-01-09] MEDS: XARELTO 10 MG TABLET PO SCH (18:43)
[2019-01-09] MEDS ORDERED: Advair Hfa 115/21 Common canister IH SCH (19:00)
[2019-01-09] MEDS ORDERED: Advair Hfa 230/21 Mcg COMMON CANISTER IH SCH (19:00)
[2019-01-09] MEDS ORDERED: DUONEB 0.5-3 MG/3 ml Neb IH SCH ×2 (19:00)
[2019-01-09] MEDS: Zithromax 500 MG/ 250 ML NaCl Premix 500 MG/250 ML IVPB IV SCH (19:14)
--- NOTE | 2019-01-09 19:42 | PCM.HP.ADD ---
Addendum to History & Physical - History & Physical Addendum Addendum to History & Physical: This certifies that the History & Physical in the electronic chart reflects the current health status of the patient. If there are changes in the H&P these changes/exceptions are listed as follows.
[2019-01-09] MEDS: Protonix 40MG Tablet PO SCH (21:10)
[2019-01-09] MEDS: ZOCOR 20MG PO SCH (21:10)
[2019-01-09] MEDS: Lopressor 50 MG PO SCH (21:10)
[2019-01-09] MEDS: Pepcid 20 MG PO SCH (21:10)
[2019-01-09] MEDS: NON-FORMULARY ITEM (Hydroxychloroquine Sulfate [Plaquenil] 0 MG) PO SCH (21:13)
[2019-01-09] MEDS ORDERED: NON-FORMULARY ITEM (Budesonide/Formoterol Fumarate [Symbicort 160-4.5 Mcg Inhaler] 2 PUFF) IH SCH (22:00)
[2019-01-09] MEDS ORDERED: Ventolin Hfa MDI IH SCH (22:00)
[2019-01-09] MEDS ORDERED: NON-FORMULARY ITEM (Atorvastatin Calcium [Lipitor] 40 MG) PO SCH (22:00)
[2019-01-10 00:41] LABS: Appearance SLIGHTLY CLOUDY (CLEAR); Bilirubin NEGATIVE (NEGATIVE); Blood NEGATIVE Ery/ul (0-5); Epithelial Cells RARE /HPF (FEW); Glucose NEGATIVE (NEGATIVE); Ketones NEGATIVE (NEGATIVE); Leukocyte Esterase NEGATIVE (NEGATIVE); Mucus MODERATE /HPF (NEGATIVE); Nitrite NEGATIVE (NEGATIVE); Protein,Urine Dip NEGATIVE (Negative); Specific Gravity 1.026 (1.005-1.025); Urobilinogen NEGATIVE mg/dL (0-1); WBC 0-2 /HPF (0-5)
[2019-01-10] MEDS ORDERED: DUONEB 0.5-3 MG/3 ml Neb IH PRN (01:24)
[2019-01-10] MEDS: NORCO 5/325 MG PO PRN ×4 (02:14→21:05)
[2019-01-10] MEDS: solu-MEDROL 40 MG IV SCH ×3 (06:08→21:14)
[2019-01-10] MEDS: DUONEB 0.5-3 MG/3 ml Neb IH SCH ×4 (07:10→18:52)
[2019-01-10] MEDS: PATIENT OWN MEDICATION IH SCH ×2 (07:11→18:54)
--- NOTE | 2019-01-10 07:18 | PCM.NOTE ---
Date and Time: 01/10/19714 Subjective Assessment: joint pain, is better - Review of Systems Constitutional: No Fever, No Chills Eyes: No Symptoms Ears, Nose, & Throat: No Symptoms Respiratory: No Cough, No Short Of Breath Cardiac: No Chest Pain, No Edema, No Syncope Abdominal/Gastrointestinal: No Abdominal Pain, No Nausea, No Vomiting, No Diarrhea Genitourinary Symptoms: No Dysuria Musculoskeletal: Joint Pain, Joint Swelling, No Back Pain, No Neck Pain Skin: No Rash Neurological: No Dizziness, No Focal Weakness, No Sensory Changes Psychological: No Symptoms Endocrine: No Symptoms Hematologic/Lymphatic: No Symptoms Immunological/Allergic: No Symptoms Objective Exam General Appearance: no apparent distress, alert Neurologic Exam: alert, oriented x 3, cooperative, normal mood/affect, nml cerebellar function, sensation nml, No motor deficits Skin Exam: normal color, warm, dry Eye Exam: PERRL, EOMI, eyes nml inspection Ears, Nose, Throat Exam: normal ENT inspection, pharynx normal, moist mucous membranes Neck Exam: normal inspection, non-tender, supple, full range of motion Respiratory Exam: diminished breath sounds, No respiratory distress Cardiovascular Exam: regular rate/rhythm, normal heart sounds Gastrointestinal/Abdomen Exam: soft, No tenderness, No mass Extremity Exam: normal inspection, normal range of motion Back Exam: normal inspection, normal range of motion, No CVA tenderness, No vertebral tenderness Pelvic Exam: deferred Rectal Exam: deferred OBJECTIVE DATA Vital Signs: Vital Signs - 24 hr Temp Pulse Resp BP Pulse Ox 01/10/19 04:00 98.9 F 77 18 123/75 97 01/10/19 00:00 97.9 F 71 18 120/67 98 01/09/19 21:58 85 16 98 01/09/19 20:00 98.9 F 114 H 18 127/76 97 01/09/19 17:36 100.3 F 129 H 24 140/94 96 01/09/19 16:30 129 H 24 96 01/09/19 15:28 100.3 F 129 H 24 140/94 96 Oxygen-Last 24 hours O2 Percentage 3 Liters = 32% O2 Percentage 2 Liters = 28% O2 Percentage 2 Liters = 28% O2 Percentage 2 Liters = 28% Oxygen Flowrate (L/min)-RT 2 Pain Assessment - Last Documented Pain Intensity 8 Pain Scale Used 0-10 Pain Scale Intake and Output: Intake & Output 01/07/19 01/08/19 01/09/19 01/10/19 12:59 11:59 11:59 11:59 Intake Total 1435 Output Total 900 Balance 535 Weight 88.1 kg Lab Results: Accuchecks Date 01/10/19 Time 22:00 Accucheck Value: 197 Lab Results-Last 24 Hours 01/09/19 01/09/19 01/09/19 Range/Units 16:30 16:30 16:32 WBC 11.5 H (4.0-10.5) K/mm3 RBC 3.83 L (4.1-5.4) M/mm3 Hgb 10.3 L (12.0-16.0) gm/dl Hct 34.9 L (35-47) % MCV 91.1 (78-100) fl MCH 26.8 (26-32) pg MCHC 29.5 L (32-36) g/dl RDW 17.6 H (11.5-14.0) % Plt Count 571 H (150-450) K/mm3 MPV 9.6 H (6-9.5) fl Gran % 75.5 H (36.0-66.0) % Eos # (Auto) 0.10 (0-0.5) Absolute Lymphs (auto) 1.22 (1.0-4.6) Absolute Monos (auto) 1.47 H (0.0-1.3) Lymphocytes % 10.6 L (24.0-44.0) % Monocytes % 12.7 H (0.0-12.0) % Eosinophils % 0.9 (0.00-5.0) % Basophils % 0.3 (0.0-0.4) % Absolute Granulocytes 8.72 H (1.4-6.9) Basophils # 0.03 (0-0.4) Sodium 140 (137-145) mmol/L Potassium 4.0 (3.5-5.1) mmol/L Chloride 102 (98-107) mmol/L Carbon Dioxide 28 (22-30) mmol/L Anion Gap 14.2 (5-15) MEQ/L BUN 21 H (7-17) mg/dL Creatinine 0.68 (0.52-1.04) mg/dL Estimated GFR > 60.0 ML/MIN Glucose 114 H (74-106) mg/dL Calcium 9.5 (8.4-10.2) mg/dL Total Bilirubin 0.70 (0.2-1.3) mg/dL AST 25 (14-36) U/L ALT 12 (0-35) U/L Alkaline Phosphatase 95 (38-126) U/L NT-Pro-B Natriuret Pep 624 (0-900) pg/mL Serum Total Protein 7.1 (6.3-8.2) g/dL Albumin 3.7 (3.5-5.0) g/dL Urine Color YELLOW (YELLOW) Urine Appearance SLIGHTLY CLOUDY (CLEAR) Urine pH 5.0 (5-6) Ur Specific [place] 1.026 (1.005-1.025) Urine Protein NEGATIVE (Negative) Urine Ketones NEGATIVE (NEGATIVE) Urine Blood NEGATIVE (0-5) Jhonny/ul Urine Nitrite NEGATIVE (NEGATIVE) Urine Bilirubin NEGATIVE (NEGATIVE) Urine Urobilinogen NEGATIVE (0-1) mg/dL Ur Leukocyte Esterase NEGATIVE (NEGATIVE) Urine WBC (Auto) 0-2 (0-5) /HPF Urine RBC (Auto) NONE (0-2) /HPF U Epithel Cells (Auto) RARE (FEW) /HPF Urine Bacteria (Auto) NONE (NEGATIVE) /HPF Urine Mucus (Auto) MODERATE (NEGATIVE) /HPF Urine Culture Reflexed NO (NO) Urine Glucose NEGATIVE (NEGATIVE) mg/dL Radiology Exams: Radiology Procedures Category Date Time Status CHEST 2 VIEWS (PA AND LAT) Stat Exams 01/09/19 18:54 Taken Assessment/Plan (1) Rheumatoid arthritis flare Current Visit: Yes Status: Acute Assessment & Plan: Chief Complaint Diagnosis acute exacerbation of COPD, Rheumatoid arthritis Allergies Allergy/AdvReac Type Severity Reaction Status Date / Time gabapentin AdvReac Verified 12/29/18 10:49 Vital Signs (Last 24 hours) Temp Pulse Resp BP Pulse Ox 01/10/19 04:00 98.9 F 77 18 123/75 97 01/10/19 00:00 97.9 F 71 18 120/67 98 01/09/19 21:58 85 16 98 01/09/19 20:00 98.9 F 114 H 18 127/76 97 01/09/19 17:36 100.3 F 129 H 24 140/94 96 01/09/19 16:30 129 H 24 96 11/04/19 15:28 100.3 F 129 H 24 140/94 96 Current Medications Generic Name Dose Route Start Last Admin Trade Name Freq PRN Reason Stop Dose Admin Acetaminophen 325 mg 01/09/19 16:30 01/09/19 18:51 Tylenol 325 Mg PO 02/08/19 16:29 325 mg Q4H PRN PRN Administration PAIN, FEVER, HEADACHE Hydrocodone Bitart/Acetaminophen 1 tab 01/09/19 16:58 01/10/19 06:07 [place] 5/325 Mg PO 01/14/19 16:57 1 tab Q4H PRN PRN Administration PAIN Albuterol/Ipratropium 3 ml 01/10/19 07:00 01/10/19 07:10 Duoneb 0.5-3 Mg/3 Ml Neb IH 3 ml QIDRT DEWAYNE Administration Albuterol/Ipratropium 3 ml 01/10/19 01:24 Duoneb 0.5-3 Mg/3 Ml Neb IH 02/09/19 01:23 Q4HPRN PRN SHORTNESS OF BREATH/WHEEZING Famotidine 20 mg 01/09/19 22:00 01/09/19 21:10 Pepcid 20 Mg PO 02/08/19 21:59 20 mg BID DEWAYNE Administration Ferrous Sulfate 325 mg 01/10/19 10:00 Feosol 325 Mg PO 02/09/19 09:59 DAILY DEWAYNE Fluticasone Propionate 0 gm 01/10/19 10:00 Flonase Nasal NS 02/09/19 09:59 DAILY DEWAYNE Hydrochlorothiazide 12.5 mg 01/10/19 10:00 Hydrodiuril 25 Mg PO 02/09/19 09:59 DAILY DEWAYNE Azithromycin 500 mg in 250 mls @ 250 mls/hr 01/09/19 19:00 01/09/19 19:14 Zithromax 500 Mg/ 250 Ml Nacl Premix IV 02/08/19 18:59 250 mls/hr Q24H22 DEWAYNE Administration Ceftriaxone Sodium/Dextrose 1 g in 50 mls @ 100 mls/hr 01/09/19 17:15 18:30 Rocephin 1 Gm-D5w 50 Ml Bag IV 02/08/19 17:14 100 mls/hr Q24H10 DEWAYNE Administration Sodium Chloride 1,000 mls @ 50 mls/hr 01/09/19 16:30 01/09/19 17:19 Sodium Chloride 0.9% 1000 Ml IV 02/08/19 16:29 50 mls/hr .Q20H DEWAYNE Administration Lisinopril 20 mg 01/10/19 10:00 Zestril 20 Mg PO 02/09/19 09:59 DAILY DEWAYNE Methylprednisolone Sodium Succinate 40 mg 01/09/19 18:00 01/10/19 06:08 Solu-Medrol 40 Mg IV 02/08/19 17:59 40 mg Q8HT DEWAYNE Administration Metoclopramide HCl 5 mg 01/09/19 17:39 Reglan 10 Mg PO 02/08/19 17:38 Q8H PRN PRN Metoprolol Tartrate 50 mg 01/09/19 22:00 01/09/19 21:10 Lopressor 50 Mg PO 02/08/19 21:59 50 mg BID DEWAYNE Administration Non-Formulary Medication 0 mg 01/09/19 22:00 01/09/19 21:13 Hydroxychloroquine Sulfate [Plaquenil] PO 02/08/19 21:59 200 mg BID DEWAYNE Administration Pantoprazole Sodium 40 mg 01/09/19 22:00 01/09/19 21:10 Protonix 40mg Tablet PO 02/08/19 21:59 40 mg QPM DEWAYNE Administration Patient Own Med: 0 each 01/10/19 07:00 01/10/19 07:11 Symbicort 160/4.5 IH 2 each BIDRT DEWAYNE Administration Patient Own Med : 1 each 01/10/19 10:00 Spiriva Respimat IH 02/09/19 09:59 DAILY DEWAYNE Polyethylene Glycol 17 gm 01/09/19 17:27 Miralax Powder 17gm Packet PO 02/08/19 17:26 DAILY PRN CONSTIPATION Rivaroxaban 15 mg 01/09/19 18:00 01/09/19 18:43 Xarelto 10 Mg Tablet PO 02/08/19 17:59 15 mg 1800 DEWAYNE Administration Simvastatin 40 mg 01/09/19 22:00 01/09/19 21:10 Zocor 20mg PO 02/08/19 21:59 40 mg HS DEWAYNE Administration Discontinued Medications Generic Name Dose Route Start Last Admin Trade Name Kelsi PRN Reason Stop Dose Admin Albuterol Sulfate gm 01/09/19 22:00 Ventolin Hfa Mdi IH 02/08/19 21:59 QID DEWAYNE Albuterol/Ipratropium 3 ml 01/09/19 19:00 01/09/19 21:58 Duoneb 0.5-3 Mg/3 Ml Neb IH 02/08/19 18:59 3 ml Q6HRT DEWAYNE Administration Albuterol/Ipratropium 3 ml 01/09/19 19:00 Duoneb 0.5-3 Mg/3 Ml Neb IH 02/08/19 18:59 QIDRT DEWAYNE Fluticasone/Salmeterol 2 puff 01/09/19 19:00 01/09/19 22:02 Advair Hfa 230/21 Mcg Common Canister* IH 02/08/19 18:59 Not Given BIDRT DEWAYNE Tiotropium [place] ea 01/09/19 17:30 Spiriva 18 Mcg/Cap Inhaler IH 02/08/19 17:29 UD DEWAYNE Intake & Output (Last 24 hours) 01/07/19 01/08/19 01/09/19 01/10/19 12:59 11:59 11:59 11:59 Intake Total 1435 Output Total 900 Balance 535 Weight 88.1 kg Microbiology Results (Last 24 hours) 01/09/19 17:09 Blood Blood Culture Gram Stain - Pending 01/09/19 17:09 Blood Blood Culture - Pending 01/09/19 17:00 Blood Blood Culture Gram Stain - Pending 01/09/19 17:00 Blood Blood Culture - Pending Laboratory Results (Last 24 hours) 01/09/19 01/09/19 01/09/19 16:32 16:30 16:30 WBC 11.5 H RBC 3.83 L Hgb 10.3 L Hct 34.9 L MCV 91.1 MCH 26.8 MCHC 29.5 L RDW 17.6 H Plt Count 571 H MPV 9.6 H Gran % 75.5 H Eos # (Auto) 0.10 Absolute Lymphs (auto) 1.22 Absolute Monos (auto) 1.47 H Lymphocytes % 10.6 L Monocytes % 12.7 H Eosinophils % 0.9 Basophils % 0.3 Absolute Granulocytes 8.72 H Basophils # 0.03 Sodium 140 Potassium 4.0 Chloride 102 Carbon Dioxide 28 Anion Gap 14.2 BUN 21 H Creatinine 0.68 Estimated GFR > 60.0 Glucose 114 H Calcium 9.5 Total Bilirubin 0.70 AST 25 ALT 12 Alkaline Phosphatase 95 NT-Pro-B Natriuret Pep 624 Serum Total Protein 7.1 Albumin 3.7 Urine Color YELLOW Urine Appearance SLIGHTLY CLOUDY Urine pH 5.0 Ur Specific [place] 1.026 Urine Protein NEGATIVE Urine Ketones NEGATIVE Urine Blood NEGATIVE Urine Nitrite NEGATIVE Urine Bilirubin NEGATIVE Urine Urobilinogen NEGATIVE Ur Leukocyte Esterase NEGATIVE Urine WBC (Auto) 0-2 Urine RBC (Auto) NONE U Epithel Cells (Auto) RARE Urine Bacteria (Auto) NONE Urine Mucus (Auto) MODERATE Urine Culture Reflexed NO Urine Glucose NEGATIVE Orders (Last 24 hours) Category Date Time Status Up Ad Gloria TOLERATED Activity 01/09/19 16:31 Active Accucheck ACHS Care 01/09/19 16:[address] in Observation ROUTINE Care 01/09/19 16:30 Active Telemetry PROTOCOL Care 01/09/19 16:31 Active Infection Control Consult Cons 01/09/19 18:27 Active Button Clamper/Discharge Plan Cons 01/09/19 18:27 Active 1800 Calorie ADA Diet 01/09/19 Dinner Active CHEST 2 VIEWS (PA AND LAT) Stat Exams 01/09/19 18:54 Taken BLOOD CULTURE Stat Lab 01/09/19 17:09 Received CBC W DIFF Stat Lab 01/09/19 16:30 Completed CMP Stat Lab 01/09/19 16:30 Completed NT PRO BNP Stat Lab 01/09/19 16:30 Completed UA W/RFX UR CULTURE Stat Lab 01/09/19 16:32 Completed Acetaminophen 325 mg [Tylenol 325 mg] Med 01/09/19 16:30 Active 325 mg PO Q4H PRN PRN Albuterol 8 gm Mdi Hfa [Ventolin Hfa MDI] Med 01/09/19 22:00 Discontinued DOSE gm IH QID Albuterol/Ipratropium 3ml Neb* [DUONEB 0.5-3 MG/3 ml Med 01/10/19 01:24 Active Neb] 3 ml IH Q4HPRN PRN Albuterol/Ipratropium 3ml Neb* [DUONEB 0.5-3 MG/3 ml Med 01/09/19 19:00 Discontinued Neb] 3 ml IH Q6HRT Albuterol/Ipratropium 3ml Neb* [DUONEB 0.5-3 MG/3 ml Med 01/09/19 19:00 Discontinued Neb] 3 ml IH QIDRT Albuterol/Ipratropium 3ml Neb* [DUONEB 0.5-3 MG/3 ml Med 01/10/19 07:00 Active Neb] 3 ml IH QIDRT Azithromycin 500 mg/250 ml [Zithromax 500 MG/ 250 ML Med 01/09/19 19:00 Active NaCl Premix] 500 mg in 250 ml IV Q24H22 Ceftriaxone 1 GM/50 ML PREMIX* [ROCEPHIN 1 Gm-D5w 50 ml Med 01/09/19 17:15 Active Bag] 1 g in 50 ml IV Q24H10 Famotidine 20 mg [Pepcid 20 MG] Med 01/09/19 22:00 Active 20 mg PO BID Ferrous Sulfate 325 mg [Feosol 325 mg] Med 01/10/19 10:00 Active 325 mg PO DAILY Fluticasone Propionate [Flonase NASAL] Med 01/10/19 10:00 Active 0 gm NS DAILY Fluticasone/Salmeterol 230/21 [Advair Hfa 230/21 Mcg Med 01/09/19 19:00 Discontinued COMMON CANISTER*] 2 puff IH BIDRT Hydrochlorothiazide 25 mg [hydroDIURIL 25 MG] Med 01/10/19 10:00 Active 12.5 mg PO DAILY Hydrocodone/APAP 5/325 [[place] 5/325 mg] Med 01/09/19 16:58 Active 1 tab PO Q4H PRN PRN Hydroxychloroquine Sulfate [Plaquenil] Med 01/09/19 22:00 Active 0 mg PO BID Lisinopril 20 mg [Zestril 20 MG] Med 01/10/19 10:00 Active 20 mg PO DAILY Methylprednisolone Sod Suc 40M [solu-MEDROL 40 MG] Med 01/09/19 18:00 Active 40 mg IV Q8HT Metoclopramide HCl 10 mg [Reglan 10 MG] Med 01/09/19 17:39 Active 5 mg PO Q8H PRN PRN Metoprolol Tartrate 50 mg [Lopressor 50 MG] Med 01/09/19 22:00 Active 50 mg PO BID NaCl 0.9% 1000 ml [Sodium Chloride 0.9% 1000 ML] 1,000 Med 01/09/19 16:30 Active ml IV 50 mls/hr PANTOPRAZOLE 40 mg Tablet [Protonix 40MG Tablet] Med 01/09/19 22:00 Active 40 mg PO QPM Patient Own Med [Patient Own Medication] Med 01/10/19 07:00 Active 0 each IH BIDRT Patient Own Med [Patient Own Medication] Med 01/10/19 10:00 Active 1 each IH DAILY Polyethylene Glycol 3350 17 gm [Miralax Powder 17GM Med 01/09/19 17:27 Active PACKET] 17 gm PO DAILY PRN Rivaroxaban 10 mg Tablet [Xarelto 10 mg Tablet] Med 01/09/19 18:00 Active 15 mg PO 1800 Simvastatin 20Mg [Zocor 20Mg] Med 01/09/19 22:00 Active 40 mg PO HS Tiotropium [place] Inhaler [Spiriva 18 Mcg/Cap Med 01/09/19 17:30 Discontinued Inhaler] DOSE ea IH UD OT Screen per Nursing Assess OT 01/09/19 18:27 Active PT Screen per Nursing Assess PT 01/09/19 18:27 Active EKG STAT RT 01/09/19 16:30 Completed Oxygen Nasal Cannula 3 lpm RT 01/09/19 16:30 Active Peak Expiratory Flow Rate DAILY RT 01/09/19 07:00 Active Pulse Oximetry ROUTINE RT 01/09/19 18:10 Active RT Screen per Nursing Assess ONCE RT 01/09/19 18:27 Completed Respiratory MDI BID RT 01/10/19 05:49 Active Respiratory MDI DAILY RT 01/10/19 07:00 Active Respiratory Therapy Assessment DAILY RT 01/10/19 07:00 Active Respiratory Therapy Consult ROUTINE RT 01/09/19 16:30 Completed Smoking Cessation Education ONCE RT 01/09/19 18:27 Completed Code(s): M06.9 - RHEUMATOID ARTHRITIS, UNSPECIFIED (2) COPD with exacerbation Current Visit: Yes Status: Acute Assessment & Plan: Last Vital Signs Temp 98.9 F 01/10/19 04:00 Pulse 77 01/10/19 04:00 Resp 18 01/10/19 04:00 BP 123/75 01/10/19 04:00 Pulse Ox 97 01/10/19 04:00 Allergies gabapentin Adverse Reaction (Verified 12/29/18 10:49) Active Medications Acetaminophen (Tylenol 325 Mg) 325 mg PO Q4H PRN PRN PRN Reason: PAIN, FEVER, HEADACHE Stop: 02/08/19 16:29 Last Admin: 01/09/19 18:51 Dose: 325 mg Hydrocodone Bitart/Acetaminophen ([place] 5/325 Mg) 1 tab PO Q4H PRN PRN PRN Reason: PAIN Stop: 01/14/19 16:57 Last Admin: 01/10/19 06:07 Dose: 1 tab Albuterol/Ipratropium (Duoneb 0.5-3 Mg/3 Ml Neb) 3 ml IH QIDRT DEWAYNE Last Admin: 01/10/19 07:10 Dose: 3 ml Albuterol/Ipratropium (Duoneb 0.5-3 Mg/3 Ml Neb) 3 ml IH Q4HPRN PRN PRN Reason: SHORTNESS OF BREATH/WHEEZING Stop: 02/09/19 01:23 Famotidine (Pepcid 20 Mg) 20 mg PO BID [facility] Stop: 02/08/19 21:59 Last Admin: 01/09/19 21:10 Dose: 20 mg Ferrous Sulfate (Feosol 325 Mg) 325 mg PO DAILY [facility] Stop: 02/09/19 09:59 Fluticasone Propionate (Flonase Nasal) 0 gm NS DAILY [facility] Stop: 02/09/19 09:59 Hydrochlorothiazide (Hydrodiuril 25 Mg) 12.5 mg PO DAILY [facility] Stop: 02/09/19 09:59 Azithromycin (Zithromax 500 Mg/ 250 Ml Nacl Premix) 500 mg in 250 mls @ 250 mls /hr IV Q24H22 [facility] Stop: 02/08/19 18:59 Last Admin: 01/09/19 19:14 Dose: 250 mls/hr Ceftriaxone Sodium/Dextrose (Rocephin 1 Gm-D5w 50 Ml Bag) 1 g in 50 mls @ 100 mls/hr IV Q24H10 DEWAYNE Stop: 02/08/19 17:14 Last Admin: 01/09/19 18:30 Dose: 100 mls/hr Sodium Chloride (Sodium Chloride 0.9% 1000 Ml) 1,000 mls @ 50 mls/hr IV .Q20H [facility] Stop: 02/08/19 16:29 Last Admin: 01/09/19 17:19 Dose: 50 mls/hr Lisinopril (Zestril 20 Mg) 20 mg PO DAILY [facility] Stop: 02/09/19 09:59 Methylprednisolone Sodium Succinate (Solu-Medrol 40 Mg) 40 mg IV Q8HT [facility] Stop: 02/08/19 17:59 Last Admin: 01/10/19 06:08 Dose: 40 mg Metoclopramide HCl (Reglan 10 Mg) 5 mg PO Q8H PRN PRN Stop: 02/08/19 17:38 Metoprolol Tartrate (Lopressor 50 Mg) 50 mg PO BID [facility] Stop: 02/08/19 21:59 Last Admin: 01/09/19 21:10 Dose: 50 mg Non-Formulary Medication (Hydroxychloroquine Sulfate [Plaquenil]) 0 mg PO BID [facility] Stop: 02/08/19 21:59 Last Admin: 01/09/19 21:13 Dose: 200 mg Pantoprazole Sodium (Protonix 40mg Tablet) 40 mg PO QPM [facility] Stop: 02/08/19 21:59 Last Admin: 01/09/19 21:10 Dose: 40 mg Patient Own Med: (Symbicort 160/4.5) 0 each IH BIDRT [facility] Last Admin: 01/10/19 07:11 Dose: 2 each Patient Own Med : (Spiriva Respimat) 1 each IH DAILY [facility] Stop: 02/09/19 09:59 Polyethylene Glycol (Miralax Powder 17gm Packet) 17 gm PO DAILY PRN PRN Reason: CONSTIPATION Stop: 02/08/19 17:26 Rivaroxaban (Xarelto 10 Mg Tablet) 15 mg PO 1800 DEWAYNE Stop: 02/08/19 17:59 Last Admin: 01/09/19 18:43 Dose: 15 mg Simvastatin (Zocor 20mg) 40 mg PO HS DEWAYNE Stop: 02/08/19 21:59 Last Admin: 01/09/19 21:10 Dose: 40 mg Intake & Output 01/09/19 01/10/19 11:59 11:59 Intake Total 1435 Output Total 900 Balance 535 Weight 88.1 kg Orders 01/09/19 07:00 Peak Expiratory Flow Rate DAILY 01/09/19 16:30 Place in Observation ROUTINE Acetaminophen 325 mg [Tylenol 325 mg] 325 mg PO Q4H PRN PRN NaCl 0.9% 1000 ml [Sodium Chloride 0.9% 1000 ML] 1,000 ml IV 50 mls/hr Oxygen Nasal Cannula 3 lpm 01/09/19 16:31 Up Ad Gloria TOLERATED Accucheck ACHS Telemetry PROTOCOL 01/09/19 16:58 Hydrocodone/APAP 5/325 [[place] 5/325 mg] 1 tab PO Q4H PRN PRN 01/09/19 17:09 BLOOD CULTURE Stat 01/09/19 17:15 Ceftriaxone 1 GM/50 ML PREMIX* [ROCEPHIN 1 Gm-D5w 50 ml Bag] 1 g in 50 ml IV Q24H10 01/09/19 17:27 Polyethylene Glycol 3350 17 gm [Miralax Powder 17GM PACKET] 17 gm PO DAILY PRN 01/09/19 17:39 Metoclopramide HCl 10 mg [Reglan 10 MG] 5 mg PO Q8H PRN PRN 01/09/19 18:00 Methylprednisolone Sod Suc 40M [solu-MEDROL 40 MG] 40 mg IV Q8HT Rivaroxaban 10 mg Tablet [Xarelto 10 mg Tablet] 15 mg PO 1800 01/09/19 18:10 Pulse Oximetry ROUTINE 01/09/19 18:27 Infection Control Consult Button Clamper/Discharge Plan OT Screen per Nursing Assess PT Screen per Nursing Assess 01/09/19 18:54 CHEST 2 VIEWS (PA AND LAT) Stat 01/09/19 19:00 Azithromycin 500 mg/250 ml [Zithromax 500 MG/ 250 ML NaCl Premix] 500 mg in 250 ml IV Q24H22 01/09/19 22:00 Famotidine 20 mg [Pepcid 20 MG] 20 mg PO BID Hydroxychloroquine Sulfate [Plaquenil] 0 mg PO BID Metoprolol Tartrate 50 mg [Lopressor 50 MG] 50 mg PO BID PANTOPRAZOLE 40 mg Tablet [Protonix 40MG Tablet] 40 mg PO QPM Simvastatin 20Mg [Zocor 20Mg] 40 mg PO HS 01/09/19 Dinner 1800 Calorie ADA 01/10/19 01:24 Albuterol/Ipratropium 3ml Neb* [DUONEB 0.5-3 MG/3 ml Neb] 3 ml IH Q4HPRN PRN 01/10/19 05:49 Respiratory MDI BID 01/10/19 07:00 Albuterol/Ipratropium 3ml Neb* [DUONEB 0.5-3 MG/3 ml Neb] 3 ml IH QIDRT Patient Own Med [Patient Own Medication] 0 each IH BIDRT Respiratory MDI DAILY Respiratory Therapy Assessment DAILY 01/10/19 10:00 Ferrous Sulfate 325 mg [Feosol 325 mg] 325 mg PO DAILY Fluticasone Propionate [Flonase NASAL] 0 gm NS DAILY Hydrochlorothiazide 25 mg [hydroDIURIL 25 MG] 12.5 mg PO DAILY Lisinopril 20 mg [Zestril 20 MG] 20 mg PO DAILY Patient Own Med [Patient Own Medication] 1 each IH DAILY Lab Tests 01/09/19 01/09/19 01/09/19 16:30 16:30 16:32 WBC 11.5 H RBC 3.83 L Hgb 10.3 L Hct 34.9 L MCV 91.1 MCH 26.8 MCHC 29.5 L RDW 17.6 H Plt Count 571 H MPV 9.6 H Gran % 75.5 H Eos # (Auto) 0.10 Absolute Lymphs (auto) 1.22 Absolute Monos (auto) 1.47 H Lymphocytes % 10.6 L Monocytes % 12.7 H Eosinophils % 0.9 Basophils % 0.3 Absolute Granulocytes 8.72 H Basophils # 0.03 Sodium 140 Potassium 4.0 Chloride 102 Carbon Dioxide 28 Anion Gap 14.2 BUN 21 H Creatinine 0.68 Estimated GFR > 60.0 Glucose 114 H Calcium 9.5 Total Bilirubin 0.70 AST 25 ALT 12 Alkaline Phosphatase 95 NT-Pro-B Natriuret Pep 624 Serum Total Protein 7.1 Albumin 3.7 Urine Color YELLOW Urine Appearance SLIGHTLY CLOUDY Urine pH 5.0 Ur Specific [place] 1.026 Urine Protein NEGATIVE Urine Ketones NEGATIVE Urine Blood NEGATIVE Urine Nitrite NEGATIVE Urine Bilirubin NEGATIVE Urine Urobilinogen NEGATIVE Ur Leukocyte Esterase NEGATIVE Urine WBC (Auto) 0-2 Urine RBC (Auto) NONE U Epithel Cells (Auto) RARE Urine Bacteria (Auto) NONE Urine Mucus (Auto) MODERATE Urine Culture Reflexed NO Urine Glucose NEGATIVE Code(s): J44.1 - CHRONIC OBSTRUCTIVE PULMONARY DISEASE W (ACUTE) EXACERBATION
--- NOTE | 2019-01-10 08:38 | XRAY ---
Indication: Short of breath. Comparison: December 12, 2018. PA/lateral chest unchanged again hyperinflated and clear. Heart is not enlarged with stable electronic device overlying the heart. No new/acute findings.
[2019-01-10] MEDS: FEOSOL 325 MG PO SCH (09:58)
[2019-01-10] MEDS: Flonase NASAL NS SCH (09:58)
[2019-01-10] MEDS: hydroDIURIL 25 MG PO SCH (10:00)
[2019-01-10] MEDS ORDERED: PATIENT OWN MEDICATION IH SCH (10:00)
[2019-01-10] MEDS: Pepcid 20 MG PO SCH ×2 (10:02→21:05)
[2019-01-10] MEDS: NON-FORMULARY ITEM (Hydroxychloroquine Sulfate [Plaquenil] 0 MG) PO SCH ×2 (10:02→21:06)
[2019-01-10] MEDS: Lopressor 50 MG PO SCH ×2 (10:02→21:05)
[2019-01-10] MEDS: ROCEPHIN 1 Gm-D5w 50 ml Bag** 1 G/50 ML IVPB IV SCH (10:02)
[2019-01-10] MEDS: Zestril 20 MG PO SCH (10:02)
[2019-01-10] MEDS: Sodium Chloride 0.9% 1000 ML 1,000 ML IV SCH (17:00)
[2019-01-10] MEDS: XARELTO 10 MG TABLET PO SCH (17:45)
[2019-01-10] MEDS: ZOCOR 20MG PO SCH (21:05)
[2019-01-10] MEDS: Protonix 40MG Tablet PO SCH (21:05)
[2019-01-10] MEDS: Zithromax 500 MG/ 250 ML NaCl Premix 500 MG/250 ML IVPB IV SCH (22:01)
[2019-01-11] MEDS: NORCO 5/325 MG PO PRN (06:25)
[2019-01-11] MEDS: DUONEB 0.5-3 MG/3 ml Neb IH SCH (07:00)
[2019-01-11] MEDS: PATIENT OWN MEDICATION IH SCH (07:01)
[2019-01-11] MEDS: Zestril 20 MG PO SCH (10:40)
[2019-01-11] MEDS: Pepcid 20 MG PO SCH (10:40)
[2019-01-11] MEDS: Lopressor 50 MG PO SCH (10:42)
[2019-01-11] MEDS: FEOSOL 325 MG PO SCH (10:43)
[2019-01-11] MEDS: Flonase NASAL NS SCH (10:44)
[2019-01-11] MEDS: solu-MEDROL 40 MG IV SCH (10:44)
[2019-01-11] MEDS: NON-FORMULARY ITEM (Hydroxychloroquine Sulfate [Plaquenil] 0 MG) PO SCH (10:45)
[2019-01-11] MEDS: hydroDIURIL 25 MG PO SCH (10:46)
[2019-01-11] MEDS: ROCEPHIN 1 Gm-D5w 50 ml Bag** 1 G/50 ML IVPB IV SCH (10:54)
[2019-01-11 12:09] VITALS: BP 92/54; PULSE 78; O2SAT 91
[2019-01-11] MEDS ORDERED: DUONEB 0.5-3 MG/3 ml Neb IH SCH (13:00)
--- NOTE | 2019-01-12 20:00 | PCM.DS ---
Discharge Summary Date of Admission: 01/09/19 15:28 Admitting Physician: LISA BALDERRAMA Primary Care Provider: LISA BALDERRAMA Allergies Allergies gabapentin Adverse Reaction (Verified 12/29/18 10:49) Hospital Summary - Hospital Course Hospital Course: Chief Complaint Diagnosis acute exacerbation of COPD, Rheumatoid arthritis Allergies Allergy/AdvReac Type Severity Reaction Status Date / Time gabapentin AdvReac Verified 12/29/18 10:49 Current Medications Discontinued Medications Generic Name Dose Route Start Last Admin Trade Name Freq PRN Reason Stop Dose Admin Acetaminophen 325 mg 01/09/19 16:30 01/09/19 18:51 Tylenol 325 Mg PO 02/08/19 16:29 325 mg Q4H PRN PRN Administration PAIN, FEVER, HEADACHE Hydrocodone Bitart/Acetaminophen 1 tab 01/09/19 16:58 01/11/19 06:25 [place] 5/325 Mg PO 01/14/19 16:57 1 tab Q4H PRN PRN Administration PAIN Albuterol Sulfate gm 01/09/19 22:00 Ventolin Hfa Mdi IH 02/08/19 21:59 QID DEWAYNE Albuterol/Ipratropium 3 ml 01/09/19 19:00 01/09/19 21:58 Duoneb 0.5-3 Mg/3 Ml Neb IH 02/08/19 18:59 3 ml Q6HRT DEWAYNE Administration Albuterol/Ipratropium 3 ml 01/09/19 19:00 Duoneb 0.5-3 Mg/3 Ml Neb IH 02/08/19 18:59 QIDRT DEWAYNE Albuterol/Ipratropium 3 ml 01/10/19 07:00 01/11/19 07:00 Duoneb 0.5-3 Mg/3 Ml Neb IH 3 ml QIDRT DEWAYNE Administration Albuterol/Ipratropium 3 ml 01/10/19 01:24 Duoneb 0.5-3 Mg/3 Ml Neb IH 02/09/19 01:23 Q4HPRN PRN SHORTNESS OF BREATH/WHEEZING Albuterol/Ipratropium 3 ml 01/11/19 13:00 Duoneb 0.5-3 Mg/3 Ml Neb IH 12/06/19 12:59 Q6HRT DEWAYNE Famotidine 20 mg 01/09/19 22:00 01/11/19 10:40 Pepcid 20 Mg PO 02/08/19 21:59 20 mg BID DEWAYNE Administration Ferrous Sulfate 325 mg 01/10/19 10:00 01/11/19 10:43 Feosol 325 Mg PO 02/09/19 09:59 325 mg DAILY DEWAYNE Administration Fluticasone Propionate 0 gm 01/10/19 10:00 01/11/19 10:44 Flonase Nasal NS 02/09/19 09:59 16 gm DAILY DEWAYNE Administration Hydrochlorothiazide 12.5 mg 01/10/19 10:00 01/11/19 10:46 Hydrodiuril 25 Mg PO 02/09/19 09:59 12.5 mg DAILY DEWAYNE Administration Azithromycin 500 mg in 250 mls @ 250 mls/hr 01/09/19 19:00 01/10/19 22:01 Zithromax 500 Mg/ 250 Ml Nacl Premix IV 02/08/19 18:59 250 mls/hr Q24H22 DEWAYNE Administration Ceftriaxone Sodium/Dextrose 1 g in 50 mls @ 100 mls/hr 01/09/19 17:15 10:54 Rocephin 1 Gm-D5w 50 Ml Bag IV 02/08/19 17:14 100 mls/hr Q24H10 DEWAYNE Administration Sodium Chloride 1,000 mls @ 50 mls/hr 01/09/19 16:30 01/10/19 17:00 Sodium Chloride 0.9% 1000 Ml IV 02/08/19 16:29 50 mls/hr .Q20H DEWAYNE Administration Lisinopril 20 mg 01/10/19 10:00 01/11/19 10:40 Zestril 20 Mg PO 02/09/19 09:59 20 mg DAILY DEWAYNE Administration Methylprednisolone Sodium Succinate 40 mg 01/09/19 18:00 01/10/19 06:08 Solu-Medrol 40 Mg IV 02/08/19 17:59 40 mg Q8HT DEWAYNE Administration Methylprednisolone Sodium Succinate 40 mg 01/10/19 10:00 01/11/19 10:44 Solu-Medrol 40 Mg IV 02/09/19 09:59 40 mg BID DEWAYNE Administration Metoclopramide HCl 5 mg 01/09/19 17:39 Reglan 10 Mg PO 02/08/19 17:38 Q8H PRN PRN Metoprolol Tartrate 50 mg 01/09/19 22:00 01/11/19 10:42 Lopressor 50 Mg PO 02/08/19 21:59 50 mg BID DEWAYNE Administration Non-Formulary Medication 0 mg 01/09/19 22:00 01/11/19 10:45 Hydroxychloroquine Sulfate [Plaquenil] PO 02/08/19 21:59 1 mg BID DEWAYNE Administration Pantoprazole Sodium 40 mg 01/09/19 22:00 01/10/19 21:05 Protonix 40mg Tablet PO 02/08/19 21:59 40 mg QPM DEWAYNE Administration Patient Own Med: 0 each 01/10/19 07:00 01/11/19 07:01 Symbicort 160/4.5 IH 2 each BIDRT DEWAYNE Administration Patient Own Med : 1 each 01/10/19 10:00 01/11/19 07:01 Spiriva Respimat IH 02/09/19 09:59 Not Given DAILY DEWAYNE Polyethylene Glycol 17 gm 01/09/19 17:27 Miralax Powder 17gm Packet PO 02/08/19 17:26 DAILY PRN CONSTIPATION Rivaroxaban 15 mg 01/09/19 18:00 01/10/19 17:45 Xarelto 10 Mg Tablet PO 02/08/19 17:59 15 mg 1800 DEWAYNE Administration Fluticasone/Salmeterol 2 puff 01/09/19 19:00 01/09/19 22:02 Advair Hfa 230/21 Mcg Common Canister* IH 02/08/19 18:59 Not Given BIDRT DEWAYNE Simvastatin 40 mg 01/09/19 22:00 01/10/19 21:05 Zocor 20mg PO 02/08/19 21:59 40 mg HS DEWAYNE Administration Tiotropium Galva ea 01/09/19 17:30 Spiriva 18 Mcg/Cap Inhaler IH 02/08/19 17:29 UD DEWAYNE Intake & Output (Last 24 hours) 01/10/19 01/11/19 01/12/19 01/13/19 11:59 11:59 11:59 11:59 Intake Total 2014 3145 Output Total 900 1350 Balance 1115 1795 Weight 88.1 kg - Vitals & Intake/Output Vital Signs: Vital Signs Temperature 98.3 F 01/11/19 12:00 Pulse Rate 78 01/11/19 12:00 Respiratory Rate 18 01/11/19 12:00 Blood Pressure 92/54 01/11/19 12:00 O2 Sat by Pulse Oximetry 91 L 01/11/19 12:00 Oxygen-Last Documented O2 Percentage 2 Liters = 28% Intake & Output: Intake & Output 01/10/19 01/11/19 01/12/19 01/13/19 11:59 11:59 11:59 11:59 Intake Total 2014 3145 Output Total 900 1350 Balance 1115 1795 Weight 88.1 kg - Lab Result Diagrams: 01/09/19 16:30 01/09/19 16:30 Micro Results-Entire Visit: Microbiology 01/09/19 17:09 Blood Culture - Preliminary Blood NO GROWTH TO DATE 01/09/19 17:00 Blood Culture - Preliminary Blood NO GROWTH TO DATE - Procedures and Test Procedures and Tests throughout Hospitalization: Therapy Orders & Screens 01/09/19 07:00 Peak Expiratory Flow Rate DAILY Comment: Reason For Exam: Diagnosis: acute exacerbation of COPD, Rheumatoid arthritis 01/09/19 16:30 EKG STAT Comment: Oxygen Nasal Cannula 3 lpm Comment: Respiratory Therapy Consult ROUTINE Comment: Reason For Exam: 01/09/19 18:27 OT Screen per Nursing Assess Comment: Protocol Order Physician Instructions: Greater than 3 points order OT Admission Screening Reason For Exam: Triggered on Admission Diagnosis: acute exacerbation of COPD, Rheumatoid arthritis Open Wound/Cellutlitis/Pressure Ulcers: No Acute Fx/ORIF/Change in wt bearing status: Yes Severe MUSCULOSKELETAL pain: Yes ADL Dysfunction: Yes Acute CVA w/Hemiparesis/Hemiplegia: No Decreased Functional Mobility/Strength: Yes Sprain/Strain: No Acute Post-op Mobility Dysfunction: No Total Points: 14 PT Screen per Nursing Assess Comment: Protocol Order Physician Instructions: Greater than 3 points order PT Admission Screenin Reason For Exam: Triggered on Admission Diagnosis: acute exacerbation of COPD, Rheumatoid arthritis Open Wound/Cellutlitis/Pressure Ulcers: No Acute Fx/ORIF/Change in wt bearing status: Yes Severe MUSCULOSKELETAL pain: Yes ADL Dysfunction: Yes Acute CVA w/Hemiparesis/Hemiplegia: No Decreased Functional Mobility/Strength: Yes Sprain/Strain: No Acute Post-op Mobility Dysfunction: No Total Points: 14 RT Screen per Nursing Assess ONCE Comment: Protocol Order Physician Instructions: Greater than 3 points order RT Admission Screen Reason For Exam: Triggered on Admission Diagnosis: acute exacerbation of COPD, Rheumatoid arthritis Diagnosis: acute exacerbation of COPD, Rheumatoid arthritis Pneumonia: No Home O2: Yes Asthma: No CHF: No Home CPAP/BIPAP: No Home Nebs/MDI: Yes Total Points: 10 Smoking Cessation Education ONCE Comment: Diagnosis: acute exacerbation of COPD, Rheumatoid arthritis Smoking Status: Current every day smoker How long have you smoked: "40 years" Have you smoked in the past 12 months: Yes Approximately how many cigarettes per day: 6 Do you dip or chew tobacco: No If,Former Smoker,when did you quit: 09/09/2018 01/10/19 05:49 Respiratory MDI BID Comment: Diagnosis: acute exacerbation of COPD, Rheumatoid arthritis 01/10/19 07:00 Respiratory MDI DAILY Comment: Diagnosis: acute exacerbation of COPD, Rheumatoid arthritis Respiratory Therapy Assessment DAILY Comment: Diagnosis: acute exacerbation of COPD, Rheumatoid arthritis Discharge Exam General Appearance: no apparent distress, alert Neurologic Exam: alert, oriented x 3, cooperative, normal mood/affect, nml cerebellar function, sensation nml, No motor deficits Eye Exam: PERRL, EOMI, eyes nml inspection Ears, Nose, Throat Exam: normal ENT inspection, pharynx normal, moist mucous membranes Neck Exam: normal inspection, non-tender, supple, full range of motion Respiratory Exam: normal breath sounds, lungs clear, No respiratory distress Cardiovascular Exam: regular rate/rhythm, normal heart sounds Gastrointestinal/Abdomen Exam: soft, No tenderness, No mass Pelvic Exam: deferred Rectal Exam: deferred Back Exam: normal inspection, normal range of motion, No CVA tenderness, No vertebral tenderness Extremity Exam: normal inspection, normal range of motion Skin Exam: normal color, warm, dry Final Diagnosis/Problem List - Final Discharge Diagnosis/Problem (1) Rheumatoid arthritis flare Status: Resolved Code(s): M06.9 - RHEUMATOID ARTHRITIS, UNSPECIFIED (2) COPD with exacerbation Status: Resolved Code(s): J44.1 - CHRONIC OBSTRUCTIVE PULMONARY DISEASE W ( ACUTE) EXACERBATION - Discharge Discharge Date: 01/11/19 Disposition: Home, Self-Care Condition: Stable Prescriptions: Continue Ipratropium/Albuterol Sulfate [Iprat-Albut 0.5-3(2.5) mg/3 ml] 3 ml NEB QID Hydrochlorothiazide 25 mg [hydroDIURIL 25 MG] 12.5 mg PO DAILY Atorvastatin Calcium [Lipitor] 40 mg PO HS Budesonide/Formoterol Fumarate [Symbicort 160-4.5 Mcg Inhaler] 2 puff IH BID Albuterol 8 gm Mdi Hfa [Ventolin Hfa MDI] 2 puff IH QID Lisinopril 20 mg [Zestril 20 MG] 20 mg PO DAILY Fluticasone Propionate [Flonase NASAL] 1 spray INTRANASAL DAILY Polyethylene Glycol 3350 [Miralax] 17 gm PO DAILY PRN PRN Reason: Constipation Hydroxychloroquine Sulfate [Plaquenil] 200 mg PO BID Rivaroxaban [Xarelto] 15 mg PO 1800 Prednisone 5 mg PO BID Albuterol Sulfate [Proair Hfa] 8.5 gm IH QID Albuterol/Ipratropium 3ml Neb* [DUONEB 0.5-3 MG/3 ml Neb] 3 ml IH QIDRT # 120 ampul.neb Famotidine 20 mg [Pepcid 20 MG] 20 mg PO BID #60 tablet PANTOPRAZOLE 40 mg Tablet [Protonix 40MG Tablet] 40 mg PO QPM 30 Days # 30 tab Tiotropium Galva [Spiriva] 18 mcg IH UD #30 cap.w.dev Ferrous Sulfate [Iron] 325 mg PO DAILY #30 tablet Metoprolol Tartrate 50 mg PO BID Metoclopramide HCl 5 mg PO Q8H PRN PRN Reason: Nausea Instructions: Rheumatoid Arthritis (DC) Follow up with: LISA BALDERRAMA MD [Primary Care Provider] - 01/19/19 2:15 pm
== END 2019-01-11 13:30 | disposition home or self-care (01) ==
LOC: MED SURG 15:28
PROVIDERS: ADMIT General Practice; ATTEND General Practice
DX: M06.9 Rheumatoid arthritis, unspecified (principal); J44.1 Chronic obstructive pulmonary disease with (acute) exacerbation; I48.0 Paroxysmal atrial fibrillation; I10 Essential (primary) hypertension; K25.4 Chronic or unspecified gastric ulcer with hemorrhage; Z79.899 Other long term (current) drug therapy; Z99.81 Dependence on supplemental oxygen
CPT/HCPCS: 36415; 71046; 80053; 81001; 82962; 83880; 85025; 87040; 93005; 94150; 94640; 94760; J0456; J0696; J2920; A9270-GY

== ENCOUNTER 2019-04-24 12:17 | Observation (INO) | payer MEDICARE ==
[2019-04-24] MEDS ORDERED: Sodium Chloride 0.9% 1000 ML 1,000 ML IV STA ×2 (13:06→15:06)
[2019-04-24] MEDS ORDERED: Zofran 4 MG/2 ML VIAL IV ONE (13:06)
[2019-04-24] MEDS ORDERED: PROTONIX 40 MG IV IV ONE ×2 (13:06→13:21)
--- NOTE | 2019-04-24 13:07 | ERPHSYRPT ---
- History of Present Illness Time Seen by Provider: 04/24/19 12:50 Historian: patient Exam Limitations: no limitations Physician History: This is a 64-year-old female who has had a 2-day history of some generalized diffuse abdominal pain with nausea and decreased appetite. She also has associated weakness. Patient denies vomiting and denies diarrhea. Patient does have a history of peptic ulcer disease and has not been vomiting blood or passing bloody or dark stools rectally. Patient denies chest pain. Denies shortness of breath. Patient has a history of atrial fibrillation and COPD. pt takes metoprolol, lisinopril, hctz. she took her meds today Timing/Duration: day(s) (2) Activities at Onset: none Quality: sharpness Abdominal Pain Onset Location: generalized abdomen Pain Radiation: no radiation Severity of Pain-Max: mild Severity of Pain-Current: mild Modifying Factors: Improves With: other (Nausea with decreased appetite) Associated Symptoms: loss of appetite, nausea, No chest pain, No diarrhea, No vomiting Previous symptoms: same symptoms as today Allergies/Adverse Reactions: gabapentin Adverse Reaction (Verified 04/24/19 13:35) Home Medications: Atorvastatin Calcium [Lipitor] 40 mg PO HS 11/22/14 [History] Hydrochlorothiazide 25 mg [hydroDIURIL 25 MG] 12.5 mg PO DAILY 11/22/14 [ History] Albuterol 8 gm Mdi Hfa [Ventolin Hfa MDI] 2 puff IH QID 09/14/16 [History] Budesonide/Formoterol Fumarate [Symbicort 160-4.5 Mcg Inhaler] 2 puff IH BID 12/22 [History] Lisinopril 20 mg [Zestril 20 MG] 20 mg PO DAILY 09/28/16 [History] Fluticasone Propionate [Flonase NASAL] 1 spray INTRANASAL DAILY 07/30/18 [ History] Polyethylene Glycol 3350 [Miralax] 17 gm PO DAILY PRN 08/02/18 [History] Albuterol Sulfate [Proair Hfa] 8.5 gm IH QID 12/12/18 [History] Hydroxychloroquine Sulfate [Plaquenil] 200 mg PO BID 12/12/18 [History] Prednisone 10 mg PO BID 12/12/18 [History] Metoclopramide HCl 5 mg PO Q8H PRN 12/29/18 [History] Metoprolol Tartrate 50 mg PO BID 12/29/18 [History] Albuterol/Ipratropium 3ml Neb* [DUONEB 0.5-3 MG/3 ml Neb] 3 ml IH QID [History] Aspirin EC 81 mg [Ecotrin 81 mg] 81 mg PO DAILY 04/24/19 [History] Clopidogrel Bisulfate 75 mg [PLAVIX 75 MG Tablet] 75 mg PO DAILY 04/24/19 [History] Methotrexate Sodium [Methotrexate] 10 mg PO WEEKLY 04/24/19 [History] Tiotropium Strang [Spiriva] 18 mcg IH DAILY 04/24/19 [History] Hx Tetanus, Diphtheria Vaccination/Date Given: No Hx Influenza Vaccination/Date Given: No Hx Pneumococcal Vaccination/Date Given: No - Review of Systems Constitutional: Weakness Eyes: No Symptoms Ears, Nose, & Throat: No Symptoms Respiratory: No Symptoms Cardiac: No Symptoms Abdominal/Gastrointestinal: Abdominal Pain, Nausea, No Vomiting, No Diarrhea Genitourinary Symptoms: No Symptoms Musculoskeletal: No Symptoms Skin: No Symptoms Neurological: No Symptoms Psychological: No Symptoms Endocrine: No Symptoms Hematologic/Lymphatic: No Symptoms Immunological/Allergic: No Symptoms All Other Systems: Reviewed and Negative - Past Medical History Pertinent Past Medical History: Yes Neurological History: Stroke ENT History: No Pertinent History Cardiac History: Arrhythmia, High Cholesterol, Hypertension, Other Respiratory History: COPD Endocrine Medical History: No Pertinent History Musculoskeletal History: Osteoarthritis GI Medical History: GERD, GI Bleed, Ulcer History: No Pertinent History Psycho-Social History: No Pertinent History Female Reproductive Disorders: No Pertinent History Other Medical History: 01/2014 CVA, anemia,. stroke x2 - Past Surgical History Past Surgical History: Yes Neuro Surgical History: No Pertinent History Cardiac: No Pertinent History Respiratory: No Pertinent History Gastrointestinal: Cholecystectomy Genitourinary: No Pertinent History Musculoskeletal: Orthopedic Surgery Female Surgical History: No Pertinent History Other Surgical History: egd/colonoscopy/bilat carpal tunnel - Social History Smoking Status: Current every day smoker How long have you smoked: "40 years" Exposure to second hand smoke: Yes Drug Use: none Patient Lives Alone: Yes - Nursing Vital Signs Nursing Vital Signs: Initial Vital Signs Temperature 98.2 F 04/24/19 12:31 Pulse Rate 73 04/24/19 12:31 Respiratory Rate 20 04/24/19 12:31 Blood Pressure 102/68 04/24/19 12:31 O2 Sat by Pulse Oximetry 100 04/24/19 12:31 Pain Scale Pain Intensity 6 - Physical Exam General Appearance: no apparent distress, alert, anxiety Eye Exam: PERRL/EOMI, eyes nml inspection Ears, Nose, Throat Exam: normal ENT inspection, moist mucous membranes Neck Exam: normal inspection, non-tender, supple, full range of motion Respiratory Exam: normal breath sounds, lungs clear, airway intact, No chest tenderness, No respiratory distress Cardiovascular Exam: regular rate/rhythm, normal heart sounds, normal peripheral pulses Gastrointestinal/Abdomen Exam: soft, normal bowel sounds, tenderness, No guarding, No rebound Pelvic Exam: not done Rectal Exam: not done Back Exam: normal inspection, normal range of motion, No CVA tenderness, No vertebral tenderness Extremity Exam: normal inspection, normal range of motion, pelvis stable Neurologic Exam: alert, oriented x 3, cooperative, electronic warfare operator II-XII nml as tested Skin Exam: normal color, warm, dry Lymphatic Exam: No adenopathy SpO2 Interpretation: normal O2 Delivery: Room Air - Course Nursing assessment & vital signs reviewed: Yes Ordered Tests: Active Orders 24 hr Category Date Time Status EKG-ER Only STAT Care 04/24/19 15:40 Active IV Insertion STAT Care 04/24/19 13:06 Active ABDOMEN AND PELVIS W/0 CONTRAS [CT] Stat Exams 04/24/19 13:07 Completed CHEST 1 VIEW (PORTABLE) Stat Exams 04/24/19 15:28 Taken AMYLASE Stat Lab 04/24/19 13:06 Completed CBC W DIFF Stat Lab 04/24/19 13:06 Completed CMP Stat Lab 04/24/19 13:06 Completed LIPASE Stat Lab 04/24/19 13:06 Completed Lactic Acid Stat Lab 04/24/19 13:12 Completed Lactic Acid Stat Lab 04/24/19 15:15 Completed Manual Differential NC Stat Lab 04/24/19 13:06 Completed TROPONIN Q3H Lab 04/24/19 13:06 Completed TROPONIN Q3H Lab 04/24/19 18:45 Ordered TROPONIN Q3H Lab 04/24/19 21:45 Ordered UA W/RFX UR CULTURE Stat Lab 04/24/19 14:43 Completed Transfer Order Routine Transfer 04/24/19 Ordered Medication Summary Discontinued Medications Generic Name Dose Route Start Last Admin Trade Name Kelsi PRN Reason Stop Dose Admin Sodium Chloride 1,000 mls @ 999 mls/hr 04/24/19 13:06 04/24/19 14:16 Sodium Chloride 0.9% 1000 Ml IV 04/24/19 14:06 Infused .Q1H1M STA Infusion Sodium Chloride Confirm 04/24/19 13:21 Sodium Chloride 0.9% 1000 Ml Administered 04/24/19 13:22 Dose 1,000 mls @ ud .ROUTE .STK-MED ONE Sodium Chloride 1,000 mls @ 999 mls/hr 04/24/19 15:06 04/24/19 15:26 Sodium Chloride 0.9% 1000 Ml IV 04/24/19 16:06 999 mls/hr .Q1H1M STA Administration Sodium Chloride Confirm 04/24/19 15:25 Sodium Chloride 0.9% 1000 Ml Administered 04/24/19 15:26 Dose 1,000 mls @ ud .ROUTE .STK-MED ONE Ondansetron HCl 4 mg 04/24/19 13:06 04/24/19 13:23 Zofran 4 Mg/2 Ml Vial IV 04/24/19 13:07 4 mg STAT ONE Administration Ondansetron HCl Confirm 04/24/19 13:21 Zofran 4 Mg/2 Ml Vial Administered 04/24/19 13:22 Dose 4 mg .ROUTE .STK-MED ONE Pantoprazole Sodium 40 mg 04/24/19 13:06 04/24/19 13:23 Protonix 40 Mg Iv IV 04/24/19 13:07 40 mg STAT ONE Administration Pantoprazole Sodium Confirm 04/24/19 13:21 Protonix 40 Mg Iv Administered 04/24/19 13:22 Dose 40 mg IV .STK-MED ONE Lab/Rad Data: Laboratory Result Diagrams 04/24/19 13:06 04/24/19 13:06 Laboratory Results 04/24/19 04/24/19 04/24/19 Range/Units 15:15 14:43 13:12 WBC (4.0-10.5) K/mm3 RBC (4.1-5.4) M/mm3 Hgb (12.0-16.0) gm/dl Hct (35-47) % MCV (78-100) fl MCH (26-32) pg MCHC (32-36) g/dl RDW (11.5-14.0) % Plt Count (150-450) K/mm3 MPV (7.5-11.0) fl Segmented Neutrophils (36.0-66.0) % Band Neutrophils (0.0-2.0) % Lymphocytes (Manual) (24-44) % Monocytes (Manual) (0.0-12.0) % Platelet Estimate (NORMAL) RBC Morphology Poikilocytosis Anisocytosis Sodium (137-145) mmol/L Potassium (3.5-5.1) mmol/L Chloride (98-107) mmol/L Carbon Dioxide (22-30) mmol/L Anion Gap (5-15) MEQ/L BUN (7-17) mg/dL Creatinine (0.52-1.04) mg/dL Estimated GFR ML/MIN Glucose (74-106) mg/dL Lactic Acid 1.3 3.6 H (0.4-2.0) Calcium (8.4-10.2) mg/dL Total Bilirubin (0.2-1.3) mg/dL AST (14-36) U/L ALT (0-35) U/L Alkaline Phosphatase (38-126) U/L Troponin I (0.000-0.034) ng/mL Serum Total Protein (6.3-8.2) g/dL Albumin (3.5-5.0) g/dL Amylase (30-110) U/L Lipase (23-300) U/L Urine Color YELLOW (YELLOW) Urine Appearance CLEAR (CLEAR) Urine pH 6.0 (5-6) Ur Specific [place] 1.018 (1.005-1.025) Urine Protein NEGATIVE (Negative) Urine Ketones NEGATIVE (NEGATIVE) Urine Blood NEGATIVE (0-5) Jhonny/ul Urine Nitrite NEGATIVE (NEGATIVE) Urine Bilirubin NEGATIVE (NEGATIVE) Urine Urobilinogen NEGATIVE (0-1) mg/dL Ur Leukocyte Esterase TRACE (NEGATIVE) Urine WBC (Auto) NONE (0-5) /HPF Urine RBC (Auto) NONE (0-2) /HPF U Epithel Cells (Auto) NONE (FEW) /HPF Urine Bacteria (Auto) NONE (NEGATIVE) /HPF Urine Mucus (Auto) SLIGHT (NEGATIVE) /HPF Urine Culture Reflexed NO (NO) Urine Glucose NEGATIVE (NEGATIVE) mg/dL 04/24/19 04/24/19 04/24/19 Range/Units 13:06 13:06 13:06 WBC 12.6 H (4.0-10.5) K/mm3 RBC 3.87 L (4.1-5.4) M/mm3 Hgb 11.2 L (12.0-16.0) gm/dl Hct 35.7 (35-47) % MCV 92.2 (78-100) fl MCH 28.9 (26-32) pg MCHC 31.4 L (32-36) g/dl RDW 19.0 H (11.5-14.0) % Plt Count 444 (150-450) K/mm3 MPV 9.1 (7.5-11.0) fl Segmented Neutrophils 86 H (36.0-66.0) % Band Neutrophils 2 (0.0-2.0) % Lymphocytes (Manual) 9 L (24-44) % Monocytes (Manual) 3 (0.0-12.0) % Platelet Estimate NORMAL (NORMAL) RBC Morphology ABNORMAL Poikilocytosis 1+ Anisocytosis 1+ Sodium 136 L (137-145) mmol/L Potassium 3.6 (3.5-5.1) mmol/L Chloride 100 (98-107) mmol/L Carbon Dioxide 26 (22-30) mmol/L Anion Gap 13.6 (5-15) MEQ/L BUN 37 H (7-17) mg/dL Creatinine 1.14 H (0.52-1.04) mg/dL Estimated GFR 51.2 ML/MIN Glucose 105 (74-106) mg/dL Lactic Acid (0.4-2.0) Calcium 9.7 (8.4-10.2) mg/dL Total Bilirubin 0.90 (0.2-1.3) mg/dL AST 36 (14-36) U/L ALT 17 (0-35) U/L Alkaline Phosphatase 73 (38-126) U/L Troponin I 0.020 (0.000-0.034) ng/mL Serum Total Protein 6.7 (6.3-8.2) g/dL Albumin 4.0 (3.5-5.0) g/dL Amylase 113 H (30-110) U/L Lipase 216 (23-300) U/L Urine Color (YELLOW) Urine Appearance (CLEAR) Urine pH (5-6) Ur Specific [place] (1.005-1.025) Urine Protein (Negative) Urine Ketones (NEGATIVE) Urine Blood (0-5) Jhonny/ul Urine Nitrite (NEGATIVE) Urine Bilirubin (NEGATIVE) Urine Urobilinogen (0-1) mg/dL Ur Leukocyte Esterase (NEGATIVE) Urine WBC (Auto) (0-5) /HPF Urine RBC (Auto) (0-2) /HPF U Epithel Cells (Auto) (FEW) /HPF Urine Bacteria (Auto) (NEGATIVE) /HPF Urine Mucus (Auto) (NEGATIVE) /HPF Urine Culture Reflexed (NO) Urine Glucose (NEGATIVE) mg/dL - Progress Progress: unchanged Progress Note: 04/24/19 15:29 CAT scan of the abdomen and pelvis reveals small hiatal hernia with evidence of diverticulosis but no diverticulitis. No other acute intra-abdominal findings present 04/24/19 15:35 I went in to reevaluate the patient and inform her of the laboratory and x-ray findings. Again, the patient denies shortness of breath and denies cough, denies chest pain. Patient states her nausea is slightly improved. However, her biggest concern is the weakness and that she is afraid that she may fall. I contacted Dr. Balderrama, who is her primary care doctor. I reviewed the patient 's history, condition, laboratory, x-ray findings. We agree the patient should be placed in observation. He stated he wanted to hold off on the antibiotics at this time. Will give the patient IV hydration, telemetry monitoring, and repeat laboratory data in the morning. 04/24/19 15:51 Chest x-ray shows no acute process present Medical decision making this is a 64-year-old female who was history, condition , EKG, x-ray findings were discussed with Dr. Balderrama, the patient's primary care physician. At this point it is unclear as to why the patient is having an elevated lactic acid level and leukocytosis. Patient's blood pressure is low but the patient states that her blood pressure is chronically on the lower side. This may be contributing to her weakness. The plan is to bring her into the hospital with the above studies to be performed. Counseled pt/family regarding: lab results, diagnosis, need for follow-up, rad results - Departure Departure Disposition: Observation Clinical Impression: Weakness, Leukocytosis, Nausea Condition: Stable Critical Care Time: No Referrals: LISA BALDERRAMA MD [Primary Care Provider] -
[2019-04-24] MEDS ORDERED: Sodium Chloride 0.9% 1000 ML 1,000 ML ONE ×2 (13:21→15:25)
[2019-04-24] MEDS ORDERED: Zofran 4 MG/2 ML VIAL ONE (13:21)
[2019-04-24 13:34] LABS: Hematocrit 35.7 % (35-47); Hemoglobin 11.2 gm/dl (12.0-16.0); Mean Cell Volume 92.2 fl (78-100); Mean Corpuscular Hemoglobin 28.9 pg (26-32); Mean Corpuscular Hgb Concent. 31.4 g/dl (32-36); Mean Platelet Volume 9.1 fl (7.5-11.0); Platelet Count 444 K/mm3 (150-450); Red Blood Count 3.87 M/mm3 (4.1-5.4); White Blood Count 12.6 K/mm3 (4.0-10.5)
[2019-04-24 13:37] LABS: ANION GAP 13.6 MEQ/L (5-15); BILIRUBIN,TOTAL 0.9 mg/dL (0.2-1.3); Calcium 9.7 mg/dL (8.4-10.2); Creatinine 1 1.14 mg/dL (0.52-1.04); Potassium 3.6 mmol/L (3.5-5.1); Total Protein 6.7 g/dL (6.3-8.2)
--- NOTE | 2019-04-24 14:23 | XRAY ---
Indication: Left lower quadrant pain. Multiple contiguous axial images obtained through the abdomen and pelvis without contrast as ordered. Comparison: December 29, 2018. Lung bases demonstrates stable tiny left lower lobe calcified granuloma. No infiltrate or effusion. Heart is not enlarged. Stable small hiatal hernia. Noncontrasted stomach and bowel loops appear nonobstructed. Stable 1.4 cm distal ileum lipoma. Again normal appendix. There remains minimal descending/sigmoid diverticulosis without diverticulitis. Again previous cholecystectomy. No free fluid/air. Remaining liver, pancreas, spleen, adrenal glands, kidneys, ureters, bladder, and uterus appear unremarkable for noncontrast exam. Again moderate scattered aortoiliac calcifications without AAA. Osseous structures again demonstrates mild degenerative spondylosis throughout the thoracolumbar spine. Stable minimal grade 1 L4 spondylolisthesis. No ventral or inguinal hernias. Impression: 1. Stable small hiatal hernia, small ileum lipoma, minimal diverticulosis, mild degenerative spondylosis, and minimal grade 1 L4 spondylolisthesis. 2. Remaining CT abdomen/pelvis without contrast exam is again negative.
[2019-04-24 15:05] LABS: Appearance CLEAR (CLEAR); Bilirubin NEGATIVE (NEGATIVE); Blood NEGATIVE Ery/ul (0-5); Glucose NEGATIVE (NEGATIVE); Ketones NEGATIVE (NEGATIVE); Leukocyte Esterase TRACE (NEGATIVE); Mucus SLIGHT /HPF (NEGATIVE); Nitrite NEGATIVE (NEGATIVE); Protein,Urine Dip NEGATIVE (Negative); Specific Gravity 1.018 (1.005-1.025); Urobilinogen NEGATIVE mg/dL (0-1)
[2019-04-24 15:46] LABS: ANISOCYTOSIS 1+; BAND 2 % (0.0-2.0); Lymphocytes 9 % (24-44); Monocyte 3 % (0.0-12.0); Neutrophils 86 % (36.0-66.0); Platelet Estimate NORMAL (NORMAL); Poikilocytosis 1+; Total Cells Counted 100
--- NOTE | 2019-04-24 16:18 | XRAY ---
Indication: Leukocytosis. Comparison: January 09, 2019. Portable chest again demonstrates normal heart and lungs with electronic device overlying the heart. Bony thorax intact. No new/acute findings.
[2019-04-24] MEDS: Spiriva 18 Mcg/Cap Inhaler IH SCH (17:12)
[2019-04-24] MEDS: DUONEB 0.5-3 MG/3 ml Neb IH SCH ×2 (17:12→23:08)
[2019-04-24] MEDS: Advair Hfa 230/21 Mcg COMMON CANISTER IH SCH (17:12)
[2019-04-24] MEDS ORDERED: METOCLOPRAMIDE HCL 5 MG PO SCH (17:30)
[2019-04-24] MEDS: Sodium Chloride 0.9% 1000 ML 1,000 ML IV SCH (17:38)
[2019-04-24] MEDS: TYLENOL 325 MG PO PRN (20:27)
[2019-04-24] MEDS ORDERED: Ventolin Hfa MDI IH SCH (22:00)
[2019-04-24] MEDS ORDERED: NON-FORMULARY ITEM (Atorvastatin Calcium [Lipitor] 40 MG) PO SCH (22:00)
[2019-04-24] MEDS ORDERED: NON-FORMULARY ITEM (Budesonide/Formoterol Fumarate [Symbicort 160-4.5 Mcg Inhaler] 2 PUFF) IH SCH (22:00)
[2019-04-24] MEDS ORDERED: DUONEB 0.5-3 MG/3 ml Neb IH SCH (22:00)
[2019-04-24] MEDS: Reglan 10 MG PO SCH (22:42)
[2019-04-24] MEDS: ZOCOR 20MG PO SCH (22:43)
[2019-04-24] MEDS: NON-FORMULARY ITEM (Hydroxychloroquine Sulfate [Plaquenil] 200 MG) PO SCH (22:44)
[2019-04-24] MEDS: Toprol Xl 50 MG PO SCH (22:46)
[2019-04-25] MEDS: TYLENOL 325 MG PO PRN ×3 (01:27→17:37)
[2019-04-25] MEDS ORDERED: Miralax Powder 17GM PACKET PO PRN (04:12)
[2019-04-25 04:53] LABS: Hemoglobin 8.3 gm/dl (12.0-16.0); Mean Cell Volume 95.1 fl (78-100); Mean Corpuscular Hemoglobin 29.2 pg (26-32); Mean Corpuscular Hgb Concent. 30.7 g/dl (32-36); Mean Platelet Volume 8.8 fl (7.5-11.0); Platelet Count 271 K/mm3 (150-450); Red Blood Count 2.84 M/mm3 (4.1-5.4); Red Cell Distribution Width 18.9 % (11.5-14.0); White Blood Count 9.1 K/mm3 (4.0-10.5)
[2019-04-25 05:10] LABS: Calcium 8.5 mg/dL (8.4-10.2); Creatinine 1 1.18 mg/dL (0.52-1.04); Potassium 3.3 mmol/L (3.5-5.1)
[2019-04-25] MEDS: Reglan 10 MG PO SCH ×3 (05:58→20:27)
[2019-04-25] MEDS: DUONEB 0.5-3 MG/3 ml Neb IH SCH ×3 (06:22→14:54)
[2019-04-25] MEDS: Advair Hfa 230/21 Mcg COMMON CANISTER IH SCH (06:22)
[2019-04-25 07:17] LABS: ANISOCYTOSIS 1+; BAND 1 % (0.0-2.0); Eosinophil 1 % (0.00-3.0); Lymphocytes 40 % (24-44); Monocyte 4 % (0.0-12.0); Neutrophils 54 % (36.0-66.0); Platelet Estimate NORMAL (NORMAL); Poikilocytosis 1+; Total Cells Counted 100; Toxic Granulation 1+
[2019-04-25 07:18] LABS: Microcytosis 1+; Polychromasia RARE
[2019-04-25] MEDS: NON-FORMULARY ITEM (Hydroxychloroquine Sulfate [Plaquenil] 200 MG) PO SCH ×2 (09:32→20:29)
[2019-04-25] MEDS: Flonase NASAL NS SCH (09:32)
[2019-04-25] MEDS ORDERED: Sodium Chloride 0.9% 1000 ML 1,000 ML IV STA (09:45)
[2019-04-25] MEDS: hydroDIURIL 25 MG PO SCH (09:47)
[2019-04-25] MEDS: Toprol Xl 50 MG PO SCH ×2 (09:47→20:29)
[2019-04-25] MEDS ORDERED: TREXALL 2.5 MG PO SCH (10:00)
[2019-04-25] MEDS ORDERED: Spiriva 18 Mcg/Cap Inhaler IH SCH (10:00)
[2019-04-25] MEDS ORDERED: PLAVIX 75 MG Tablet PO SCH (10:00)
[2019-04-25] MEDS ORDERED: ECOTRIN 81 MG PO SCH (10:00)
--- NOTE | 2019-04-25 10:22 | PCM.HP ---
History of Present Illness - Chief Complaint Chief Complaint: weakness, leukocytosis History of Present Illness: is a 64-year-old female who has had a 2-day history of some generalized diffuse abdominal pain with nausea and decreased appetite. She also has associated weakness. Patient denies vomiting and denies diarrhea. Patient does have a history of peptic ulcer disease and has not been vomiting blood or passing bloody or dark stools rectally. Patient denies chest pain. Denies shortness of breath. Patient has a history of atrial fibrillation and COPD. pt takes metoprolol, lisinopril, hctz. she took her meds today Timing/Duration: day(s) (2) Activities at Onset: none Quality: sharpness Abdominal Pain Onset Location: generalized abdomen Pain Radiation: no radiation Severity of Pain-Max: mild Severity of Pain-Current: mild Modifying Factors: Improves With: other (Nausea with decreased appetite) Associated Symptoms: loss of appetite, nausea, No chest pain, No diarrhea, No vomiting Previous symptoms: same symptoms as today - Review of Systems Constitutional: No Fever, No Chills Eyes: No Symptoms Ears, Nose, & Throat: No Symptoms Respiratory: No Cough, No Short Of Breath Cardiac: No Chest Pain, No Edema, No Syncope Abdominal/Gastrointestinal: No Abdominal Pain, No Nausea, No Vomiting, No Diarrhea Genitourinary Symptoms: No Dysuria Musculoskeletal: No Back Pain, No Neck Pain Skin: No Rash Neurological: No Dizziness, No Focal Weakness, No Sensory Changes Psychological: No Symptoms Endocrine: No Symptoms Hematologic/Lymphatic: No Symptoms Immunological/Allergic: No Symptoms Medications & Allergies Home Medications: Home Medication List Atorvastatin Calcium [Lipitor] 40 mg PO HS 11/22/14 [History Confirmed 04/24/19] Hydrochlorothiazide 25 mg [hydroDIURIL 25 MG] 12.5 mg PO DAILY 11/22/14 [ History Confirmed 04/24/19] Albuterol 8 gm Mdi Hfa [Ventolin Hfa MDI] 2 puff IH QID 09/14/16 [History Confirmed 04/24/19] Budesonide/Formoterol Fumarate [Symbicort 160-4.5 Mcg Inhaler] 2 puff IH BID 12/22 [History Confirmed 04/24/19] Fluticasone Propionate [Flonase NASAL] 1 spray INTRANASAL DAILY 07/30/18 [ History Confirmed 04/24/19] Polyethylene Glycol 3350 [Miralax] 17 gm PO DAILY PRN 08/02/18 [History Confirmed 04/24/19] Albuterol Sulfate [Proair Hfa] 2 puff IH QID 12/12/18 [History Confirmed ] Hydroxychloroquine Sulfate [Plaquenil] 200 mg PO BID 12/12/18 [History Confirmed 04/24/19] Metoclopramide HCl 5 mg PO Q8H 12/29/18 [History Confirmed 04/24/19] Albuterol/Ipratropium 3ml Neb* [DUONEB 0.5-3 MG/3 ml Neb] 3 ml IH QID [History Confirmed 04/24/19] Aspirin EC 81 mg [Ecotrin 81 mg] 81 mg PO DAILY 04/24/19 [History Confirmed 04/24/19] Clopidogrel Bisulfate 75 mg [PLAVIX 75 MG Tablet] 75 mg PO DAILY 04/24/19 [History Confirmed 04/24/19] Methotrexate Sodium [Methotrexate] 10 mg PO WEEKLY 04/24/19 [History Confirmed 04/24/19] Metoprolol Succinate 50 mg [Toprol Xl 50 MG] 50 mg PO BID 04/24/19 [ History Confirmed 04/24/19] Tiotropium [place] [Spiriva] 18 mcg IH DAILY 04/24/19 [History Confirmed ] Allergies/Adverse Reactions: Allergies Allergy/AdvReac Type Severity Reaction Status Date / Time gabapentin AdvReac Intermediate Verified 04/24/19 16:42 - Past Medical History Past Medical History: Yes Neurological History: Stroke ENT History: No Pertinent History Cardiac History: Arrhythmia, High Cholesterol, Hypertension, Other Respiratory History: COPD Endocrine Medical History: No Pertinent History Musculoskelatal History: Osteoarthritis GI Medical History: GERD, GI Bleed, Ulcer History: No Pertinent History Pyscho-Social History: No Pertinent History Reproductive Disorders: No Pertinent History Comment: 01/2014 CVA, anemia,. stroke x2 - Female History Are you now?: No - Past Surgical History Past Surgical History: Yes Neuro Surgical History: No Pertinent History Cardiac History: No Pertinent History Respiratory Surgery: No Pertinent History GI Surgical History: Cholecystectomy Genitourinary Surgical Hx: No Pertinent History Musculskeletal Surgical Hx: Orthopedic Surgery Female Surgical History: No Pertinent History Other Surgical History: egd/colonoscopy/bilat carpal tunnel - Social History Smoking Status: Current every day smoker How long have you smoked: "40 years" Exposure to second hand smoke: Yes Alcohol: None Drug Use: none - Physical Exam Vital Signs: Vital Signs - 24 hr Temp Pulse Resp BP Pulse Ox 04/25/19 09:46 71 78/50 04/25/19 08:00 98.0 F 67 20 82/54 98 04/25/19 06:28 67 20 98 04/25/19 04:00 97.3 F 89 16 84/50 98 04/25/19 00:00 97.6 F 66 18 81/50 98 04/24/19 23:09 64 18 96 04/24/19 19:52 98 F 66 16 82/49 98 04/24/19 17:22 64 20 97 04/24/19 16:55 98.4 F 67 20 111/61 99 04/24/19 16:37 98.4 F 67 20 111/61 99 04/24/19 15:46 61 18 90/63 99 04/24/19 15:35 67 18 85/58 99 04/24/19 14:09 62 18 87/64 100 04/24/19 13:40 64 20 81/60 100 04/24/19 12:31 98.2 F 73 20 102/68 100 General Appearance: no apparent distress, alert Neurologic Exam: alert, oriented x 3, cooperative, normal mood/affect, nml cerebellar function, nml station & gait, sensation nml, No motor deficits Eye Exam: PERRL/EOMI, eyes nml inspection Ears, Nose, Throat Exam: normal ENT inspection, TMs normal, pharynx normal, moist mucous membranes Neck Exam: normal inspection, non-tender, supple, full range of motion Respiratory Exam: normal breath sounds, lungs clear, No respiratory distress Cardiovascular Exam: regular rate/rhythm, normal heart sounds, normal peripheral pulses Gastrointestinal/Abdomen Exam: soft, normal bowel sounds, No tenderness, No mass Back Exam: normal inspection, normal range of motion, No CVA tenderness, No vertebral tenderness Extremity Exam: normal inspection, normal range of motion, pelvis stable Skin Exam: normal color, warm, dry, No rash Lymphatic Exam: No adenopathy Results - Labs Lab/Micro Results: Lab Results-Last 24 Hours 04/24/19 04/24/19 04/24/19 Range/Units 13:06 13:06 13:06 WBC 12.6 H (4.0-10.5) K/mm3 RBC 3.87 L (4.1-5.4) M/mm3 Hgb 11.2 L (12.0-16.0) gm/dl Hct 35.7 (35-47) % MCV 92.2 (78-100) fl MCH 28.9 (26-32) pg MCHC 31.4 L (32-36) g/dl RDW 19.0 H (11.5-14.0) % Plt Count 444 (150-450) K/mm3 MPV 9.1 (7.5-11.0) fl Segmented Neutrophils 86 H (36.0-66.0) % Band Neutrophils 2 (0.0-2.0) % Lymphocytes (Manual) 9 L (24-44) % Monocytes (Manual) 3 (0.0-12.0) % Eosinophils (Manual) (0.00-3.0) % Toxic Granulation Platelet Estimate NORMAL (NORMAL) RBC Morphology ABNORMAL Polychromasia Poikilocytosis 1+ Anisocytosis 1+ Microcytosis Sodium 136 L (137-145) mmol/L Potassium 3.6 (3.5-5.1) mmol/L Chloride 100 (98-107) mmol/L Carbon Dioxide 26 (22-30) mmol/L Anion Gap 13.6 (5-15) MEQ/L BUN 37 H (7-17) mg/dL Creatinine 1.14 H (0.52-1.04) mg/dL Estimated GFR 51.2 ML/MIN Glucose 105 (74-106) mg/dL Lactic Acid (0.4-2.0) Calcium 9.7 (8.4-10.2) mg/dL Total Bilirubin 0.90 (0.2-1.3) mg/dL AST 36 (14-36) U/L ALT 17 (0-35) U/L Alkaline Phosphatase 73 (38-126) U/L Troponin I 0.020 (0.000-0.034) ng/mL Serum Total Protein 6.7 (6.3-8.2) g/dL Albumin 4.0 (3.5-5.0) g/dL Amylase 113 H (30-110) U/L Lipase 216 (23-300) U/L Urine Color (YELLOW) Urine Appearance (CLEAR) Urine pH (5-6) Ur Specific [place] (1.005-1.025) Urine Protein (Negative) Urine Ketones (NEGATIVE) Urine Blood (0-5) Jhonny/ul Urine Nitrite (NEGATIVE) Urine Bilirubin (NEGATIVE) Urine Urobilinogen (0-1) mg/dL Ur Leukocyte Esterase (NEGATIVE) Urine WBC (Auto) (0-5) /HPF Urine RBC (Auto) (0-2) /HPF U Epithel Cells (Auto) (FEW) /HPF Urine Bacteria (Auto) (NEGATIVE) /HPF Urine Mucus (Auto) (NEGATIVE) /HPF Urine Culture Reflexed (NO) Urine Glucose (NEGATIVE) mg/dL 04/24/19 04/24/19 04/24/19 Range/Units 13:12 14:43 15:15 WBC (4.0-10.5) K/mm3 RBC (4.1-5.4) M/mm3 Hgb (12.0-16.0) gm/dl Hct (35-47) % MCV (78-100) fl MCH (26-32) pg MCHC (32-36) g/dl RDW (11.5-14.0) % Plt Count (150-450) K/mm3 MPV (7.5-11.0) fl Segmented Neutrophils (36.0-66.0) % Band Neutrophils (0.0-2.0) % Lymphocytes (Manual) (24-44) % Monocytes (Manual) (0.0-12.0) % Eosinophils (Manual) (0.00-3.0) % Toxic Granulation Platelet Estimate (NORMAL) RBC Morphology Polychromasia Poikilocytosis Anisocytosis Microcytosis Sodium (137-145) mmol/L Potassium (3.5-5.1) mmol/L Chloride (98-107) mmol/L Carbon Dioxide (22-30) mmol/L Anion Gap (5-15) MEQ/L BUN (7-17) mg/dL Creatinine (0.52-1.04) mg/dL Estimated GFR ML/MIN Glucose (74-106) mg/dL Lactic Acid 3.6 H 1.3 (0.4-2.0) Calcium (8.4-10.2) mg/dL Total Bilirubin (0.2-1.3) mg/dL AST (14-36) U/L ALT (0-35) U/L Alkaline Phosphatase (38-126) U/L Troponin I (0.000-0.034) ng/mL Serum Total Protein (6.3-8.2) g/dL Albumin (3.5-5.0) g/dL Amylase (30-110) U/L Lipase (23-300) U/L Urine Color YELLOW (YELLOW) Urine Appearance CLEAR (CLEAR) Urine pH 6.0 (5-6) Ur Specific [place] 1.018 (1.005-1.025) Urine Protein NEGATIVE (Negative) Urine Ketones NEGATIVE (NEGATIVE) Urine Blood NEGATIVE (0-5) Jhonny/ul Urine Nitrite NEGATIVE (NEGATIVE) Urine Bilirubin NEGATIVE (NEGATIVE) Urine Urobilinogen NEGATIVE (0-1) mg/dL Ur Leukocyte Esterase TRACE (NEGATIVE) Urine WBC (Auto) NONE (0-5) /HPF Urine RBC (Auto) NONE (0-2) /HPF U Epithel Cells (Auto) NONE (FEW) /HPF Urine Bacteria (Auto) NONE (NEGATIVE) /HPF Urine Mucus (Auto) SLIGHT (NEGATIVE) /HPF Urine Culture Reflexed NO (NO) Urine Glucose NEGATIVE (NEGATIVE) mg/dL 04/24/19 04/24/19 04/25/19 Range/Units 18:45 21:35 04:20 WBC 9.1 (4.0-10.5) K/mm3 RBC 2.84 L (4.1-5.4) M/mm3 Hgb 8.3 L D (12.0-16.0) gm/dl Hct 27.0 L (35-47) % MCV 95.1 (78-100) fl MCH 29.2 (26-32) pg MCHC 30.7 L (32-36) g/dl RDW 18.9 H (11.5-14.0) % Plt Count 271 D (150-450) K/mm3 MPV 8.8 (7.5-11.0) fl Segmented Neutrophils 54 (36.0-66.0) % Band Neutrophils 1 (0.0-2.0) % Lymphocytes (Manual) 40 (24-44) % Monocytes (Manual) 4 (0.0-12.0) % Eosinophils (Manual) 1 (0.00-3.0) % Toxic Granulation 1+ Platelet Estimate NORMAL (NORMAL) RBC Morphology ABNORMAL Polychromasia RARE Poikilocytosis 1+ Anisocytosis 1+ Microcytosis 1+ Sodium (137-145) mmol/L Potassium (3.5-5.1) mmol/L Chloride (98-107) mmol/L Carbon Dioxide (22-30) mmol/L Anion Gap (5-15) MEQ/L BUN (7-17) mg/dL Creatinine (0.52-1.04) mg/dL Estimated GFR ML/MIN Glucose (74-106) mg/dL Lactic Acid (0.4-2.0) Calcium (8.4-10.2) mg/dL Total Bilirubin (0.2-1.3) mg/dL AST (14-36) U/L ALT (0-35) U/L Alkaline Phosphatase (38-126) U/L Troponin I 0.023 0.022 (0.000-0.034) ng/mL Serum Total Protein (6.3-8.2) g/dL Albumin (3.5-5.0) g/dL Amylase (30-110) U/L Lipase (23-300) U/L Urine Color (YELLOW) Urine Appearance (CLEAR) Urine pH (5-6) Ur Specific [place] (1.005-1.025) Urine Protein (Negative) Urine Ketones (NEGATIVE) Urine Blood (0-5) Jhonny/ul Urine Nitrite (NEGATIVE) Urine Bilirubin (NEGATIVE) Urine Urobilinogen (0-1) mg/dL Ur Leukocyte Esterase (NEGATIVE) Urine WBC (Auto) (0-5) /HPF Urine RBC (Auto) (0-2) /HPF U Epithel Cells (Auto) (FEW) /HPF Urine Bacteria (Auto) (NEGATIVE) /HPF Urine Mucus (Auto) (NEGATIVE) /HPF Urine Culture Reflexed (NO) Urine Glucose (NEGATIVE) mg/dL 20 Range/Units 04:20 WBC (4.0-10.5) K/mm3 RBC (4.1-5.4) M/mm3 Hgb (12.0-16.0) gm/dl Hct (35-47) % MCV (78-100) fl MCH (26-32) pg MCHC (32-36) g/dl RDW (11.5-14.0) % Plt Count (150-450) K/mm3 MPV (7.5-11.0) fl Segmented Neutrophils (36.0-66.0) % Band Neutrophils (0.0-2.0) % Lymphocytes (Manual) (24-44) % Monocytes (Manual) (0.0-12.0) % Eosinophils (Manual) (0.00-3.0) % Toxic Granulation Platelet Estimate (NORMAL) RBC Morphology Polychromasia Poikilocytosis Anisocytosis Microcytosis Sodium 138 (137-145) mmol/L Potassium 3.3 L (3.5-5.1) mmol/L Chloride 108 H (98-107) mmol/L Carbon Dioxide 27 (22-30) mmol/L Anion Gap 7.0 (5-15) MEQ/L BUN 35 H (7-17) mg/dL Creatinine 1.18 H (0.52-1.04) mg/dL Estimated GFR 49.2 ML/MIN Glucose 91 (74-106) mg/dL Lactic Acid (0.4-2.0) Calcium 8.5 (8.4-10.2) mg/dL Total Bilirubin (0.2-1.3) mg/dL AST (14-36) U/L ALT (0-35) U/L Alkaline Phosphatase (38-126) U/L Troponin I (0.000-0.034) ng/mL Serum Total Protein (6.3-8.2) g/dL Albumin (3.5-5.0) g/dL Amylase (30-110) U/L Lipase (23-300) U/L Urine Color (YELLOW) Urine Appearance (CLEAR) Urine pH (5-6) Ur Specific [place] (1.005-1.025) Urine Protein (Negative) Urine Ketones (NEGATIVE) Urine Blood (0-5) Jhonny/ul Urine Nitrite (NEGATIVE) Urine Bilirubin (NEGATIVE) Urine Urobilinogen (0-1) mg/dL Ur Leukocyte Esterase (NEGATIVE) Urine WBC (Auto) (0-5) /HPF Urine RBC (Auto) (0-2) /HPF U Epithel Cells (Auto) (FEW) /HPF Urine Bacteria (Auto) (NEGATIVE) /HPF Urine Mucus (Auto) (NEGATIVE) /HPF Urine Culture Reflexed (NO) Urine Glucose (NEGATIVE) mg/dL - Radiology Impressions Radiology Exams & Impressions: Radiology Procedures Category Date Time Status ABDOMEN AND PELVIS W/0 CONTRAS [CT] Stat Exams 04/24/19 13:07 Completed CHEST 1 VIEW (PORTABLE) Stat Exams 04/24/19 15:28 Completed - Other Procedures and Tests Respiratory Therapy 04/24/19 17:22 Peak Expiratory Flow Rate ONCE Respiratory Therapy Assessment DAILY Assessment/Plan (1) Leukocytosis Current Visit: Yes Status: Acute Qualifiers: Leukocytosis type: unspecified Qualified Code(s): D72.829 - Elevated white blood cell count, unspecified Code(s): D72.829 - ELEVATED WHITE BLOOD CELL COUNT, UNSPECIFIED (2) Weakness Current Visit: Yes Status: Acute Code(s): R53.1 - WEAKNESS (3) Anemia Current Visit: Yes Status: Chronic Qualifiers: Anemia type: iron deficiency Iron deficiency anemia type: chronic blood loss Qualified Code(s): D50.0 - Iron deficiency anemia secondary to blood loss (chronic) Code(s): D64.9 - ANEMIA, UNSPECIFIED
[2019-04-25] MEDS: CEPACOL SORE THROAT LOZENGE PO PRN ×2 (14:58→17:35)
[2019-04-25] MEDS: Sodium Chloride 0.9% 1000 ML 1,000 ML IV SCH (14:59)
[2019-04-25] MEDS: Zofran 4 MG/2 ML VIAL IV PRN (18:32)
[2019-04-25] MEDS: ZOCOR 20MG PO SCH (20:29)
[2019-04-26] MEDS ORDERED: DUONEB 0.5-3 MG/3 ml Neb IH PRN (00:40)
[2019-04-26] MEDS: Spiriva 18 Mcg/Cap Inhaler IH SCH (00:46)
[2019-04-26] MEDS: Advair Hfa 230/21 Mcg COMMON CANISTER IH SCH ×3 (00:47→07:08)
[2019-04-26] MEDS: DUONEB 0.5-3 MG/3 ml Neb IH SCH ×2 (00:47→07:00)
[2019-04-26] MEDS: Zofran 4 MG/2 ML VIAL IV PRN (00:49)
[2019-04-26] MEDS ORDERED: Lasix 40 MG/4 ML IV ONE (02:07)
[2019-04-26 02:29] LABS: Hematocrit 30.2 % (35-47); Hemoglobin 8.9 gm/dl (12.0-16.0); Mean Cell Volume 94.4 fl (78-100); Mean Corpuscular Hemoglobin 27.8 pg (26-32); Mean Corpuscular Hgb Concent. 29.5 g/dl (32-36); Mean Platelet Volume 8.9 fl (7.5-11.0); Platelet Count 232 K/mm3 (150-450); Red Cell Distribution Width 19.1 % (11.5-14.0)
[2019-04-26 04:06] LABS: ABO TYPING O; Antibody Screen NEGATIVE (NEGATIVE); RH TYPING POSITIVE
[2019-04-26 04:07] LABS: CROSS MATCH (PRBC) COMPATIBLE (COMPATIBLE)
[2019-04-26 04:37] LABS: ANISOCYTOSIS 1+; BAND 2 % (0.0-2.0); Lymphocytes 6 % (24-44); Monocyte 7 % (0.0-12.0); Neutrophils 85 % (36.0-66.0); Platelet Estimate NORMAL (NORMAL); Poikilocytosis 1+; Total Cells Counted 100; Toxic Granulation RARE
[2019-04-26] MEDS ORDERED: Ativan 2 MG/1 ML VIAL IV ONE (04:43)
[2019-04-26] MEDS: TYLENOL 325 MG PO PRN (04:47)
[2019-04-26 05:00] LABS: Hemoglobin 9.1 gm/dl (12.0-16.0); Mean Cell Volume 94.8 fl (78-100); Mean Corpuscular Hemoglobin 27.8 pg (26-32); Mean Corpuscular Hgb Concent. 29.4 g/dl (32-36); Mean Platelet Volume 9.2 fl (7.5-11.0); Platelet Count 270 K/mm3 (150-450); Red Blood Count 3.27 M/mm3 (4.1-5.4); Red Cell Distribution Width 19.2 % (11.5-14.0); White Blood Count 10.1 K/mm3 (4.0-10.5)
[2019-04-26 05:22] LABS: ALBUMIN 2.9 g/dL (3.5-5.0); ANION GAP 9.3 MEQ/L (5-15); BILIRUBIN,TOTAL 0.5 mg/dL (0.2-1.3); Calcium 8.9 mg/dL (8.4-10.2); Creatinine 1 1.17 mg/dL (0.52-1.04); Total Protein 5.2 g/dL (6.3-8.2)
[2019-04-26 05:23] LABS: Potassium 2.7 mmol/L (3.5-5.1)
[2019-04-26] MEDS: Reglan 10 MG PO SCH (05:45)
[2019-04-26] MEDS ORDERED: Toprol-Xl 25MG Tablets PO ONE (05:53)
[2019-04-26] MEDS ORDERED: Lopressor 25MG Tab PO ONE (06:00)
[2019-04-26] MEDS ORDERED: Lopressor 25MG Tab ONE (06:01)
[2019-04-26] MEDS: POTASSIUM CHLORIDE 20 mEq IN WATER 100ML 20 MEQ/100 ML BAG IV SCH ×2 (07:46→10:20)
[2019-04-26] MEDS ORDERED: Dopamine 400 MG/D5W 250ML PREMIX 250 ML IV PRN (07:57)
[2019-04-26] MEDS: Sodium Chloride 0.9% 1000 ML 1,000 ML IV SCH (08:38)
[2019-04-26] MEDS ORDERED: LEVOPHED 4 MG/4 ML 4,000 MCG in Dextrose 5%/Water IV Soln. 500 ML 500 ML IV PRN (09:01)
[2019-04-26] MEDS: hydroDIURIL 25 MG PO SCH (10:17)
[2019-04-26] MEDS: Flonase NASAL NS SCH (10:17)
[2019-04-26] MEDS: NON-FORMULARY ITEM (Hydroxychloroquine Sulfate [Plaquenil] 200 MG) PO SCH (10:18)
[2019-04-26] MEDS ORDERED: Xopenex 1.25 MG/0.5 ML UD NEBULE IH ONE (10:38)
[2019-04-26] MEDS ORDERED: Sodium Chloride 3 ML UD NEBULES IH ONE (10:38)
[2019-04-26] MEDS ORDERED: Xopenex 1.25 MG/0.5 ML UD NEBULE IH SCH (11:00)
[2019-04-26] MEDS ORDERED: Sodium Chloride 3 ML UD NEBULES IH SCH (11:00)
[2019-04-26 11:01] VITALS: O2SAT 100
[2019-04-26 11:09] VITALS: PULSE 91
[2019-04-26 11:43] VITALS: BP 74/57
--- NOTE | 2019-04-26 12:24 | PCM.DS ---
Discharge Summary Date of Admission: 04/24/19 16:29 Admitting Physician: LISA BALDERRAMA Primary Care Provider: LISA BALDERRAMA Allergies Allergies gabapentin Adverse Reaction (Intermediate, Verified 04/24/19 16:42) states "paralyses" her cannot move for 20 min after taking Hospital Summary - Hospital Course Hospital Course: Chief Complaint Diagnosis weakness, leukocytosis Allergies Allergy/AdvReac Type Severity Reaction Status Date / Time gabapentin AdvReac Intermediate Verified 04/24/19 16:42 Vital Signs (Last 24 hours) Temp Pulse Resp BP BP BP Pulse Ox 04/26/19 11:30 91 H 74/57 04/26/19 11:00 91 H 91/65 04/26/19 10:54 90 24 100 04/26/19 10:30 88 84/64 04/26/19 10:15 88 83/56 04/26/19 10:06 91 H 85/64 04/26/19 09:42 100 H 80/55 04/26/19 09:39 110 H 77/56 04/26/19 09:16 136 H 91/65 04/26/19 09:00 120 H 78/51 04/26/19 08:45 106 H 20 70/52 04/26/19 08:30 101 H 74/52 04/26/19 08:15 101 H 77/52 04/26/19 08:05 104 H 22 68/53 04/26/19 08:00 98.1 F 108 H 19 70/54 99 04/26/19 07:03 110 H 22 98 04/26/19 04:00 99.0 F 74 24 98/70 96 04/26/19 00:47 130 H 30 H 94 L 04/25/19 23:43 99.5 F 128 H 36 H 104/64 95 04/25/19 20:06 98.1 F 104 H 18 146/79 95 04/25/19 16:00 98.1 F 79 14 87/56 98 04/25/19 14:55 82 20 98 Home Medications Medication Instructions Recorded Confirmed Last Taken Type Albuterol/Ipratropium 3ml Neb* 3 ml IH QID 04/24/19 04/24/19 04/24/19 History [DUONEB 0.5-3 MG/3 ml Neb] Aspirin EC 81 mg [Ecotrin 81 81 mg PO DAILY 04/24/19 04/24/19 04/24/19 History mg] Clopidogrel Bisulfate 75 mg 75 mg PO DAILY 04/24/19 04/24/19 04/24/19 History [PLAVIX 75 MG Tablet] Methotrexate Sodium [Methotrexate] 10 mg PO WEEKLY 04/24/19 04/24/19 04/18/19 History Metoprolol Succinate 50 mg 50 mg PO BID 04/24/19 04/24/19 Unknown History [Toprol Xl 50 MG] Tiotropium [place] [Spiriva] 18 mcg IH DAILY 04/24/19 04/24/19 04/24/19 History Current Medications Discontinued Medications Generic Name Dose Route Start Last Admin Trade Name Freq PRN Reason Stop Dose Admin Acetaminophen 650 mg 04/24/19 16:37 04/26/19 04:47 Tylenol 325 Mg PO 05/24/19 16:36 650 mg Q4H PRN PRN Administration PAIN, FEVER, HEADACHE Albuterol Sulfate gm 04/24/19 22:00 Ventolin Hfa Mdi IH 05/24/19 21:59 QID DEWAYNE Albuterol/Ipratropium 3 ml 04/24/19 19:00 04/26/19 07:00 Duoneb 0.5-3 Mg/3 Ml Neb IH 05/24/19 18:59 3 ml QIDRT DEWAYNE Administration Albuterol/Ipratropium 3 ml 04/24/19 22:00 Duoneb 0.5-3 Mg/3 Ml Neb IH 05/24/19 21:59 QID DEWAYNE Albuterol/Ipratropium 3 ml 04/26/19 00:40 04/26/19 00:43 Duoneb 0.5-3 Mg/3 Ml Neb IH 05/26/19 00:39 3 ml Q4HPRN PRN Administration SHORTNESS OF BREATH/WHEEZING Aspirin 81 mg 04/25/19 10:00 04/25/19 09:32 Ecotrin 81 Mg PO 05/25/19 09:59 81 mg DAILY DEWAYNE Administration Clopidogrel Bisulfate 75 mg 04/25/19 10:00 04/25/19 09:32 Plavix 75 Mg Tablet PO 05/25/19 09:59 75 mg DAILY DEWAYNE Administration Fluticasone Propionate 0 gm 04/25/19 10:00 04/26/19 10:17 Flonase Nasal NS 05/25/19 09:59 Not Given DAILY DEWAYNE Furosemide 40 mg 04/26/19 02:07 04/26/19 02:28 Lasix 40 Mg/4 Ml IV 04/26/19 02:08 40 mg STAT ONE Administration Hydrochlorothiazide 12.5 mg 04/25/19 10:00 04/26/19 10:17 Hydrodiuril 25 Mg PO 05/25/19 09:59 Not Given DAILY DEWAYNE Sodium Chloride 1,000 mls @ 999 mls/hr 04/24/19 13:06 04/24/19 14:16 Sodium Chloride 0.9% 1000 Ml IV 04/24/19 14:06 Infused .Q1H1M STA Infusion Sodium Chloride Confirm 04/24/19 13:21 Sodium Chloride 0.9% 1000 Ml Administered 04/24/19 13:22 Dose 1,000 mls @ ud .ROUTE .STK-MED ONE Sodium Chloride 1,000 mls @ 999 mls/hr 04/24/19 15:06 04/24/19 15:26 Sodium Chloride 0.9% 1000 Ml IV 04/24/19 16:06 999 mls/hr .Q1H1M STA Administration Sodium Chloride Confirm 04/24/19 15:25 Sodium Chloride 0.9% 1000 Ml Administered 04/24/19 15:26 Dose 1,000 mls @ ud .ROUTE .STK-MED ONE Sodium Chloride 1,000 mls @ 50 mls/hr 04/24/19 16:37 04/26/19 08:38 Sodium Chloride 0.9% 1000 Ml IV 05/24/19 16:36 50 mls/hr .Q20H DEWAYNE Administration Sodium Chloride 1,000 mls @ 999 mls/hr 04/25/19 09:45 04/25/19 10:00 Sodium Chloride 0.9% 1000 Ml IV 04/25/19 10:45 999 mls/hr .Q1H1M STA Administration Potassium Chloride 20 meq in 100 mls @ 50 mls/hr 04/26/19 06:15 04/26/19 10: 20 Potassium Chloride 20 Meq In Water 100ml IV 04/26/19 10:14 50 mls/hr Q2H DEWAYNE Administration Dopamine HCl/Dextrose 250 mls @ 16.414 mls/hr 04/26/19 07:57 04/26/19 08:45 Dopamine 400 Mg/D5w 250ml Premix IV 05/26/19 07:56 8 mcg/kg/min .[id number] PRN 26.263 mls/hr SEVERE HYPOTENSION Titration Protocol 5 MCG/KG/MIN Norepinephrine 4,000 mcg/ 504 mls @ 37.8 mls/hr 04/26/19 09:01 04/26/19 09:42 Dextrose IV 05/26/19 09:00 8 mcg/min .[id number] PRN 60.48 mls/hr SEVERE HYPOTENSION Titration Protocol 5 MCG/MIN Levalbuterol HCl Confirm 04/26/19 10:38 Xopenex 1.25 Mg/0.5 Ml Ud Nebule Administered 04/26/19 10:39 Dose 1.25 mg IH .STK-MED ONE Levalbuterol HCl 1.25 mg 04/26/19 11:00 04/26/19 10:54 Xopenex 1.25 Mg/0.5 Ml Ud Nebule IH 05/26/19 10:59 1.25 mg QIDRT DEWAYNE Administration Lorazepam 1 mg 04/26/19 04:43 04/26/19 04:52 Ativan 2 Mg/1 Ml Vial IV 04/26/19 04:44 1 mg STAT ONE Administration Methotrexate 10 mg 04/25/19 10:00 04/25/19 09:32 Trexall 2.5 Mg PO 05/25/19 09:59 10 mg Tu@1000 DEWAYNE Administration Metoclopramide HCl 5 mg 04/24/19 22:00 04/26/19 05:45 Reglan 10 Mg PO 05/24/19 21:59 5 mg Q8HT DEWAYNE Administration Metoprolol Succinate 50 mg 04/24/19 22:00 04/25/19 20:29 Toprol Xl 50 Mg PO 05/24/19 21:59 Not Given BID DEWAYNE Metoprolol Succinate 25 mg 04/26/19 05:53 04/26/19 08:46 Toprol-Xl 25mg Tablets PO 04/26/19 05:54 Not Given STAT ONE Metoprolol Tartrate Confirm 04/26/19 06:01 Lopressor 25mg Tab Administered 04/26/19 06:02 Dose 25 mg .ROUTE .STK-MED ONE Metoprolol Tartrate 25 mg 04/26/19 06:00 04/26/19 06:06 Lopressor 25mg Tab PO 04/26/19 06:01 25 mg STAT ONE Administration Non-Formulary Medication 2 puff 04/24/19 22:00 Budesonide/Formoterol Fumarate [Symbicort 160-4.5 Mcg Inhaler] IH 05/24/19 21:59 BID DEWAYNE Non-Formulary Medication 200 mg 04/24/19 22:00 04/26/19 10:18 Hydroxychloroquine Sulfate [Plaquenil] PO 05/24/19 21:59 Not Given BID DEWAYNE Ondansetron HCl 4 mg 04/24/19 13:06 04/24/19 13:23 Zofran 4 Mg/2 Ml Vial IV 04/24/19 13:07 4 mg STAT ONE Administration Ondansetron HCl Confirm 04/24/19 13:21 Zofran 4 Mg/2 Ml Vial Administered 04/24/19 13:22 Dose 4 mg .ROUTE .STK-MED ONE Ondansetron HCl 4 mg 04/24/19 16:37 04/26/19 00:49 Zofran 4 Mg/2 Ml Vial IV 05/24/19 16:36 4 mg Q6H PRN PRN Administration NAUSEA/VOMITING Pantoprazole Sodium 40 mg 04/24/19 13:06 04/24/19 13:23 Protonix 40 Mg Iv IV 04/24/19 13:07 40 mg STAT ONE Administration Pantoprazole Sodium Confirm 04/24/19 13:21 Protonix 40 Mg Iv Administered 04/24/19 13:22 Dose 40 mg IV .STK-MED ONE Polyethylene Glycol 17 gm 04/25/19 04:12 Miralax Powder 17gm Packet PO 05/25/19 04:11 DAILY PRN PRN CONSTIPATION Fluticasone/Salmeterol 2 puff 04/24/19 19:00 04/26/19 07:08 Advair Hfa 230/21 Mcg Common Canister* IH 05/24/19 18:59 Not Given BIDRT DEWAYNE Simvastatin 40 mg 04/24/19 22:00 04/25/19 20:29 Zocor 20mg PO 05/24/19 21:59 40 mg HS DEWAYNE Administration Sodium Chloride Confirm 04/26/19 10:38 Sodium Chloride 3 Ml Ud Nebules Administered 04/26/19 10:39 Dose 3 ml IH .STK-MED ONE Sodium Chloride 3 ml 04/26/19 11:00 04/26/19 10:54 Sodium Chloride 3 Ml Ud Nebules IH 05/26/19 10:59 3 ml QIDRT DEWAYNE Administration Throat Lozenges 15 mg 04/25/19 14:47 04/25/19 17:35 Cepacol Sore Throat Lozenge PO 05/25/19 14:46 15 mg Q2HPRN PRN Administration SORE THROAT Tiotropium [place] 1 ea 04/24/19 19:00 04/26/19 00:46 Spiriva 18 Mcg/Cap Inhaler IH 05/24/19 18:59 Not Given HS DEWAYNE Tiotropium [place] ea 04/25/19 10:00 Spiriva 18 Mcg/Cap Inhaler IH 05/25/19 09:59 DAILY DEWAYNE Intake & Output (Last 24 hours) 04/24/19 04/25/19 04/26/19 04/27/19 11:59 11:59 11:59 11:59 Intake Total 1576 3159 Output Total 200 2000 Balance 1376 1159 Weight 87.543 kg 83 kg Microbiology Results (Last 24 hours) 04/26/19 08:45 Urine, Catheterized Urine Culture - Pending Laboratory Results (Last 24 hours) 04/26/19 04/26/19 04/26/19 04:20 04:20 02:24 WBC 10.1 RBC 3.27 L Hgb 9.1 L Hct 31.0 L MCV 94.8 MCH 27.8 MCHC 29.4 L RDW 19.2 H Plt Count 270 MPV 9.2 Segmented Neutrophils Band Neutrophils Lymphocytes (Manual) Monocytes (Manual) Toxic Granulation Platelet Estimate RBC Morphology Poikilocytosis Anisocytosis Sodium 140 Potassium 2.7 L* Chloride 110 H Carbon Dioxide 24 Anion Gap 9.3 BUN 30 H Creatinine 1.17 H Estimated GFR 49.7 Glucose 105 Calcium 8.9 Total Bilirubin 0.50 AST 29 ALT 14 Alkaline Phosphatase 56 Serum Total Protein 5.2 L Albumin 2.9 L ABO Group Rh Factor Antibody Screen Crossmatch COMPATIBLE 04/26/19 04/26/19 02:24 02:24 WBC 7.0 RBC 3.20 L Hgb 8.9 L Hct 30.2 L MCV 94.4 MCH 27.8 MCHC 29.5 L RDW 19.1 H Plt Count 232 MPV 8.9 Segmented Neutrophils 85 H Band Neutrophils 2 Lymphocytes (Manual) 6 L Monocytes (Manual) 7 Toxic Granulation RARE Platelet Estimate NORMAL RBC Morphology ABNORMAL Poikilocytosis 1+ Anisocytosis 1+ Sodium Potassium Chloride Carbon Dioxide Anion Gap BUN Creatinine Estimated GFR Glucose Calcium Total Bilirubin AST ALT Alkaline Phosphatase Serum Total Protein Albumin ABO Group O Rh Factor POSITIVE Antibody Screen NEGATIVE Crossmatch COMPATIBLE Orders (Last 24 hours) Category Date Time Status Discharge Routine Discharge 04/26/19 Ordered BLOOD COMPONENT REQUEST Stat Lab 04/26/19 02:24 Completed CBC AM.LAB Lab 04/26/19 04:20 Completed CBC W DIFF Stat Lab 04/26/19 02:24 Completed CMP AM.LAB Lab 04/26/19 04:20 Completed CULTURE,URINE Urgent Lab 04/26/19 08:45 Received Manual Differential NC Stat Lab 04/26/19 02:24 Completed TYPE AND SCREEN Stat Lab 04/26/19 02:24 Completed Albuterol/Ipratropium 3ml Neb* [DUONEB 0.5-3 MG/3 ml Med 04/26/19 00:40 Discontinued Neb] 3 ml IH Q4HPRN PRN Benzocaine/Menthol [Cepacol Sore Throat Lozenge] Med 04/25/19 14:47 Discontinued 15 mg PO Q2HPRN PRN D5w 500 ml [Dextrose 5%/Water IV Soln. 500 ML] 500 ml Med 04/26/19 09:01 Discontinued Norepinephrine Bitartrate 4 mg [Levophed 4 mg/4 ml] 4, 000 mcg IV 5 mcg/min Dopamine HCl/Dextrose 5%-Water [Dopamine 400 MG/D5W Med 04/26/19 07:57 Discontinued 250ML PREMIX] 250 ml IV 5 mcg/kg/min Furosemide 40 mg/4 ml [Lasix 40 MG/4 ML] Med 04/26/19 02:07 Discontinued 40 mg IV STAT ONE Levalbuterol HCl 1.25 MG/0.5M* [Xopenex 1.25 MG/0.5 ML Med 04/26/19 10:38 Discontinued UD NEBULE] 1.25 mg IH .STK-MED ONE Levalbuterol HCl 1.25 MG/0.5M* [Xopenex 1.25 MG/0.5 ML Med 04/26/19 11:00 Discontinued UD NEBULE] 1.25 mg IH QIDRT Lorazepam 2 mg/1 ml [Ativan 2 MG/1 ML VIAL] Med 04/26/19 04:43 Discontinued 1 mg IV STAT ONE Metoprolol Succinate 25 mg Xl* [Toprol-Xl 25MG Tablets* Med 04/26/19 05:53 Discontinued ] 25 mg PO STAT ONE Metoprolol Tartrate 25 mg [Lopressor 25MG Tab] Med 04/26/19 06:01 Discontinued 25 mg .ROUTE .STK-MED ONE Metoprolol Tartrate 25 mg [Lopressor 25MG Tab] Med 04/26/19 06:00 Discontinued 25 mg PO STAT ONE NaCl 3Ml For Inhalation [Sodium Chloride 3 ML UD Med 04/26/19 10:38 Discontinued NEBULES] 3 ml IH .STK-MED ONE NaCl 3Ml For Inhalation [Sodium Chloride 3 ML UD Med 04/26/19 11:00 Discontinued NEBULES] 3 ml IH QIDRT Potassium Chloride 20Meq/100Ml [POTASSIUM CHLORIDE 20 Med 04/26/19 06:15 Discontinued mEq IN WATER 100ML] 20 meq in 100 ml IV Q2H BiPap/CPAP STAT RT 04/26/19 02:10 Active Oxygen Nasal Cannula 2 lpm RT 04/26/19 00:25 Active Transfer Order Routine Transfer 04/26/19 Completed Patient Care Notes (Last 24 hours) 04/26/19 10:58 Nursing Note by Annie Fontanez CONTACTED [facility] TO GET [facility] OF AMBULANCE @ 1054. [facility] CALLED IN FOR TRANSPORT @ 1055. Initialized on 04/26/19 10:58 - END OF NOTE 04/26/19 09:18 Nursing Note by Marisol Stock spoke with pt's daughter(traci) and updated her on transfer of patient to [facility]. Initialized on 04/26/19 09:18 - END OF NOTE 04/26/19 08:45 Nursing Note by RENAY DALE PT TRANSFERRED TO ICU AT 0800. Initialized on 04/26/19 08:45 - END OF NOTE 04/26/19 08:14 Nursing Note by Sivakumar Multani Called Dr Balderrama this morning regarding pt BP of 70/54 taken manually, recieved new order to start pt on Dopamine, pt transferred to ICU, report given to Renay RN Initialized on 04/26/19 08:14 - END OF NOTE 04/26/19 06:40 Nursing Note by Lilo Michel 0230- Kiesha Balderrama ordered bipap. Pt wore for less than 1 hr, then asking to be removed. Initialized on 04/26/19 06:40 - END OF NOTE 04/26/19 06:38 Nursing Note by Lilo Michel 0530 K 2.7. HR remains in 120s-high 130s. Dr. Balderrama notified of above. Initialized on 04/26/19 06:38 - END OF NOTE 04/26/19 03:41 Nursing Note by Lilo Michel 0035- pt asking fpr neb tx for increased wheezing et sob. Pt states refused routine 1900 tx as she had a " sore throat et didnt feel well" currently audible wheezing, resp 32, sp02 94 on 2L N/C. Shruthi in resp tx aware. Initialized on 04/26/19 03:41 - END OF NOTE 04/26/19 03:00 Nursing Note by Lilo Michel Dr. notified of pt's increased HR 120s-140s, temp 101.1, new orders recd et implemented. 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 Initialized on 04/26/19 03:00 - END OF NOTE - Vitals & Intake/Output Vital Signs: Vital Signs Temperature 98.1 F 04/26/19 08:00 Pulse Rate 91 H 04/26/19 11:30 Respiratory Rate 24 04/26/19 10:54 Blood Pressure 74/57 04/26/19 11:30 O2 Sat by Pulse Oximetry 100 04/26/19 10:54 Intake & Output: Intake & Output 04/24/19 04/25/19 04/26/19 04/27/19 11:59 11:59 11:59 11:59 Intake Total 1576 3159 Output Total 200 2000 Balance 1376 1159 Weight 87.543 kg 83 kg - Lab Result Diagrams: 04/26/19 04:20 04/26/19 04:20 Lab Results-Last 24 Hrs: Lab Results-Last 24 Hours 04/26/19 04/26/19 04/26/19 Range/Units 02:24 02:24 02:24 WBC 7.0 (4.0-10.5) K/mm3 RBC 3.20 L (4.1-5.4) M/mm3 Hgb 8.9 L (12.0-16.0) gm/dl Hct 30.2 L (35-47) % MCV 94.4 (78-100) fl MCH 27.8 (26-32) pg MCHC 29.5 L (32-36) g/dl RDW 19.1 H (11.5-14.0) % Plt Count 232 (150-450) K/mm3 MPV 8.9 (7.5-11.0) fl Segmented Neutrophils 85 H (36.0-66.0) % Band Neutrophils 2 (0.0-2.0) % Lymphocytes (Manual) 6 L (24-44) % Monocytes (Manual) 7 (0.0-12.0) % Toxic Granulation RARE Platelet Estimate NORMAL (NORMAL) RBC Morphology ABNORMAL Poikilocytosis 1+ Anisocytosis 1+ Sodium (137-145) mmol/L Potassium (3.5-5.1) mmol/L Chloride (98-107) mmol/L Carbon Dioxide (22-30) mmol/L Anion Gap (5-15) MEQ/L BUN (7-17) mg/dL Creatinine (0.52-1.04) mg/dL Estimated GFR ML/MIN Glucose (74-106) mg/dL Calcium (8.4-10.2) mg/dL Total Bilirubin (0.2-1.3) mg/dL AST (14-36) U/L ALT (0-35) U/L Alkaline Phosphatase (38-126) U/L Serum Total Protein (6.3-8.2) g/dL Albumin (3.5-5.0) g/dL ABO Group O Rh Factor POSITIVE Antibody Screen NEGATIVE (NEGATIVE) Crossmatch COMPATIBLE COMPATIBLE (COMPATIBLE) 04/26/19 04/26/19 Range/Units 04:20 04:20 WBC 10.1 (4.0-10.5) K/mm3 RBC 3.27 L (4.1-5.4) M/mm3 Hgb 9.1 L (12.0-16.0) gm/dl Hct 31.0 L (35-47) % MCV 94.8 (78-100) fl MCH 27.8 (26-32) pg MCHC 29.4 L (32-36) g/dl RDW 19.2 H (11.5-14.0) % Plt Count 270 (150-450) K/mm3 MPV 9.2 (7.5-11.0) fl Segmented Neutrophils (36.0-66.0) % Band Neutrophils (0.0-2.0) % Lymphocytes (Manual) (24-44) % Monocytes (Manual) (0.0-12.0) % Toxic Granulation Platelet Estimate (NORMAL) RBC Morphology Poikilocytosis Anisocytosis Sodium 140 (137-145) mmol/L Potassium 2.7 L* (3.5-5.1) mmol/L Chloride 110 H (98-107) mmol/L Carbon Dioxide 24 (22-30) mmol/L Anion Gap 9.3 (5-15) MEQ/L BUN 30 H (7-17) mg/dL Creatinine 1.17 H (0.52-1.04) mg/dL Estimated GFR 49.7 ML/MIN Glucose 105 (74-106) mg/dL Calcium 8.9 (8.4-10.2) mg/dL Total Bilirubin 0.50 (0.2-1.3) mg/dL AST 29 (14-36) U/L ALT 14 (0-35) U/L Alkaline Phosphatase 56 (38-126) U/L Serum Total Protein 5.2 L (6.3-8.2) g/dL Albumin 2.9 L (3.5-5.0) g/dL ABO Group Rh Factor Antibody Screen (NEGATIVE) Crossmatch (COMPATIBLE) - Radiology Exams Ordered Rad Exams-Entire Visit: Radiology Procedures Category Date Time Status ABDOMEN AND PELVIS W/0 CONTRAS [CT] Stat Exams 04/24/19 13:07 Completed CHEST 1 VIEW (PORTABLE) Stat Exams 04/24/19 15:28 Completed - Procedures and Test Procedures and Tests throughout Hospitalization: Therapy Orders & Screens 04/24/19 16:37 Respiratory Therapy Consult ROUTINE Comment: Reason For Exam: 04/24/19 17:14 RT Screen per Nursing Assess ONCE Comment: Protocol Order Physician Instructions: Greater than 3 points order RT Admission Screen Reason For Exam: Triggered on Admission Diagnosis: weakness, leukocytosis Diagnosis: weakness, leukocytosis Pneumonia: No Home O2: Yes: 2l Asthma: No CHF: No Home CPAP/BIPAP: No Home Nebs/MDI: Yes Total Points: 10 Smoking Cessation Education ONCE Comment: Diagnosis: weakness, leukocytosis Smoking Status: Current every day smoker How long have you smoked: "40 years" Have you smoked in the past 12 months: Yes Approximately how many cigarettes per day: 6 Do you dip or chew tobacco: No If,Former Smoker,when did you quit: 09/09/2018 04/24/19 17:22 Peak Expiratory Flow Rate ONCE Comment: Reason For Exam: Diagnosis: weakness, leukocytosis Respiratory Therapy Assessment DAILY Comment: Diagnosis: weakness, leukocytosis 04/25/19 08:58 PT Eval & Treat (MD Order) ROUTINE Reason for Eval:: WEAKNESS Diagnosis: weakness, leukocytosis 04/26/19 00:25 Oxygen Nasal Cannula 2 lpm Comment: Diagnosis: weakness, leukocytosis 04/26/19 02:10 BiPap/CPAP STAT Comment: Diagnosis: weakness, leukocytosis Discharge Exam General Appearance: no apparent distress, alert Neurologic Exam: alert, oriented x 3, cooperative, normal mood/affect, nml cerebellar function, sensation nml, No motor deficits Eye Exam: PERRL, EOMI, eyes nml inspection Ears, Nose, Throat Exam: normal ENT inspection, pharynx normal, moist mucous membranes Neck Exam: normal inspection, non-tender, supple, full range of motion Respiratory Exam: normal breath sounds, lungs clear, No respiratory distress Cardiovascular Exam: regular rate/rhythm, normal heart sounds Gastrointestinal/Abdomen Exam: soft, No tenderness, No mass Pelvic Exam: deferred Rectal Exam: deferred Back Exam: normal inspection, normal range of motion, No CVA tenderness, No vertebral tenderness Extremity Exam: normal inspection, normal range of motion Skin Exam: normal color, warm, dry Final Diagnosis/Problem List - Final Discharge Diagnosis/Problem (1) Leukocytosis Status: Acute Code(s): D72.829 - ELEVATED WHITE BLOOD CELL COUNT, UNSPECIFIED (2) Weakness Status: Acute Code(s): R53.1 - WEAKNESS (3) Anemia Status: Chronic Code(s): D64.9 - ANEMIA, UNSPECIFIED (4) Hypotension Status: Acute Code(s): I95.9 - HYPOTENSION, UNSPECIFIED (5) Atrial fibrillation Status: Acute Code(s): I48.91 - UNSPECIFIED ATRIAL FIBRILLATION (6) COPD with exacerbation Status: Resolved Code(s): J44.1 - CHRONIC OBSTRUCTIVE PULMONARY DISEASE W ( ACUTE) EXACERBATION - Discharge Discharge Date: 04/26/19 Disposition: DC TO [facility] Condition: Stable Prescriptions: Continue Hydrochlorothiazide 25 mg [hydroDIURIL 25 MG] 12.5 mg PO DAILY Atorvastatin Calcium [Lipitor] 40 mg PO HS Budesonide/Formoterol Fumarate [Symbicort 160-4.5 Mcg Inhaler] 2 puff IH BID Albuterol 8 gm Mdi Hfa [Ventolin Hfa MDI] 2 puff IH QID Fluticasone Propionate [Flonase NASAL] 1 spray INTRANASAL DAILY Polyethylene Glycol 3350 [Miralax] 17 gm PO DAILY PRN PRN Reason: Constipation Hydroxychloroquine Sulfate [Plaquenil] 200 mg PO BID Albuterol Sulfate [Proair Hfa] 2 puff IH QID Metoclopramide HCl 5 mg PO Q8H Clopidogrel Bisulfate 75 mg [PLAVIX 75 MG Tablet] 75 mg PO DAILY Aspirin EC 81 mg [Ecotrin 81 mg] 81 mg PO DAILY Methotrexate Sodium [Methotrexate] 10 mg PO WEEKLY Albuterol/Ipratropium 3ml Neb* [DUONEB 0.5-3 MG/3 ml Neb] 3 ml IH QID Tiotropium [place] [Spiriva] 18 mcg IH DAILY Metoprolol Succinate 50 mg [Toprol Xl 50 MG] 50 mg PO BID Additional Instructions: DC TO [facility]. Follow up with: LISA BALDERRAMA MD [Primary Care Provider] - 1 Week
== END 2019-04-26 12:05 | disposition home or self-care (01) ==
LOC: ED 12:17 → MED SURG 16:29 → INTOOBSV 04-26 08:00 → OBSVTOIN 04-26 08:00 → ICU 04-26 08:01
PROVIDERS: ADMIT General Practice; ATTEND General Practice
DX: D72.829 Elevated white blood cell count, unspecified (principal); I95.9 Hypotension, unspecified; I48.91 Unspecified atrial fibrillation; R53.1 Weakness; D64.9 Anemia, unspecified; R10.9 Unspecified abdominal pain; E78.00 Pure hypercholesterolemia, unspecified; J44.1 Chronic obstructive pulmonary disease with (acute) exacerbation; Z79.899 Other long term (current) drug therapy; Z79.01 Long term (current) use of anticoagulants
CPT/HCPCS: 36000; 36415; 71045; 74176; 80048; 80053; 81001; 82150; 83605; 83690; 84484; 85025; 85027; 86850; 86900; 86901; 86922; 87086; 93005; 93041; 93268; 94002; 94150; 94640; 94760; 96360; 96361; 96374; 96375; 97161; 99285; G0378; J1265; J1940; J2060; J2405; J3480; J8610; A9270-GY

== ENCOUNTER 2019-06-19 17:34 | Emergency (ER) | payer MEDICARE ==
[2019-06-19 18:19] LABS: Hematocrit 36.5 % (35-47); Hemoglobin 11.4 gm/dl (12.0-16.0); Mean Cell Volume 100.8 fl (78-100); Mean Corpuscular Hemoglobin 31.5 pg (26-32); Mean Corpuscular Hgb Concent. 31.2 g/dl (32-36); Mean Platelet Volume 8.8 fl (7.5-11.0); Platelet Count 442 K/mm3 (150-450); Red Blood Count 3.62 M/mm3 (4.1-5.4); Red Cell Distribution Width 17.7 % (11.5-14.0); White Blood Count 24.4 K/mm3 (4.0-10.5)
[2019-06-19 18:30] LABS: ALBUMIN 3.6 g/dL (3.5-5.0); ALKALINE PHOSPHATASE 138 U/L (38-126); ANION GAP 10.7 MEQ/L (5-15); BLOOD UREA NITROGEN 22 mg/dL (7-17); CHLORIDE 104 mmol/L (98-107); Calcium 9.2 mg/dL (8.4-10.2); Carbon Dioxide 29 mmol/L (22-30); Creatinine 1 0.67 mg/dL (0.52-1.04); Glucose 129 mg/dL (74-106); MAGNESIUM 1.9 mg/dL (1.6-2.3); NT PRO BNP 2440 pg/mL (0-900); Potassium 3.3 mmol/L (3.5-5.1); SGOT/AST 21 U/L (14-36); SGPT/ALT 11 U/L (0-35); SODIUM 140 mmol/L (137-145); Total Protein 6.2 g/dL (6.3-8.2)
[2019-06-19 18:43] LABS: INFLUENZA A NEGATIVE (NEGATIVE); INFLUENZA B NEGATIVE (NEGATIVE); RESPIRATORY SYNCTIAL VIRUS NEGATIVE (Negative)
[2019-06-19 18:58] LABS: Appearance SLIGHTLY CLOUDY (CLEAR); Bilirubin SMALL (NEGATIVE); Blood NEGATIVE Ery/ul (0-5); Glucose NEGATIVE (NEGATIVE); Ketones NEGATIVE (NEGATIVE); Leukocyte Esterase NEGATIVE (NEGATIVE); Mucus SLIGHT /HPF (NEGATIVE); Nitrite NEGATIVE (NEGATIVE); Protein,Urine Dip NEGATIVE (Negative); Specific Gravity 1.031 (1.005-1.025); Urobilinogen 2 mg/dL (0-1)
[2019-06-19 19:53] LABS: BAND 2 % (0.0-2.0); Lymphocytes 5 % (24-44); Monocyte 1 % (0.0-12.0); Neutrophils 92 % (36.0-66.0); Total Cells Counted 100
[2019-06-19 19:54] LABS: ANISOCYTOSIS 2+; Hypochromia 1+; Platelet Estimate NORMAL (NORMAL); Poikilocytosis 2+
[2019-06-19] MEDS ORDERED: MORPHINE SULFATE 2 MG INJ IV ONE (21:10)
[2019-06-19] MEDS ORDERED: MORPHINE SULFATE 2 MG INJ ONE (21:27)
[2019-06-19] MEDS ORDERED: MORPHINE SULFATE 4 MG INJ IV ONE (22:00)
--- NOTE | 2019-06-19 22:03 | ERPHSYRPT ---
- History of Present Illness Time Seen by Provider: 06/19/19 17:50 Source: patient Exam Limitations: no limitations Patient Subjective Stated Complaint: pt reports falling last wednesday06/10/19, pt states at that time she injured her left mid back, as well as her left forearm. pt denies any LOC or head injury at that time. since then pt reports increased pain with inspiration. pt states that it hurts to move or take a deep breath. pt reports she wears oxygen per home use at 2 lpm. Triage Nursing Assessment: pt is aox3, pupils perrl, afebrile, pt resps shallow , pt lung sounds are clear throughout, radial pusles strong and equal, pt is tachycardic, cap refill < 3 seconds, pt skin pink warm dry. pt with scattered bruisings to the upper extremities, right breast, diffuse bruising to the back, skin tear noted to the left forearm. Physician History: Patient is a 64-year-old female presents to our ED with complaints of pleuritic chest pain. Patient states that she fell approximately 9 days ago. Patient was sitting on her toilet. The toilet shifted causing her to fall. Since then she has been experiencing pain. Pain worse with inspiration and movement. Pain improved with rest. Pain is gotten progressively worse. Patient has a history of PE DVT. She is currently on plavix. history of COPD. Patient on 2 L NC at home. Symptoms are moderate in intensity. No BHT or LOC. Patient voices no other complaints at this time. Patient advises staff that she had the watchman procedure done in January 2019 due to atrial fibrillation. Timing/Duration: week(s) Activities at Onset: none, other (fell) Severity of Dyspnea-Max: moderate Severity of Dyspnea-Current: moderate Possible Cause: no prior episodes Modifying Factors: Improves With: activity (Activity worsens pain.) Associated Symptoms: constant, cough, No fever, No weakness, No hemoptysis, No heaviness Allergies/Adverse Reactions: gabapentin Adverse Reaction (Intermediate, Verified 04/24/19 16:42) states "paralyses" her cannot move for 20 min after taking Home Medications: Atorvastatin Calcium [Lipitor] 40 mg PO HS 11/22/14 [History] Hydrochlorothiazide 25 mg [hydroDIURIL 25 MG] 12.5 mg PO DAILY 11/22/14 [ History] Albuterol 8 gm Mdi Hfa [Ventolin Hfa MDI] 2 puff IH QID 09/14/16 [History] Budesonide/Formoterol Fumarate [Symbicort 160-4.5 Mcg Inhaler] 2 puff IH BID 12/22 [History] Fluticasone Propionate [Flonase NASAL] 1 spray INTRANASAL DAILY 07/30/18 [ History] Polyethylene Glycol 3350 [Miralax] 17 gm PO DAILY PRN 08/02/18 [History] Albuterol Sulfate [Proair Hfa] 2 puff IH QID 12/12/18 [History] Hydroxychloroquine Sulfate [Plaquenil] 200 mg PO BID 12/12/18 [History] Metoclopramide HCl 5 mg PO Q8H 12/29/18 [History] Albuterol/Ipratropium 3ml Neb* [DUONEB 0.5-3 MG/3 ml Neb] 3 ml IH QID [History] Aspirin EC 81 mg [Ecotrin 81 mg] 81 mg PO DAILY 04/24/19 [History] Clopidogrel Bisulfate 75 mg [PLAVIX 75 MG Tablet] 75 mg PO DAILY 04/24/19 [History] Methotrexate Sodium [Methotrexate] 10 mg PO WEEKLY 04/24/19 [History] Metoprolol Succinate 50 mg [Toprol Xl 50 MG] 50 mg PO BID 04/24/19 [ History] Tiotropium [place] [Spiriva] 18 mcg IH DAILY 04/24/19 [History] Hx Tetanus, Diphtheria Vaccination/Date Given: Yes Hx Influenza Vaccination/Date Given: No Hx Pneumococcal Vaccination/Date Given: No Travel Risk - International Travel Have you traveled outside of the country in past 3 weeks: No Have you or anyone close to you been diagnosed with or: No Do your reside in a community with a known COVID-19 case?: Yes If Yes where:: [place] - Coronavirus Screening Has patient experienced Coronavirus symptoms: No - Review of Systems Constitutional: No Fever, No Chills Eyes: No Symptoms Ears, Nose, & Throat: No Symptoms Respiratory: Dyspnea, Dyspnea on Exertion (CORODVA), No Cough Cardiac: No Chest Pain, No Edema, No Syncope Abdominal/Gastrointestinal: No Symptoms, No Abdominal Pain, No Nausea, No Vomiting, No Diarrhea Genitourinary Symptoms: No Symptoms, No Dysuria Musculoskeletal: No Symptoms, No Back Pain, No Neck Pain Skin: No Symptoms, No Rash Neurological: No Symptoms, No Dizziness, No Focal Weakness, No Sensory Changes Psychological: No Symptoms Endocrine: No Symptoms Hematologic/Lymphatic: No Symptoms Immunological/Allergic: No Symptoms All Other Systems: Reviewed and Negative - Past Medical History Pertinent Past Medical History: Yes Neurological History: Stroke ENT History: No Pertinent History Cardiac History: Arrhythmia, High Cholesterol, Hypertension, Other Respiratory History: COPD Endocrine Medical History: No Pertinent History Musculoskeletal History: Osteoarthritis GI Medical History: GERD, GI Bleed, Ulcer History: No Pertinent History Psycho-Social History: No Pertinent History Female Reproductive Disorders: No Pertinent History Other Medical History: 01/2014 CVA, anemia,. stroke x2 - Past Surgical History Past Surgical History: Yes Neuro Surgical History: No Pertinent History Cardiac: No Pertinent History Respiratory: No Pertinent History Gastrointestinal: Cholecystectomy Genitourinary: No Pertinent History Musculoskeletal: Orthopedic Surgery Female Surgical History: No Pertinent History Other Surgical History: egd/colonoscopy/bilat carpal tunnel - Social History Smoking Status: Current every day smoker How long have you smoked: "40 years" Exposure to second hand smoke: Yes Drug Use: none Patient Lives Alone: No - Nursing Vital Signs Nursing Vital Signs: Initial Vital Signs Pulse Rate 118 H 06/19/19 17:35 Respiratory Rate 26 H 06/19/19 17:35 Blood Pressure 100/81 06/19/19 17:35 O2 Sat by Pulse Oximetry 100 06/19/19 17:35 Pain Scale Pain Intensity 5 - Physical Exam General Appearance: no apparent distress, alert Eye Exam: PERRL/EOMI Neck Exam: normal inspection, supple Respiratory Exam: normal breath sounds Cardiovascular/Chest Exam: normal heart sounds, regular rate/rhythm Abdominal/Gastrointestinal Exam: soft, No tenderness, No distention, No mass Extremity Exam: non-tender, normal range of motion, normal inspection, no calf tenderness, no pedal edema Neurologic Exam: alert, oriented x 3, cooperative, window caser II-XII nml as tested, sensation nml, No motor deficits Skin Exam: normal color, warm, No dry Lymphatic Exam: adenopathy SpO2 Interpretation: normal SpO2: 99 O2 Delivery: Nasal Cannula - Course Nursing assessment & vital signs reviewed: No EKG Interpreted by Me: Sinus Tach, Left Aldrich Deviation, NORMAL INTERVALS - CT Exams Chest CT Interpretation: Tele-radiologist Report (75% height loss T8 fracture) Abdomen/Pelvis CT Interpretation: Tele-radiologist Report (No acute intra-abdominal pathology. Bladder has a bubble possible post procedural gas or infection.) Ordered Tests: Active Orders 24 hr Category Date Time Status Veneer Marker STAT Care 06/19/19 17:41 Active EKG-ER Only STAT Care 06/19/19 17:39 Active EKG-ER Only STAT Care 06/19/19 22:13 Active IV Insertion STAT Care 06/19/19 17:39 Active Oxygen-ED Only Nasal Cannula 4 lpm Care 06/19/19 18:34 Active Pulse Oximetry (ED) STAT Care 06/19/19 17:39 Active ABDOMEN AND PELVIS W/0 CONTRAS [CT] Stat Exams 06/19/19 21:12 Taken CHEST 1 VIEW (PORTABLE) Stat Exams 06/19/19 17:41 Taken CHEST WITH CONTRAST [CT] Stat Exams 06/19/19 18:27 Taken CBC W DIFF Stat Lab 06/19/19 18:01 Completed CMP Stat Lab 06/19/19 18:01 Completed D-DIMER QUANTITATIVE Stat Lab 06/19/19 18:01 Completed MAGNESIUM Stat Lab 06/19/19 18:01 Completed Manual Differential NC Stat Lab 06/19/19 18:01 Completed NT PRO BNP Stat Lab 06/19/19 18:01 Completed TROPONIN Q3H Lab 06/19/19 18:01 Completed TROPONIN Q3H Lab 06/19/19 20:03 Received TROPONIN Q3H Lab 06/19/19 20:57 Completed TROPONIN Q3H Lab 06/20/19 02:45 Ordered TROPONIN Q3H Lab 06/20/19 05:45 Ordered UA W/RFX UR CULTURE Stat Lab 06/19/19 18:41 Completed Medication Summary Discontinued Medications Generic Name Dose Route Start Last Admin Trade Name Freq PRN Reason Stop Dose Admin Morphine Sulfate 2 mg 06/19/19 21:10 06/19/19 21:30 Morphine Sulfate 2 Mg Inj IV 06/19/19 21:11 2 mg STAT ONE Administration Morphine Sulfate Confirm 06/19/19 21:27 Morphine Sulfate 2 Mg Inj Administered 06/19/19 21:28 Dose 2 mg .ROUTE .STK-MED ONE Morphine Sulfate 4 mg 06/19/19 22:00 06/19/19 22:16 Morphine Sulfate 4 Mg Inj IV 06/19/19 22:01 4 mg STAT ONE Administration Morphine Sulfate Confirm 06/19/19 22:15 Morphine Sulfate 4 Mg Inj Administered 06/19/19 22:16 Dose 4 mg .ROUTE .STK-MED ONE Lab/Rad Data: Laboratory Result Diagrams 06/19/19 18:01 06/19/19 18:01 Laboratory Results 06/19/19 06/19/19 06/19/19 Range/Units Unknown 20:57 18:41 WBC (4.0-10.5) K/mm3 RBC (4.1-5.4) M/mm3 Hgb (12.0-16.0) gm/dl Hct (35-47) % MCV (78-100) fl MCH (26-32) pg MCHC (32-36) g/dl RDW (11.5-14.0) % Plt Count (150-450) K/mm3 MPV (7.5-11.0) fl Segmented Neutrophils (36.0-66.0) % Band Neutrophils (0.0-2.0) % Lymphocytes (Manual) (24-44) % Monocytes (Manual) (0.0-12.0) % Hypochromia Platelet Estimate (NORMAL) RBC Morphology Poikilocytosis Anisocytosis D-Dimer (215-500) ng/mL Sodium (137-145) mmol/L Potassium (3.5-5.1) mmol/L Chloride (98-107) mmol/L Carbon Dioxide (22-30) mmol/L Anion Gap (5-15) MEQ/L BUN (7-17) mg/dL Creatinine (0.52-1.04) mg/dL Estimated GFR ML/MIN Glucose (74-106) mg/dL Calcium (8.4-10.2) mg/dL Magnesium (1.6-2.3) mg/dL Total Bilirubin (0.2-1.3) mg/dL AST (14-36) U/L ALT (0-35) U/L Alkaline Phosphatase (38-126) U/L Troponin I 0.102 H* (0.000-0.034) ng/mL NT-Pro-B Natriuret Pep (0-900) pg/mL Serum Total Protein (6.3-8.2) g/dL Albumin (3.5-5.0) g/dL Urine Color GREGORY (YELLOW) Urine Appearance SLIGHTLY CLOUDY (CLEAR) Urine pH 5.0 (5-6) Ur Specific Gary 1.031 (1.005-1.025) Urine Protein NEGATIVE (Negative) Urine Ketones NEGATIVE (NEGATIVE) Urine Blood NEGATIVE (0-5) Jhonny/ul Urine Nitrite NEGATIVE (NEGATIVE) Urine Bilirubin SMALL (NEGATIVE) Urine Urobilinogen 2 (0-1) mg/dL Ur Leukocyte Esterase NEGATIVE (NEGATIVE) Urine WBC (Auto) 3-5 (0-5) /HPF Urine RBC (Auto) NONE (0-2) /HPF U Epithel Cells (Auto) NONE (FEW) /HPF Urine Mucus (Auto) SLIGHT (NEGATIVE) /HPF Urine Culture Reflexed NO (NO) Urine Glucose NEGATIVE (NEGATIVE) mg/dL Influenza Type A Ag NEGATIVE (NEGATIVE) Influenza Type B Ag NEGATIVE (NEGATIVE) RSV (PCR) NEGATIVE (Negative) 06/19/19 06/19/19 06/19/19 Range/Units 18:01 18:01 18:01 WBC (4.0-10.5) K/mm3 RBC (4.1-5.4) M/mm3 Hgb (12.0-16.0) gm/dl Hct (35-47) % MCV (78-100) fl MCH (26-32) pg MCHC (32-36) g/dl RDW (11.5-14.0) % Plt Count (150-450) K/mm3 MPV (7.5-11.0) fl Segmented Neutrophils (36.0-66.0) % Band Neutrophils (0.0-2.0) % Lymphocytes (Manual) (24-44) % Monocytes (Manual) (0.0-12.0) % Hypochromia Platelet Estimate (NORMAL) RBC Morphology Poikilocytosis Anisocytosis D-Dimer 3312 H* (215-500) ng/mL Sodium 140 (137-145) mmol/L Potassium 3.3 L (3.5-5.1) mmol/L Chloride 104 (98-107) mmol/L Carbon Dioxide 29 (22-30) mmol/L Anion Gap 10.7 (5-15) MEQ/L BUN 22 H (7-17) mg/dL Creatinine 0.67 (0.52-1.04) mg/dL Estimated GFR > 60.0 ML/MIN Glucose 129 H (74-106) mg/dL Calcium 9.2 (8.4-10.2) mg/dL Magnesium 1.9 (1.6-2.3) mg/dL Total Bilirubin 1.00 (0.2-1.3) mg/dL AST 21 (14-36) U/L ALT 11 (0-35) U/L Alkaline Phosphatase 138 H (38-126) U/L Troponin I 0.065 H* (0.000-0.034) ng/mL NT-Pro-B Natriuret Pep 2440 H (0-900) pg/mL Serum Total Protein 6.2 L (6.3-8.2) g/dL Albumin 3.6 (3.5-5.0) g/dL Urine Color (YELLOW) Urine Appearance (CLEAR) Urine pH (5-6) Ur Specific Gary (1.005-1.025) Urine Protein (Negative) Urine Ketones (NEGATIVE) Urine Blood (0-5) Jhonny/ul Urine Nitrite (NEGATIVE) Urine Bilirubin (NEGATIVE) Urine Urobilinogen (0-1) mg/dL Ur Leukocyte Esterase (NEGATIVE) Urine WBC (Auto) (0-5) /HPF Urine RBC (Auto) (0-2) /HPF U Epithel Cells (Auto) (FEW) /HPF Urine Mucus (Auto) (NEGATIVE) /HPF Urine Culture Reflexed (NO) Urine Glucose (NEGATIVE) mg/dL Influenza Type A Ag (NEGATIVE) Influenza Type B Ag (NEGATIVE) RSV (PCR) (Negative) 06/19/19 Range/Units 18:01 WBC 24.4 H (4.0-10.5) K/mm3 RBC 3.62 L (4.1-5.4) M/mm3 Hgb 11.4 L (12.0-16.0) gm/dl Hct 36.5 (35-47) % MCV 100.8 H (78-100) fl MCH 31.5 (26-32) pg MCHC 31.2 L (32-36) g/dl RDW 17.7 H (11.5-14.0) % Plt Count 442 (150-450) K/mm3 MPV 8.8 (7.5-11.0) fl Segmented Neutrophils 92 H (36.0-66.0) % Band Neutrophils 2 (0.0-2.0) % Lymphocytes (Manual) 5 L (24-44) % Monocytes (Manual) 1 (0.0-12.0) % Hypochromia 1+ Platelet Estimate NORMAL (NORMAL) RBC Morphology ABNORMAL Poikilocytosis 2+ Anisocytosis 2+ D-Dimer (215-500) ng/mL Sodium (137-145) mmol/L Potassium (3.5-5.1) mmol/L Chloride (98-107) mmol/L Carbon Dioxide (22-30) mmol/L Anion Gap (5-15) MEQ/L BUN (7-17) mg/dL Creatinine (0.52-1.04) mg/dL Estimated GFR ML/MIN Glucose (74-106) mg/dL Calcium (8.4-10.2) mg/dL Magnesium (1.6-2.3) mg/dL Total Bilirubin (0.2-1.3) mg/dL AST (14-36) U/L ALT (0-35) U/L Alkaline Phosphatase (38-126) U/L Troponin I (0.000-0.034) ng/mL NT-Pro-B Natriuret Pep (0-900) pg/mL Serum Total Protein (6.3-8.2) g/dL Albumin (3.5-5.0) g/dL Urine Color (YELLOW) Urine Appearance (CLEAR) Urine pH (5-6) Ur Specific Gary (1.005-1.025) Urine Protein (Negative) Urine Ketones (NEGATIVE) Urine Blood (0-5) Jhonny/ul Urine Nitrite (NEGATIVE) Urine Bilirubin (NEGATIVE) Urine Urobilinogen (0-1) mg/dL Ur Leukocyte Esterase (NEGATIVE) Urine WBC (Auto) (0-5) /HPF Urine RBC (Auto) (0-2) /HPF U Epithel Cells (Auto) (FEW) /HPF Urine Mucus (Auto) (NEGATIVE) /HPF Urine Culture Reflexed (NO) Urine Glucose (NEGATIVE) mg/dL Influenza Type A Ag (NEGATIVE) Influenza Type B Ag (NEGATIVE) RSV (PCR) (Negative) - Progress Progress: improved Air Movement: fair Progress Note: 06/19/19 22:55 Patient reassessed. Heart rate improved. Patient's pain much improved as well. Case discussed with patient's primary care doctor Dr. Balderrama who advises transfer to [facility] to involve Dr. Meng, our patient's division sergeant. Plan of care discussed with patient. She agrees to transfer to [facility] for further evaluation and treatment. Case discussed with Dr. Arrington who accepts admission to observation. 06/19/19 23:08 Discussed with : Kirstin Counseled pt/family regarding: lab results, diagnosis, rad results - Departure Departure Disposition: Transfer Clinical Impression: T8 vertebral fracture, Elevated troponin, Elevated brain natriuretic peptide ( BNP) level, Leukocytosis, Elevated d-dimer, Tachycardia Condition: Stable Critical Care Time: Yes Referrals: LISA BALDERRAMA MD [Primary Care Provider] -
[2019-06-19] MEDS ORDERED: MORPHINE SULFATE 4 MG INJ ONE (22:15)
[2019-06-19 23:53] VITALS: BP 103/79; PULSE 124; O2SAT 98
--- NOTE | 2019-06-20 08:33 | XRAY ---
Indication: Pain with inspiration. Elevated d-dimer. Multiple contiguous axial images obtained through the chest using 80 cc Isovue 370 contrast and PE protocol. Comparison: September 06, 2018. There is suboptimal opacification of the pulmonary arteries limiting evaluation of the more distal branches. No large central pulmonary embolus. Heart is not enlarged. Aorta is normal in course and caliber with minimal calcifications. Stable tiny mediastinal calcified nodes. No pathologic mediastinal/hilar lymphadenopathy. Lungs again demonstrates diffuse pulmonary emphysema, a few scattered tiny calcified granulomas, and minimal bibasilar fibrosis/scarring. No suspicious pulmonary mass, infiltrate, or effusion. Bony thorax again demonstrates osteopenia and mild degenerative changes throughout the spine. New T8 compression fracture with approximate 75% height loss of uncertain chronicity. CT abdomen reported separately. Impression: 1. Pulmonary embolus evaluation limited due to suboptimal contrast opacification. No large central pulmonary embolus or acute cardiopulmonary abnormalities. 2. New T8 compression fracture of uncertain chronicity. 3. Stable pulmonary emphysema and evidence for old granulomatous disease.
--- NOTE | 2019-06-20 08:35 | XRAY ---
Indication: Pain following fall. Comparison: April 24, 2019. Portable chest unchanged again hyperinflated and clear. Heart is not enlarged. Bony thorax intact again with mild osteopenia and degenerative changes. No new/acute findings.
--- NOTE | 2019-06-20 08:43 | XRAY ---
Indication: Left upper quadrant pain. Multiple contiguous axial images obtained through the abdomen and pelvis without contrast as ordered. Comparison: April 24, 2019. CT chest reported separately. Noncontrasted stomach and bowel loops appear nonobstructed. Normal appendix. Mid to distal transverse colon and descending colon now demonstrates mild wall thickening with minimal stranding favoring colitis. Tiny free fluid in the pelvis presumed reactive. No walled off fluid collection or free air. Stable minimal sigmoid diverticulosis. Stable cholecystectomy. Both kidneys excrete contrast from CT PE study performed earlier in the day. No suspicious solid/cystic renal mass, hydronephrosis, or hydroureter. Urinary bladder demonstrates new tiny intraluminal air bubble either iatrogenic from recent catheterization versus gas-forming bacterial infection. Remaining liver, pancreas, spleen, adrenal glands, and uterus appear unremarkable. Stable moderate aortoiliac calcifications without AAA. Osseous structures again demonstrates mild osteopenia, mild multilevel degenerative spondylosis, and minimal grade 1 L4 spondylolisthesis. Superior endplate of L5 demonstrates new endplate fracture with less than 25% height loss. Impression: 1. New transverse and descending colon bowel wall thickening with minimal stranding favoring colitis. Tiny reactive free fluid in the pelvis. 2. New urinary bladder intraluminal air bubble either iatrogenic versus gas-forming bacterial infection. 3. New minimal L5 superior endplate fracture. 4. Stable sigmoid diverticulosis, arteriosclerotic disease, and chronic bony findings.
== END 2019-06-19 23:53 | disposition short-term general hospital (02) ==
LOC: ED 17:34
DX: S22.069A Unspecified fracture of T7-T8 vertebra, initial encounter for closed fracture (principal); R79.89 Other specified abnormal findings of blood chemistry; D72.829 Elevated white blood cell count, unspecified; R00.0 Tachycardia, unspecified; R79.1 Abnormal coagulation profile; Z79.01 Long term (current) use of anticoagulants; J44.9 Chronic obstructive pulmonary disease, unspecified; R05 Cough; Z79.899 Other long term (current) drug therapy; E78.00 Pure hypercholesterolemia, unspecified; I10 Essential (primary) hypertension
CPT/HCPCS: 36415; 71045; 71260; 74176; 80053; 81001; 83735; 83880; 84484; 85025; 85379; 87631; 93005; 93041; 94760; 96374; 96376; 99285; J2270